=== PATIENT | female | born 1980 | race Hispanic/Latino ===

== ENCOUNTER 2018-01-04 20:33 | Emergency (ER) | payer OTHER ==
[2018-01-04] MEDS ORDERED: TETRACAINE HCL 0.5% 2ML OPTH ONE (20:54)
[2018-01-04] MEDS ORDERED: FLUORESCEIN SODIUM 0.6 MG/WRAP ONE (20:54)
[2018-01-04] MEDS ORDERED: DIPHENHYDRAMINE 25 MG TAB/CAP ONE (20:55)
--- NOTE | 2018-01-04 21:15 | ER ---
Nurse's Notes [facility] Name: Hannah Oneill Age: 37 yrs Sex: Female : 1980 Arrival Date: 01/04/2018 Time: 20:35 Bed 7 Private MD: Diagnosis: Hordeolum externum right upper eyelid;Eye irritation s/p medication Presentation: 01/04 20:41 Presenting complaint: Patient states: She came home from work and said she had a sty, aj1 so she used some OTC medication she got a HEB and as soon as applied the medication her eye started having a burning sensation, and now she can't open her eye. Transition of care: patient was not received from another setting of care. Mechanism of Injury: No Mechanism of Injury. Onset of symptoms was January 04, 2018 at 20:30. Risk Assessment: Do you want to hurt yourself or someone else? Patient reports no desire to harm self or others. Initial Sepsis Screen: Does the patient meet any 2 criteria? No. Patient's initial sepsis screen is negative. Does the patient have a suspected source of infection? No. Patient's initial sepsis screen is negative. Care prior to arrival: None. 20:41 Method Of Arrival: Ambulatory aj1 20:41 Acuity: MARY ANNE 3 aj1 20:59 The patient denies any loss of vision. lp1 Triage Assessment: 20:43 General: Appears in no apparent distress. uncomfortable, Behavior is calm, cooperative, aj1 appropriate for age. Pain: Complains of pain in right eye Pain. EENT: Reports right eye pain. Neuro: Level of Consciousness is awake, alert, obeys commands. Cardiovascular: Patient's skin is warm and dry. Respiratory: Airway is patent Respiratory effort is even, unlabored, Respiratory pattern is regular, symmetrical. 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 - Social history:: Smoking status: Patient uses tobacco products, smokes one-half pack cigarettes per day. - Ebola Screening: : Patient denies travel to an Ebola-affected area in the 21 days before illness onset. Screenin:58 Abuse screen: Denies threats or abuse. Denies injuries from another. Nutritional lp1 screening: No deficits noted. Tuberculosis screening: No symptoms or risk factors identified. Fall Risk None identified. Assessment: 20:57 General: Appears in no apparent distress. Behavior is appropriate for age. Pain: lp1 Complains of pain in right eye Pain currently is 8 out of 10 on a pain scale. Quality of pain is described as burning. Neuro: No deficits noted. Cardiovascular: No deficits noted. Respiratory: No deficits noted. GI: No deficits noted. : No deficits noted. EENT: Eyes edema, redness to right upper eye lid; patient states painful to move. Sclera/Cornea are clear in right eye. Derm: Skin is pink, warm \T\ dry. Musculoskeletal: No deficits noted. 21:00 Reassessment: Patient states relief to right eye after irrigation Patient states lp1 feeling better. Patient states symptoms have improved. Vital Signs: 20:43 BP 133 / 84; Pulse 97; Resp 18; Temp 97.6; Pulse Ox 97% on R/A; Weight 83.46 kg (R); aj1 Height 4 ft. 10 in. (147.32 cm) (R); Pain 10/10; 20:43 Body Mass Index 38.46 (83.46 kg, 147.32 cm) aj1 ED Course: 20:35 Patient arrived in ED. es 20:42 Triage completed. aj1 20:43 Arm band placed on Patient placed in an exam room. aj1 20:46 Bekah Platt FNP-C is PHCP. kb 20:46 Chay Gallo MD is Attending Physician. kb 20:57 Lelia Rodgers, KWESI is Primary Nurse. lp1 20:59 Patient has correct armband on for positive identification. lp1 20:59 Provider at bedside to irrigate right eye with NS. Patient did not have IV access lp1 during this emergency room visit. Administered Medications: 20:56 Drug: Tetracaine Drops 0.5 % 1 drops {Note: placed at bedside for provider to use.} ak1 Route: Ophthalmic; Site: right eye; 20:58 Drug: Benadryl 25 mg Route: PO; lp1 21:22 Follow up: Response: No adverse reaction; Marked relief of symptoms lp1 Outcome: 21:14 Discharge ordered by MD. hall 21:21 Discharged to home ambulatory, with significant other. lp1 21:21 Condition: good 21:21 Discharge instructions given to patient, Instructed on discharge instructions, Demonstrated understanding of instructions, follow-up care. 21:22 Patient left the ED. lp1 Signatures: Bekah Platt, HANDLE FINISHER-C HANDLE FINISHER-Ckb Tammy Nunez, RN RN aj1 Alice Serrano Laura RN RN lp1 Bindu Banda RN RN ak1
--- NOTE | 2018-01-04 21:15 | EDPHYS ---
Physician Documentation [facility] Name: Hannah Oneill Age: 37 yrs Sex: Female : 1980 Arrival Date: 01/04/2018 Time: 20:35 Bed 7 Private MD: ED Physician Chay Gallo HPI: 01/04 20:56 This 37 yrs old Female presents to ER via Ambulatory with complaints of Eye kb Pain, medication from over counter. 20:56 The patient is experiencing swelling of eyelid, pain, to the right eye, caused by kb "stye" mineral oil. Onset: The symptoms/episode began/occurred today. Duration: the symptoms are continuous. Aggravated by opening eye, Alleviated by nothing. Associated signs and symptoms: Pertinent positives: None. Severity of symptoms: At their worst the symptoms were moderate in the emergency department the symptoms are unchanged. The patient has not experienced similar symptoms in the past. The patient has not recently seen a physician. Pt states she has a stye that developed today so she bought some stuff for it at the store called "stye" and put it in her right eye. Immediately had burning to right eye, swelling to right eyelid. . 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 - Social history:: Smoking status: Patient uses tobacco products, smokes one-half pack cigarettes per day. - Ebola Screening: : Patient denies travel to an Ebola-affected area in the 21 days before illness onset. ROS: 20:56 Constitutional: Negative for fever, chills, and weight loss, Neck: Negative for injury, kb pain, and swelling, Cardiovascular: Negative for chest pain, palpitations, and edema, Respiratory: Negative for shortness of breath, cough, wheezing, and pleuritic chest pain, Abdomen/GI: Negative for abdominal pain, nausea, vomiting, diarrhea, and constipation, MS/Extremity: Negative for injury and deformity, Skin: Negative for injury, rash, and discoloration, Neuro: Negative for headache, weakness, numbness, tingling, and seizure. 20:56 Eyes: Positive for pain, swelling. Exam: 20:56 Constitutional: This is a well developed, well nourished patient who is awake, alert, kb and in no acute distress. Head/Face: Normocephalic, atraumatic. ENT: Nares patent. No nasal discharge, no septal abnormalities noted. Tympanic membranes are normal and external auditory canals are clear. Oropharynx with no redness, swelling, or masses, exudates, or evidence of obstruction, uvula midline. Mucous membranes moist. Neck: Trachea midline, no thyromegaly or masses palpated, and no cervical lymphadenopathy. Supple, full range of motion without nuchal rigidity, or vertebral point tenderness. No Meningismus. Chest/axilla: Normal chest wall appearance and motion. Nontender with no deformity. No lesions are appreciated. Cardiovascular: Regular rate and rhythm with a normal S1 and S2. No gallops, murmurs, or rubs. Normal PMI, no JVD. No pulse deficits. Respiratory: Lungs have equal breath sounds bilaterally, clear to auscultation and percussion. No rales, rhonchi or wheezes noted. No increased work of breathing, no retractions or nasal flaring. Abdomen/GI: Soft, non-tender, with normal bowel sounds. No distension or tympany. No guarding or rebound. No evidence of tenderness throughout. Back: No spinal tenderness. No costovertebral tenderness. Full range of motion. Skin: Warm, dry with normal turgor. Normal color with no rashes, no lesions, and no evidence of cellulitis. MS/ Extremity: Pulses equal, no cyanosis. Neurovascular intact. Full, normal range of motion. Neuro: Awake and alert, GCS 15, oriented to person, place, time, and situation. Cranial nerves II-XII grossly intact. Motor strength 5/5 in all extremities. Sensory grossly intact. Cerebellar exam normal. Normal gait. 20:56 Eyes: Periorbital structures: appear normal, Pupils: equal, round, and reactive to light and accomodation, Conjunctiva: normal, Lids and lashes: edema, of the right eye, stye, seen on the right lid. Vital Signs: 20:43 BP 133 / 84; Pulse 97; Resp 18; Temp 97.6; Pulse Ox 97% on R/A; Weight 83.46 kg (R); aj1 Height 4 ft. 10 in. (147.32 cm) (R); Pain 10/10; 20:43 Body Mass Index 38.46 (83.46 kg, 147.32 cm) aj1 MDM: 20:46 Patient medically screened. kb 21:02 Data reviewed: vital signs, nurses notes. Data interpreted: Pulse oximetry: on room air kb is 97 %. Interpretation: normal. Counseling: I had a detailed discussion with the patient and/or guardian regarding: the historical points, exam findings, and any diagnostic results supporting the discharge/admit diagnosis, the need for outpatient follow up, a family practitioner, to return to the emergency department if symptoms worsen or persist or if there are any questions or concerns that arise at home. ED course: tetracaine drops instilled into right eye. Opened eye and flushed with 60cc NS. Pt reports decreased burning, able to open right eye without pain. Educated to stop medication that she put in her eye for the stye.. Administered Medications: 20:56 Drug: Tetracaine Drops 0.5 % 1 drops {Note: placed at bedside for provider to use.} ak1 Route: Ophthalmic; Site: right eye; 20:58 Drug: Benadryl 25 mg Route: PO; lp1 21:22 Follow up: Response: No adverse reaction; Marked relief of symptoms lp1 Disposition: 01/05 07:24 Co-signature as Attending Physician, Chay Gallo MD I agree with the assessment and jae plan of care. Disposition: 01/04/18 21:14 Discharged to Home. Impression: Hordeolum externum right upper eyelid, Eye irritation s/p medication . - Condition is Stable. - Discharge Instructions: Stye. - Medication Reconciliation Form, Thank You Letter, Antibiotic Education, Prescription Opioid Use form. - Follow up: Emergency Department; When: As needed; Reason: Worsening of condition. Follow up: Private Physician; When: 2 - 3 days; Reason: Recheck today's complaints, Continuance of care, Re-evaluation by your physician. Signatures: Bekah Platt, PITER GOMEZ-Tammy Rojas, RN RN aj1 Chay Gallo MD MD cha Pena, Laura, RN RN lp1 Bindu Banda RN RN ak1 Corrections: (The following items were deleted from the chart) 01/04 21:22 21:14 01/04/2018 21:14 Discharged to Home. Impression: Hordeolum externum right upper lp1 eyelid; Eye irritation s/p medication . Condition is Stable. Forms are Medication Reconciliation Form, Thank You Letter, Antibiotic Education, Prescription Opioid Use. Follow up: Emergency Department; When: As needed; Reason: Worsening of condition. Follow up: Private Physician; When: 2 - 3 days; Reason: Recheck today's complaints, Continuance of care, Re-evaluation by your physician. kb
== END 2018-01-04 21:22 | disposition home or self-care (01) ==
LOC: ER 20:33
DX: H00.011 Hordeolum externum right upper eyelid (principal); Z88.8 Allergy status to other drugs, medicaments and biological substances; E03.9 Hypothyroidism, unspecified; F17.210 Nicotine dependence, cigarettes, uncomplicated; Z88.5 Allergy status to narcotic agent; Z88.6 Allergy status to analgesic agent; Z91.018 Allergy to other foods; Z91.040 Latex allergy status
CPT/HCPCS: 99283

== ENCOUNTER 2019-08-05 22:25 | Emergency (ER) | payer OTHER ==
--- OUTSIDE RECORDS SUMMARY | 2019-08-05 22:44 | XMS REPORT | Summary of Care ---
:1980 Author Organization [facility] Address [address] [place] [id number] Care Team Providers Name Role Phone Jacqueline Winn MD Primary Care Provider Tech, Cardio Fac Unavailable Unavailable Boo Fontaine MD Unavailable Reason for Visit Reason Comments HEALTH MAINTENANCE Medication Refills Encounter Details Date Type Department Care Team Description 11/01/2018 Telephone [facility] Mika Bennett RN HEALTH MAINTENANCE Accountable [address] (Medication Refills) [address] [place] [address] [place] [address] Allergies Active Allergy Reactions Severity Noted Date Comments Bee [place] Anaphylaxis 08/14/2017 [place] Swelling 02/18/2016 Clams Swelling 02/18/2016 Tree Nuts Other - See comments 02/18/2016 Throat itching / raw Latex Itching 12/04/2015 Morphine Shortness of Breath 12/04/2015 Ibuprofen Hives 12/04/2015 Pork Derived (Porcine) Swelling 02/18/2016 documented as of this encounter (statuses as of 11/01/2018) Medications Medication Sig Dispensed Refills Start End Date Status Date aspirin 81 mg chewable Take 81 mg by 0 Active tablet mouth daily. varenicline (CHANTIX Take one 0.5mg 1 Package 0 Active STARTING MONTH BOX) 0.5 tab by mouth once 8 mg (11)- 1 mg (42) tablet daily for 3 days, then one 0.5mg tab twice daily for 4 days, then one 1mg tab twice daily. efinaconazole (JUBLIA) 10 APPLY 2 DROPS TO 4 mL 5 11/16/2 01 Active % topical AFFECTED TOENAIL 8 solutionIndications: DAILY Onychomycosis EPINEPHrine (EPIPEN 0.3 mL by 2 Each 1 Active 2-RUTH) 0.3 mg/0.3 mL Intramuscular 8 injectionIndications: route as needed History of food allergy (anaphylaxis). ergocalciferol, vitamin 1 capsule by 8 capsule Active d2, (VITAMIN D2) 50,000 mouth 2 x a week 8 unit capsuleIndications: with food Vitamin D deficiency escitalopram oxalate 10 Take 1 tablet by 30 tablet Active mg tabletIndications: mouth daily. 8 PTSD (post-traumatic stress disorder), Panic disorder with agoraphobia, Chronic depression Lancets MiscIndications: Check glucose 50 Each Active Controlled type 2 every morning 8 diabetes mellitus without before breakfast complication, without and as needed for long-term current use of symptoms; insulin Diagnosis code R73.03 levocetirizine 5 mg Take 0.5-1 30 tablet Active tabletIndications: tablets by mouth 8 Chronic allergic rhinitis every evening as needed for Allergies. vitamin B-12 (VITAMIN Take 1 tablet by 30 tablet Active B-12) 500 mcg mouth daily. 8 tabletIndications: B12 deficiency levothyroxine 125 mcg Take 1 tablet by 30 tablet Active tabletIndications: mouth every 9 Acquired hypothyroidism morning. albuterol (PROAIR HFA) 90 Inhale 2 Puffs 1 Inhaler 2 Active mcg/actuation every 6 (six) 9 inhalerIndications: hours as needed Medication refill for Wheezing or Shortness of Breath. montelukast 10 mg Take 1 tablet by 30 tablet 5 Active tabletIndications: mouth every 9 Medication refill evening. ranitidine 150 mg Take 1 tablet by 60 tablet Active tabletIndications: mouth 2 (two) 9 Medication refill times daily. albuterol 2.5 mg /3 mL Inhale 3 mL every 120 Vial 1 Active (0.083 %) nebulizer 4 (four) hours as 9 solutionIndications: needed for Bronchitis with Wheezing or bronchospasm Shortness of Breath. Via nebulizer omeprazole 40 mg Take 1 capsule by 30 capsule 5 Active capsuleIndications: mouth daily. 9 Medication refill LIOTHYRONINE 5 mcg TAKE 1 TABLET BY 30 tablet 5 Active tabletIndications: MOUTH EVERY 9 Acquired hypothyroidism MORNING. Blood-Glucose Meter Check glucose 1 Each 0 Active (ACCU-CHEK LEIDY PLUS once daily before 9 METER) MiscIndications: breakfast; Controlled type 2 Diagnosis code diabetes mellitus without E11.9 complication, without long-term current use of insulin blood sugar diagnostic TEST BLOOD SUGAR 100 Strip 11 Active (ACCU-CHEK LEIDY PLUS TID; ICD-10 code 9 TEST STRP) E11.69 stripIndications: Diabetes mellitus type 2 in obese Insulin [place], Use as directed 100 Each 1 Active Disposable, (BD to inject Victoza 9 ULTRA-FINE MICRO PEN daily; ID-10 code NEEDLE) 32 gauge x 1/4" E11.69 NdleIndications: Diabetes mellitus type 2 in obese tiZANidine 2 mg Take 1 tablet by 30 tablet 1 Active tabletIndications: Muscle mouth every 8 9 pain (eight) hours as needed (muscle pain or spasm). fluticasone 50 Use 2 Sprays in 16 g 5 Active mcg/actuation nasal each nostril 9 sprayIndications: daily. Medication refill rosuvastatin 40 mg Take 1 tablet by 30 tablet 5 Active tabletIndications: mouth at bedtime. 9 Hypercholesterolemia DOSE INCREASE. EZETIMIBE 10 mg TAKE ONE (1) 90 tablet 3 A ctive tabletIndications: TABLET(S) BY 9 Hypercholesterolemia MOUTH ONCE A DAY. cefdinir 300 mg Take 1 capsule by 20 capsule 0 11/09 Active capsuleIndications: Acute mouth 2 (two) 9 19 bacterial sinusitis, times daily for Acute bacterial 10 days. 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 (HSV) antibody 01/02/2017 Headache disorder 12/14/2016 Obesity (BMI 30-39.9) 11/11/2016 Seizure 11/07/2016 Female hirsutism 10/24/2016 Submandibular sialoadenitis 07/22/2016 Hyperinsulinemia 07/20/2016 Heart palpitations 07/11/2016 Obstructive sleep apnea 04/13/2016 LUQ abdominal pain 01/28/2016 Gastroesophageal reflux disease without esophagitis Onychomycosis 12/25/2015 Seborrhea 12/25/2015 Chronic allergic rhinitis 12/25/2015 Fatty liver 12/16/2015 Acquired autoimmune hypothyroidism 12/09/2015 Abnormal liver function test 12/09/2015 Hypercholesterolemia 12/09/2015 Diabetes mellitus type 2 in obese 12/09/2015 Microscopic hematuria 12/09/2015 B12 deficiency 12/09/2015 Vitamin D deficiency 12/09/2015 Pseudoseizures 12/04/2015 Migraines 12/04/2015 Depression Asthma Overview: Current documented as of this encounter (statuses as of 11/01/2018) Immunizations Name Administration Dates Next Due Influenza Virus Vaccine Quad IM 12/25/2015 Multi-dose 6+ MO Twinrix (hep a/hep b) 07/08/2016, 01/29/2016, 12/25/2015 documented as of this encounter Social History Tobacco Use Types Packs/Day Years Used Date Current Every Day Smoker Smokeless Tobacco: Never Used Alcohol Use Drinks/Week oz/Week Comments No 0 Standard drinks or equivalent 0.0 Rare Sex Assigned at Date Recorded Not on file Job Start Date Occupation Industry Not on file Not on file Not on file Travel History Travel Start Travel End No recent travel history available. documented as of this encounter Last Filed Vital Signs Not on filedocumented in this encounter Plan of Treatment Date Type Specialty Care Team Description 11/14/2018 Office Visit Gastroenterology Karina Tyson PA [address] [place] [address] [phone] 11/26/2018 Office Visit Neurology Marcus Madison MD [address] [place], [place] [phone] 12/24/2018 Office Visit Family Medicine Winnie Winn MD [address] [place] [phone] Health Maintenance Due Date Last Done Comments PNEUMOCOCCAL 0-64 YEARS COMBINED 1986 SERIES (1 of 1 - PPSV23) VARICELLA VACCINES (1 of 2 - 13+ 1993 2-dose series) DTaP,Tdap,and Td Vaccines (1 - 1999 Tdap) FOOT EXAM 11/28/2018 11/28/2017, 11/28/2017, 08/14/2017, Additional history exists INFLUENZA VACCINE 12/09/2018 12/25/2015 EYE EXAM 02/08/2019 02/08/2018, 01/08/2018 PAP SMEAR 02/17/2019 02/18/2016 URINE MICROALBUMIN 02/23/2019 02/23/2018 HgA1C 03/23/2019 09/21/2018, 05/31/2018, 02/23/2018, Additional history exists CREATININE (SERUM) 09/22/2019 09/21/2018, 05/31/2018, 02/23/2018, Additional history exists LDL-C 09/22/2019 09/21/2018, 05/31/2018, 02/23/2018, Additional history exists documented as of this encounter Goals Goal Patient Goal Associated Recent Patient-Stated? Author Type Problems Progress Quit using Tobacco Use No [place], tobacco Wondiful A, (cigarettes, smokeless, etc) documented as of this encounter Results Not on filedocumented in this encounter Insurance Payer Benefit Plan / Subscriber ID Effective Phone Address [facility] [id number] 2018-Pre Medicar e Adv HEALTHCARE - HEALTHCARE sent PPO MANAGED MEDICARE [place] MEDICARE [place] xxxxxxxxx 2017-Pr Me dicaid HEALTHCARE COMM PLUS esent PLAN - MANAGED MEDICAID [employer] [id number] 2016-Pre [address] BOX Beh avioral [facility] sent [id number] [place] [address] documented as of this encounter Advance Directives Name Relationship Healthcare Agent Relationship Co mmunication Juliann Oneill Mother Primary healthcare agent [email or web address]
--- OUTSIDE RECORDS SUMMARY | 2019-08-05 22:44 | XMS REPORT ---
:1980 Author Organization [facility] Address [address] [place] [address] Dr. Juarez [address] [place] [address] Care Team Providers Name Role Phone Unavailable Unavailable Unavailable Problems This patient has no known problems. Allergies, Adverse Reactions, Alerts This patient has no known allergies or adverse reactions. Medications This patient has no known medications.
--- OUTSIDE RECORDS SUMMARY | 2019-08-05 22:45 | XMS REPORT | Summary of Care ---
:1980 Author Organization [facility] - [facility] Address [address] [place] [id number] Care Team Providers Name Role Phone Jacqueline Winn MD Primary Care Provider Tech, Cardio Fac Unavailable Unavailable Boo Fontaine MD Unavailable Reason for Visit Reason Comments Refill Request Encounter Details Date Type Department Care Team Description 11/26/2018 Refill [facility] Family Medicine Jacqueline Thomas MD Refill Request - [address] [place] [address] [place] [address] [phone] Allergies Active Allergy Reactions Severity Noted Date Comments Bee [place] Anaphylaxis 08/14/2017 [place] Swelling 02/18/2016 Clams Swelling 02/18/2016 Tree Nuts Other - See comments 02/18/2016 Throat itching / raw Latex Itching 12/04/2015 Morphine Shortness of Breath 12/04/2015 Ibuprofen Hives 12/04/2015 Pork Derived (Porcine) Swelling 02/18/2016 documented as of this encounter (statuses as of 11/26/2018) Medications Medication Sig Dispensed Refills Start End Status Date Date aspirin 81 mg chewable Take 81 mg by 0 Active tablet mouth daily. varenicline (CHANTIX Take one 0.5mg 1 Package 0 11/29/19 Active STARTING MONTH BOX) 0.5 tab by mouth 18 mg (11)- 1 mg (42) once daily for 3 tablet days, then one 0.5mg tab twice daily for 4 days, then one 1mg tab twice daily. efinaconazole (JUBLIA) APPLY 2 DROPS TO 4 mL 5 02/24/20 Active 10 % topical AFFECTED TOENAIL 18 solutionIndications: DAILY Onychomycosis EPINEPHrine (EPIPEN 0.3 mL by 2 Each 1 02/24/20 Active 2-RUTH) 0.3 mg/0.3 mL Intramuscular 18 injectionIndications: route as needed History of food allergy (anaphylaxis). ergocalciferol, vitamin 1 capsule by 8 capsule 5 02/24/20 Active d2, (VITAMIN D2) 50,000 mouth 2 x a week 18 unit with food capsuleIndications: Vitamin D deficiency escitalopram oxalate 10 Take 1 tablet by 30 tablet 5 02/24/20 Active mg tabletIndications: mouth daily. 18 PTSD (post-traumatic stress disorder), Panic disorder with agoraphobia, Chronic depression Lancets Check glucose 50 Each 02/24/20 Active MiscIndications: every morning 18 Controlled type 2 before breakfast diabetes mellitus and as needed without complication, for symptoms; without long-term Diagnosis code current use of insulin R73.03 levocetirizine 5 mg Take 0.5-1 30 tablet 5 02/24/20 Active tabletIndications: tablets by mouth 18 Chronic allergic every evening as rhinitis needed for Allergies. vitamin B-12 (VITAMIN Take 1 tablet by 30 tablet 02/24/20 Active B-12) 500 mcg mouth daily. 18 tabletIndications: B12 deficiency albuterol (PROAIR HFA) Inhale 2 Puffs 1 Inhaler 2 04/19/19 Active 90 mcg/actuation every 6 (six) 19 inhalerIndications: hours as needed Medication refill for Wheezing or Shortness of Breath. montelukast 10 mg Take 1 tablet by 30 tablet 5 04/19/19 Active tabletIndications: mouth every 19 Medication refill evening. ranitidine 150 mg Take 1 tablet by 60 tablet 5 04/19/19 Active tabletIndications: mouth 2 (two) 19 Medication refill times daily. albuterol 2.5 mg /3 mL Inhale 3 mL 120 Vial 1 04/19/19 Active (0.083 %) nebulizer every 4 (four) 19 solutionIndications: hours as needed Bronchitis with for Wheezing or bronchospasm Shortness of Breath. Via nebulizer omeprazole 40 mg Take 1 capsule 30 capsule 5 04/19/19 Active capsuleIndications: by mouth daily. 19 Medication refill LIOTHYRONINE 5 mcg TAKE 1 TABLET BY 30 tablet 5 05/08/19 Active tabletIndications: MOUTH EVERY 19 Acquired hypothyroidism MORNING. Blood-Glucose Meter Check glucose 1 Each 0 05/31/19 Active (ACCU-CHEK LEIDY PLUS once daily 19 METER) MiscIndications: before Controlled type 2 breakfast; diabetes mellitus Diagnosis code without complication, E11.9 without long-term current use of insulin blood sugar diagnostic TEST BLOOD SUGAR 100 Strip 11 07/20/19 Active (ACCU-CHEK LEIDY PLUS TID; ICD-10 code 19 TEST STRP) E11.69 stripIndications: Diabetes mellitus type 2 in obese Insulin [place], Use as directed 100 Each 1 07/20/19 Active Disposable, (BD to inject 19 ULTRA-FINE MICRO PEN Victoza daily; NEEDLE) 32 gauge x 1/4" ID-10 code NdleIndications: E11.69 Diabetes mellitus type 2 in obese tiZANidine 2 mg Take 1 tablet by 30 tablet 1 09/22/19 Active tabletIndications: mouth every 8 Muscle pain (eight) hours as needed (muscle pain or spasm). fluticasone 50 Use 2 Sprays in 16 g 5 09/22/19 Active mcg/actuation nasal each nostril 19 sprayIndications: daily. Medication refill rosuvastatin 40 mg Take 1 tablet by 30 tablet 5 09/29/19 Active tabletIndications: mouth at 19 Hypercholesterolemia bedtime. DOSE INCREASE. EZETIMIBE 10 mg TAKE ONE (1) 90 tablet 3 10/03/19 A ctive tabletIndications: TABLET(S) BY 19 Hypercholesterolemia MOUTH ONCE A DAY. methylPREDNISolone 4 mg Follow package 21 Each 0 10/31/19 Active tabletsIndications: directions 19 Acute bacterial sinusitis, Acute bacterial bronchitis LEVOTHYROXINE 125 mcg TAKE ONE (1) 30 tablet 4 11/27/19 Active tabletIndications: TABLET(S) BY 19 Acquired hypothyroidism MOUTH EVERY MORNING. levothyroxine 125 mcg Take 1 tablet by 30 tablet 5 04/11/19 0 tabletIndications: mouth every 2018 Acquired hypothyroidism morning. documented as of this encounter (statuses as of 11/26/2018) Active Problems Problem Noted Date Hair loss [...] as of this encounter (statuses as of 11/26/2018) Immunizations Name Administration Dates Next Due Influenza [...] Treatment Date Type Specialty Care Team Description 12/24/2018 Office Visit Family Medicine Winnie Winn MD [address] [place] [phone] 03/04/2019 Office Visit Neurology Marcus Madison MD [address] [place], [place] [phone] 05/28/2019 Office Visit Neurology Marcus Madison MD [address] [place] [phone] Health Maintenance Due Date Last Done Comments PNEUMOCOCCAL 0-64 YEARS COMBINED 1986 SERIES (1 of 1 - PPSV23) VARICELLA VACCINES (1 of 2 - 13+ 1993 2-dose series) DTaP,Tdap,and Td Vaccines (1 - 1999 Tdap) FOOT EXAM 11/28/2018 11/28/2017, 11/28/2017, 08/14/2017, Additional history exists INFLUENZA VACCINE (#1) 2018 12/25/2015 EYE EXAM 02/08/2019 02/08/2018, 01/08/2018 PAP SMEAR 02/17/2019 02/18/2016 URINE MICROALBUMIN 02/23/2019 02/23/2018 HgA1C 03/23/2019 09/21/2018, 05/31/2018, 02/23/2018, Additional history exists CREATININE (SERUM) 09/22/2019 09/21/2018, 05/31/2018, 02/23/2018, Additional history exists LDL-C 09/22/2019 09/21/2018, 05/31/2018, 02/23/2018, Additional history exists documented as of this encounter Goals Goal Patient Goal Associated Recent Patient-Stated? Author Type Problems Progress Quit using Tobacco Use No [place], tobacco Wondiful A, (cigarettes, MD smokeless, etc) documented as of this encounter Results Not on filedocumented in this encounter Visit Diagnoses Diagnosis Acquired hypothyroidism Unspecified hypothyroidism documented in this encounter Insurance Payer Benefit Plan / Subscriber ID Effective Phone Address T ype Group Dates [facility] [id number] 2018-Prese Medic are Adv HEALTHCARE - HEALTHCARE nt PPO MANAGED MEDICARE [place] MEDICARE [place] [employer] xxxxxxxxx 2017-Pres Medicaid HEALTHCARE COMM PLUS ent PLAN - MANAGED MEDICAID documented as of this encounter Advance Directives Name Relationship Healthcare Agent Relationship Co mmunication Juliann Oneill Mother Primary healthcare agent [email or web address]
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
--- OUTSIDE RECORDS SUMMARY | 2019-08-05 22:46 | XMS REPORT | Summary of Care ---
:1980 Author Organization [facility] Address [address] [place] [address] Care Team Providers Name Role Phone Jacqueline Winn MD Primary Care Provider Tech, Cardio Fac Unavailable Unavailable Boo Fontaine MD Unavailable Reason for Visit Reason Comments Botox Injection (Routine) Status Reason Specialty Diagnoses / Procedures Referred By Rolando zhaoerred To Contact Contact Authorized Neurology Diagnoses Migraine without aura, not intractable, without status migrainosus Marcus Madison V, Marcus Madison Procedures NH INJECTION,ONABOTULINUMTOXINA NH CHEMODERVATE FACIAL/TRIGEM/CERV MUSC MIGRAINE MD Adal MD [address] [place] [phone] Phone: Fax: Encounter Details Date Type Department Care Team Description 11/26/[address] [facility] Marcus Madison V, Migraine without aura and without status migrainosus, not intractable (Primary Dx); NeurologyOrion MD Pseudoseizures; [address] Mood disorder; [address] [place], [place] Acquired autoimmune hypothyroidism [address] [address] [place], [place] [phone] [address] [phone] Allergies Active Allergy Reactions Severity Noted Date Comments Bee Bruce Anaphylaxis 08/14/2017 Anna Swelling 02/18/2016 Clams Swelling 02/18/2016 Tree Nuts Other - See comments 02/18/2016 Throat itching / raw Latex Itching 12/04/2015 Morphine Shortness of Breath 12/04/2015 Ibuprofen Hives 12/04/2015 Pork Derived (Porcine) Swelling 02/18/2016 documented as of this encounter (statuses as of 11/27/2018) Medications Medication Sig Dispensed Refills Start End [...] (VITAMIN Take 1 tablet by 30 tablet 5 02/24/20 Active B-12) 500 mcg mouth daily. [...] 40 mg Take 1 capsule 30 capsule 04/19/19 Active capsuleIndications: by mouth daily. 19 [...] sugar diagnostic TEST BLOOD SUGAR 100 Strip 07/20/19 Active (ACCU-CHEK LEIDY PLUS TID; ICD-10 code 19 TEST STRP) E11.69 stripIndications: Diabetes mellitus type 2 in obese Insulin [place], Use as directed 100 Each 07/20/19 Active Disposable, (BD to inject 19 ULTRA-FINE MICRO PEN Victoza daily; NEEDLE) 32 gauge x 1/4" ID-10 code NdleIndications: E11.69 Diabetes mellitus type 2 in obese tiZANidine 2 mg Take 1 tablet by 30 tablet 1 09/22/19 Active tabletIndications: mouth every 8 19 Muscle pain (eight) hours as needed (muscle pain or spasm). fluticasone 50 Use 2 Sprays in 16 g 09/22/19 Active mcg/actuation nasal each nostril 19 sprayIndications: daily. Medication refill rosuvastatin 40 mg Take 1 tablet by 30 tablet 5 09/29/19 Active tabletIndications: mouth at 19 Hypercholesterolemia bedtime. DOSE INCREASE. EZETIMIBE 10 mg TAKE ONE (1) 90 tablet 3 10/03/19 A ctive tabletIndications: TABLET(S) BY 19 Hypercholesterolemia MOUTH ONCE A DAY. methylPREDNISolone 4 mg Follow package 21 Each 0 10/31/19 Active tabletsIndications: Acute bacterial sinusitis, Acute bacterial bronchitis levothyroxine 125 mcg Take 1 tablet by 30 tablet 5 04/11/19 0 tabletIndications: mouth every 2018 Acquired hypothyroidism morning. Hospital, Clinic, or Other Ordered Dose Route Frequency Start Date End Date Status Facility Administered Medication clostridium botulinum toxin 200 Units IM ONCE 11/26/2018 0 11/26/2018 Ended (BOTOX) 200 Units in NaCl 0.9% (NS) 4 mL injection documented as of this encounter (statuses as of 11/27/2018) Active Problems Problem Noted Date Hair loss [...] as of this encounter (statuses as of 11/27/2018) Immunizations Name Administration Dates Next Due Influenza [...] Sign Reading Time Taken Comments Blood Pressure 126/76 11/26/2018 1:18 PM CDT Pulse 87 11/26/2018 1:18 PM CDT Temperature - - Respiratory Rate 20 11/26/2018 1:18 PM CDT Oxygen Saturation 97% 11/26/2018 1:18 PM CDT Inhaled Oxygen Concentration - - Weight 82 kg (180 lb 12.8 oz) 11/26/2018 1:18 PM CDT Height 147.3 cm (4' 10") 11/26/2018 1:18 PM CDT Body Mass Index 37.79 11/26/2018 1:18 PM CDT documented in this encounter Progress Notes Siri Fortune MA - 11/26/2018 1:00 PM CDT Hannah Oneill is a 38 year old female Chief Complaint Patient presents with Botox Injection atel, Marcus Galeas MD - 11/26/2018 1:00 PM CDT DATE OF SERVICE: 11/23/2018 20:29 Visit type: follow up CHIEF COMPLAINT: seizure and headache Follow up visit: 11/26/18 She is here for headache follow up, accompanied by . Her migraine headache frequency is about almost 0-1 in first 11 weeks, last week she had 3 in row. Duration of headache is daily.No ED visits. Able to carry out daily activities. Has been using botox for prevention and Excedrin for rescue. Last botox August 2018. No adverse reactions.Mood is stable. No suicidal or homicidal ideation. Bought the house, stress has improved. Follow up visit: 08/20/18 Patient is here for follow up. She received last botox injection in 05/29. Her headache are well controlled with Botox at present. Headache frequency is about 1-2 per month And lasts about few hours.No new neurological symptoms. No seizure like episodes. Mood is stable. NO suicidal or homicidal ideation. Stress has increased as in process of getting house closing. Follow up visit 05/28/18 Patient presented to the clinic accompanied by her for follow up. The last botox injection was on 03/05/18. Patient had severe headache after last botox injection. However, patient states that her headache is improved with botox injection except the short period of worsening headache after botox injection. At that time, she believes that her anxiety also contributed to her headache. Currently, she has 2-3 times headache a week, has been using 10 Excedrin a week. She had almost daily headache before the botox injection. Patient denies any new neurological symptoms and wants to get botox injection today. Follow up visit: 03/05/18 Patient is here for follow up, accompanied by . Migraine frequency has increased. Has been using 10-14 Excedrin a month. Botox has helped a lot with reduction in frequency. NO adverse reactions.Sleep is normal. Mood is Stable. Compliance with hydration. Follow up visit: 12/12/17 Patient is here for follow up. Her migraine is well controlled with preventive treatment of botox. Her headache frequency is reduced to twice a month. No adverse reactions. Mood is stable. Sleep is normal. NO stressors. She keeps herself well hydrated. Interval history: 08/21/2017 Hannah Oneill is a 37 year old female presents for clinic followup for botox therapy. Patient states that she has had 8 headaches/3 months after receiving the botox therapy. Prior to that she states that she use to have daily headaches. No adverse events reported s/p botox. Follow up visit: 05/15/17 Patient is here for follow up. Last botox injection helped a lot with migraine however, migraine hasreturned since last 2 weeks. She has stopped taking Topamax as it was not helping initially and botox has helped her a lot. No new symptoms. Has stopped using Esgic. Follow with Psychiatrist for Bipolar disorder and PTSD. Mood stable. No suicidal or homicidal thoughts. HPI 01/10/17 Hannah Oneill is a 36 year old female with PMH as below who was presented to the clinic today aftershe was diagnosed with PNES at [facility] in October this year. Patient reports that she had two episodes of seizure like activity after she was discharged from EMU. Topamax was discontinued after the EMU. She had 10-12 migraines per month before she stopped topamax.Patient reports that she started having morefrequent migraines after her topamax was stopped. She described his migraine as preceded by strangesmelling, flashing light, located at the back of the head, spreading to the frontal head, associatedwith nausea, photophobia and phonophobia, 17-18 migraines per month in frequency, lasting about 6 hours. Esgic makes the headache better, activity makes the headache worse. Currently, she esgic 4 tablets almost everyday for her head. She denies any vision change, focal weakness or numbness. She has an appointment with psychiatry on 01/18 for her PNES. HPI 08/12/16 Hannah Oneill is a 36 year old right handed female came for evaluation for possible seizure, accompanied by . Per patient, her episodes started about 8 years ago. She underwent Allergy testing ended up rushed to ED. Per patient she coded twice in ED for 3 mins and she was admitted to ICU.She stayed in ICU and she believes her seizures started around that time. She can not describe her details. She was discharged home on Tegretol. She was on Tegretol for 6 months and she was advised to switch. However, she lost her insurance and was not on any medication until she consulted DR. Ge at [facility]. She underwent 72hours EEG and Imagine studies( not available to me). 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 She was on Topamax 25am [id number] for seizures. She feels sleepy on it. However,she has hypothyroidism and her dose has recently increased and JOEY for which she has started using CPAP for last 2 months. Sleepes 6 hours. Currently living with for 3 years. No sz for 1 st year, restarted after that. Per , episode as staring for 3-4 mons followed by right face jerking and b/l eye flutter. Followed by b/l tonic spasm of hands and legs. Spasm last about couple of days and full recovery of mentation takes about 1 week. sometimes can recall episode. Some episodes with Urinary incontinence. No tongue biting or Stool incontinence. Has not checked Blood sugar during episode. Normal and development, no febrile seizure , no head trauma, high school graduate, does not work FH- seizure, grandmother, aunt and Both parents side On Lexapro for anxiety and depression which is well controlled per patient Has not tried other AEDS PMH- Anxiety ,depression, dm, hypothyroidism PSH- Hysterectomy after second child, tubal ligation FH- seizures SH- never a smoker, no alcohol or drug use, post menopausal Past Medical History: Diagnosis Date Abnormal uterine [...] / has lost whole baldder on occation ? Past Surgical History: Procedure Laterality Date ABDOMEN SURGERY PROC UNLISTED Hernia Repair post tubal 2002 APPENDECTOMY ESOPHAGOGASTRODUODENOSCOPY N/A 07/01/2016 Surgeon: Sean Rodriguez MD; Location: [place] Location ESOPHAGOGASTRODUODENOSCOPY N/A 09/06/2016 Surgeon: Jonny Enriquez MD; Location: [facility] Location HERNIA REPAIR HYSTERECTOMY 2009 due to DUB, still has ovaries KNEE ARTHROSCOPY bilateral RADICAL HYSTERECTOMY SALPINGECTOMY ? tube removed /not sure was very infected post tubal 2002 TUBAL LIGATION 2002 ? Current Outpatient Medications Medication Sig Dispense Refill methylPREDNISolone 4 mg tablets Follow package directions 21 Each 0 EZETIMIBE 10 mg tablet TAKE ONE (1) [...] ICD-10 code E11.69 100 Strip 11 Insulin [place], Disposable, (BD ULTRA-FINE MICRO PEN NEEDLE) 32 gauge x 1/4" Ndle Use as directed to inject Victoza daily; ID-10 code E11.69 100 Each 1 Blood-Glucose Meter (ACCU-CHEK LEIDY PLUS METER) [facility] Check glucose once daily before breakfast;Diagnosis code [...] by mouth daily. 30 tablet 5 Lancets [facility] Check glucose every morning before breakfast and [...] Take 81 mg by mouth daily. No current facility-administered medications for this visit. ? Allergies Allergen Reactions Bee Bruce Anaphylaxis Anna Swelling Clams Swelling Coconut [Tree Nuts] Other - See comments Throat itching / raw Latex Itching Morphine Shortness of Breath Motrin [Ibuprofen] Hives Pork Derived (Porcine) Swelling Family History Problem Relation Age of Onset [...] Psychiatry NoFHx Other - see comments NoFHx ? Social History Socioeconomic History Marital status: Single [...] file Gets together: Not on file Attends mandaen service: Not on file Active member of [...] seizure d/o. Denies domestic or physical violence REVIEW OF SYSTEM General: (-) fever, (-) chills, (-) weight change, (-) dizziness, (+) fatigue, (-) change in appetite Skin: (-) rash, (-) lesion HEENT: (+) headache, (-) change in hearing, (-) change in vision, (-) nasal discharge, (-) sore throat Neck: (-) pain, (-) difficulty swallowing, (-) mass Heme: (-) bleeding disorder Resp: (-) cough, (-) shortness of breath, (-) dyspnea on exertion Cardio: (-) chest pain, (-) palpitations, (-) syncope GI: (-) abdominal pain, (-) nausea, (-) vomiting, (-) diarrhea, (-) constipation, (-) melena, (-) hematochezia, (-) hematemesis : (-) dysuria, (-) hematuria, (-) increased frequency, (-) difficulty urinating, (-) difficulty initiating Endo: (-) heat intolerance, (-) diabetes, (-) cold intolerance, (-) polyuria, (- ) polydipsia, (-) renal insufficiency, (-) thyroid disease Neuro: (-) numbness, (-) tingling, (-) weakness Back: (-) pain, (-)spasms TREVON: (-) muscle pain, (-) joint pain, (-) claudication Psych: (-) anxiety, (+) depression, (-) psychiatric disorder PHYSICAL EXAM Vitals: 11/26/18 1318 BP: 126/76 Pulse: 87 Resp: 20 SpO2: 97% Weight: 180 lb 12.8 oz (82 kg) Height: 4' 10" (1.473 m) General: alert and oriented x 4 (time,person, place and situation); no apparent distress Mental Status: consciousness, attention, concentration, fund of knowledge , remote and recent memory: normal Speech/ Language: intact to comprehension, fluency, repetition and naming. CN: I. Not tested. II. PERRL. FOV full to confrontation. Discs visualized, no papilledema. III., IV., . Extraocular movements intact without nystagmus. V. Normal sensation in V1-3 distributions. VII. No facial droop noted. VIII. Hearing intact. IX., X. Palatal elevation and gag response present symmetrically. XI. Normal Strength of sternocleidomastoid and trapezius muscles bilaterally. XII. Tongue in midline. Motor: Tone : normal , Bulk: normal, Muscle strength: Deltoid:right 5/5,left 5/5 Biceps: right 5/5, left 5/5 Triceps: right 5/5, left 5/5 Wrist Flexion: right 5/5, left 5/5 Wrist Extension: right 5/5, left 5/5 Finger Flexion: right 5/5, left 5/5 Finger Extension: right 5/5, left 5/5 Iliopsoas: right 5/5, left 5/5 Knee Flexion/Hamstrings: right 5/5, left 5/5 Knee Extension/Quadriceps: right 5/5, left 5/5 Plantar Flexion: right 5/5, left 5/5 Dorsi Flexion: right 5/5, left 5/5 DTR's: Biceps: right 2, left 2 Triceps: right 2, left 2 Brachioradialis: right 2, left 2 Patellar: right 2, left 2 Achilles: right 2, left 2 Reflexes: Babinski: neg, Haynes :neg, Jaw Jerk: neg Cerebellar: Nystagmus:neg, FTN: nl, HTS:nl, Tremors:neg Sensory: LT: intact, temperature: intact, PP: intact, proprioception: intact, Vibration: intact Gait: normal Exptrapyramidal signs: No abnormal movements seen, no abnormal posture seen. HEENT: pupils equal, round, reactive to light; extraocular movements intact; oropharynx clear; moistmucous membranes Lungs: clear to auscultation bilaterally Cardio: S1, S2 normal Extremities:no cyanosis,clubbing or edema Neck:supple,no carotid bruit,no JVD Abdomen: soft; non-tender; non-distended; normoactive bowel sounds heard LAB DATA Reviewed labs RADIOLOGY/IMAGING Reviewed brain MRI (04/19/16) PROCEDURE NOTE: Indication: Refractory Migraine headaches Type Of Botulinum Toxin:Botox Today`s date- 11/26/18 Last Injected:08/20/18 Side Effects: N/A Duration and Effect: N/A Total Units Diluted: 200 units (200unit in 4 cc) Total Units Injected: 155 units Wastage: 45 units Informed Consent was obtained, standard protocol was used Botox lot number [id number], Expiration 2021, single 200 units vial Muscles Injected Right-dose left-dose Dose in units Procerus 5 5 Furnace Filler 5 5 10 Frontalis 5x2 5x2 20 Temporalis 5x4 5x4 40 occipitalis 5x3 5x3 30 Cervical spinalis 5x2 5x2 20 Trepezius 5x3 5x3 30 Total Units injected 155 Wastage 45 ASSESSMENT/ RECOMMENDATIONS/PLAN Intractable migraine with aura without status migrainosus (primary encounter diagnosis) Comment: stable Plan: botox injection today -currently takes excedrin for breakthrough headaches, as needed <3 days/week with PPI/H2 blockersand meals -Magnesium 400mg daily and Riboflavin 400mg daily -MOA and adverse reactions discussed - Rebound headache - Consider Toradol injection for breakthrough migraine - Can consider Zofran and Benadryl if needed in future to avoid ED visit Pseudoseizures- no AEDS, stress relaxation Bipolar disorder/PTSD Plan: follow up with psychiatry Acquired autoimmune hypothyroidism- follow up with PCP Plan: on levothyroxine and liothyronine Heart palpitations, frequency PVC Plan: follow up with cardiology Total time spent>30 mins, >50% time counseling/coordinating care for Migraine, pseudoseizure, mood disorder, thyroid dysfunction Total time spent > 30 mins for the botox procedure. Informed consent was obtained. Patient tolerated procedure well. No complications. Follow up in 3 months and 6 months documented in this encounter Plan of Treatment Date Type Specialty Care Team Description 12/24/2018 Office Visit Family Medicine Winnie Winn MD [address] [place] [address] [phone] 03/04/2019 Office Visit Neurology Marcus Madison MD [address] [place] [address] [phone] 05/28/2019 Office Visit Neurology Marcus Madison MD [address] [place] [address] [phone] Health Maintenance Due Date Last Done [...] Problems Progress Quit using Tobacco Use No [place], tobacco Wondiful A, (cigarettes, MD smokeless, etc) documented as of this encounter Results Not on filedocumented in this encounter Visit Diagnoses Diagnosis Migraine without aura and without status migrainosus, not intractable - Primary Migraine without aura, without mention o f intractable migraine without mention of status migrainosus Pseudoseizures Other convulsions Mood disorder Unspecified episodic mood disorder Acquired autoimmune hypothyroidism Other specified acquired hypothyroidism documented in this encounter Administered Medications Medication Order MAR Action Action Date Dose Rate Site clostridium botulinum Given by Provider 11/26/2018 1:59 PM 200 Units Face toxin (BOTOX) 200 Units in CDT NaCl 0.9% (NS) 4 mL injection documented in this encounter Insurance Payer Benefit Plan / Subscriber ID Effective Phone Address T e Group Dates [facility] [id number] 2018-Prese Medic are Adv HEALTHCARE - HEALTHCARE nt PPO MANAGED MEDICARE SILVER MEDICARE [place] xxxxxxxxx 2017-Pres Medicaid HEALTHCARE COMM PLUS ent PLAN - MANAGED MEDICAID documented as of this encounter Advance Directives Name Relationship Healthcare Agent Relationship Co mmunication Juliann Oneill Mother Primary healthcare agent [email or web address]
--- OUTSIDE RECORDS SUMMARY | 2019-08-05 22:47 | XMS REPORT | Summary of Care ---
:1980 Author Organization [facility] Address [address] [place], [place] [address] Care Team Providers Name Role Phone Jacqueline Winn MD Primary Care Provider Tech, Cardio Fac Unavailable Unavailable Boo Fontaine MD Unavailable Reason for Visit Reason Comments Results Encounter Details Date Type Department Care Team Description 12/03/2018 Telephone [facility] Family Medicine Jacqueline Thomas MD Results - [address] [address] [place] [address] [phone] Allergies Active Allergy Reactions Severity Noted Date Comments Bee [place] Anaphylaxis 08/14/2017 Spring Swelling 02/18/2016 Clams Swelling 02/18/2016 Tree Nuts Other - See comments 02/18/2016 Throat itching / raw Latex Itching 12/04/2015 Morphine Shortness of Breath 12/04/2015 Ibuprofen Hives 12/04/2015 Pork Derived (Porcine) Swelling 02/18/2016 documented as of this encounter (statuses as of 12/03/2018) Medications Medication Sig Dispensed Refills Start End [...] APPLY 2 DROPS TO 4 mL 5 01 Active % topical AFFECTED TOENAIL 8 [...] mcg mouth daily. 8 tabletIndications: B12 deficiency albuterol (PROAIR HFA) 90 Inhale 2 Puffs 1 Inhaler 2 Active mcg/actuation every 6 (six) 9 inhalerIndications: hours as needed Medication refill for Wheezing or Shortness of Breath. montelukast 10 mg Take 1 tablet by 30 tablet Active tabletIndications: mouth every 9 Medication refill [...] mg Take 1 capsule by 30 capsule Active capsuleIndications: mouth daily. 9 Medication refill [...] Diabetes mellitus type 2 in obese Insulin [place], Use as directed 100 Each 1 Active Disposable, (BD to inject Victoza 9 ULTRA-FINE MICRO PEN daily; ID-10 code NEEDLE) 32 gauge x 1/4" E11.69 NdleIndications: Diabetes mellitus type 2 in obese fluticasone 50 Use 2 Sprays in 16 g 5 Active mcg/actuation nasal each nostril 9 sprayIndications: daily. Medication refill rosuvastatin 40 mg Take 1 tablet by 30 tablet 5 Active tabletIndications: mouth at bedtime. 9 Hypercholesterolemia DOSE INCREASE. EZETIMIBE 10 mg TAKE ONE (1) 90 tablet 3 A ctive tabletIndications: TABLET(S) BY 9 Hypercholesterolemia MOUTH ONCE A DAY. methylPREDNISolone 4 mg Follow package 21 Each 0 Active tabletsIndications: Acute directions 9 bacterial sinusitis, Acute bacterial bronchitis LEVOTHYROXINE 125 mcg TAKE ONE (1) 30 tablet 4 Active tabletIndications: TABLET(S) BY 9 Acquired hypothyroidism MOUTH EVERY MORNING. tiZANidine 4 mg Take 1 tablet by 60 tablet 0 Active tabletIndications: Muscle mouth every 8 9 pain, Muscle cramps (eight) hours as needed (muscle pain or spasm). magnesium oxide 400 mg Take 1 tablet by 60 tablet 0 Active magnesium TabIndications: mouth 2 (two) 9 Muscle cramps, Muscle times daily. pain documented as of this encounter (statuses as of 12/03/2018) Active Problems Problem Noted Date Hair loss [...] as of this encounter (statuses as of 12/03/2018) Immunizations Name Administration Dates Next Due Influenza [...] Office Visit Family Medicine Winnie Winn MD [address] [place] [address] [phone] 03/04/2019 Office Visit Neurology Marcus Madison MD [address] [place], [place] [phone] 05/28/2019 Office Visit Neurology Marcus Madison MD [address] [place] [address] [phone] Health Maintenance Due Date Last Done [...] 02/17/2019 02/18/2016 URINE MICROALBUMIN 02/23/2019 02/23/2018 HgA1C 06/02/2019 11/30/2018, 09/21/2018, 05/31/2018, Additional history exists LDL-C 09/22/2019 09/21/2018, 05/31/2018, 02/23/2018, Additional history exists CREATININE (SERUM) 12/01/2019 11/30/2018, 09/21/2018, 05/31/2018, Additional history exists documented as of this encounter Goals Goal Patient Goal Associated Recent Patient-Stated? Author Type Problems Progress Quit using Tobacco Use No [place], tobacco Wondiful A, (cigarettes, MD smokeless, etc) documented as of this encounter Results Not on filedocumented in this encounter Insurance Payer Benefit Plan / Subscriber ID Effective Phone Address T ype Group Dates [facility] [id number] 2018-Prese Medic are Adv HEALTHCARE - HEALTHCARE nt PPO MANAGED MEDICARE SILVER MEDICARE [place] xxxxxxxxx 2017-Pres Medicaid HEALTHCARE COMM PLUS ent PLAN - MANAGED MEDICAID documented as of this encounter Advance Directives Name Relationship Healthcare Agent Relationship Co mmunication Juliann Rodrigues Primary healthcare agent [email or web address]
--- OUTSIDE RECORDS SUMMARY | 2019-08-05 22:47 | XMS REPORT | Summary of Care ---
:1980 Author Organization [facility] Address [address] [place] [id number] Care Team Providers Name Role Phone Jacqueline Winn MD Primary Care Provider Tech, Cardio Fac Unavailable Unavailable Boo Fontaine MD Unavailable Reason for Visit Reason Comments Assessment Encounter Details Date Type Department Care Team Description 11/29/2018 Telephone [facility] Pediatric and Jacqueline Bello MD Assessment Adult Primary Care- [address] [place] [address] [address] [facility] , [address] [place] [address] Allergies Active Allergy Reactions Severity Noted Date Comments Bee [place] Anaphylaxis 08/14/2017 [place] Swelling 02/18/2016 Clams Swelling 02/18/2016 Tree Nuts Other - See comments 02/18/2016 Throat itching / raw Latex Itching 12/04/2015 Morphine Shortness of Breath 12/04/2015 Ibuprofen Hives 12/04/2015 Pork Derived (Porcine) Swelling 02/18/2016 documented as of this encounter (statuses as of 11/29/2018) Medications Medication Sig Dispensed Refills Start End [...] Diabetes mellitus type 2 in obese Insulin [place], Use as directed 100 Each 1 Active [...] BY 9 Acquired hypothyroidism MOUTH EVERY MORNING. documented as of this encounter (statuses as of 11/29/2018) Active Problems Problem Noted Date Hair loss [...] as of this encounter (statuses as of 11/29/2018) Immunizations Name Administration Dates Next Due Influenza [...] Treatment Date Type Specialty Care Team Description 11/30/2018 Office Visit Family Medicine Winnie Winn MD [address] [place], [place] [phone] 12/24/2018 Office Visit Family Medicine Winnie Winn MD [address] [place], [place] [phone] 03/04/2019 Office Visit Neurology Marcus Madison MD [address] [address] [phone] 05/28/2019 Office Visit Neurology Marcus Madison MD [address] [place], [place] [phone] Health Maintenance Due Date Last Done [...] Use No [place], tobacco Wondiful A, (cigarettes, smokeless, etc) documented as of this encounter Results Not on filedocumented in this encounter Insurance Payer Benefit Plan / Subscriber ID Effective Phone Address T ype Group Dates [facility] [id number] 2018-Prese Medic are Adv HEALTHCARE - HEALTHCARE nt PPO MANAGED MEDICARE [place]VER MEDICARE [place] xxxxxxxxx 2017-Pres Medicaid HEALTHCARE COMM PLUS ent PLAN - MANAGED MEDICAID documented as of this encounter Advance Directives Name Relationship Healthcare Agent Relationship Co mmunication Juliann Oneill Mother Primary healthcare agent [email or web address]
--- OUTSIDE RECORDS SUMMARY | 2019-08-05 22:47 | XMS REPORT | Summary of Care ---
:[address] [facility] Address [address] [place] [address] Care Team Providers Name Role Phone Jacqueline Winn MD Primary Care Provider Tech, Cardio Fac Unavailable Unavailable Boo Fontaine MD Unavailable Reason for Visit Reason Comments Botox Injection (Routine) Status Reason Specialty Diagnoses / Procedures Referred By Rolando zhaoerred To Contact Contact Authorized Neurology Diagnoses Migraine without aura, not intractable, without status migrainosus Marcus Madison V, Marcus Madison Procedures AR INJECTION,ONABOTULINUMTOXINA AR CHEMODERVATE FACIAL/TRIGEM/CERV MUSC MIGRAINE MD Adal MD [address] [place] [phone] Phone: Fax: Encounter Details Date Type Department Care Team Description 11/26/2018 Office Visit [facility] Marcus Madison V, Migraine without aura and without status migrainosus, not intractable (Primary Dx); NeurologyOrion MD Pseudoseizures; [address] Mood disorder; [address] [place], [place] Acquired autoimmune hypothyroidism [phone] [place], [place] [phone] [address] [phone] Allergies Active Allergy Reactions Severity Noted Date Comments Bee [place] Anaphylaxis 08/14/2017 [place] Swelling 02/18/2016 Clams Swelling 02/18/2016 Tree Nuts [...] Diabetes mellitus type 2 in obese Insulin [place], Use as directed 100 Each 07/20/19 Active [...] today 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 Patient reports that [...] medication until she consulted DR. Ge at [facility]. She underwent 72hours EEG and Imagine studies( not available to me). 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 She was on Topamax 25am [id number] for seizures. She feels sleepy on it. [...] N/A 07/01/2016 Surgeon: Sean Rodriguez MD; Location: [place] OR Location ESOPHAGOGASTRODUODENOSCOPY N/A 09/06/2016 Surgeon: Jonny [...] ICD-10 code E11.69 100 Strip 11 Insulin [place], Disposable, (BD ULTRA-FINE MICRO PEN NEEDLE) 32 gauge x 1/4" Ndle Use as directed to inject Victoza daily; ID-10 code E11.69 100 Each 1 Blood-Glucose Meter (ACCU-CHEK LEIDY PLUS METER) [facility] Check glucose once daily before breakfast;Diagnosis code [...] by mouth daily. 30 tablet 5 Lancets [facility] Check glucose every morning before breakfast and [...] this visit. ? Allergies Allergen Reactions Bee [place] Anaphylaxis [place] Swelling Clams Swelling Coconut [Tree Nuts] Other [...] file Gets together: Not on file Attends mandaeism service: Not on file Active member of [...] standard protocol was used Botox lot number [id number], Expiration 2021, single 200 units vial Muscles Injected Right-dose left-dose Dose in units Procerus 5 5 Chute Puller 5 5 10 Frontalis 5x2 5x2 20 [...] Office Visit Family Medicine Winnie Winn MD [address] [place] [phone] 03/04/2019 Office Visit Neurology Marcus Madison MD [address] [place] [phone] 05/28/2019 Office Visit Neurology Marcus Madison MD [address] [phone] Health Maintenance Due Date Last Done [...] Problems Progress Quit using Tobacco Use No [place], tobacco Wondiful A, (cigarettes, MD smokeless, etc) [...] Effective Phone Address T e Group Dates [facility] [id number] 2018-Prese Medic are Adv HEALTHCARE - HEALTHCARE nt PPO MANAGED MEDICARE [place]VER MEDICARE [place] xxxxxxxxx 2017-Pres Medicaid HEALTHCARE COMM PLUS ent PLAN - MANAGED MEDICAID documented as of this encounter Advance Directives Name Relationship Healthcare Agent Relationship Co mmunication Juliann Oneill Mother Primary healthcare agent [email or web address]
--- OUTSIDE RECORDS SUMMARY | 2019-08-05 22:48 | XMS REPORT | Summary of Care ---
:1980 Author Organization [facility] Address [address] [place] [address] Care Team Providers Name Role Phone Jacqueline Winn MD Primary Care Provider Tech, Cardio Fac Unavailable Unavailable Boo Fontaine MD Unavailable Reason for Visit Reason Comments Orders med changes Encounter Details Date Type Department Care Team Description 12/05/2018 Telephone [facility] Family Jacqueline Winn O rdkathy (med changes) Medicine - Minh SHRESTHA [address] [place] [address] [place], [place] [phone] Allergies Active Allergy Reactions Severity Noted Date Comments Bee [place] Anaphylaxis 08/14/2017 [place] Swelling 02/18/2016 Clams Swelling 02/18/2016 Tree Nuts Other - See comments 02/18/2016 Throat itching / raw Latex Itching 12/04/2015 Morphine Shortness of Breath 12/04/2015 Ibuprofen Hives 12/04/2015 Pork Derived (Porcine) Swelling 02/18/2016 documented as of this encounter (statuses as of 12/05/2018) Medications Medication Sig Dispensed Refills Start End [...] capsuleIndications: by mouth daily. 19 Medication refill Blood-Glucose Meter Check glucose 1 Each 0 [...] Diabetes mellitus type 2 in obese Insulin [place], Use as directed 100 Each 1 07/20/19 Active Disposable, (BD to inject 19 ULTRA-FINE MICRO PEN Victoza daily; NEEDLE) 32 gauge x 1/4" ID-10 code NdleIndications: E11.69 Diabetes mellitus type 2 in obese fluticasone [...] BY 19 Acquired hypothyroidism MOUTH EVERY MORNING. tiZANidine 4 mg Take 1 tablet by 60 tablet 0 12/01/19 Active tabletIndications: mouth every 8 Muscle pain, Muscle (eight) hours as cramps needed (muscle pain or spasm). magnesium oxide 400 mg Take 1 tablet by 60 tablet 0 12/01/19 Active magnesium mouth 2 (two) 19 TabIndications: Muscle times daily. cramps, Muscle pain LIOTHYRONINE 5 mcg TAKE 1 TABLET BY 30 tablet 5 05/08/19 08/2 8/ Discontinued tabletIndications: MOUTH EVERY 2018 Acquired hypothyroidism MORNING. documented as of this encounter (statuses as of 12/05/2018) Active Problems Problem Noted Date Hair loss [...] as of this encounter (statuses as of 12/05/2018) Immunizations Name Administration Dates Next Due Influenza [...] Office Visit Family Medicine Winnie Winn MD [address] [place] [phone] 03/04/2019 Office Visit Neurology Marcus Madison MD [address] [address] [phone] 05/28/2019 Office Visit Neurology Marcus Madison MD [address] [place], [place] [phone] Health Maintenance Due Date [...] Effective Phone Address T e Group Dates [facility] [id number] 2018-Prese Medic are Adv HEALTHCARE - HEALTHCARE nt PPO MANAGED MEDICARE [place] MEDICARE [place] xxxxxxxxx 2017-Pres Medicaid HEALTHCARE COMM PLUS ent PLAN - MANAGED MEDICAID documented as of this encounter Advance Directives Name Relationship Healthcare Agent Relationship Co mmunication Juliann Rodrigues Primary healthcare agent [email or web address]
--- OUTSIDE RECORDS SUMMARY | 2019-08-05 22:48 | XMS REPORT | Summary of Care ---
:1980 Author Organization [facility] Address [address] [place] [address] Care Team Providers Name Role Phone Jacqueline Winn MD Primary Care Provider Tech, Cardio Fac Unavailable Unavailable Boo Fontaine MD Unavailable Reason for Referral (Routine) Status Reason Specialty Diagnoses / Referred By Referred To Procedures Contact Contact New Request Patient is Ophthalmology Diagnoses Blurred vision Enrique Winn, Established with Procedures CONSULT/REFERRAL OPHTHALMOLOGY Carl Rocha a Specific MD MD Provider [address] [facility] [phone] Phone: Fax: Reason for Visit Reason Comments CRAMPS muscle cramps LAB WORK Encounter Details Date Type Department Care Team Description 11/30/2018 Office Visit [facility] Family Jacqueline Winn le cramps (Primary Dx); Medicine - Minh Jim MD Muscle pain; [address] [facility] [address] [facility] Blurred vision; [place], [place] Diabetes mellit us type 2 in obese [id number] Allergies Active Allergy Reactions Severity Noted Date Comments Bee [place] Anaphylaxis 08/14/2017 [place] Swelling 02/18/2016 Clams Swelling 02/18/2016 Tree Nuts Other - See comments 02/18/2016 Throat itching / raw Latex Itching 12/04/2015 Morphine Shortness of Breath 12/04/2015 Ibuprofen Hives 12/04/2015 Pork Derived (Porcine) Swelling 02/18/2016 documented as of this encounter (statuses as of 12/10/2018) Medications Medication Sig Dispensed Refills Start End [...] Diabetes mellitus type 2 in obese Insulin Tilden, Use as directed 100 Each 1 07/20/19 [...] tablet 0 12/01/19 Active tabletIndications: mouth every 11 26 Muscle pain, Muscle (eight) hours as cramps needed (muscle pain or spasm). magnesium oxide 400 mg Take 1 tablet by 60 tablet 0 12/01/19 Active magnesium mouth 2 (two) 19 TabIndications: Muscle times daily. cramps, Muscle pain LIOTHYRONINE 5 mcg TAKE 1 TABLET BY 30 tablet 5 05/08/19 08/ 8/ Discontinued tabletIndications: MOUTH EVERY 2018 Acquired hypothyroidism MORNING. tiZANidine 2 mg Take 1 tablet by 30 tablet 1 09/22/1911/30/ Discontinued tabletIndications: mouth every 11 26 2018 Muscle pain (eight) hours as needed (muscle pain or spasm). documented as of this encounter (statuses as of 12/10/2018) Active Problems Problem Noted Date Hair loss [...] as of this encounter (statuses as of 12/10/2018) Immunizations Name Administration Dates Next Due Influenza [...] Sign Reading Time Taken Comments Blood Pressure 105/74 11/30/2018 10:24 AM CDT Pulse 87 11/30/2018 10:24 AM CDT Temperature 36.8 C (98.2 F) 11/30/2018 10:24 AM CDT Respiratory Rate - - Oxygen Saturation - - Inhaled Oxygen Concentration - - Weight 81.6 kg (179 lb 12.8 oz) 11/30/2018 10:24 AM CDT Height 149.9 cm (4' 11") 11/30/2018 10:24 AM CDT Body Mass Index 36.32 11/30/2018 10:24 AM CDT documented in this encounter Patient Instructions Patient InstructionsJacqueline Winn MD - 11/30/2018 10:00 AM CDTHOLD ROSUVASTATIN AND EZETIMIBE UNTIL YOUR NEXT APPOINTMENT. Muscle Spasm A muscle spasm is a sudden tightening of the muscle you cant control. This may be caused by strain, overworking the muscle, or injury. It can also be caused bydehydration, electrolyte imbalance, diabetes, alcohol use, and certain medicines. If it goes on long enough the muscle spasm causes pain. C ommon areas for muscle spasm are the legs, neck, and back. Home care Heat, massage, and stretching will help relax muscle spasm. When the spasm is in your arm or leg, stretch the musclepassively. To do this, have someone bend or straighten the joint above or below the muscle until you feel the stretch on the sore muscle.You can stretch the muscleactivelyby moving the affected body part. This will stretch the muscle that is in spasm. For example, if the spasm is in your calf, bend the ankle so your toespointupward toward your knee. This will stretch your calf muscle. You may [id number] pain medicine to control pain, unless another medicine was prescribed. If you have chronic liver or kidney disease or ever had a stomach ulcer or GI bleeding, talk withyour healthcare provider beforeusing these medicines. Follow-up care Follow up with yourhealthcare provider, or as advised. When to seek medical advice Call your healthcare provider right away if any of the following occur: Fingers or toes become swollen, cold, blue, numb, or tingly You develop weakness in the affected arm or leg Pain increases and is not controlled by the above measures Date Last Reviewed: 02/28/201519990820-3022 [employer]. [address] [place] [address]. All rights reserved. This information is not intended as a substitute for professional medical care. Always follow your healthcare professional's instructions. Leg Cramps A muscle cramp or spasm is a strong contraction of the muscle fibers. It is also called a charley horse. This may occur in the foot, calf, or thigh at night when the legs are elevated. If the spasm is prolonged, it can become very painful. This may be caused by sleeping in an uncomfortable position, muscle fatigue, poor muscle tone from lack of exercise and stretching, dehydration, electrolyte imbalance, diabetes, alcohol use, and certain medicine. Home care Drink plenty of fluids during the day to prevent dehydration. Stretch your legs before bedtime. Eat a diet high in potassium. These foods include fresh fruit, such as bananas, oranges, cantaloupe, and honeydew melon. It also includes apple, prune, orange, grape and pineapple juices. Other foods high in potassium are white, red, and otero beans, baked potatoes, raw spinach, cod, flounder, halibut, salmon, and scallops. Talk with your healthcare provider about taking mineral and vitamin supplements that contain magnesium and vitamin B-12 if you are not already taking these. Other prescription medicines may also be used. Avoid stimulants such as caffeine, nicotine, decongestants. How to relieve an acute leg cramp For mild pain, getting out of the bed and walking may help. Some people find relief with heat andmassage. You can apply heat with a warm shower, bath, or compress. Some people feel better with a cold packs. You can make an ice pack by filling a plastic bag that seals at the top with ice cubes and then wrapping it with a thin towel. Try both and use the method that feels best for 15 to 20 minutes at a time. For severe pain, stretching the muscle that is in spasm may quickly relieve the pain. When the spasm is in your foot, your toes may curl up or down. To stretch the muscle in spasm, bend your toes in the opposite direction. If the spasm pulls your toes up, bend them down. If the spasmpulls them down, bend them up. When the spasm is in your calf, bend the ankle so the foot points upward toward your knee. When the spasm is in your thigh, bend or straighten the knee and hip until you feel relief. Follow-up care Follow up with your healthcare provider, or as advised. When to seek medical advice Call your healthcare provider right away if any of these occur: Walking makes your pain worse and rest makes it better You develop weakness in the affected leg Pain or frequency of spasms increases and is not controlled by the above measures Date Last Reviewed: 03/02/201519993866-7825 [employer]. [address] [place] [address]. All rights reserved. This information is not intended as a substitute for professional medical care. Always follow your healthcare professional's instructions. documented in this encounter Progress Notes Jessica Mathews - 11/30/2018 10:00 AM CDTVenipuncture Collection performed by clean technique. Total of 1 attempts were made. Slight pressureand a bandage/dressing were applied to the site(s). The patient experienced no complications. Specimens were sent processed to [facility] laboratories. INTCJacqueline mcduffie MD - 11/30/2018 10:00 AM CDT Cc: Chief Complaint Patient presents with CRAMPS muscle cramps HPI Hannah Oneill is a 38 year old female who presents today for muscle pain. She is accompanied by her significant other. Pain The pain is a new problem. The patient reports the pain started in the past 7 days. No history wasreported. The pain occurs daily. The problem is unchanged. Pain is present in the left lower leg, right lower leg, right arm, left arm, left foot, right foot, left hand and right hand. Quality: Movie Projectionist mping/spasms. Severity of the pain is described as severe. Associated symptoms include: limited range of motion. Associated symptoms include no fever, no inability to bear weight, no itching and no joint swelling. SOB, Dysphagia Exacerbated by: movement of her extremities. Treatments tried: massage, rest, elevation. The treatment provided no relief. Past medical history includes diabetes. statin tx Allergies Hannah is allergic to bee balm; eastman tree; clams; coconut [tree nuts]; latex; morphine; motrin [ibuprofen]; and pork derived (porcine). Medications Outpatient Medications Prior to Visit Medication Sig Dispense Refill LEVOTHYROXINE 125 mcg tablet TAKE ONE (1) TABLET(S) BY MOUTH EVERY MORNING. 30 tablet 4 methylPREDNISolone 4 mg tablets Follow package directions [...] ICD-10 code E11.69 100 Strip 11 Insulin Tilden, Disposable, (BD ULTRA-FINE MICRO PEN NEEDLE) 32 gauge x 1/4" Ndle Use as directed to inject Victoza daily; ID-10 code E11.69 100 Each 1 Blood-Glucose Meter (ACCU-CHEK LEIDY PLUS METER) [facility] Check glucose once daily before breakfast;Diagnosis code [...] 2 (two) times daily. 60 tablet 5 efinaconazole (JUBLIA) 10 % topical [...] by mouth daily. 30 tablet 5 Lancets [facility] Check glucose every morning before breakfast and [...] N/A 07/01/2016 Surgeon: Sean Rodriguez MD; Location: [place] OR [facility] ESOPHAGOGASTRODUODENOSCOPY N/A 09/06/2016 Surgeon: Jonny Enriquez MD; [...] file Gets together: Not on file Attends muslim service: Not on file Active member of [...] comments NoFHx Review of Systems Constitutional: Negative. Negative for fever. HENT: Negative. Eyes: Positive for visual disturbance (blurred vision). Respiratory: Negative. Negative for chest tightness and shortness of breath. Cardiovascular: Negative for chest pain. Gastrointestinal: Negative. Genitourinary: Negative. Musculoskeletal: Positive for myalgias. Skin: Negative. Negative for itching. Neurological: Negative. Psychiatric/Behavioral: Negative. Endocrine: Endocrine negative Vital Signs BP 105/74 (BP Location: Left arm, Patient Position: Sitting, BP CUFF SIZE: Adult Medium) | Pulse 87 | Temp 36.8 C (98.2 F) (Tympanic) | Ht 4' 11" (1.499 m) | Wt 179 lb 12.8 oz (81.6 kg) | LMP(LMP Unknown) | BMI 36.32 kg/m Physical Exam Constitutional: She is oriented to person, place, and time. She appears well- developed and well-nourished. No distress. HENT: Head: Normocephalic. Mouth/Throat: Mucous membranes are normal. Eyes: Pupils are equal, round, and reactive to light. Conjunctivae are normal. No scleral icterus. Neck: Neck supple. No thyromegaly present. Cardiovascular: Normal rate, regular rhythm, normal heart sounds and intact distal pulses. Exam reveals no gallop and no friction rub. No murmur heard. Pulmonary/Chest: Effort normal and breath sounds normal. She has no wheezes. She has no rales. Abdominal: Soft. Bowel sounds are normal. She exhibits no distension and no mass. There is no tenderness. Musculoskeletal: She exhibits no edema, tenderness or deformity. Lymphadenopathy: She has no cervical adenopathy. Neurological: She is alert and oriented to person, place, and time. Skin: Skin is warm and dry. No rash noted. No pallor. Psychiatric: She has a normal mood and affect. Her behavior is normal. Nursing note and vitals reviewed. Assessment/Plan Hannah was seen today for muscle cramps. Diagnoses and all orders for this visit: Muscle cramps, Muscle pain Lab evaluation as noted. Increase hydration. Tylenol Arthritis formula PRN pain. Additional medications as listed below (she is at risk for hypomagnesemia due to her PPI use so a magnesium supplement was included). - BASIC METABOLIC PANEL (NA, K, CL, CO2, GLUCOSE, BUN, CREATININE, CA); Standing - MAGNESIUM; Standing - CREATINE KINASE; Standing - SEDIMENTATION RATE; Standing - CBC WITH DIFF; Standing - FREE T4; Standing - FREE T3; Standing - THYROID STIMULATING HORMONE; Standing - tiZANidine 4 mg tablet; Take 1 tablet by mouth every 8 (eight) hours as needed (muscle pain orspasm). - magnesium oxide 400 mg magnesium Tab; Take 1 tablet by mouth 2 (two) times daily. Blurred vision, Diabetes mellitus type 2 in obese Recommended evaluation and management by an Ophthalmology specialist. Referral initiated. She has been trying to control her diabetes with diet and exercise alone the past couple of months. Will reassess her A1c given her c/o blurred vision. - CONSULT/REFERRAL OPHTHALMOLOGY - GLYCOSYLATED HEMOGLOBIN (A1C); Standing Plan of care, desired health behaviors, goals, [...] at a future visit. If applicable, the [facility] database was accessed to review any controlled substance prescription claims data. If the patient is taking prescribed medications, the [employer] prescription claims data in [place] was reviewed to assess patient compliance with the medication treatment plan. Follow-up: Return as scheduled. Follow-up sooner if any problems or concerns. Scribe Leidy Emerson am scribing for, and in the presence of, Jacqueline Winn MD who performed the services described here-in. Leidy Marie, November 30, 2018, 10:33 AM Physician KeraestJacqueline Chambers MD, personally performed the services described in this documentation , as scribed by, Leidy Marie in my presence and it is both accurate and complete. Jacqueline Winn MD November 30, 2018, 10:34 AM documented in this encounter Plan of Treatment Date Type Specialty Care Team Description 12/24/2018 Office Visit Family Medicine Winnie Winn MD [address] [place], [place] [phone] 03/04/2019 Office Visit Neurology Marcus Madison MD [address] [address] [phone] 05/28/2019 Office Visit Neurology Marcus Madison MD [address] [address] [phone] Health Maintenance Due Date Last Done [...] Problems Progress Quit using Tobacco Use No [place], tobacco Wondiful A, (cigarettes, MD smokeless, etc) documented as of this encounter Procedures Procedure Name Priority Date/Time Associated Comments Diagnosis CBC WITH DIFFERENTIAL Routine 11/30/2018 10:43 Muscle cr amps Results for this AM CDT Muscle pain procedure are i n the results section. FREE T3 Routine 11/30/2018 10:43 Muscle cramps Results for this AM CDT Muscle pain procedure are i n the results section. GLYCOSYLATED Routine 11/30/2018 10:43 Diabetes mellitus Result s for this HEMOGLOBIN (A1C) AM CDT type 2 in obese procedur e are in the results section. CBC WITH DIFF Routine 11/30/2018 10:43 Muscle cramps Results for this AM CDT Muscle pain procedure are i n the results section. SEDIMENTATION RATE Routine 11/30/2018 10:43 Muscle cramp s Results for this AM CDT Muscle pain procedure are i n the results section. BASIC METABOLIC PANEL Routine 11/30/2018 10:43 Muscle cr amps Results for this (NA, K, CL, CO2, AM CDT Muscle pain procedure a re in GLUCOSE, BUN, the results CREATININE, CA) section. THYROID STIMULATING Routine 11/30/2018 10:43 Muscle cram ps Results for this HORMONE AM CDT Muscle pain procedure are i n the results section. FREE T4 Routine 11/30/2018 10:43 Muscle cramps Results for this AM CDT Muscle pain procedure are i n the results section. MAGNESIUM Routine 11/30/2018 10:43 Muscle cramps Results for this AM CDT Muscle pain procedure are i n the results section. CREATINE KINASE Routine 11/30/2018 10:43 Muscle cramps Results for this AM CDT Muscle pain procedure are i n the results section. documented in this encounter Results CBC WITH DIFFERENTIAL (11/30/2018 10:43 AM CDT) Pathologist Sig nature WBC 10.72 4.30 - 11.10 [facility] 10*3/L [facility] RBC 5.28 (H) 3.93 - 5.25 [facility] 10*6/L [facility] HGB 15.6 (H) 11.6 - 15.0 [facility] g/dL HOSPITAL [facility] HCT 45.1 35.7 - 45.2 % [facility] MCV 85.4 80.6 - 95.5 fL [facility] MCH 29.5 25.9 - 32.8 pg [facility] MCHC 34.6 31.6 - 35.1 [facility] g/dL [facility] RDW-SD 45.8 39.0 - 49.9 fL [facility] RDW-CV 14.8 12.0 - 15.5 % [facility] PLT 293 166 - 358 [facility] 10*3/L [facility] MPV 10.9 9.5 - 12.9 fL [facility] NRBC/100 WBC 0.0 0.0 - 10.0 /100 [facility] WBCs [facility] NRBC x10^3 <0.01 10*3/L [facility] GRAN MAT (NEUT) % 52.1 % [facility] IMM GRAN % 0.40 % [facility] LYMPH % 39.3 % [facility] MONO % 7.1 % [facility] EOS % 1.1 % [facility] BASO % 0.0 % [facility] GRAN MAT x10^3(ANC) 5.59 1.88 - 7.09 [facility] 10*3/uL [facility] IMM GRAN x10^3 0.04 0.00 - 0.06 [facility] 10*3/uL [facility] LYMPH x10^3 4.21 (H) 1.32 - 3.29 [facility] 10*3/uL [facility] MONO x10^3 0.76 0.33 - 0.92 [facility] 10*3/uL [facility] EOS x10^3 0.12 0.03 - 0.39 [facility] 10*3/uL [facility] BASO x10^3 <0.03 0.01 - 0.07 [facility] 10*3/uL [facility] Specimen Blood - ARM, LEFT Performing Organization Address City/State/Zipcode Phone Number [facility] CLIA: [id number], [address], [place] [address] GLYCOSYLATED HEMOGLOBIN (A1C) (11/30/2018 10:43 AM CDT) Pathologist Sig nature HGB A1C 5.5 4.0 - 6.0 % [facility] Specimen Blood - ARM, LEFT Narrative Performed At %A1C (NGSP) Interpretation (ADA) [facility] 4.8-5.6 Normal or (Non-Diabetic Range) 5.7-6.4 Increased Risk (Pre-Diab etic) >6.5Diabetes Indicated Performing Organization Address [facility] Phone Number [facility] CLIA: [id number], [address] [place] [address] THYROID STIMULATING HORMONE (11/30/2018 10:43 AM CDT) Pathologist Sig nature TSH 0.19 (L) 0.45 - 4.70 mIU/L [facility] Specimen Blood - ARM, LEFT Performing Organization Address [facility] Number [facility] CLIA: [id number], [address] [place] [address] FREE T3 (11/30/2018 10:43 AM CDT) Pathologist Sig nature FREE T3 4.24 2.77 - 5.27 pg/mL [facility] Specimen Blood - ARM, LEFT Performing Organization Address [facility] Phone Number [facility] CLIA: [id number], [address] [place] [address] FREE T4 (11/30/2018 10:43 AM CDT) Pathologist Sig nature FREE T4 1.58 0.78 - 2.20 ng/dL [facility] Specimen Blood - ARM, LEFT Performing Organization Address [facility] Phone Number [facility] CLIA: [id number], [address] [place] [address] SEDIMENTATION RATE (11/30/2018 10:43 AM CDT) Pathologist Sig nature ESR 8 0 - 20 mm/HR [facility] Specimen Blood - ARM, LEFT Performing Organization Address [facility] Phone Number [facility] CLIA: [id number], [address] [place] [address] CREATINE KINASE (11/30/2018 10:43 AM CDT) Pathologist Sig nature CK 48 33 - 194 U/L [facility] Specimen Blood - ARM, LEFT Performing Organization Address [facility] Phone Number [facility] CLIA: [id number], [address] MAGNESIUM (11/30/2018 10:43 AM CDT) Pathologist Sig [facility] MAGNESIUM 2.1 1.7 - 2.4 mg/dL [facility] Specimen Blood - ARM, LEFT Performing Organization Address [facility] Phone Number [facility] CLIA: [id number], [address] BASIC METABOLIC PANEL (NA, K, CL, CO2, GLUCOSE, BUN, CREATININE, CA) (11/30/2018 10:43 AM CDT) Pathologist Sig nature NA 141 135 - 145 mmol/L [facility] K 4.3 3.5 - 5.0 mmol/L [facility] CL 108 98 - 108 mmol/L [facility] CO2 TOTAL 23 23 - 31 mmol/L [facility] AGAP 10 2 - 16 [facility] BUN 12 7 - 23 mg/dL [facility] GLUCOSE 104 70 - 110 mg/dL [facility] CREATININE 0.76 0.50 - 1.04 [facility] mg/dL [facility] CALCIUM 9.7 8.6 - 10.6 mg/dL [facility] eGFR Calculation 85.2 mL/min/1.73m2 [facility] (Non-) [facility] LABORATOR Y eGFR Calculation 103.2 mL/min/1.73m2 [facility] () [facility] Specimen Blood - ARM, LEFT Narrative Performed At Association of Glomerular Filtration Rate (GFR) [facility] and Staging of Kidney Disease* + + +- + | GFR (mL/min/1.73 m2)| With Kidney Damage|Without Kidney Damage + + +- + |>90| Stage one| Normal + + +- + |60-89|S tage two| Decreased GFR + + +- + |30-59|S tage three| Stage three + + +- + |15-29|S tage four | Stage four + + +- + |<15 (or dialysis)|Stage five | Stage five + + +- + *Each stage assumes the associated GFR level has been in effect for at least three months.Stages 1 to 5, with or without kidney disease, indicate chronic kidney disease . Notes: Determination of stages one and two (with eGFR >59mL/min/1.73 m2) requires estimation of kidney damage for at least three months as defined by structural or functional abnormalities of the kidney, manifested by either: Pathological abnormalities or Markers of kidney damage (including abnormalities in the composition of the blood or urine or abnormalities in imaging tests). Performing Organization Address City/State/Zipcode Phone Number [facility] CLIA: [id number], [address], [place] [address] documented in this encounter Visit Diagnoses Diagnosis Muscle cramps - Primary Cramp of limb Muscle pain Mylagia and myositis, unspecified Blurred vision Other specified visual disturbances Diabetes mellitus type 2 in obese Type II or unspecified type diabetes melissa litus without mention of complication, not stated as uncontrolled documented in this encounter Insurance Payer Benefit Plan / Subscriber ID Effective Phone Address [employer] [facility] [id number] 2018-Prese Medic are Adv HEALTHCARE - HEALTHCARE nt PPO MANAGED MEDICARE [place] MEDICARE [place] STAR xxxxxxxxx 2017-Pres Medicaid HEALTHCARE COMM PLUS ent PLAN - MANAGED MEDICAID documented as of this encounter Advance Directives Name Relationship Healthcare Agent Relationship Co mmunication Juliann Oneill Mother Primary healthcare agent [email or web address] [employer]
--- OUTSIDE RECORDS SUMMARY | 2019-08-05 22:49 | XMS REPORT | Summary of Care ---
:1980 Author Organization [facility] Address [address] [place] [address] Care Team Providers Name Role Phone Jacqueline Winn MD Primary Care Provider Tech, Cardio Fac Unavailable Unavailable Boo Fontaine MD Unavailable Reason for Referral (Routine) Status Reason Specialty Diagnoses / Referred By Referred To Procedures Contact Contact New Request Patient is Ophthalmology Diagnoses Blurred vision Enrique Winn, Established with Procedures CONSULT/REFERRAL OPHTHALMOLOGY Carl Rocha a Specific MD MD Provider [address] [facility] [place] [phone] Phone: Fax: Reason for Visit Reason Comments CRAMPS muscle cramps LAB WORK Encounter Details Date Type Department Care Team Description 11/30/2018 Office Visit [facility] Family Jacqueline Winn le cramps (Primary Dx); Medicine - Minh Jim MD Muscle pain; [address] [facility] E [facility] Blurred vision; [place], [place] Diabetes mellit us type 2 in obese [id number] Allergies Active Allergy Reactions Severity Noted Date Comments Bee [place] Anaphylaxis 08/14/2017 [place] Swelling 02/18/2016 Clams Swelling 02/18/2016 Tree Nuts [...] Diabetes mellitus type 2 in obese Insulin Mcdonald, Use as directed 100 Each 1 07/20/19 [...] will stretch your calf muscle. You may upnsnuw-ioz-imsvhqy pain medicine to control pain, unless another [...] by the above measures Date Last Reviewed: 02/28/201519993070-2023 The [employer]. [address] [place] [address]. All rights reserved. This information is not [...] by the above measures Date Last Reviewed: 03/02/201519991325-3783 [employer]. [address] [place] [address]. All rights reserved. This information is not [...] no complications. Specimens were sent processed to [facility] laboratories. INTCJacqueline mcduffie MD - 11/30/2018 10:00 [...] foot, left hand and right hand. Quality: Paste Mixer Liquid mping/spasms. Severity of the pain is described [...] ICD-10 code E11.69 100 Strip 11 Insulin Mcdonald, Disposable, (BD ULTRA-FINE MICRO PEN NEEDLE) 32 gauge x 1/4" Ndle Use as directed to inject Victoza daily; ID-10 code E11.69 100 Each 1 Blood-Glucose Meter (ACCU-CHEK LEIDY PLUS METER) [facility] Check glucose once daily before breakfast;Diagnosis code [...] by mouth daily. 30 tablet 5 Lancets [facility] Check glucose every morning before breakfast and [...] N/A 07/01/2016 Surgeon: Sean Rodriguez MD; Location: [place] [facility] ESOPHAGOGASTRODUODENOSCOPY N/A 09/06/2016 Surgeon: Jonny Enriquez MD; [...] file Gets together: Not on file Attends orthodox service: Not on file Active member of [...] at a future visit. If applicable, the [facility] database was accessed to review any controlled substance prescription claims data. If the patient is taking prescribed medications, the [employer] prescription claims data in [employer] was reviewed to assess patient compliance with [...] Office Visit Family Medicine Winnie Winn MD [address] [place], [place] [phone] 03/04/2019 Office Visit Neurology Marcus Madison MD [address] [phone] 05/28/2019 Office Visit Neurology Marcus Madison MD [address] [phone] Health Maintenance Due Date Last Done [...] Problems Progress Quit using Tobacco Use No [place], tobacco Wondiful A, (cigarettes, MD smokeless, etc) [...] Sig nature WBC 10.72 4.30 - 11.10 [facility] 10*3/L [facility] LABORATORY RBC 5.28 (H) 3.93 - 5.25 [facility] 10*6/L [facility] HGB 15.6 (H) 11.6 - 15.0 [facility] g/dL HOSPITAL LABORATORY HCT 45.1 35.7 - 45.2 % [facility] MCV 85.4 80.6 - 95.5 fL [facility] MCH 29.5 25.9 - 32.8 pg [facility] MCHC 34.6 31.6 - 35.1 [facility] g/dL [facility] RDW-SD 45.8 39.0 - 49.9 fL [facility] RDW-CV 14.8 12.0 - 15.5 % [facility] PLT 293 166 - 358 [facility] 10*3/L [facility] MPV 10.9 9.5 - 12.9 fL [facility] NRBC/100 WBC 0.0 0.0 - 10.0 /100 [facility] WBCs [facility] NRBC x10^3 <0.01 10*3/L [facility] GRAN MAT (NEUT) % 52.1 % [facility] IMM GRAN % 0.40 % [facility] LYMPH % 39.3 % [facility] MONO % 7.1 % [facility] EOS % 1.1 % [facility] BASO % 0.0 % [facility] GRAN MAT x10^3(ANC) 5.59 1.88 - 7.09 [facility] 10*3/uL [facility] IMM GRAN x10^3 0.04 0.00 - 0.06 [facility] 10*3/uL [facility] LYMPH x10^3 4.21 (H) 1.32 - 3.29 [facility] 10*3/uL [facility] MONO x10^3 0.76 0.33 - 0.92 [facility] 10*3/uL [facility] EOS x10^3 0.12 0.03 - 0.39 [facility] 10*3/uL [facility] BASO x10^3 <0.03 0.01 - 0.07 [facility] 10*3/uL [facility] Specimen Blood - ARM, LEFT Performing Organization Address City/State/Zipcode Phone Number [facility] CLIA: [id number], [address] [place], [place] [address] GLYCOSYLATED HEMOGLOBIN (A1C) (11/30/2018 10:43 AM CDT) Pathologist Sig nature HGB A1C 5.5 4.0 - 6.0 % NGSP [facility] Specimen Blood - ARM, LEFT Narrative Performed At %A1C (NGSP) Interpretation (ADA) [facility] 4.8-5.6 Normal or (Non-Diabetic Range) 5.7-6.4 Increased Risk (Pre-Diab etic) >6.5Diabetes Indicated Performing Organization Address [facility] Phone Number [facility] CLIA: [id number], [address] [place] [address] THYROID STIMULATING HORMONE (11/30/2018 10:43 AM CDT) Pathologist Sig nature TSH 0.19 (L) 0.45 - 4.70 mIU/L [facility] Specimen Blood - ARM, LEFT Performing Organization Address [facility] Number [facility] CLIA: [id number], [address] [place] [address] FREE T3 (11/30/2018 10:43 AM CDT) Pathologist Sig nature FREE T3 4.24 2.77 - 5.27 pg/mL [facility] Specimen Blood - ARM, LEFT Performing Organization Address [facility] Phone Number [facility] CLIA: [id number], [address] [place] [address] FREE T4 (11/30/2018 10:43 AM CDT) Pathologist Sig nature FREE T4 1.58 0.78 - 2.20 ng/dL [facility] Specimen Blood - ARM, LEFT Performing Organization Address [facility] Phone Number [facility] CLIA: [id number], [address] [place] [address] SEDIMENTATION RATE (11/30/2018 10:43 AM CDT) Pathologist Sig nature ESR 8 0 - 20 mm/HR [facility] Specimen Blood - ARM, LEFT Performing Organization Address [facility] Phone Number [facility] CLIA: [id number], [address] [place] [address] CREATINE KINASE (11/30/2018 10:43 AM CDT) Pathologist Sig nature CK 48 33 - 194 U/L [facility] Specimen Blood - ARM, LEFT Performing Organization Address [facility] Phone Number [facility] CLIA: [id number], [address] MAGNESIUM (11/30/2018 10:43 AM CDT) Pathologist Sig [facility] MAGNESIUM 2.1 1.7 - 2.4 mg/dL [facility] Specimen Blood - ARM, LEFT Performing Organization Address [facility] Phone Number [facility] CLIA: [id number], [address] BASIC METABOLIC PANEL (NA, K, CL, CO2, GLUCOSE, BUN, CREATININE, CA) (11/30/2018 10:43 AM CDT) Pathologist Sig nature NA 141 135 - 145 mmol/L [facility] K 4.3 3.5 - 5.0 mmol/L [facility] CL 108 98 - 108 mmol/L [facility] CO2 TOTAL 23 23 - 31 mmol/L [facility] AGAP 10 2 - 16 [facility] BUN 12 7 - 23 mg/dL [facility] GLUCOSE 104 70 - 110 mg/dL [facility] CREATININE 0.76 0.50 - 1.04 [facility] mg/dL [facility] CALCIUM 9.7 8.6 - 10.6 mg/dL [facility] eGFR Calculation 85.2 mL/min/1.73m2 [facility] (Non-) [facility] LABORATOR Y eGFR Calculation 103.2 mL/min/1.73m2 [facility] () [facility] LABORAT[facility] Specimen Blood - ARM, [...] tests). Performing Organization Address City/State/Zipcode Phone Number [facility] CLIA: [id number], [address] [place], [place] [address] documented [...] ID Effective Phone Address T ype Group [facility] [id number] 2018-Prese Medic are Adv HEALTHCARE - HEALTHCARE nt PPO MANAGED MEDICARE [place]VER MEDICARE [place] xxxxxxxxx 2017-Pres Medicaid HEALTHCARE COMM PLUS ent PLAN - MANAGED MEDICAID documented as of this encounter Advance Directives Name Relationship Healthcare Agent Relationship Co mmunication Juliann Oneill Mother Primary healthcare agent [email or web address]
--- OUTSIDE RECORDS SUMMARY | 2019-08-05 22:50 | XMS REPORT | Summary of Care ---
:1980 Author Organization [facility] Address [address] [place] [address] Care Team Providers Name Role Phone Jacqueline Winn MD Primary Care Provider Tech, Cardio Fac Unavailable Unavailable Boo Fontaine MD Unavailable Reason for Visit Reason Comments Refill Request Encounter Details Date Type Department Care Team Description 12/26/2018 Refill [facility] Family Medicine Jacqueline Thomas MD Refill Request - [address] [place] [address] [place] [address] [phone] Allergies Active Allergy Reactions Severity Noted Date Comments Bee [place] Anaphylaxis 08/14/2017 [place] Swelling 02/18/2016 Clams Swelling 02/18/2016 Tree Nuts Other - See comments 02/18/2016 Throat itching / raw Latex Itching 12/04/2015 Morphine Shortness of Breath 12/04/2015 Ibuprofen Hives 12/04/2015 Pork Derived (Porcine) Swelling 02/18/2016 documented as of this encounter (statuses as of 12/26/2018) Medications Medication Sig Dispensed Refills Start End [...] Active capsuleIndications: mouth daily. 9 Medication refill Blood-Glucose Meter Check glucose 1 [...] Diabetes mellitus type 2 in obese Insulin [place], Use as directed 100 Each 1 Active [...] as of this encounter (statuses as of 12/26/2018) Active Problems Problem Noted Date Hair loss [...] as of this encounter (statuses as of 12/26/2018) Immunizations Name Administration Dates Next Due Influenza [...] Treatment Date Type Specialty Care Team Description 12/27/2018 Office Visit Family Medicine Winnie Winn MD [address] [place], [place] [address] [phone] 03/04/2019 Office Visit Neurology Marcus Madison MD [address] [place], [place] [phone] 05/28/2019 Office Visit Neurology Marcus Madison MD [address] [place], [place] [phone] Health Maintenance Due Date [...] Effective Phone Address T e Group Dates [facility] [id number] 2018-Prese Medic are Adv HEALTHCARE - HEALTHCARE nt PPO MANAGED MEDICARE [place]VER MEDICARE [place] xxxxxxxxx 2017-Pres Medicaid HEALTHCARE COMM PLUS ent PLAN - MANAGED MEDICAID documented as of this encounter Advance Directives Name Relationship Healthcare Agent Relationship Co mmunication Juliann Oneill Mother Primary healthcare agent [email or web address]
--- OUTSIDE RECORDS SUMMARY | 2019-08-05 22:50 | XMS REPORT | Summary of Care ---
:1980 Author Organization [facility] Address [address] [place] [address] Care Team Providers Name Role Phone Jacqueline Winn MD Primary Care Provider Tech, Cardio Fac Unavailable Unavailable Boo Fontaine MD Unavailable Reason for Referral (Routine) Status Reason Specialty Diagnoses / Referred By Referred To Procedures Contact Contact New Request Patient is Ophthalmology Diagnoses Blurred vision Enrique Winn, Established with Procedures CONSULT/REFERRAL OPHTHALMOLOGY Carl Rocha a Specific MD MD Provider [address] [facility] [place] [phone] Phone: Fax: Reason for Visit Reason Comments CRAMPS muscle cramps LAB WORK Encounter Details Date Type Department Care Team Description 11/30/2018 Office Visit [facility] Family Jacqueline Winn le cramps (Primary Dx); Medicine - Minh Jim MD Muscle pain; [address] [facility] E [facility] Blurred vision; [place], [place] Diabetes mellit us type 2 in obese [id number] Allergies Active Allergy Reactions Severity Noted Date Comments Bee [place] Anaphylaxis 08/14/2017 [place] Swelling 02/18/2016 Clams Swelling 02/18/2016 Tree Nuts [...] Diabetes mellitus type 2 in obese Insulin [place], Use as directed 100 Each 1 07/20/19 [...] will stretch your calf muscle. You may qlpzocd-awo-mruppiv pain medicine to control pain, unless another [...] by the above measures Date Last Reviewed: 02/28/201519996230-1915 [employer]. [address] [place] [address]. All rights reserved. This information is not [...] by the above measures Date Last Reviewed: 03/02/201519992951-3682 [employer]. [address] [place] [address]. All rights reserved. This information is not [...] no complications. Specimens were sent processed to [facility] laboratories. INTCJacqueline mcduffie MD - 11/30/2018 10:00 [...] foot, left hand and right hand. Quality: Facial Operator mping/spasms. Severity of the pain is described [...] ICD-10 code E11.69 100 Strip 11 Insulin [place], Disposable, (BD ULTRA-FINE MICRO PEN NEEDLE) 32 gauge x 1/4" Ndle Use as directed to inject Victoza daily; ID-10 code E11.69 100 Each 1 Blood-Glucose Meter (ACCU-CHEK LEIDY PLUS METER) [facility] Check glucose once daily before breakfast;Diagnosis code [...] by mouth daily. 30 tablet 5 Lancets [facility] Check glucose every morning before breakfast and [...] N/A 07/01/2016 Surgeon: Sean Rodriguez MD; Location: [place] OR [facility] ESOPHAGOGASTRODUODENOSCOPY N/A 09/06/2016 Surgeon: Jonny [...] file Gets together: Not on file Attends bahai service: Not on file Active member of [...] for this visit: Muscle cramps, Muscle pain Electrolyte imbalance? Hypomagnesemia? Statin-induced myopathy. Lab evaluation as noted. Increase hydration. Tylenol [...] at a future visit. If applicable, the [facility] database was accessed to review any controlled substance prescription claims data. If the patient is taking prescribed medications, the [employer] prescription claims data in [employer] was reviewed to assess patient compliance with the medication treatment plan. Follow-up: Return as scheduled. Follow-up sooner if any problems or concerns. Scribe Leidy Emerson am scribing for, and in the presence of, Jacqueline Winn MD who performed the services described here-in. Leidy Marie, November 30, 2018, 10:33 AM Physician Jacqueline Emersonbert MD, personally performed the services described in this documentation , as scribed by, Leidy Marie in my presence and it is both accurate and complete. Jacqueline Winn MD November 30, 2018, 10:34 AM documented in this encounter Plan of Treatment Date Type Specialty Care Team Description 12/24/2018 Office Visit Family Medicine Winnie Winn MD [address] [place] [phone] 03/04/2019 Office Visit Neurology Marcus Madison MD [address] [address] [phone] 05/28/2019 Office Visit Neurology Marcus Madison MD [address] [address] [phone] Health Maintenance Due Date Last Done [...] WITH DIFFERENTIAL (11/30/2018 10:43 AM CDT) Pathologist [facility] WBC 10.72 4.30 - 11.10 [facility] 10*3/L [facility] LABORATORY RBC 5.28 (H) 3.93 - 5.25 [facility] 10*6/L HOSPITAL LABORATORY HGB 15.6 (H) 11.6 - 15.0 [facility] g/dL HOSPITAL LABORATORY HCT 45.1 35.7 - 45.2 % [facility] MCV 85.4 80.6 - 95.5 fL [facility] MCH 29.5 25.9 - 32.8 pg [facility] MCHC 34.6 31.6 - 35.1 [facility] g/dL [facility] RDW-SD 45.8 39.0 - 49.9 fL [facility] RDW-CV 14.8 12.0 - 15.5 % [facility] PLT 293 166 - 358 [facility] 10*3/L [facility] MPV 10.9 9.5 - 12.9 fL [facility] NRBC/100 WBC 0.0 0.0 - 10.0 /100 [facility] WBCs [facility] NRBC x10^3 <0.01 10*3/L [facility] GRAN MAT (NEUT) % 52.1 % [facility] IMM GRAN % 0.40 % [facility] LYMPH % 39.3 % [facility] MONO % 7.1 % [facility] EOS % 1.1 % [facility] BASO % 0.0 % [facility] GRAN MAT x10^3(ANC) 5.59 1.88 - 7.09 [facility] 10*3/uL [facility] LABORATORY IMM GRAN x10^3 0.04 0.00 - 0.06 [facility] 10*3/uL [facility] LABORATORY LYMPH x10^3 4.21 (H) 1.32 - 3.29 [facility] 10*3/uL [facility] LABORATORY MONO x10^3 0.76 0.33 - 0.92 [facility] 10*3/uL [facility] LABORATORY EOS x10^3 0.12 0.03 - 0.39 [facility] 10*3/uL [facility] LABORATORY BASO x10^3 <0.03 0.01 - 0.07 [facility] 10*3/uL [facility] LABORATORY Specimen Blood - ARM, LEFT Performing Organization Address City/State/Zipcode Phone Number [facility] CLIA: [id number], [address] [place], [place] [address] GLYCOSYLATED HEMOGLOBIN (A1C) (11/30/2018 10:43 AM CDT) [facility] Sig nature HGB A1C 5.5 4.0 - 6.0 % NGSP [facility] L LABORATORY Specimen Blood - ARM, LEFT Narrative Performed At %A1C (NGSP) Interpretation (ADA) [facility] 4.8-5.6 Normal or (Non-Diabetic Range) 5.7-6.4 Increased Risk (Pre-Diab etic) >6.5Diabetes Indicated Performing Organization Address [facility] Phone Number [facility] CLIA: [id number], [address] [place] [address] THYROID STIMULATING HORMONE (11/30/2018 10:43 AM CDT) Pathologist Sig nature TSH 0.19 (L) 0.45 - 4.70 mIU/L [facility]OR[facility] Specimen Blood - ARM, LEFT Performing Organization Address [facility] Phone Number [facility] CLIA: [id number], [address] [place] [address] FREE T3 (11/30/2018 10:43 AM CDT) Pathologist Sig nature FREE T3 4.24 2.77 - 5.27 pg/mL [facility] Specimen Blood - ARM, LEFT Performing Organization Address [facility] Phone Number [facility] CLIA: [id number], [address] [place] [address] FREE T4 (11/30/2018 10:43 AM CDT) Pathologist Sig nature FREE T4 1.58 0.78 - 2.20 ng/dL [facility] Specimen Blood - ARM, LEFT Performing Organization Address [facility] Phone Number [facility] CLIA: [id number], [address] [place] [address] SEDIMENTATION RATE (11/30/2018 10:43 AM CDT) Pathologist Sig nature ESR 8 0 - 20 mm/HR [facility] Specimen Blood - ARM, LEFT Performing Organization Address [facility] Phone Number [facility] CLIA: [id number], [address] [place] [address] CREATINE KINASE (11/30/2018 10:43 AM CDT) Pathologist Sig nature CK 48 33 - 194 U/L [facility] Specimen Blood - ARM, LEFT Performing Organization Address [facility]/Zipcode Phone Number [facility] CLIA: [id number], [address] [address] MAGNESIUM (11/30/2018 10:43 AM CDT) Pathologist Sig nature MAGNESIUM 2.1 1.7 - 2.4 mg/dL [facility] Specimen Blood - ARM, LEFT Performing Organization Address [facility] Phone Number [facility] CLIA: [id number], [address] [address] BASIC METABOLIC PANEL (NA, K, CL, CO2, GLUCOSE, BUN, CREATININE, CA) (11/30/2018 10:43 AM CDT) Pathologist Sig nature NA 141 135 - 145 mmol/L [facility] K 4.3 3.5 - 5.0 mmol/L [facility] CL 108 98 - 108 mmol/L [facility] CO2 TOTAL 23 23 - 31 mmol/L [facility] AGAP 10 2 - 16 [facility] BUN 12 7 - 23 mg/dL [facility] GLUCOSE 104 70 - 110 mg/dL [facility] CREATININE 0.76 0.50 - 1.04 [facility] mg/dL [facility] LABOR[facility] CALCIUM 9.7 8.6 - 10.6 mg/dL [facility] eGFR Calculation 85.2 mL/min/1.73m2 [facility] (Non-) [facility] LABORATOR Y eGFR Calculation 103.2 mL/min/1.73m2 [facility] () [facility]ORY Specimen Blood - ARM, LEFT Narrative Performed At Association of Glomerular Filtration Rate (GFR) [facility] and Staging of Kidney Disease* + [...] tests). Performing Organization Address City/State/Zipcode Phone Number [facility] CLIA: [id number], [address] [place], [place] [address] documented in this [...] Subscriber ID Effective Phone Address T e [facility] [id number] 2018-Prese Medic are Adv HEALTHCARE - HEALTHCARE nt PPO MANAGED MEDICARE [place]VER MEDICARE [place] xxxxxxxxx 2017-Pres Medicaid HEALTHCARE COMM PLUS ent PLAN - MANAGED MEDICAID documented as of this encounter Advance Directives Name Relationship Healthcare Agent Relationship Co mmunication Juliann Oneill Mother Primary healthcare agent [email or web address]
--- OUTSIDE RECORDS SUMMARY | 2019-08-05 22:51 | XMS REPORT | Summary of Care ---
:1980 Author Organization [facility] Address [address] [place] [address] Care Team Providers Name Role Phone Jacqueline Winn MD Primary Care Provider Tech, Cardio Fac Unavailable Unavailable Boo Fontaine MD Unavailable Reason for Visit Reason Comments New Medication Encounter Details Date Type Department Care Team Description 12/28/2018 Telephone [facility] Anabela Winn MD New Medication Medicine - [address] [address] [place] [address] [phone] Allergies Active Allergy Reactions Severity Noted Date Comments [place] Anaphylaxis 08/14/2017 [place] Swelling 02/18/2016 Clams Swelling 02/18/2016 Tree Nuts Other - See comments 02/18/2016 Throat itching / raw Latex Itching 12/04/2015 Morphine Shortness of Breath 12/04/2015 Ibuprofen Hives 12/04/2015 Pork Derived (Porcine) Swelling 02/18/2016 documented as of this encounter (statuses as of 12/28/2018) Medications Medication Sig Dispensed Refills Start End Date Status Date aspirin 81 mg chewable Take 81 mg by 0 Active tablet mouth daily. efinaconazole (JUBLIA) 10 APPLY 2 DROPS TO 4 mL 5 01 Active % topical AFFECTED TOENAIL 8 solutionIndications: DAILY Onychomycosis EPINEPHrine (EPIPEN 0.3 mL by 2 Each 1 Active 2-RUTH) 0.3 mg/0.3 mL Intramuscular 8 injectionIndications: route as needed History of food allergy (anaphylaxis). ergocalciferol, vitamin 1 capsule by 8 capsule 5 Active d2, (VITAMIN D2) 50,000 mouth 2 x a week 8 unit capsuleIndications: with food Vitamin D deficiency escitalopram oxalate 10 Take 1 tablet by 30 tablet 5 Active mg tabletIndications: mouth daily. 8 PTSD [...] tabletIndications: mouth every 9 Medication refill evening. albuterol 2.5 mg /3 mL Inhale 3 mL every 120 Vial 1 Active (0.083 %) nebulizer 4 (four) hours as 9 solutionIndications: needed for Bronchitis with Wheezing or bronchospasm Shortness of Breath. Via nebulizer Blood-Glucose Meter Check glucose 1 Each 0 Active (ACCU-CHEK LEIDY PLUS once daily before 9 METER) MiscIndications: breakfast; Controlled type 2 Diagnosis code diabetes mellitus without E11.9 complication, without long-term current use of insulin blood sugar diagnostic TEST BLOOD SUGAR 100 Strip 11 Active (ACCU-CHEK LEIDY PLUS TID; ICD-10 code 9 TEST STRP) E11.69 stripIndications: Diabetes mellitus type 2 in obese Insulin [place], Use as directed 100 Each 1 Active Disposable, (BD to inject Victoza 9 ULTRA-FINE MICRO PEN daily; ID-10 code NEEDLE) 32 gauge x 1/4" E11.69 NdleIndications: Diabetes mellitus type 2 in obese fluticasone 50 Use 2 Sprays in 16 g Active mcg/actuation nasal each nostril 9 sprayIndications: daily. Medication refill rosuvastatin 40 mg Take 1 tablet by 30 tablet 5 Active tabletIndications: mouth at bedtime. 9 Hypercholesterolemia DOSE INCREASE. EZETIMIBE 10 mg TAKE ONE (1) 90 tablet 3 A ctive tabletIndications: TABLET(S) BY 9 Hypercholesterolemia MOUTH ONCE A DAY. LEVOTHYROXINE 125 mcg TAKE ONE (1) 30 tablet 4 Active tabletIndications: TABLET(S) BY 9 Acquired hypothyroidism MOUTH EVERY MORNING. varenicline (CHANTIX Take one 0.5mg 1 Package 0 Active STARTING MONTH BOX) 0.5 tab by mouth once 9 mg (11)- 1 mg (42) daily for 3 days, tabletIndications: then one 0.5mg Tobacco use tab twice daily for 4 days, then one 1mg tab twice daily. omeprazole 40 mg Take 1 capsule by 30 capsule Active capsuleIndications: mouth daily. 9 Medication refill ranitidine 150 mg Take 1 tablet by 60 tablet Active tabletIndications: mouth 2 (two) 9 Medication refill times daily. tiZANidine 4 mg Take 1 tablet by 60 tablet Active tabletIndications: Muscle mouth every 8 9 pain, Muscle cramps (eight) hours as needed (muscle pain or spasm). magnesium oxide 400 mg Take 1 tablet by 60 tablet Active magnesium TabIndications: mouth 2 (two) 9 Muscle cramps, Muscle times daily. pain Fenofibric Acid 135 mg Take 1 capsule by 30 capsule 12/29/19 1 Active capsuleIndications: Mixed mouth daily. 9 hyperlipidemia documented as of this encounter (statuses as of 12/28/2018) Active Problems Problem Noted Date Hair loss [...] as of this encounter (statuses as of 12/28/2018) Immunizations Name Administration Dates Next Due Influenza [...] Treatment Date Type Specialty Care Team Description 03/04/2019 Office Visit Neurology Marcus Madison MD [address], [place] [phone] 03/28/2019 Office Visit Family Medicine Winnie Winn MD [address] [place] [phone] 05/28/2019 Office Visit Neurology Marcus Madison MD [address] [place], [place] [phone] Health Maintenance Due Date [...] filedocumented in this encounter Visit Diagnoses Diagnosis Mixed hyperlipidemia - Primary documented in this encounter Insurance Payer Benefit Plan / Subscriber ID Effective Phone Address T ype Group Dates [facility] [id number] 2018-Prese Medic are Adv HEALTHCARE - HEALTHCARE nt PPO MANAGED MEDICARE [place]VER MEDICARE [place] xxxxxxxxx 2017-Pres Medicaid HEALTHCARE COMM PLUS ent PLAN - MANAGED MEDICAID documented as of this encounter Advance Directives Name Relationship Healthcare Agent Relationship Co mmunication Juliann Oneill Mother Primary healthcare agent [email or web address]
--- OUTSIDE RECORDS SUMMARY | 2019-08-05 22:52 | XMS REPORT | Summary of Care ---
:1980 Author Organization [facility] Address [address] [place] [address] Care Team Providers Name Role Phone Jacqueline Winn MD Primary Care Provider Tech, Cardio Fac Unavailable Unavailable Boo Fontaine MD Unavailable Reason for Visit Reason Comments ULTRASOUND (Routine) Status Reason Specialty Diagnoses / Procedures Referred By C ontact Referred To Contact Closed Cardiology Diagnoses Dizziness and giddiness Ann Abdi MD Procedures CAROTID DUPLEX BILATERAL BY VASCULAR LAB [address] [place] [address] [place] [phone] Phone: Encounter Details Date Type Department Care Team Description 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 Dao Fontaine MD [address] [place] [address] [phone] Dizziness and Cardiology- [facility], Adc Vascular Room 1 - [address], [address] [place] [address] Allergies Active Allergy Reactions Severity Noted Date Comments Bee [place] Anaphylaxis 08/14/2017 [place] Swelling 02/18/2016 Clams Swelling 02/18/2016 Tree Nuts Other - See comments 02/18/2016 Throat itching / raw Latex Itching 12/04/2015 Morphine Shortness of Breath 12/04/2015 Ibuprofen Hives 12/04/2015 Pork Derived (Porcine) Swelling 02/18/2016 documented as of this encounter (statuses as of 05/20/2019) Medications Medication Sig Dispensed Refills Start End Date Status Date aspirin 81 mg chewable Take 81 mg by 0 Active tablet mouth daily. vitamin B-12 (VITAMIN Take 1 tablet by 30 tablet 5 Active B-12) 500 mcg mouth daily. 8 tabletIndications: B12 deficiency Blood-Glucose Meter Check glucose 1 Each 0 Active (ACCU-CHEK LEIDY PLUS once daily before 9 METER) MiscIndications: breakfast; Controlled type 2 Diagnosis code diabetes mellitus without E11.9 complication, without long-term current use of insulin Insulin [place], Use as directed 100 Each 1 Active Disposable, (BD to inject Victoza 9 ULTRA-FINE MICRO PEN daily; ID-10 code NEEDLE) 32 gauge x 1/4" E11.69 NdleIndications: Diabetes mellitus type 2 in obese albuterol (PROAIR HFA) 90 Inhale 2 Puffs 3 Inhaler 1 Active mcg/actuation every 6 (six) 9 inhalerIndications: hours as needed Medication refill for Wheezing or Shortness of Breath. albuterol 2.5 mg /3 mL Inhale 3 mL every 120 Vial 1 Active (0.083 %) nebulizer 4 (four) hours as 9 solution needed for Wheezing or Shortness of Breath. Via nebulizer blood sugar diagnostic TEST BLOOD SUGAR 100 Strip 1 Active (ACCU-CHEK LEIDY PLUS TID; ICD-10 code 9 TEST STRP) E11.69 stripIndications: Diabetes mellitus type 2 in obese ergocalciferol, vitamin 1 capsule by 24 capsule 1 Active d2, (VITAMIN D2) 50,000 mouth 2 x a week 9 unit capsuleIndications: with food Vitamin D deficiency ezetimibe 10 mg TAKE ONE (1) 90 tablet 3 A ctive tabletIndications: TABLET(S) BY 9 Hypercholesterolemia MOUTH ONCE A DAY. Fenofibric Acid 135 mg Take 1 capsule by 90 capsule 1 03/28/20 1 Active capsuleIndications: Mixed mouth daily. 9 hyperlipidemia fluticasone propionate 50 Use 2 Sprays in 3 Bottle 1 03/28/20 1 Active mcg/actuation nasal each nostril 9 sprayIndications: daily. Medication refill Lancets MiscIndications: Check glucose 100 Each 1 Active Medication monitoring every morning 9 encounter before breakfast and as needed for symptoms; Diagnosis code R73.03 levocetirizine 5 mg Take 0.5-1 90 tablet 1 Active tabletIndications: tablets by mouth 9 Chronic allergic every evening as rhinitis, Medication needed for refill Allergies. levothyroxine 125 mcg TAKE ONE (1) 90 tablet 1 Active tablet TABLET(S) BY 9 MOUTH EVERY MORNING. magnesium oxide 400 mg Take 1 tablet by 180 tablet 1 Active magnesium TabIndications: mouth 2 (two) 9 Muscle cramps, Muscle times daily. pain montelukast 10 mg Take 1 tablet by 90 tablet 1 Active tabletIndications: mouth every 9 Medication refill, evening. Chronic allergic rhinitis omeprazole 40 mg Take 1 capsule by 90 capsule 1 Active capsuleIndications: mouth daily. 9 Medication refill rosuvastatin 40 mg Take 1 tablet by 90 tablet 1 Active tabletIndications: mouth at bedtime. 9 Hypercholesterolemia tiZANidine 4 mg Take 1 tablet by 180 tablet 1 Active tabletIndications: Muscle mouth every 8 9 pain, Muscle cramps (eight) hours as needed (muscle pain or spasm). EPINEPHrine (EPIPEN 0.3 mL by 2 Each 1 Active 2-RUTH) 0.3 mg/0.3 mL Intramuscular 9 injectionIndications: route as needed History of food allergy (anaphylaxis). escitalopram oxalate 10 Take 1 tablet by 90 tablet 1 Active mg tabletIndications: mouth daily. 9 PTSD (post-traumatic stress disorder), Panic disorder with agoraphobia, Chronic depression famotidine 20 mg Take 1 tablet by 180 tablet 1 Active tabletIndications: mouth 2 (two) 0 Gastroesophageal reflux times daily. disease without esophagitis documented as of this encounter (statuses as of 05/20/2019) Active Problems Problem Noted Date Hair loss [...] as of this encounter (statuses as of 05/20/2019) Immunizations Name Administration Dates Next Due Influenza [...] Treatment Date Type Specialty Care Team Description 05/20/2019 Laboratory Only Cardiology Dao Fontaine MD [address] [place] [address] [place] [phone] Arrived 1, Adc Cardio Fac Room Pc, Adc Echo Room 1 - 06/17/2019 Office Visit Neurology Marcus Madison MD [address] [place], [place] [phone] 06/27/2019 Office Visit Family Medicine Winnie Winn MD [address] [place], [place] [phone] Health Maintenance Due Date Last Done Comments VARICELLA VACCINES (1 of 2 - 1981 2-dose childhood series) PNEUMOCOCCAL 0-64 YEARS COMBINED 1986 SERIES (1 of 1 - PPSV23) DTaP,Tdap,and Td Vaccines (1 - 1991 Tdap) INFLUENZA VACCINE (#1) 2018 12/25/2015 EYE EXAM 02/08/2019 02/08/2018, 01/08/2018 PAP SMEAR 02/17/2019 02/18/2016 URINE MICROALBUMIN 02/23/2019 02/23/2018 HgA1C 09/27/2019 03/28/2019, 12/27/2018, 11/30/2018, Additional history exists FOOT EXAM 12/28/2019 12/27/2018, 11/28/2017, 11/28/2017, Additional history exists CREATININE (SERUM) 03/28/2020 03/28/2019, 12/27/2018, 11/30/2018, Additional history exists LDL-C 03/28/2020 03/28/2019, 12/27/2018, 09/21/2018, Additional history exists documented as of this encounter Goals Goal Patient Goal Associated Recent Patient-Stated? Author Type Problems Progress Quit using Tobacco Use No [place], tobacco Wondiful A, (cigarettes, MD smokeless, etc) documented as of this encounter Results Not on filedocumented in this encounter Visit Diagnoses Diagnosis Dizziness and giddiness documented in this encounter Additional Health Concerns Infection Noted Time Resolved Time Contact- MRSA 02/27/2017 8:27 PM DISABILITY ADVOCATE documented as of this encounter Insurance Payer Benefit Plan / Subscriber ID Effective Phone Address T e [facility] [id number] 2018-Prese Medic are Adv HEALTHCARE - HEALTHCARE nt PPO MANAGED MEDICARE [place] MEDIC[place] xxxxxxxxx 2017-Pres Medicaid HEALTHCARE COMM PLUS ent PLAN - MANAGED MEDICAID documented as of this encounter Advance Directives Name Relationship Healthcare Agent Relationship Co mmunication Juliann Oneill Mother Primary healthcare agent
--- OUTSIDE RECORDS SUMMARY | 2019-08-05 22:52 | XMS REPORT | Summary of Care ---
:1980 Author Organization [facility] Address [address] [place] [address] Care Team Providers Name Role Phone Jacqueline Winn MD Primary Care Provider Tech, Cardio Fac Unavailable Unavailable Boo Fontaine MD Unavailable Reason for Referral (Routine) Status Reason Specialty Diagnoses / Referred By Referred To Procedures Contact Contact Authorized Cardiology Diagnoses Dizziness and giddiness Ann Abdi MD Procedures CAROTID DUPLEX BILATERAL BY VASCULAR LAB [address] [place] [address] [phone] (Routine) Status Reason Specialty Diagnoses / Procedures Referred By R ceceerred To Contact Contact New Request Diagnoses Heart palpitations Ann Abdi MD Procedures EVENT MONITOR [address] [place] [phone] (Routine) Status Reason Specialty Diagnoses / Referred By Referred To Procedures Contact Contact Authorized Cardiology Diagnoses RODRIGUEZ (dyspnea on exertion) Ann Abdi MD Procedures ECHO ROUTINE W/DOPPLER COLOR Preferred Location: [facility] [address] [place] [address] [phone] Reason for Visit Reason Comments Follow-up Re Establishing Care/Seen Dr Flaco Fontaine 04.19.[address] Abdi 03.09.17 (Routine) Status Reason Specialty Diagnoses / Referred By Referred To Procedures Contact Contact New Request Cardiology Diagnoses Bradycardia Dizziness Jacqueline Winn Qiangjun, MD Procedures CONSULT/REFERRAL CARDIOLOGY MD Diandra [address] [place] [address] [address] [phone] [place], [place] Phone: [phone] Phone: Fax: Encounter Details Date Type Department Care Team Description 04/15/2019 Office Visit [facility] Jin, Marcial Juarez Heart palpitations (Primary Dx); Cardiology- [address] Hypercholesterolemia; [address] [place] [address] RIA RODRIGUEZ (dyspnea on exertion); Ria, [address] Dizziness and giddiness [place], [place] [phone] Allergies Active Allergy Reactions Severity Noted Date Comments Bee [place] Anaphylaxis 08/14/2017 [place] Swelling 02/18/2016 Clams Swelling 02/18/2016 Tree Nuts Other - See comments 02/18/2016 Throat itching / raw Latex Itching 12/04/2015 Morphine Shortness of Breath 12/04/2015 Ibuprofen Hives 12/04/2015 Pork Derived (Porcine) Swelling 02/18/2016 documented as of this encounter (statuses as of 05/19/2019) Medications Medication Sig Dispensed Refills Start End Status Date Date aspirin 81 mg chewable Take 81 mg by 0 Active tablet mouth daily. vitamin B-12 (VITAMIN Take 1 tablet by 30 tablet 5 Active B-12) 500 mcg mouth daily. 018 tabletIndications: B12 deficiency Blood-Glucose Meter Check glucose 1 Each 0 Active (ACCU-CHEK LEIDY PLUS once daily 019 METER) MiscIndications: before Controlled type 2 breakfast; diabetes mellitus Diagnosis code without complication, E11.9 without long-term current use of insulin Insulin [place], Use as directed 100 Each 1 Active Disposable, (BD to inject 019 ULTRA-FINE MICRO PEN Victoza daily; NEEDLE) 32 gauge x 1/4" ID-10 code NdleIndications: E11.69 Diabetes mellitus type 2 in obese albuterol (PROAIR HFA) Inhale 2 Puffs 3 Inhaler 1 Active 90 mcg/actuation every 6 (six) 019 inhalerIndications: hours as needed Medication refill for Wheezing or Shortness of Breath. albuterol 2.5 mg /3 mL Inhale 3 mL 120 Vial 1 Active (0.083 %) nebulizer every 4 (four) 019 solution hours as needed for Wheezing or Shortness of Breath. Via nebulizer blood sugar diagnostic TEST BLOOD SUGAR 100 Strip 1 Active (ACCU-CHEK LEIDY PLUS TID; ICD-10 code 019 TEST STRP) E11.69 stripIndications: Diabetes mellitus type 2 in obese ergocalciferol, vitamin 1 capsule by 24 capsule 1 Active d2, (VITAMIN D2) 50,000 mouth 2 x a week 019 unit with food capsuleIndications: Vitamin D deficiency ezetimibe 10 mg TAKE ONE (1) 90 tablet 3 A ctive tabletIndications: TABLET(S) BY 019 Hypercholesterolemia MOUTH ONCE A DAY. Fenofibric Acid 135 mg Take 1 capsule 90 capsule 1 Active capsuleIndications: by mouth daily. 019 Mixed hyperlipidemia fluticasone propionate Use 2 Sprays in 3 Bottle 1 Active 50 mcg/actuation nasal each nostril 019 sprayIndications: daily. Medication refill Lancets Check glucose 100 Each 1 Active MiscIndications: every morning 019 Medication monitoring before breakfast encounter and as needed for symptoms; Diagnosis code R73.03 levocetirizine 5 mg Take 0.5-1 90 tablet 1 Active tabletIndications: tablets by mouth 019 Chronic allergic every evening as rhinitis, Medication needed for refill Allergies. levothyroxine 125 mcg TAKE ONE (1) 90 tablet 1 Active tablet TABLET(S) BY 019 MOUTH EVERY MORNING. magnesium oxide 400 mg Take 1 tablet by 180 tablet 1 Active magnesium mouth 2 (two) 019 TabIndications: Muscle times daily. cramps, Muscle pain montelukast 10 mg Take 1 tablet by 90 tablet 1 Active tabletIndications: mouth every 019 Medication refill, evening. Chronic allergic rhinitis omeprazole 40 mg Take 1 capsule 90 capsule 1 Active capsuleIndications: by mouth daily. 019 Medication refill rosuvastatin 40 mg Take 1 tablet by 90 tablet 1 Active tabletIndications: mouth at 019 Hypercholesterolemia bedtime. tiZANidine 4 mg Take 1 tablet by 180 tablet 1 Active tabletIndications: mouth every 8 019 Muscle pain, Muscle (eight) hours as cramps needed (muscle pain or spasm). EPINEPHrine (EPIPEN 0.3 mL by 2 Each 1 Active 2-RUTH) 0.3 mg/0.3 mL Intramuscular 019 injectionIndications: route as needed History of food allergy (anaphylaxis). escitalopram oxalate 10 Take 1 tablet by 90 tablet 1 Active mg tabletIndications: mouth daily. 019 PTSD (post-traumatic stress disorder), Panic disorder with agoraphobia, Chronic depression ranitidine 150 mg Take 1 tablet by 180 tablet 1 04/10 tabletIndications: mouth 2 (two) 019 2019 (Availability) Medication refill times daily. documented as of this encounter (statuses as of 05/19/2019) Active Problems Problem Noted Date Hair loss [...] as of this encounter (statuses as of 05/19/2019) Immunizations Name Administration Dates Next Due Influenza [...] Sign Reading Time Taken Comments Blood Pressure 108/74 04/15/2019 3:14 PM POSITION CLASSIFICATION MANAGER Pulse 86 04/15/2019 3:14 PM POSITION CLASSIFICATION MANAGER Temperature - - Respiratory Rate 19 04/15/2019 3:14 PM POSITION CLASSIFICATION MANAGER Oxygen Saturation 98% 04/15/2019 3:14 PM POSITION CLASSIFICATION MANAGER Inhaled Oxygen Concentration - - Weight 78.8 kg (173 lb 12.8 oz) 04/15/2019 3:14 PM POSITION CLASSIFICATION MANAGER Height 147.3 cm (4' 10") 04/15/2019 3:14 PM POSITION CLASSIFICATION MANAGER Body Mass Index 36.32 04/15/2019 3:14 PM POSITION CLASSIFICATION MANAGER documented in this encounter Progress Notes Marilyn Alford RN - 04/15/2019 3:00 PM CSTPatient given 30 day event monitor in clinic, will supervisor transferring and boxing at home (MCT 3 lead with [employer]). She was instructed to apply in the morning of 04.16.2019 and to send a recording every day regardless of symptoms. She verbalized understanding. nn Abdi MD - 04/15/2019 3:00 PM POSITION CLASSIFICATION MANAGER [facility] Cardiology Consult Note MTEF COMPLAINT: Palpitations, RODRIGUEZ, fatigue, dizziness Chief Complaint Patient presents with Follow-up Re Establishing Care/Seen Dr. Fontaine 04.19.[address] Abdi 03.09.17 History of Present Illness: Hannah Oneill is a 38-year-old female patient presents to the office for follow-up for palpitations, RODRIGUEZ, dizziness etc. Stated that her heart rate remains low even with activities--as low as 60s. Feeling tired with activities. However EKG and office vitals are normal. No bradycardia noted. Feeling random palpitations. Getting SOB at walking 1 block. Orthopnea--3-4 pillows. Lost some weight. On C-PAP for JOEY. Dizzy when getting up--some vertigo. No caffeine and lots of water. EKG--04/15/2019--reviewed by me--normal sinus rhythm, normal EKG EKG--NSR, low voltage Echo July 2016 Interpretation Summary A complete two-dimensional transthoracic echocardiogram was performed (2D, M- mode, Doppler and colorflow Doppler). The study was diagnostic quality. There is no comparison study available. Normal LV size and thickness. Preserved LV systolic function. Normal diastolic function. Normal biatrial size. Normal RV size and function. Insufficient Tricuspid regurgitation jet to estimate RVSP, but probably normal. 30 day event monitor June 2016 Shows presence of PVCs that is consistent with her symptoms PAST MEDICAL HISTORY Past Medical History: Diagnosis Date Abnormal uterine [...] N/A 07/01/2016 Surgeon: Sean Rodriguez MD; Location: [facility] ESOPHAGOGASTRODUODENOSCOPY N/A 09/06/2016 Surgeon: Jonny Enriquez MD; Location: [facility] ([facility]) OR Location HERNIA REPAIR HYSTERECTOMY 2009 due to DUB, still has ovaries KNEE ARTHROSCOPY bilateral RADICAL HYSTERECTOMY SALPINGECTOMY ? tube removed /not sure was very infected post tubal 2002 TUBAL LIGATION 2002 Family History Problem Relation Age of Onset [...] Psychiatry NoFHx Other - see comments NoFHx SOCIAL HISTORY Social History Socioeconomic History Marital status: Single [...] Sexual Activity Alcohol use: No Alcohol/week: 0.0 standard drinks Comment: Rare Drug use: No Sexual activity: Yes Partners: Male Lifestyle Physical activity: Days per week: Not on file Minutes per session: Not on file Stress: Not on file Relationships Social connections: Talks on phone: Not on file Gets together: Not on file Attends anabaptism service: Not on file Active member of [...] seizure d/o. Denies domestic or physical violence ALLERGIES Allergies Allergen Reactions Bee [place] Anaphylaxis [place] Swelling Clams Swelling Coconut [Tree Nuts] Other - See comments Throat itching / raw Latex Itching Morphine Shortness of Breath Motrin [Ibuprofen] Hives Pork Derived (Porcine) Swelling MEDICATIONS Patient's Medications START taking these medications No medications on file CONTINUE taking these medications which have NOT CHANGED ALBUTEROL (PROAIR HFA) 90 MCG/ACTUATION INHALER Inhale 2 Puffs every 6 (six) hours as needed forWheezing or Shortness of Breath. ALBUTEROL 2.5 MG /3 ML (0.083 %) NEBULIZER SOLUTION Inhale 3 mL every 4 (four) hours as needed for Wheezing or Shortness of Breath. Via nebulizer ASPIRIN 81 MG CHEWABLE TABLET Take 81 mg by mouth daily. BLOOD SUGAR DIAGNOSTIC (ACCU-CHEK LEIDY PLUS TEST STRP) STRIP TEST BLOOD SUGAR TID; ICD-10 code E11.69 BLOOD-GLUCOSE METER (ACCU-CHEK LEIDY PLUS METER) [facility] Check glucose once daily before breakfast;Diagnosis code E11.9 EPINEPHRINE (EPIPEN 2-RUTH) 0.3 MG/0.3 ML INJECTION 0.3 mL by Intramuscular route as needed (anaphylaxis). ERGOCALCIFEROL, VITAMIN D2, (VITAMIN D2) 50,000 UNIT CAPSULE 1 capsule by mouth 2 x a week with food ESCITALOPRAM OXALATE 10 MG TABLET Take 1 tablet by mouth daily. EZETIMIBE 10 MG TABLET TAKE ONE (1) TABLET(S) BY MOUTH ONCE A DAY. FENOFIBRIC ACID 135 MG CAPSULE Take 1 capsule by mouth daily. FLUTICASONE PROPIONATE 50 MCG/ACTUATION NASAL SPRAY Use 2 Sprays in each nostril daily. INSULIN NEEDLES, DISPOSABLE, (BD ULTRA-FINE MICRO PEN NEEDLE) 32 GAUGE X 1/4" NDLE Use as directed to inject Victoza daily; ID-10 code E11.69 LANCETS [facility] Check glucose every morning before breakfast and as needed for symptoms; Diagnosis code R73.03 LEVOCETIRIZINE 5 MG TABLET Take 0.5-1 tablets by mouth every evening as needed for Allergies. LEVOTHYROXINE 125 MCG TABLET TAKE ONE (1) TABLET(S) BY MOUTH EVERY MORNING. MAGNESIUM OXIDE 400 MG MAGNESIUM TAB Take 1 tablet by mouth 2 (two) times daily. MONTELUKAST 10 MG TABLET Take 1 tablet by mouth every evening. OMEPRAZOLE 40 MG CAPSULE Take 1 capsule by mouth daily. RANITIDINE 150 MG TABLET Take 1 tablet by mouth 2 (two) times daily. ROSUVASTATIN 40 MG TABLET Take 1 tablet by mouth at bedtime. TIZANIDINE 4 MG TABLET Take 1 tablet by mouth every 8 (eight) hours as needed (muscle pain or spasm). VITAMIN B-12 (VITAMIN B-12) 500 MCG TABLET Take 1 tablet by mouth daily. START taking Modified Medications as Prescribed No medications on file STOP taking these medications No medications on file There are no exam notes on file for this visit. I have reviewed the nursing notes obtained by my nurse and concur as detailed above. REVIEW OF SYSTEMS: Comprehensive 10-system review was conducted and were negative except for what's noted in the HPI. The following systems were reviewed: Constitutional, cardiovascular, respiratory, gastrointestinal, genitourinary, musculoskeletal, neurologic, psychiatric, endocrinological, and hematological. PHYSICAL EXAMINATION: Vitals: 04/15/19 1514 BP: 108/74 BP Location: Left arm Patient Position: Sitting BP CUFF SIZE: Adult Small Pulse: 86 Resp: 19 SpO2: 98% Weight: 173 lb 12.8 oz (78.8 kg) Height: 4' 10" (1.473 m) General: no apparent distress HEENT: normocephalic atraumatic Neck: supple, no lymphadenopathy, no bruits, no JVD Lungs: clear to auscultation bilaterally. No wheezes or rhonchi. No increased work of breathing. Cardio: Regular rate and rhythm, S1&S2 normal, no murmurs, rubs or gallops Abdomen: soft; non-tender; non-distended; normoactive bowel sounds. : not examined Rectal: not examined Extremities: no clubbing, cyanosis, or edema. Skin: no rashes, no visible lesions. Neuro: no gross focal deficits LABS - Reviewed pertinent labs as below: CBC BMP PT/INR WBC-LC (x10E3/uL) Date Value 09/01/2016 9.8 WBC (10*3/L) Date Value 03/28/2019 9.80 NA (mmol/L) Date Value 03/28/2019 139 Sodium, Serum-LC (mmol/L) Date Value 09/01/2016 141 No results found for: PT Platelets-LC (x10E3/uL) Date Value 09/01/2016 254 PLT (10*3/L) Date Value 03/28/2019 290 K (mmol/L) Date Value 03/28/2019 4.6 Potassium, Serum-LC (mmol/L) Date Value 09/01/2016 4.3 No results found for: PTINR HGB (g/dL) Date Value 03/28/2019 14.8 Hemoglobin-LC (g/dL) Date Value 09/01/2016 15.6 BUN (mg/dL) Date Value 03/28/2019 17 BUN-LC (mg/dL) Date Value 09/01/2016 10 HCT (%) Date Value 03/28/2019 46.0 (H) Hematocrit-LC (%) Date Value 09/01/2016 46.1 CREATININE (mg/dL) Date Value 03/28/2019 0.70 Creatinine, Serum-LC (mg/dL) Date Value 09/01/2016 0.80 LIPID PROFILE GLUCOSE (mg/dL) Date Value 03/28/2019 100 Glucose, Serum-LC (mg/dL) Date Value 09/01/2016 126 (H) CHOL (mg/dL) Date Value 03/28/2019 231 (H) Cholesterol, Total-LC (mg/dL) Date Value 07/08/2016 241 (H) TSH LDL CHOL (mg/dL) Date Value 03/28/2019 166 (H) TSH (mIU/L) Date Value 03/28/2019 2.26 TSH-LC (uIU/mL) Date Value 09/01/2016 1.560 CARDIAC ENZYMES HDL Cholesterol-LC (mg/dL) Date Value 07/08/2016 40 HDL (mg/dL) Date Value 03/28/2019 34 (L) CK (U/L) Date Value 11/30/2018 48 TRIG (mg/dL) Date Value 03/28/2019 153 Triglycerides-LC (mg/dL) Date Value 07/08/2016 144 LFTs No results found for: CKMB AST(SGOT) (U/L) Date Value 03/28/2019 36 AST (SGOT)-LC (IU/L) Date Value 09/01/2016 41 (H) No results found for: TROPNI ALT(SGPT) (U/L) Date Value 12/27/2018 43 ALT (SGPT)-LC (IU/L) Date Value 09/01/2016 91 (H) ALTv (U/L) Date Value 03/28/2019 44 (H) No results found for: BNP ASSESSMENT/PLAN 1. Heart palpitations EKG-12 LEAD ROUTINE EVENT MONITOR 30 DAYS EVENT MONITOR 30 DAYS 2. Hypercholesterolemia 3. RODRIGUEZ (dyspnea on exertion) ECHO ROUTINE W/DOPPLER COLOR Preferred Location: [facility] 4. Dizziness and giddiness CAROTID DUPLEX BILATERAL BY VASCULAR LAB She has a lot of symptoms. Palpitations--Will get a 30-day event monitor to assess arrhythmias. RODRIGUEZ and orthopnea--new onset. Normal nuclear MPI in 2018. Will get ECHO to rule out structural heartdisease and to assess hemodynamics. Dizziness with vertigo--Will get carotid duplex to assess. Ann Abdi MD, FACC, FACP, FASE Supervisor [employer], Division of Cardiology [facility] documented in this encounter Plan of Treatment Date Type Specialty Care Team Description 05/20/2019 Linux System Admin Visit Cardiology Dao Fontaine MD [address] [place] [address] [place] [phone] Pc, Adc Vascular Room 1 - 05/20/2019 Laboratory Only Cardiology Dao Fontaine MD [address] [place] [address] [place] [phone] 1, [facility] Cardio Fac Room Pc, Adc Echo Room 1 - 06/17/2019 Office Visit Neurology Marcus [place] MD [address] [place], [place] [phone] 06/27/2019 Office Visit Family Medicine Winnie Winn MD [address] [place], [place] [phone] Name Type Priority Associated Diagnoses Order S chedule EKG-12 LEAD ROUTINE HEART STATION Routine Heart palpitations O rdered: 04/15/2019 EVENT MONITOR 30 PROCEDURES Routine Heart palpitations 1 Occ urrences starting DAYS 04/15/2019 unti l 06/15/2019 Health Maintenance Due Date Last Done Comments VARICELLA VACCINES (1 of 2 - 1981 2-dose childhood series) PNEUMOCOCCAL 0-64 YEARS COMBINED 1986 SERIES ( of - PPSV23) DTaP,Tdap,and Td Vaccines (1 - [...] Problems Progress Quit using Tobacco Use No [place], tobacco Wondiful A, (cigarettes, MD smokeless, etc) documented as of this encounter Procedures Procedure Name Priority Date/Time Associated Diagnosis Comme nts EKG-12 LEAD Routine 04/15/2019 3:16 PM POSITION CLASSIFICATION MANAGER documented in this encounter Results Not on filedocumented in this encounter Visit Diagnoses Diagnosis Heart palpitations - Primary Palpitations Hypercholesterolemia Pure hypercholesterolemia RODRIGUEZ (dyspnea on exertion) Other dyspnea and respiratory abnormalit y Dizziness and giddiness documented in this encounter Additional Health Concerns Infection Noted Time Resolved Time Contact- MRSA 02/27/2017 8:27 PM POSITION CLASSIFICATION MANAGER documented as of this encounter Insurance Payer Benefit Plan / Subscriber ID Effective Phone Address T e Group [facility] [id number] 2018-Prese Medic are Adv HEALTHCARE - HEALTHCARE nt PPO MANAGED MEDICARE [place] MEDICARE [place] xxxxxxxxx 2017-Pres Medicaid HEALTHCARE COMM PLUS ent PLAN - MANAGED MEDICAID documented as of this encounter Advance Directives Name Relationship Healthcare Agent Relationship Co mmunication Juliann Oneill Mother Primary healthcare agent
--- OUTSIDE RECORDS SUMMARY | 2019-08-05 22:52 | XMS REPORT | Summary of Care ---
:1980 Author Organization [facility] Address [address] [place] [address] Care Team Providers Name Role Phone Jacqueline Winn MD Primary Care Provider Tech, Cardio Fac Unavailable Unavailable Boo Fontaine MD Unavailable Reason for Visit (Routine) Status Reason Specialty Diagnoses / Procedures Referred By C ontact Referred To Contact Closed Cardiology Diagnoses RODRIGUEZ (dyspnea on exertion) Ann Abdi MD Procedures ECHO ROUTINE W/DOPPLER COLOR Preferred Location: [facility] [address] [place] [address] [address] [place], [place] [address] Phone: Encounter Details Date Type Department Care Team Description 05/20/2019 Laboratory Only [facility] Dao Fontaine MD [address] [phone] RODRIGUEZ (dyspnea on Cardiology- [place] [address], [facility] Cardio Fac Room exertion) [address] [place] [address], Adc Echo Room [address] [place] [address], [address] [place] [phone] Allergies Active Allergy Reactions Severity Noted Date Comments Bee [place] Anaphylaxis 08/14/2017 [place] Swelling 02/18/2016 Clams Swelling 02/18/2016 Tree Nuts [...] without long-term current use of insulin Insulin [place], Use as directed 100 Each 1 Active [...] Treatment Date Type Specialty Care Team Description 06/17/2019 Office Visit Neurology Marcus Madison MD [address] [place], [place] [phone] 06/27/2019 Office Visit Family Medicine Winnie Winn MD [address] [place], [place] [phone] Health Maintenance Due Date Last Done [...] Problems Progress Quit using Tobacco Use No [place], tobacco Wondiful A, (cigarettes, MD smokeless, etc) documented as of this encounter Results Not on filedocumented in this encounter Visit Diagnoses Diagnosis RODRIGUEZ (dyspnea on exertion) Other dyspnea and respiratory abnormalit y documented in this encounter Additional Health Concerns Infection Noted Time Resolved Time Contact- MRSA 02/27/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
--- OUTSIDE RECORDS SUMMARY | 2019-08-05 22:53 | XMS REPORT | Summary of Care ---
:1980 Author Organization [facility] Address [address] [place] [address] Care Team Providers Name Role Phone Jacqueline Winn MD Primary Care Provider Tech, Cardio Fac Unavailable Unavailable Boo Fontaine MD Unavailable Reason for Visit Reason Comments Rx Concern/Question Talk To Nurse Encounter Details Date Type Department Care Team Description 04/30/2019 Telephone [facility] Ann Abdi M D Rx Concern/Question; Cardiology- [address] Talk To Nurse [address], [address] [place], [place] [phone] Allergies Active Allergy Reactions Severity Noted Date Comments Bee [place] Anaphylaxis 08/14/2017 [place] Swelling 02/18/2016 Clams Swelling 02/18/2016 Tree Nuts Other - See comments 02/18/2016 Throat itching / raw Latex Itching 12/04/2015 Morphine Shortness of Breath 12/04/2015 Ibuprofen Hives 12/04/2015 Pork Derived (Porcine) Swelling 02/18/2016 documented as of this encounter (statuses as of 04/30/2019) Medications Medication Sig Dispensed Refills Start End [...] without long-term current use of insulin Insulin [place], Use as directed 100 Each 1 Active [...] as of this encounter (statuses as of 04/30/2019) Active Problems Problem Noted Date Hair loss [...] as of this encounter (statuses as of 04/30/2019) Immunizations Name Administration Dates Next Due Influenza [...] Treatment Date Type Specialty Care Team Description 05/09/2019 Office Visit Surgery Neema Pike MD [address] [facility] [address] [place] [address] [phone] 05/20/2019 Marinator Visit Harness Builder, Adc Cardio Fac 2, Adc Cardio Fac Room 05/20/2019 Laboratory Only Harness Builder, Adc Cardio Fac 1, Adc Cardio Fac Room 06/17/2019 Office Visit Neurology Marcus Madison MD [address] [place], [place] [phone] 06/27/2019 Office Visit Family Medicine Winnie Winn MD [address] [place], [place] [phone] Health Maintenance Due Date Last Done [...] Problems Progress Quit using Tobacco Use No [place], tobacco Wondiful A, (cigarettes, MD smokeless, etc) documented as of this encounter Results Not on filedocumented in this encounter Additional Health Concerns Infection Noted Time Resolved Time Contact- MRSA 02/27/2017 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
--- OUTSIDE RECORDS SUMMARY | 2019-08-05 22:53 | XMS REPORT | Summary of Care ---
:[address] [facility] - Health Address [address] [place], [place] [address] Care Team Providers Name Role Phone Jacqueline Winn MD Primary Care Provider Tech, Cardio Fac Unavailable Unavailable Boo Fontaine MD Unavailable Encounter Details Date Type Department Care Team Description 05/21/[address] [facility] Doctor Unassigned, No [address] [facility] [place] [address] Allergies Active Allergy Reactions Severity Noted Date Comments Bee [place] Anaphylaxis 08/14/2017 [place] Swelling 02/18/2016 Clams Swelling 02/18/2016 Tree Nuts Other - See comments 02/18/2016 Throat itching / raw Latex Itching 12/04/2015 Morphine Shortness of Breath 12/04/2015 Ibuprofen Hives 12/04/2015 Pork Derived (Porcine) Swelling 02/18/2016 documented as of this encounter (statuses as of 05/22/2019) Medications Medication Sig Dispensed Refills Start End [...] without long-term current use of insulin Insulin [place], Use as directed 100 Each 1 Active Disposable, (BD to inject Victoza 9 ULTRA-FINE MICRO PEN daily; ID-10 code NEEDLE) 32 gauge x /" E11.69 NdleIndications: Diabetes mellitus type 2 in [...] as of this encounter (statuses as of 05/22/2019) Active Problems Problem Noted Date Hair loss [...] as of this encounter (statuses as of 05/22/2019) Immunizations Name Administration Dates Next Due Influenza [...] Treatment Date Type Specialty Care Team Description 06/04/2019 Office Visit Neurology Marcus Madison MD [address] [place] [address] [phone] 06/17/2019 Office Visit Neurology Marcus Madison MD [address] [place] [address] [phone] 06/27/2019 Office Visit Family Medicine Winnie Winn MD [address] [place], [place] [phone] Health Maintenance Due Date Last Done [...] Name Priority Date/Time Associated Diagnosis Comme nts REFERRAL- Routine 05/21/2019 12:01 AM PATIENT CARE TECHNICIAN INSTRUCTOR REQUEST/RESPONSE documented in this encounter Results Not on filedocumented in this encounter Additional Health Concerns Infection Noted Time Resolved Time Contact- MRSA 02/27/2017 8:27 PM PATIENT CARE TECHNICIAN INSTRUCTOR documented as of this encounter Insurance Payer Benefit Plan / Subscriber ID Effective Phone Address [facility] [id number] 2018-Prese Medic are Adv HEALTHCARE - HEALTHCARE nt PPO MANAGED MEDICARE [place]VER MEDIC[place] xxxxxxxxx 2017-Pres Medicaid HEALTHCARE COMM PLUS ent PLAN - MANAGED MEDICAID documented as of this encounter Advance Directives Name Relationship Healthcare Agent Relationship Co mmunication Juliann Oneill Mother Primary healthcare agent
--- OUTSIDE RECORDS SUMMARY | 2019-08-05 22:53 | XMS REPORT | Summary of Care ---
:1980 Author Organization [facility] Address [address] [place] [address] Care Team Providers Name Role Phone Jacqueline Winn MD Primary Care Provider Tech, Cardio Fac Unavailable Unavailable Boo Fontaine MD Unavailable Reason for Visit Reason Comments Rx Concern/Question Encounter Details Date Type Department Care Team Description 04/24/2019 Telephone [facility] Family Jacqueline Winn R x Concern/Question Medicine - Minh SHRESTHA [address] [place], [place] [address] [address] [place], [place] [phone] Allergies Active Allergy Reactions Severity Noted Date Comments Bee [place] Anaphylaxis 08/14/2017 [place] Swelling 02/18/2016 Clams Swelling 02/18/2016 Tree Nuts Other - See comments 02/18/2016 Throat itching / raw Latex Itching 12/04/2015 Morphine Shortness of Breath 12/04/2015 Ibuprofen Hives 12/04/2015 Pork Derived (Porcine) Swelling 02/18/2016 documented as of this encounter (statuses as of 04/26/2019) Medications Medication Sig Dispensed Refills Start End [...] without long-term current use of insulin Insulin [place], Use as directed 100 Each 1 Active [...] tablet 1 Active tabletIndications: mouth 2 (two) 020 Gastroesophageal reflux times daily. disease without esophagitis ranitidine 150 mg Take 1 tablet by 180 tablet 1 04/10 5/ Discontinued tabletIndications: mouth 2 (two) 019 2020 (Availability) Medication refill times daily. documented as of this encounter (statuses as of 04/26/2019) Active Problems Problem Noted Date Hair loss [...] as of this encounter (statuses as of 04/26/2019) Immunizations Name Administration Dates Next Due Influenza [...] Office Visit Surgery Neema Pike MD [address] [facility] [address] [place] [address] [phone] 05/20/2019 Funeral Service Manager Visit Counter Control Operator, Adc Cardio Fac 2, Adc Cardio Fac Room 05/20/2019 Laboratory Only Counter Control Operator, Adc Cardio Fac 1, Adc Cardio Fac Room 06/17/2019 Office Visit Neurology Marcus Madison MD [address] [facility] [place], [place] [address] [phone] 06/27/2019 Office Visit Family Medicine Winnie Winn MD [address] [place], [place] [address] [phone] Health Maintenance Due Date Last Done [...] Problems Progress Quit using Tobacco Use No Worth, tobacco Wondiful A, (cigarettes, MD smokeless, etc) documented as of this encounter Results Not on filedocumented in this encounter Visit Diagnoses Diagnosis Gastroesophageal reflux disease without esophagitis - Primary Esophageal reflux documented in this encounter Additional Health Concerns Infection Noted Time Resolved Time Contact- MRSA 02/27/2017 8:27 PM YARDER ENGINEER documented as of this encounter Insurance Payer Benefit Plan / Subscriber ID Effective Phone Address [facility] [id number] 2018-Prese Medic are Adv HEALTHCARE - HEALTHCARE nt PPO MANAGED MEDICARE [place]VER MEDICARE [place] [place] xxxxxxxxx 2017-Pres Medicaid HEALTHCARE COMM PLUS ent PLAN - MANAGED MEDICAID documented as of this encounter Advance Directives Name Relationship Healthcare Agent Relationship Co mmunication Juliann Oneill Mother Primary healthcare agent
--- OUTSIDE RECORDS SUMMARY | 2019-08-05 22:54 | XMS REPORT | Summary of Care ---
:1980 Author Organization [facility] Address [address] [place] [address] Care Team Providers Name Role Phone Jacqueline Winn MD Primary Care Provider Tech, Cardio Fac Unavailable Unavailable Boo Fontaine MD Unavailable Reason for Visit Reason Comments Follow-up 6 week Encounter Details Date Type Department Care Team Description 05/09/2019 Office Visit [facility] Surgical Nemea Pike An al fissure (Primary Specialties - Anglet on MD Dx) [address] [place] [address], [address] [place] [address] 2.100 [phone] [place], [place] [phone] Allergies Active Allergy Reactions Severity Noted Date Comments Bee [place] Anaphylaxis 08/14/2017 [place] Swelling 02/18/2016 Clams Swelling 02/18/2016 Tree Nuts Other - See comments 02/18/2016 Throat itching / raw Latex Itching 12/04/2015 Morphine Shortness of Breath 12/04/2015 Ibuprofen Hives 12/04/2015 Pork Derived (Porcine) Swelling 02/18/2016 documented as of this encounter (statuses as of 05/14/2019) Medications Medication Sig Dispensed Refills Start End [...] without long-term current use of insulin Insulin [place], Use as directed 100 Each 1 Active [...] as of this encounter (statuses as of 05/14/2019) Active Problems Problem Noted Date Hair loss [...] as of this encounter (statuses as of 05/14/2019) Immunizations Name Administration Dates Next Due Influenza [...] Sign Reading Time Taken Comments Blood Pressure 119/77 05/09/2019 1:14 PM ED TEACHER Pulse 86 05/09/2019 1:14 PM ED TEACHER Temperature 36.8 C (98.2 F) 05/09/2019 1:14 PM ED TEACHER Respiratory Rate 18 05/09/2019 1:14 PM ED TEACHER Oxygen Saturation - - Inhaled Oxygen Concentration - - Weight 78.5 kg (173 lb) 05/09/2019 1:14 PM ED TEACHER Height - - Body Mass Index 36.16 04/15/2019 3:14 PM ED TEACHER documented in this encounter Progress Notes Emmanuel Flores MD - 05/09/2019 1:00 PM CST General Surgery Clinic Note Chief Complaint: Anal fissure HPI: Hannah Oneill is a 38 year old female who was seen in clinic 6 week ago due to anal pain associatedwith BMs. Patient at the time was diagnosed with an anterior anal fissure for which treatment with stool softeners, sitz baths, diet modification and topical nifedipine was indicated. Patient today refers improvement of her symptoms and refers that she has no had any more pain, also refers her BMs areregular 2-3 times a day. REVIEW OF SYSTEMS (-)=Negative,(+)=Positive Constitutional: negative Skin: negative HEENT: negative Cardio: negative Resp:negative GI: see HPI : negative TREVON: negative Neuro: negative Psych: negative Hem/Lymphatic: negative Past Medical History: Past Medical History: Diagnosis Date Abnormal uterine [...] whole baldder on occation Past Surgical History: Past Surgical History: Procedure Laterality Date ABDOMEN SURGERY PROC UNLISTED Hernia Repair post tubal 2002 APPENDECTOMY ESOPHAGOGASTRODUODENOSCOPY N/A 07/01/2016 Surgeon: Sean Rodriguez MD; Location: [place] [facility] Location ESOPHAGOGASTRODUODENOSCOPY N/A 09/06/2016 Surgeon: Jonny Enriquez MD; Location: [facility] Location HERNIA REPAIR HYSTERECTOMY 2009 due to DUB, still has ovaries KNEE ARTHROSCOPY bilateral RADICAL HYSTERECTOMY SALPINGECTOMY ? tube removed /not sure was very infected post tubal 2002 TUBAL LIGATION 2002 Family History: Family History Problem Relation Age of Onset [...] Psychiatry NoFHx Other - see comments NoFHx Social History: Social History Socioeconomic History Marital status: Single [...] file Gets together: Not on file Attends taoist service: Not on file Active member of [...] seizure d/o. Denies domestic or physical violence Medications: Current Outpatient Medications Medication Sig Dispense Refill famotidine 20 mg tablet Take 1 tablet by mouth 2 (two) times daily. 180 tablet 1 albuterol (PROAIR HFA) 90 mcg/actuation inhaler Inhale 2 Puffs every 6 (six) hours as needed forWheezing or Shortness of Breath. 3 Inhaler 1 albuterol 2.5 mg /3 mL (0.083 %) nebulizer solution Inhale 3 mL every 4 (four) hours as needed for Wheezing or Shortness of Breath. Via nebulizer 120 Vial 1 blood sugar diagnostic (ACCU-CHEK LEIDY PLUS TEST STRP) strip TEST BLOOD SUGAR TID; ICD-10 code E11.69 100 Strip 1 EPINEPHrine (EPIPEN 2-RUTH) 0.3 mg/0.3 mL injection 0.3 mL by Intramuscular route as needed (anaphylaxis). 2 Each 1 ergocalciferol, vitamin d2, (VITAMIN D2) 50,000 unit capsule 1 capsule by mouth 2 x a week with food 24 capsule 1 escitalopram oxalate 10 mg tablet Take 1 tablet by mouth daily. 90 tablet 1 ezetimibe 10 mg tablet TAKE ONE (1) TABLET(S) BY MOUTH ONCE A DAY. 90 tablet 3 Fenofibric Acid 135 mg capsule Take 1 capsule by mouth daily. 90 capsule 1 fluticasone propionate 50 mcg/actuation nasal spray Use 2 Sprays in each nostril daily. 3 Bottle1 Lancets [facility] Check glucose every morning before breakfast and as needed for symptoms; Diagnosis code R73.03 100 Each 1 levocetirizine 5 mg tablet Take 0.5-1 tablets by mouth every evening as needed for Allergies. 90tablet 1 levothyroxine 125 mcg tablet TAKE ONE (1) TABLET(S) BY MOUTH EVERY MORNING. 90 tablet 1 magnesium oxide 400 mg magnesium Tab Take 1 tablet by mouth 2 (two) times daily. 180 tablet 1 montelukast 10 mg tablet Take 1 tablet by mouth every evening. 90 tablet 1 omeprazole 40 mg capsule Take 1 capsule by mouth daily. 90 capsule 1 rosuvastatin 40 mg tablet Take 1 tablet by mouth at bedtime. 90 tablet 1 tiZANidine 4 mg tablet Take 1 tablet by mouth every 8 (eight) hours as needed (muscle pain or spasm). 180 tablet 1 Insulin [place], Disposable, (BD ULTRA-FINE MICRO PEN NEEDLE) 32 gauge x 1/4" Ndle Use as directed to inject Victoza daily; ID-10 code E11.69 100 Each 1 Blood-Glucose Meter (ACCU-CHEK LEIDY PLUS METER) [facility] Check glucose once daily before breakfast;Diagnosis code E11.9 1 Each 0 vitamin B-12 (VITAMIN B-12) 500 mcg tablet Take 1 tablet by mouth daily. 30 tablet 5 aspirin 81 mg chewable tablet Take 81 mg by mouth daily. No current facility-administered medications for this visit. Allergy: Allergies Allergen Reactions Bee [place] Anaphylaxis [place] Swelling Clams Swelling Coconut [Tree Nuts] Other - See comments Throat itching / raw Latex Itching Morphine Shortness of Breath Motrin [Ibuprofen] Hives Pork Derived (Porcine) Swelling Physical Exam: Temp: [36.8 C (98.2 F)] Pulse: [86] Resp: [18] BP: (119)/(77) Constitutional: Well developed, no acute distress General: A & O x 3 to person, place and situation HEENT: no scleral icterus, moist mucous membranes Respiratory: clear to auscultation bilaterally Cardio: regular rate and rhythm Abdomen: soft, ND, no tenderness to palpation Extremities: DP and PT pulses 3+ bilaterally. No edema. Skin: no rashes Anorectal: No fissure identified. Normal REGINA. Labs: Labs: CBC BMP PT/INR WBC-LC (x10E3/uL) Date Value 09/01/2016 9.8 WBC (10*3/L) Date Value 03/28/2019 9.80 NA (mmol/L) Date Value 03/28/2019 139 Sodium, Serum-LC (mmol/L) Date Value 09/01/2016 141 No results found for: PT RBC-LC (x10E6/uL) Date Value 09/01/2016 5.42 (H) RBC (10*6/L) Date Value 03/28/2019 5.22 K (mmol/L) Date Value 03/28/2019 4.6 Potassium, Serum-LC (mmol/L) Date Value 09/01/2016 4.3 No results found for: PTINR Platelets-LC (x10E3/uL) Date Value 09/01/2016 254 PLT (10*3/L) Date Value 03/28/2019 290 CALCIUM (mg/dL) Date Value 03/28/2019 9.6 Calcium, Serum-LC (mg/dL) Date Value 09/01/2016 9.9 HGB (g/dL) Date Value 03/28/2019 14.8 Hemoglobin-LC (g/dL) Date Value 09/01/2016 15.6 CL (mmol/L) Date Value 03/28/2019 105 Chloride, Serum-LC (mmol/L) Date Value 09/01/2016 100 aPTT HCT (%) Date Value 03/28/2019 46.0 (H) Hematocrit-LC (%) Date Value 09/01/2016 46.1 BUN (mg/dL) Date Value 03/28/2019 17 BUN-LC (mg/dL) Date Value 09/01/2016 10 No results found for: APTTPAT CREATININE (mg/dL) Date Value 03/28/2019 0.70 Creatinine, Serum-LC (mg/dL) Date Value 09/01/2016 0.80 Hospital Problem list: Patient Active Problem List Diagnosis Date Noted Asthma Hair loss 10/04/2017 Depression Infection of skin due to methicillin resistant Staphylococcus aureus (MRSA) 02/27/2017 Positive test for herpes simplex virus (HSV) antibody 01/02/2017 Headache disorder 12/14/2016 Obesity (BMI 30-39.9) 11/11/2016 Seizure 11/07/2016 Female hirsutism 10/24/2016 Submandibular sialoadenitis 07/22/2016 Hyperinsulinemia 07/20/2016 Heart palpitations 07/11/2016 Obstructive sleep apnea 04/13/2016 LUQ abdominal pain 01/28/2016 Gastroesophageal reflux disease without esophagitis 01/20/2016 Onychomycosis 12/25/2015 Seborrhea 12/25/2015 Chronic allergic rhinitis 12/25/2015 Fatty liver 12/16/2015 Acquired autoimmune hypothyroidism 12/09/2015 Abnormal liver function test 12/09/2015 Hypercholesterolemia 12/09/2015 Diabetes mellitus type 2 in obese 12/09/2015 Microscopic hematuria 12/09/2015 B12 deficiency 12/09/2015 Vitamin D deficiency 12/09/2015 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 Her symptoms have resolved. 1. Discontinue Nifedipine cream. 2. No need for further follow up 3. RTC if new complaints. Patient seen and discussed with faculty, Dr. Pike . Emmanuel Vogel MD 05/09/2019 General Surgery, PGY-2 Attending Attestation: I personally evaluated and examined the patient on 05/09/[address] Cardona's note as written. I actively participated in the decision-making process. Please see the resident's note for additional details. Patient's fissure successfully treated with topical nifedipine and diet modification with bulking fiber and water. Exam done demonstrated healed fissure. Advised patient to discontinuenifedipine cream but continue fiber and water to prevent constipation. RTC as needed. Neema Pike M.D. 05/09/2019 17:09 TEACHER Chary Woodard - 05/09/2019 1:00 PM Orly Oneill is a 38 year old female comes to clinic independent in ambulation for 6 week follow up. Pt comes alone . Pt in NAD w/ pain reported 0/10. Pt preferred language is Singaporean. Pt. denies fall in last 12 months. Allergies and medications reviewed and updated. [facility] [place] [facility] [place] [place] [facility] [address] Chary Woodard 05/09/2019 1:15 PM documented in this encounter Plan of Treatment Date Type Specialty Care Team Description 05/20/2019 Morgue Technician Visit Account Advisor, Adc Cardio Fac Pc, Adc Vascular Room 1 - 05/20/2019 Laboratory Only Cardiology 1, Adc Cardio Fac Room Pc, Adc Echo Room 1 - 06/17/2019 Office Visit Neurology Marcus Madison MD [address] [place], [place] [address] [phone] 06/27/2019 Office Visit Family Medicine Winnie Winn MD [address] [place] [phone] Health Maintenance Due Date Last [...] filedocumented in this encounter Visit Diagnoses Diagnosis Anal fissure - Primary documented in this encounter Additional Health Concerns Infection Noted Time Resolved Time Contact- MRSA 02/27/2017 8:27 PM ED TEACHER documented as of this encounter Insurance Payer Benefit Plan / Subscriber ID Effective Phone Address [employer] [facility] [id number] 2018-Prese Medic are Adv HEALTHCARE - HEALTHCARE nt PPO MANAGED MEDICARE S[place]VER MEDICARE [place] xxxxxxxxx 2017-Pres Medicaid HEALTHCARE COMM PLUS ent PLAN - MANAGED MEDICAID documented as of this encounter Advance Directives Name Relationship Healthcare Agent Relationship Co mmunication Juliann Oneill Mother Primary healthcare agent
--- OUTSIDE RECORDS SUMMARY | 2019-08-05 22:54 | XMS REPORT | Summary of Care ---
:1980 Author Organization [facility] Address [address] [place] [address] Care Team Providers Name Role Phone Jacqueline Winn MD Primary Care Provider Tech, Cardio Fac Unavailable Unavailable Boo Fontaine MD Unavailable Reason for Visit Reason Comments Follow-up 6 week Encounter Details Date Type Department Care Team Description 05/09/2019 Office Visit [facility] Surgical Neema Pike An al fissure (Primary Specialties - Anglet on MD Dx) [address] [place] [address], [address] [place] [address] 2.100 [address] [place], [place] [phone] Allergies Active Allergy Reactions Severity Noted Date Comments Bee [place] Anaphylaxis 08/14/2017 [place] Swelling 02/18/2016 Clams Swelling 02/18/2016 Tree Nuts [...] without long-term current use of insulin Insulin [place], Use as directed 100 Each 1 Active [...] Comments Blood Pressure 119/77 05/09/2019 1:14 PM ROPING TENDER Pulse 86 05/09/2019 1:14 PM ROPING TENDER Temperature 36.8 C (98.2 F) 05/09/2019 1:14 PM ROPING TENDER Respiratory Rate 18 05/09/2019 1:14 PM ROPING TENDER Oxygen Saturation - - Inhaled Oxygen Concentration - - Weight 78.5 kg (173 lb) 05/09/2019 1:14 PM ROPING TENDER Height - - Body Mass Index 36.16 04/15/2019 3:14 PM ROPING TENDER documented in this encounter Progress Notes Emmanuel [...] N/A 07/01/2016 Surgeon: Sean Rodriguez MD; Location: [facility] Location ESOPHAGOGASTRODUODENOSCOPY N/A 09/06/2016 Surgeon: Jonny [...] file Gets together: Not on file Attends spiritism service: Not on file Active member of [...] in each nostril daily. 3 Bottle1 Lancets [facility] Check glucose every morning before breakfast and [...] pain or spasm). 180 tablet 1 Insulin [place], Disposable, (BD ULTRA-FINE MICRO PEN NEEDLE) 32 gauge x 1/4" Ndle Use as directed to inject Victoza daily; ID-10 code E11.69 100 Each 1 Blood-Glucose Meter (ACCU-CHEK LEIDY PLUS METER) [facility] Check glucose once daily before breakfast;Diagnosis code E11.9 1 Each 0 vitamin B-12 (VITAMIN B-12) 500 mcg tablet Take 1 tablet by mouth daily. 30 tablet 5 aspirin 81 mg chewable tablet Take 81 mg by mouth daily. No current facility-administered medications for this visit. Allergy: Allergies Allergen Reactions Bee [place] Anaphylaxis [place] Swelling Clams Swelling Coconut [Tree Nuts] Other [...] as needed. Neema Pike M.D. 05/09/2019 17:09 NG TENDER Chary Woodard - 05/09/2019 1:00 PM Orly Oneill is a 38 year old female comes to clinic independent in ambulation for 6 week follow up. Pt comes alone . Pt in NAD w/ pain reported 0/10. Pt preferred language is Malian. Pt. denies fall in last 12 months. Allergies and medications reviewed and updated. [facility] [place] [facility] [place] [place] [facility] [address] [facility] [place] [address] Chary Woodard 05/09/2019 1:15 PM documented in this encounter Plan of Treatment Date Type Specialty Care Team Description 05/20/2019 Equalizer Operator Visit Impregnator [employer], Adc Cardio Fac Pc, Adc Vascular Room 1 - 05/20/2019 Laboratory Only Cardiology 1, Adc Cardio Fac Room Pc, Adc Echo Room 1 - 06/17/2019 Office Visit Neurology Marcus Madison MD [address] [place], [place] [address] [phone] 06/27/2019 Office Visit Family Medicine Winnie Winn MD [address] [place] [address] [phone] Health Maintenance Due Date Last [...] Resolved Time Contact- MRSA 02/27/2017 8:27 PM ROPING TENDER documented as of this encounter Insurance Payer Benefit Plan / Subscriber ID Effective Phone Address [employer] [facility] [id number] 2018-Prese Medic are Adv HEALTHCARE - HEALTHCARE nt PPO MANAGED MEDICARE S[place]VER MEDICARE [place] xxxxxxxxx 2017-Pres Medicaid HEALTHCARE COMM PLUS ent PLAN - MANAGED MEDICAID documented as of this encounter Advance Directives Name Relationship Healthcare Agent Relationship Co mmunication Juliann Oneill Mother Primary healthcare agent
--- OUTSIDE RECORDS SUMMARY | 2019-08-05 22:55 | XMS REPORT | Summary of Care ---
:1980 Author Organization [facility] - Health Address [address] [place], [place] [address] Care Team Providers Name Role Phone Jacqueline Winn MD Primary Care Provider Tech, Cardio Fac Unavailable Unavailable Boo Fontaine MD Unavailable Encounter Details Date Type Department Care Team Description 04/08/2019 Orders Only [facility] Doctor Unassigned, No [address] [facility] [place] [address] Allergies Active Allergy Reactions Severity Noted Date Comments Bee [place] Anaphylaxis 08/14/2017 [place] Swelling 02/18/2016 Clams Swelling 02/18/2016 Tree Nuts Other - See comments 02/18/2016 Throat itching / raw Latex Itching 12/04/2015 Morphine Shortness of Breath 12/04/2015 Ibuprofen Hives 12/04/2015 Pork Derived (Porcine) Swelling 02/18/2016 documented as of this encounter (statuses as of 05/07/2019) Medications Medication Sig Dispensed Refills Start End [...] without long-term current use of insulin Insulin [place], Use as directed 100 Each 1 Active [...] disorder), Panic disorder with agoraphobia, Chronic depression documented as of this encounter (statuses as of 05/07/2019) Active Problems Problem Noted Date Hair loss [...] as of this encounter (statuses as of 05/07/2019) Immunizations Name Administration Dates Next Due Influenza [...] Office Visit Surgery Neema Pike MD [address] [facility] 2.[address] [place] [address] [phone] 05/20/2019 Senior Information Security Consultant Visit Explosive Ordnance Manager, Adc Cardio Fac 2, Adc Cardio Fac Room 05/20/2019 Laboratory Only Explosive Ordnance Manager, Adc Cardio Fac 1, Adc Cardio Fac Room 06/17/2019 Office Visit Neurology Marcus Madison MD [address] [place], [place] [address] [phone] 06/27/2019 Office Visit Family Medicine Winnie Winn MD [address] [phone] Health Maintenance Due Date Last Done [...] Problems Progress Quit using Tobacco Use No [place], tobacco Wondiful A, (cigarettes, MD smokeless, etc) documented as of this encounter Procedures Procedure Name Priority Date/Time Associated Diagnosis Comme nts INSURANCE CORRESPONDENCE Routine 04/08/2019 12:01 AM HOG CONFINEMENT SYSTEM MANAGER documented in this encounter Results Not on filedocumented in this encounter Additional Health Concerns Infection Noted Time Resolved Time Contact- MRSA 02/27/2017 8:27 PM HOG CONFINEMENT SYSTEM MANAGER documented as of this encounter Insurance Payer Benefit Plan / Subscriber ID Effective Phone Address [facility] [id number] 2018-Prese Medic are Adv HEALTHCARE - HEALTHCARE nt PPO MANAGED MEDICARE SILVER MEDICARE [place]HC [place] xxxxxxxxx 2017-Pres Medicaid HEALTHCARE COMM PLUS ent PLAN - MANAGED MEDICAID documented as of this encounter Advance Directives Name Relationship Healthcare Agent Relationship Co mmunication Juliann Rodrigues Primary healthcare agent
--- OUTSIDE RECORDS SUMMARY | 2019-08-05 22:55 | XMS REPORT | Summary of Care ---
:1980 Author Organization [facility] Address [address] [place] [id number] Care Team Providers Name Role Phone Jacqueline Winn MD Primary Care Provider Tech, Cardio Fac Unavailable Unavailable Boo Fontaine MD Unavailable Reason for Visit Reason Comments Cough started last night Congestion started last night RUNNY NOSE started last night Body Aches started last night Chills started last night Encounter Details Date Type Department Care Team Description 05/31/2019 Urgent Care [facility] Unknown, Attending R ight maxillary Urgent Care Andres Arroyo MD [address] [address] sinusitis (Primary [address] [facility], Aba Leslie MD [address] [place] [address]. [place] [address] Dx) [place] [address] Allergies Active Allergy Reactions Severity Noted Date Comments Bee [place] Anaphylaxis 08/14/2017 [place] Swelling 02/18/2016 Clams Swelling 02/18/2016 Tree Nuts Other - See comments 02/18/2016 Throat itching / raw Latex Itching 12/04/2015 Morphine Shortness of Breath 12/04/2015 Ibuprofen Hives 12/04/2015 Pork Derived (Porcine) Swelling 02/18/2016 documented as of this encounter (statuses as of 05/31/2019) Medications Medication Sig Dispensed Refills Start End [...] without long-term current use of insulin Insulin [place], Use as directed 100 Each 1 Active [...] Gastroesophageal reflux times daily. disease without esophagitis amoxicillin 875 mg Take 1 tablet by 14 tablet 0 05/12 Active tabletIndications: Right mouth 2 (two) 0 2 0 maxillary sinusitis times daily for 7 days. documented as of this encounter (statuses as of 05/31/2019) Active Problems Problem Noted Date Hair loss [...] as of this encounter (statuses as of 05/31/2019) Immunizations Name Administration Dates Next Due Influenza [...] Sign Reading Time Taken Comments Blood Pressure 107/65 05/31/2019 8:32 PM TRANSFER TABLE OPERATOR HELPER Pulse 95 05/31/2019 8:32 PM TRANSFER TABLE OPERATOR HELPER Temperature 36.9 C (98.4 F) 05/31/2019 8:32 PM TRANSFER TABLE OPERATOR HELPER Respiratory Rate 18 05/31/2019 8:32 PM TRANSFER TABLE OPERATOR HELPER Oxygen Saturation 98% 05/31/2019 8:32 PM TRANSFER TABLE OPERATOR HELPER Inhaled Oxygen Concentration - - Weight 78.4 kg (172 lb 12.8 oz) 05/31/2019 8:32 PM TRANSFER TABLE OPERATOR HELPER Height 147.3 cm (4' 10") 05/31/2019 8:32 PM TRANSFER TABLE OPERATOR HELPER Body Mass Index 36.12 05/31/2019 8:32 PM TRANSFER TABLE OPERATOR HELPER documented in this encounter Patient Instructions Patient InstructionsAba Leslie MD - 05/31/2019 8:30 PM TRANSFER TABLE OPERATOR HELPER Sinusitis (Antibiotic Treatment) The sinuses are air-filled [...] a towel soaked in hot water. Or, sealing machine operator the shower and direct the warm spray onto your face. Using a vaporizer along with a menthol rub at night may also help soothe symptoms. Anexpectorantwith guaifenesin may help thin nasal mucus and help your sinuses drain fluids. You can use an ftjc-uaq-bmgqluwhpfmnhnvpace,unless a similar medicine was prescribed to you. [...] use decongestants. They can raise blood pressure.) Bzya-jnf-rpwpbsvhtatemtxahntpnexr help if allergies contributed to your sinusitis. [...] provider or our staff if you are not better in 1 week. When to seek [...] up to date with of your vaccines. [employer] last reviewed this educational content on 02/08/201719990623-3146 The [employer]. [address] [place] [address]. All rights reserved. This information is not intended as a substitute for professional medical care. Always follow your healthcare professional's instructions. SFER TABLE OPERATOR HELPER documented in this encounter Progress Notes Aba Leslie MD - 05/31/2019 8:30 PM CST Urgent Care Clinic Note Chief Complaint Patient presents with Cough started last night Congestion started last night RUNNY NOSE started last night Body Aches started last night Chills started last night The patient is presenting to urgent care reporting sneezing and rhinorrhea 5 days ago and then cough, body aches and head aches last night. She reports facial pain, worse on the R side and copious nasla drainage. She also endorses complete closure of her R nostril. Symptoms began last night. No sick contacts. The patient has attempted treatment with Claritin, HEB Cold and Flu and flonase. Active Ambulatory Problems Diagnosis Date Noted Pseudoseizures 12/04/2015 Migraines 12/04/2015 Acquired autoimmune hypothyroidism 12/09/2015 Abnormal liver function test 12/09/2015 Hypercholesterolemia 12/09/2015 Diabetes mellitus type 2 in obese 12/09/2015 Microscopic hematuria 12/09/2015 B12 deficiency 12/09/2015 Vitamin D deficiency 12/09/2015 Fatty liver 12/16/2015 Onychomycosis 12/25/2015 Seborrhea 12/25/2015 Chronic allergic rhinitis 12/25/2015 Gastroesophageal reflux disease without esophagitis 01/20/2016 LUQ abdominal pain 01/28/2016 Obstructive sleep apnea 04/13/2016 Heart palpitations 07/11/2016 Hyperinsulinemia 07/20/2016 Submandibular sialoadenitis 07/22/2016 Female hirsutism 10/24/2016 Seizure 11/07/2016 Obesity (BMI 30-39.9) 11/11/2016 Headache disorder 12/14/2016 Positive test for herpes simplex virus (HSV) antibody 01/02/2017 Infection of skin due to methicillin resistant Staphylococcus aureus (MRSA) 02/27/2017 Depression Hair loss 10/04/2017 Asthma Resolved Ambulatory Problems Diagnosis Date Noted No Resolved Ambulatory Problems Past Medical History: Diagnosis Date Abnormal uterine bleeding Anemia Anxiety Diabetes mellitus type 2, controlled Heart murmur History of morbid obesity Hyperlipidemia Liver disease Pap smear abnormality of cervix PID (pelvic inflammatory disease) Seizures Thyroid disease Trauma 2012 Urinary incontinence Past Surgical History: Procedure Laterality Date ABDOMEN SURGERY PROC UNLISTED Hernia Repair post tubal 2003 APPENDECTOMY ESOPHAGOGASTRODUODENOSCOPY N/A 07/01/2016 Surgeon: Sean Rodriguez MD; Location: [place] OR [facility] ESOPHAGOGASTRODUODENOSCOPY N/A 09/06/2016 Surgeon: Jonny Enriquez MD; Location: [facility] ([facility] OR Location HERNIA REPAIR HYSTERECTOMY 2009 due to DUB, still has ovaries KNEE ARTHROSCOPY bilateral RADICAL HYSTERECTOMY SALPINGECTOMY ? tube removed /not sure was very infected post tubal 2003 TUBAL LIGATION 2002 Review of Systems Constitutional: + fever, + chills, - weight changes ENT: negative for - hearing changes, + nasal congestion, - sore throat Cardiovascular: negative for - chest pain, - palpitations Respiratory: negative for - shortness of breath, - dyspnea on exertion Gastrointestinal: negative for - changes in bowel habits, - abdominal pain, - nausea, - vomiting Musculoskeletal: negative for - back pain, - joint pain, - muscle pain Skin: negative for - skin changes Neurological: negative for - weakness, - tingling, - changes in mentation Psychiatric: negative for depression, - anxiety Physical Exam Vitals: 05/31/192031 BP: 107/65 Pulse: 95 Resp: 18 Temp: 36.9 C (98.4 F) TempSrc: Oral SpO2: 98% Weight: 172 lb 12.8 oz (78.4 kg) Height: 4' 10" (1.473 m) General: alert and oriented, no apparent distress HEENT: white sclera, eye movements grossly intact, oropharynx is clear. Right maxillary tenderness. R nasal turbinates completely inflamed and obstructing the nasal airway. Yellow discharge present. Neck: supple, no masses, no submental tenderness Lungs: clear to auscultation in all allan bilaterally, unlabored breathing Cardio: regular rate and rhythm, no murmurs or rubs Abdomen: soft, non-tender, no masses palpated, positive bowel sounds Extremities: no clubbing, cyanosis, or edema Skin: no rashes or lesions, good turgor Neuro: cranial nerves II through XII grossly intact; sensation grossly intact Review of Labs: Reviewed Assessment/Plan: Hannah Oneill is a 38 year old female with the followin. Right maxillary sinusitis HPI and PE are consistent with acute right maxillary sinusitis. Will treat with 1 week abx course. Patient was instructed to FOLLOW-UP with PCP. - amoxicillin 875 mg tablet; Take 1 tablet by mouth 2 (two) times daily for 7 days. Dispense: 14 tablet; Refill: 0 Patient was discussed with Dr. Arroyo. Plan discussed with patient. The patient understands medications, there are barriers for compliance, there are side effects, and medications reconciled. Current medications are effective. Counseled patient about appropriate healthy behaviors and home self management. Patient able to explain back the plan and is provided a printed after visit summary (AVS) documenting the visit, pertinent patient instructions and follow-up recommendations. Aba Mejia MD 05/31/2019 8:44 PM documented in this encounter Plan of Treatment Date Type Specialty Care Team Description 06/04/2019 Office Visit Neurology Marcus Madison MD [address] [address] [phone] 06/17/2019 Office Visit Neurology Marcus Madison MD [address] [place], [place] [phone] 06/27/2019 Office Visit Family Medicine Winnie Winn MD [address] [place] [address] [phone] Health Maintenance Due Date Last Done [...] Type Problems Progress Quit using Tobacco Use reno Lei, (cigarettes, MD smokeless, etc) documented as of this encounter Results Not on filedocumented in this encounter Visit Diagnoses Diagnosis Right maxillary sinusitis - Primary documented in this encounter Additional Health Concerns Infection Noted Time Resolved Time Contact- MRSA 02/27/2017 8:27 PM TRANSFER TABLE OPERATOR HELPER documented as of this encounter Insurance Payer Benefit Plan / Subscriber ID Effective Phone Address T located within [facility] Group Dates [facility] [id number] 2018-Prese Medic are Adv HEALTHCARE - HEALTHCARE nt PPO MANAGED MEDICARE SILVER MEDICARE [place]HC [place] xxxxxxxxx 2017-Pres Medicaid HEALTHCARE COMM PLUS ent PLAN - MANAGED MEDICAID documented as of this encounter Advance Directives Name Relationship Healthcare Agent Relationship Co mmunication Juliann Oneill Mother Primary healthcare agent
--- OUTSIDE RECORDS SUMMARY | 2019-08-05 22:55 | XMS REPORT | Summary of Care ---
:[address] [facility] Address [address] [place], [place] [address] Care Team Providers Name Role Phone Jacqueline Winn MD Primary Care Provider Tech, Cardio Fac Unavailable Unavailable Boo Fontaine MD Unavailable Reason for Visit Reason Comments Botox Injection Encounter Details Date Type Department Care Team Description 06/04/2019 Office Visit [facility] [place], Chilvana V, Other whitney nitish without status migrainosus, not intractable (Primary Dx); Neurology, Orion Astorga MD Migraine without aura and without status migrainosus, not intractable [address] [address] [place], [place] [phone] [address] [phone] Allergies Active Allergy Reactions Severity Noted Date Comments Bee [place] Anaphylaxis 08/14/2017 [place] Swelling 02/18/2016 Clams Swelling 02/18/2016 Tree Nuts Other - See comments 02/18/2016 Throat itching / raw Latex Itching 12/04/2015 Morphine Shortness of Breath 12/04/2015 Ibuprofen Hives 12/04/2015 Pork Derived (Porcine) Swelling 02/18/2016 documented as of this encounter (statuses as of 06/04/2019) Medications Medication Sig Dispensed Refills Start End [...] without long-term current use of insulin Insulin [place], Use as directed 100 Each 1 Active [...] Gastroesophageal reflux times daily. disease without esophagitis sulfamethoxazole-trimetho Take 1 tablet by 20 tablet 0 02 06/13/19 Active prim (BACTRIM DS) 800-160 mouth 2 (two) 0 20 mg per tabletIndications: times daily for Acute bacterial 10 days. sinusitis, Nasal obstruction methylPREDNISolone 4 mg Follow package 21 Each 0 Active tabletsIndications: Acute directions 0 bacterial sinusitis, Nasal obstruction Hospital, Clinic, or Other Ordered Dose Route Frequency Start Date End Date Status Facility Administered Medication clostridium botulinum toxin 200 Units IM ONCE 06/04/2019 0 06/04/2019 Ended (BOTOX) 200 Units in NaCl 0.9% (NS) 4 mL injection documented as of this encounter (statuses as of 06/04/2019) Active Problems Problem Noted Date Hair loss [...] as of this encounter (statuses as of 06/04/2019) Immunizations Name Administration Dates Next Due Influenza [...] Reading Time Taken Comments Blood Pressure 108/74 06/04/2019 10:57 AM BONE PROCESS OPERATOR Pulse 90 06/04/2019 10:57 AM BONE PROCESS OPERATOR Temperature - - Respiratory Rate - - Oxygen Saturation 96% 06/04/2019 10:57 AM BONE PROCESS OPERATOR Inhaled Oxygen Concentration - - Weight 79.9 kg (176 lb 3.2 oz) 06/04/2019 10:57 AM BONE PROCESS OPERATOR Height 147.3 cm (4' 10") 06/04/2019 10:57 AM BONE PROCESS OPERATOR Body Mass Index 36.83 06/04/2019 10:57 AM BONE PROCESS OPERATOR documented in this encounter Progress Notes Marty Storey MD - 06/04/2019 11:00 AM CST DATE OF SERVICE: 06/04/2019 22:24 Visit type: follow up CHIEF COMPLAINT: seizure and headache Follow up visit: 05/25/2019 Here for follow up and botox injection for migraine prevention. Tolerated the procedure well withoutcomplications. Follow up visit: 02/22/19 She is here for follow up for botox injection for migraine prevention. Her migraine frequeny is about 2/3 months. Duration of migraine-1 day ED visit - none Missing daily activities at home- none from migraine Prevention Botox Rescue Excedrin PRN <3 days/week No adverse reactions Mood stable, no suicidal or homicidal ideation. She is also suffering from lower back pain shooting down to right leg on side and back of thigh, lateral leg after a fall from ladder about 9 years ago. Pain is associated with tingling and numbness. Baseline pain 6/10 with exacerbating to 9.5/10. Worsening of episode about 4-5 days at time, 2 episodes a month. Failed Gabapentin, Tylenol 3, Tramadol, Toradol. Unable to perform daily activities for about 4 days a month. No bowel/bladder problems. No fall. Uses a walker when backpain is really worse .She is started on tizanidine for backpain by PCP with minimal relief. Follow up visit: 11/26/18 She is here [...] today aftershe was diagnosed with PNES at [facility] in October this year. Patient reports that [...] medication until she consulted DR. Ge at [facility]. She underwent 72hours EEG and Imagine studies( not available to me). 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 She was on Topamax 25am [id number] for seizures. She feels sleepy on it. [...] N/A 07/01/2016 Surgeon: Sean Rodriguez MD; Location: [place] OR Location ESOPHAGOGASTRODUODENOSCOPY N/A 09/06/2016 Surgeon: Jonny Enriquez MD; Location: [facility] ([facility]) OR Location HERNIA REPAIR HYSTERECTOMY 2009 due to DUB, still has ovaries KNEE ARTHROSCOPY bilateral RADICAL HYSTERECTOMY SALPINGECTOMY ? tube removed /not sure was very infected post tubal 2002 TUBAL LIGATION 2002 ? Current Outpatient Medications Medication Sig Dispense Refill methylPREDNISolone 4 mg tablets Follow package directions 21 Each 0 sulfamethoxazole-trimethoprim (BACTRIM DS) 800-160 mg per tablet Take 1 tablet by mouth 2 (two) times daily for 10 days. 20 tablet 0 famotidine 20 mg tablet Take 1 tablet [...] in each nostril daily. 3 Bottle1 Lancets Mis Check glucose every morning before [...] pain or spasm). 180 tablet 1 Insulin [place], Disposable, (BD ULTRA-FINE MICRO PEN NEEDLE) 32 gauge x 1/4" Ndle Use as directed to inject Victoza daily; ID-10 code E11.69 100 Each 1 Blood-Glucose Meter (ACCU-CHEK LEIDY PLUS METER) [facility] Check glucose once daily before breakfast;Diagnosis code E11.9 1 Each 0 vitamin B-12 (VITAMIN B-12) 500 mcg tablet Take 1 tablet by mouth daily. 30 tablet 5 aspirin 81 mg chewable tablet Take 81 mg by mouth daily. No current facility-administered medications for this visit. ? Allergies Allergen Reactions Bee [place] Anaphylaxis [place] Swelling Clams Swelling Coconut [Tree Nuts] Other [...] file Gets together: Not on file Attends catholic service: Not on file Active member of [...] depression, (-) psychiatric disorder PHYSICAL EXAM Vitals: 06/04/19 1057 BP: 108/74 Pulse: 90 SpO2: 96% Weight: 176 lb 3.2 oz (79.9 kg) Height: 4' 10" (1.473 m) General: [...] headaches Type Of Botulinum Toxin:Botox Today`s date- 03/04/19 Last Injected:11/26/18 Side Effects: N/A Duration and Effect: N/A Total Units Diluted: 200 units (200unit in 4 cc) Total Units Injected: 155 units Wastage: 45 units Informed Consent was obtained, standard protocol was used Botox lot number [id number], Expiration 2021, single 200 units vial Muscles Injected Right-dose left-dose Dose in units Procerus 5 5 Adoption Services Manager 5 5 10 Frontalis 5x2 5x2 20 Temporalis 5x4 5x4 40 occipitalis 5x3 5x3 30 Cervical spinalis 5x2 5x2 20 Trepezius 5x3 5x3 30 Total Units injected 155 Wastage 45 ASSESSMENT/ RECOMMENDATIONS/PLAN Worsening lower back pain with radicular symptoms on right leg L5-S1 Failed multiple medication (Tramadol, Tylenol 3, Gabapentin) Was seen in the past by outside physician MRI LS spine On Tizanidine by PCP Fall peevention Intractable migraine with aura without status migrainosus [...] spent>30 mins, >50% time counseling/coordinating care for Lower backpin Migraine, pseudoseizure, mood disorder, thyroid dysfunction Total time spent > 30 mins for the botox procedure. Informed consent was obtained. Patient tolerated procedure well. No complications. Follow up in 3 months and 6 months PROCESS OPERATOR documented in this encounter Plan of Treatment Date Type Specialty Care Team Description 06/27/2019 Office Visit Family Medicine Winnie Winn MD [address] [place] [phone] 08/19/2019 Office Visit Neurology Marcus Madison MD [address] [phone] 12/02/2019 Office Visit Neurology Marcus Madison MD [address] [phone] Health Maintenance Due Date Last Done [...] filedocumented in this encounter Visit Diagnoses Diagnosis Other migraine without status migrainosu s, not intractable - Primary Migraine without aura and without status migrainosus, not intractable Migraine without aura, without mention o f intractable migraine without mention of status migrainosus documented in this encounter Administered Medications Medication Order MAR Action Action Date Dose Rate Site clostridium botulinum Given by Provider 06/04/2019 2:12 PM 200 Units Face toxin (BOTOX) 200 Units in BONE PROCESS OPERATOR NaCl 0.9% (NS) 4 mL injection documented in this encounter Additional Health Concerns Infection Noted Time Resolved Time Contact- MRSA 02/27/2017 8:27 PM BONE PROCESS OPERATOR documented as of this encounter Insurance Payer Benefit Plan / Subscriber ID Effective Phone Address T ype Group [facility] [id number] 2018-Prese Medic are Adv HEALTHCARE - HEALTHCARE nt PPO MANAGED MEDICARE SILVER MEDICARE UNITED UHC [place] xxxxxxxxx 2017-Pres Medicaid HEALTHCARE COMM PLUS ent PLAN - MANAGED MEDICAID documented as of this encounter Advance Directives Name Relationship Healthcare Agent Relationship Co mmunication Juliann Nino Mother Primary healthcare agent
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
--- OUTSIDE RECORDS SUMMARY | 2019-08-05 22:56 | XMS REPORT | Summary of Care ---
:1980 Author Organization [facility] Address [address] [place] [address] Care Team Providers Name Role Phone Jacqueline Winn MD Primary Care Provider Tech, Cardio Fac Unavailable Unavailable Boo Fontaine MD Unavailable Reason for Visit Reason Comments Botox Injection Encounter Details Date Type Department Care Team Description 06/04/2019 Office Visit [facility] [place], Chilvana V, Other whitney nitish without status migrainosus, not intractable (Primary Dx); NeurologyOrion MD Migraine without aura and without status migrainosus, not intractable; [address] Pseudoseizures; [address], [place] Mood dis order [address] [address] [place], [place] [phone] [address] [phone] Allergies Active Allergy Reactions Severity Noted Date Comments Bee [place] Anaphylaxis 08/14/2017 [place] Swelling 02/18/2016 Clams Swelling 02/18/2016 Tree Nuts Other - See comments 02/18/2016 Throat itching / raw Latex Itching 12/04/2015 Morphine Shortness of Breath 12/04/2015 Ibuprofen Hives 12/04/2015 Pork Derived (Porcine) Swelling 02/18/2016 documented as of this encounter (statuses as of 06/05/2019) Medications Medication Sig Dispensed Refills Start End [...] without long-term current use of insulin Insulin [place], Use as directed 100 Each 1 Active [...] as of this encounter (statuses as of 06/05/2019) Active Problems Problem Noted Date Hair loss [...] as of this encounter (statuses as of 06/05/2019) Immunizations Name Administration Dates Next Due Influenza [...] Comments Blood Pressure 108/74 06/04/2019 10:57 AM CRAS Pulse 90 06/04/2019 10:57 AM CRAS Temperature - - Respiratory Rate - - Oxygen Saturation 96% 06/04/2019 10:57 AM CRAS Inhaled Oxygen Concentration - - Weight 79.9 kg (176 lb 3.2 oz) 06/04/2019 10:57 AM CRAS Height 147.3 cm (4' 10") 06/04/2019 10:57 AM CRAS Body Mass Index 36.83 06/04/2019 10:57 AM CRAS documented in this encounter Progress Notes Marcus [place] MD - 06/04/2019 11:00 AM CSTFollow up visit: 06/04/19 Here for follow up migraine. NO episodes of shaking. Botox helps with migraine. Use of abortive treatment only twice. Stress is less. Keeps hydration well. No missed days of carrying daily activities. Procedure was performed with Dr. Moshe Sadler with me. Patient tolerated well. Informed consent was obtained. No complications I personally examined the patient on 06/04/[address] Tony Sadler's note . I actively participated in the decision-making process. Please see the resident's note for additional details. Marcus [place] MD arty Storey MD - 06/04/2019 11:00 AM CST [...] suicidal or homicidal thoughts. 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 Patient reports that [...] medication until she consulted DR. Ge at [facility]. She underwent 72hours EEG and Imagine studies( not available to me). 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 She was on Topamax 25am [id number] for seizures. She feels sleepy on it. [...] N/A 07/01/2016 Surgeon: Sean Rodriguez MD; Location: [facility] OR Location ESOPHAGOGASTRODUODENOSCOPY N/A 09/06/2016 Surgeon: Jonny [...] in each nostril daily. 3 Bottle1 Lancets [facility] Check glucose every morning before breakfast and [...] pain or spasm). 180 tablet 1 Insulin [place], Disposable, (BD ULTRA-FINE MICRO PEN NEEDLE) 32 gauge x 1/4" Ndle Use as directed to inject Victoza daily; ID-10 code E11.69 100 Each 1 Blood-Glucose Meter (ACCU-CHEK LEIDY PLUS METER) [facility] Check glucose once daily before breakfast;Diagnosis code E11.9 1 Each 0 vitamin B-12 (VITAMIN B-12) 500 mcg tablet Take 1 tablet by mouth daily. 30 tablet 5 aspirin 81 mg chewable tablet Take 81 mg by mouth daily. No current facility-administered medications for this visit. ? Allergies Allergen Reactions Bee [place] Anaphylaxis [place] Swelling Clams Swelling Coconut [Tree Nuts] Other [...] file Gets together: Not on file Attends gnosticism service: Not on file Active member of [...] standard protocol was used Botox lot number [id number], Expiration 2021, single 200 units vial Muscles Injected Right-dose left-dose Dose in units Procerus 5 5 Biomathematician 5 5 10 Frontalis 5x2 5x2 20 [...] Office Visit Family Medicine Winnie Winn MD [address] [place] [phone] 08/19/2019 Office Visit Neurology Marcus [place] MD [address] [place], [place] [address] [phone] 12/02/2019 Office Visit Neurology Marcus [place] MD [address] [place], [place] [address] [phone] Health Maintenance Due Date [...] convulsions Mood disorder Unspecified episodic mood disorder documented in this encounter Administered Medications Medication Order MAR Action Action Date Dose Rate Site clostridium botulinum Given by Provider 06/04/2019 2:12 PM 200 Units Face toxin (BOTOX) 200 Units in CRAS NaCl 0.9% (NS) 4 mL injection documented in this encounter Additional Health Concerns Infection Noted Time Resolved Time Contact- MRSA 02/27/2017 8:27 PM CRAS documented as of this encounter Insurance Payer Benefit Plan / Subscriber ID Effective Phone Address [facility] [id number] 2018-Prese Medic are Adv HEALTHCARE - HEALTHCARE nt PPO MANAGED MEDICARE SILVER MEDICARE [place]HC [place] xxxxxxxxx 2017-Pres Medicaid HEALTHCARE COMM PLUS ent PLAN - MANAGED MEDICAID documented as of this encounter Advance Directives Name Relationship Healthcare Agent Relationship Co mmunication Juliann Oneill Mother Primary healthcare agent
--- OUTSIDE RECORDS SUMMARY | 2019-08-05 22:56 | XMS REPORT | Summary of Care ---
:1980 Author Organization [facility] Address [address] [place], [place] [address] Care Team Providers Name Role Phone Jacqueline Winn MD Primary Care Provider Tech, Cardio Fac Unavailable Unavailable Boo Fontaine MD Unavailable Reason for Visit Reason Comments Botox Injection Encounter Details Date Type Department Care Team Description 06/04/2019 Office Visit [facility] [place], Chilvana V, Other whitney nitish without status migrainosus, not intractable (Primary Dx); Neurology, Orion Astorga MD Migraine without aura and without status migrainosus, not intractable [address] [address] [place], [place] [phone] [phone] Allergies Active Allergy Reactions Severity Noted Date Comments Bee [place] Anaphylaxis 08/14/2017 [place] Swelling 02/18/2016 Clams Swelling 02/18/2016 Tree Nuts [...] without long-term current use of insulin Insulin [place], Use as directed 100 Each 1 Active [...] Comments Blood Pressure 108/74 06/04/2019 10:57 AM SHOT POLISHER AND INSPECTOR Pulse 90 06/04/2019 10:57 AM SHOT POLISHER AND INSPECTOR Temperature - - Respiratory Rate - - Oxygen Saturation 96% 06/04/2019 10:57 AM SHOT POLISHER AND INSPECTOR Inhaled Oxygen Concentration - - Weight 79.9 kg (176 lb 3.2 oz) 06/04/2019 10:57 AM SHOT POLISHER AND INSPECTOR Height 147.3 cm (4' 10") 06/04/2019 10:57 AM SHOT POLISHER AND INSPECTOR Body Mass Index 36.83 06/04/2019 10:57 AM SHOT POLISHER AND INSPECTOR documented in this encounter Progress Notes Marty [...] today aftershe was diagnosed with PNES at [facility] in October this year. Patient reports that [...] medication until she consulted DR. Ge at [facility]. She underwent 72hours EEG and Imagine studies( not available to me). 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 She was on Topamax 25am [id number] for seizures. She feels sleepy on it. [...] N/A 07/01/2016 Surgeon: Sean Rodriguez MD; Location: [facility] OR Location ESOPHAGOGASTRODUODENOSCOPY N/A 09/06/2016 Surgeon: Jonny [...] pain or spasm). 180 tablet 1 Insulin [place], Disposable, (BD ULTRA-FINE MICRO PEN NEEDLE) 32 gauge x 1/4" Ndle Use as directed to inject Victoza daily; ID-10 code E11.69 100 Each 1 Blood-Glucose Meter (ACCU-CHEK LEIDY PLUS METER) [facility] Check glucose once daily before breakfast;Diagnosis code E11.9 1 Each 0 vitamin B-12 (VITAMIN B-12) 500 mcg tablet Take 1 tablet by mouth daily. 30 tablet 5 aspirin 81 mg chewable tablet Take 81 mg by mouth daily. No current facility-administered medications for this visit. ? Allergies Allergen Reactions Bee [place] Anaphylaxis [place]oot Swelling Clams Swelling Coconut [Tree Nuts] Other [...] file Gets together: Not on file Attends jainism service: Not on file Active member of [...] standard protocol was used Botox lot number [id number], Expiration 2021, single 200 units vial Muscles Injected Right-dose left-dose Dose in units Procerus 5 5 Jewelry Setter 5 5 10 Frontalis 5x2 5x2 20 [...] up in 3 months and 6 months POLISHER AND INSPECTOR documented in this encounter Plan of Treatment Date Type Specialty Care Team Description 06/27/2019 Office Visit Family Medicine Winnie Winn MD [address] [place] [phone] 08/19/2019 Office Visit Neurology Marcus [place] MD [address] [phone] 12/02/2019 Office Visit Neurology Marcus [place] MD [address] [address] [phone] Health Maintenance Due Date Last Done [...] Units Face toxin (BOTOX) 200 Units in SHOT POLISHER AND INSPECTOR NaCl 0.9% (NS) 4 mL injection documented in this encounter Additional Health Concerns Infection Noted Time Resolved Time Contact- MRSA 02/27/2017 8:27 PM SHOT POLISHER AND INSPECTOR documented as of this encounter Insurance Payer Benefit Plan / Subscriber ID Effective Phone Address T ype Group [facility] [id number] 2018-Prese Medic are Adv HEALTHCARE - HEALTHCARE nt PPO MANAGED MEDICARE SILVER MEDICARE [place] xxxxxxxxx 2017-Pres Medicaid HEALTHCARE COMM PLUS ent PLAN - MANAGED MEDICAID documented as of this encounter Advance Directives Name Relationship Healthcare Agent Relationship Co mmunication Juliann Nino Mother Primary healthcare agent
--- OUTSIDE RECORDS SUMMARY | 2019-08-05 22:57 | XMS REPORT | Summary of Care ---
:1980 Author Organization [facility] Address [address] [place] [address] Care Team Providers Name Role Phone Jacqueline Winn MD Primary Care Provider Tech, Cardio Fac Unavailable Unavailable Boo Fontaine MD Unavailable Reason for Visit Reason Comments URI started 2 weeks ago got wors e 3 days ago Encounter Details Date Type Department Care Team Description 06/03/2019 Office Visit [facility] Family Jacqueline Winn Acut e bacterial sinusitis (Primary Dx); Medicine - Minh Jim MD Nasal obstruction [facility] [address] [place] [phone] Allergies Active Allergy Reactions Severity Noted Date Comments Bee [place] Anaphylaxis 08/14/2017 [place] Swelling 02/18/2016 Clams Swelling 02/18/2016 Tree Nuts [...] without long-term current use of insulin Insulin [place], Use as directed 100 Each 1 Active [...] Comments Blood Pressure 109/69 06/03/2019 3:42 PM WELL DRILLER HELPER Pulse 105 06/03/2019 3:42 PM WELL DRILLER HELPER Temperature 37.1 C (98.7 F) 06/03/2019 3:42 PM WELL DRILLER HELPER Respiratory Rate - - Oxygen Saturation - - Inhaled Oxygen Concentration - - Weight 79.4 kg (175 lb) 06/03/2019 3:42 PM WELL DRILLER HELPER Height 147.3 cm (4' 10") 06/03/2019 3:42 PM WELL DRILLER HELPER Body Mass Index 36.58 06/03/2019 3:42 PM WELL DRILLER HELPER documented in this encounter Patient Instructions [...] a towel soaked in hot water. Or, weight training instructor the shower and direct the warm spray onto your face. Using a vaporizer along with a menthol rub at night may also help soothe symptoms. Anexpectorantwith guaifenesin may help thin nasal mucus and help your sinuses drain fluids. You can use an glbp-lfh-swpxmzgkztplydirecv,unless a similar medicine was prescribed to you. [...] use decongestants. They can raise blood pressure.) Oprd-fio-xdltpgubfdgewynyesytweet help if allergies contributed to your sinusitis. [...] up to date with of your vaccines. [employer] last reviewed this educational content on 02/08/201719998387-6715 [facility]. [address] [place], [place] [address]. All rights reserved. This information is not intended as a substitute for professional medical care. Always follow your healthcare professional's instructions. DRILLER HELPER documented in this encounter Progress Notes Jacqueline [...] code E11.69 100 Strip 1 EPINEPHrine (EPIPEN 2-RUHT) 0.3 mg/0.3 mL injection 0.3 mL by [...] in each nostril daily. 3 Bottle1 Lancets [facility] [place] glucose every morning before breakfast and [...] pain or spasm). 180 tablet 1 Insulin [place], Disposable, (BD ULTRA-FINE MICRO PEN NEEDLE) 32 gauge x 1/4" Ndle Use as directed to inject Victoza daily; ID-10 code E11.69 100 Each 1 Blood-Glucose Meter (ACCU-CHEK LEIDY PLUS METER) [facility] [place] glucose once daily before breakfast;Diagnosis code [...] N/A 07/01/2016 Surgeon: Sean Rodriguez MD; Location: [facility] ESOPHAGOGASTRODUODENOSCOPY N/A 09/06/2016 Surgeon: [...] file Gets together: Not on file Attends shinto service: Not on file Active member of [...] at a future visit. If applicable, the [facility] database was accessed to review any controlled substance prescription claims data. If the patient is taking prescribed medications, the [employer] prescription claims data in [place] was reviewed to assess patient compliance with [...] Winn MD June 03, 2019, 4:00 PM DRILLER HELPER documented in this encounter Plan of Treatment Date Type Specialty Care Team Description 06/27/2019 Office Visit Family Medicine Winnie Winn MD [address] [address] [phone] 08/19/2019 Office Visit Neurology Marcus Madison MD [address] [address] [phone] 12/02/2019 Office Visit Neurology Marcus Madison MD [address] [place], [place] [address] [phone] Health Maintenance Due Date [...] mg Right Hip (DEPO-MEDROL) injection 80 mg WELL DRILLER HELPER 80 mg, Intramuscular, ONCE, 1 dose, 06/03/19 at 1700, Routine documented in this encounter Additional Health Concerns Infection Noted Time Resolved Time Contact- MRSA 02/27/2017 8:27 PM WELL DRILLER HELPER documented as of this encounter Insurance Payer Benefit Plan / Subscriber ID Effective Phone Address T ype Group Dates [facility] [id number] 2018-Prese Medic are Adv HEALTHCARE - HEALTHCARE nt PPO MANAGED MEDICARE [place]VER MEDIC[place] xxxxxxxxx 2017-Pres Medicaid HEALTHCARE COMM PLUS ent PLAN - MANAGED MEDICAID documented as of this encounter Advance Directives Name Relationship Healthcare Agent Relationship Co mmunication Juliann Oneill Mother Primary healthcare agent
--- OUTSIDE RECORDS SUMMARY | 2019-08-05 22:57 | XMS REPORT | Summary of Care ---
:1980 Author Organization [facility] - Health Address [address] [place], [place] [address] Care Team Providers Name Role Phone Jacqueline Winn MD Primary Care Provider Tech, Cardio Fac Unavailable Unavailable Boo Fontaine MD Unavailable Encounter Details Date Type Department Care Team Description 06/04/2019 Orders Only [facility] Doctor Unassigned, No [address] [facility] [place] [place] [address] Allergies Active Allergy Reactions Severity Noted Date Comments Bee [place] Anaphylaxis 08/14/2017 [place] Swelling 02/18/2016 Clams Swelling 02/18/2016 Tree Nuts Other - See comments 02/18/2016 Throat itching / raw Latex Itching 12/04/2015 Morphine Shortness of Breath 12/04/2015 Ibuprofen Hives 12/04/2015 Pork Derived (Porcine) Swelling 02/18/2016 documented as of this encounter (statuses as of 06/10/2019) Medications Medication Sig Dispensed Refills Start End [...] without long-term current use of insulin Insulin [place], Use as directed 100 Each 1 Active [...] Acute directions 0 bacterial sinusitis, Nasal obstruction documented as of this encounter (statuses as of 06/10/2019) Active Problems Problem Noted Date Hair loss [...] as of this encounter (statuses as of 06/10/2019) Immunizations Name Administration Dates Next Due Influenza [...] Office Visit Family Medicine Winnie Winn MD [address] [place], [place] [phone] 08/19/2019 Office Visit Neurology Marcus Madison MD [address] [address] [phone] 12/02/2019 Office Visit Neurology Marcus Madison MD [address] [address] [phone] Health Maintenance Due Date Last Done [...] Name Priority Date/Time Associated Diagnosis Comme nts DISCLOSURE AND CONSENT, Routine 06/04/2019 12:01 AM MEDICAL AND SURGICAL EXTRACORPOREAL CIRCULATION SPECIALIST PROCEDURES documented in this encounter Results Not on filedocumented in this encounter Additional Health Concerns Infection Noted Time Resolved Time Contact- MRSA 02/27/2017 8:27 PM EXTRACORPOREAL CIRCULATION SPECIALIST documented as of this encounter Insurance Payer Benefit Plan / Subscriber ID Effective Phone Address T e Group Dates [facility] [id number] 2018-Prese Medic are Adv HEALTHCARE - HEALTHCARE nt PPO MANAGED MEDICARE [place]VER MEDIC[place] [place] xxxxxxxxx 2017-Pres Medicaid HEALTHCARE COMM PLUS ent PLAN - MANAGED MEDICAID documented as of this encounter Advance Directives Name Relationship Healthcare Agent Relationship Co mmunication Juliann Oneill Mother Primary healthcare agent
--- OUTSIDE RECORDS SUMMARY | 2019-08-05 22:58 | XMS REPORT | Summary of Care ---
:1980 Author Organization [facility] Address [address] [place] [address] Care Team Providers Name Role Phone Jacqueline Winn MD Primary Care Provider Tech, Cardio Fac Unavailable Unavailable Boo Fontaine MD Unavailable Reason for Visit Reason Comments ULTRASOUND (Routine) Status Reason Specialty Diagnoses / Procedures Referred By C ontact Referred To Contact Closed Cardiology Diagnoses Dizziness and giddiness Ann Abdi MD Procedures CAROTID DUPLEX BILATERAL BY VASCULAR LAB [address] [place] [address] [place] [phone] Phone: Encounter Details Date Type Department Care Team Description 05/20/2019 Driver Examiner Visit [facility] Dao Fontaine MD [address] [place] [address] [address] Dizziness and Cardiology- [facility], Adc Vascular Room [address] - [address], [address] [place] [address] Allergies Active Allergy Reactions Severity Noted Date Comments Bee [place] Anaphylaxis 08/14/2017 [place] Swelling 02/18/2016 Clams Swelling 02/18/2016 Tree Nuts Other - See comments 02/18/2016 Throat itching / raw Latex Itching 12/04/2015 Morphine Shortness of Breath 12/04/2015 Ibuprofen Hives 12/04/2015 Pork Derived (Porcine) Swelling 02/18/2016 documented as of this encounter (statuses as of 06/14/2019) Medications Medication Sig Dispensed Refills Start End [...] without long-term current use of insulin Insulin [place], Use as directed 100 Each 1 Active [...] as of this encounter (statuses as of 06/14/2019) Active Problems Problem Noted Date Hair loss [...] as of this encounter (statuses as of 06/14/2019) Immunizations Name Administration Dates Next Due Influenza [...] Office Visit Family Medicine Winnie Winn MD [address] [place], [place] [address] [phone] 08/19/2019 Office Visit Neurology Marcus Madison MD [address] [address] [phone] 12/02/2019 Office Visit Neurology Marcus Madison MD [address] [place], [place] [address] [phone] Health Maintenance Due Date [...] Problems Progress Quit using Tobacco Use No [place], tobacco Wondiful A, (cigarettes, MD smokeless, etc) documented as of this encounter Procedures Procedure Name Priority Date/Time Associated Diagnosis Comme nts CAROTID DUPLEX Routine 05/20/2019 8:16 AM Dizziness and giddi ness BILATERAL BY VASCULAR DELIVERY TRUCK DRIVER HEAVY LAB documented in this encounter Results Not on filedocumented in this encounter Visit Diagnoses Diagnosis Dizziness and giddiness documented in this encounter Additional Health Concerns Infection Noted Time Resolved Time Contact- MRSA 02/27/2017 8:27 PM DELIVERY TRUCK DRIVER HEAVY documented as of this encounter Insurance Payer Benefit Plan / Subscriber ID Effective Phone Address T ype Group Dates [facility] [id number] 2018-Prese Medic are Adv HEALTHCARE - HEALTHCARE nt PPO MANAGED MEDICARE [place]VER MEDICARE [place] xxxxxxxxx 2017-Pres Medicaid HEALTHCARE COMM PLUS ent PLAN - MANAGED MEDICAID documented as of this encounter Advance Directives Name Relationship Healthcare Agent Relationship Co mmunication Juliann Oneill Mother Primary healthcare agent
--- OUTSIDE RECORDS SUMMARY | 2019-08-05 22:58 | XMS REPORT | Summary of Care ---
:1980 Author Organization [facility] Address [address] [place] [address] Care Team Providers Name Role Phone Jacqueline Winn MD Primary Care Provider Tech, Cardio Fac Unavailable Unavailable Boo Fontaine MD Unavailable Encounter Details Date Type Department Care Team Description 05/19/2019 Patient Secure [facility] Cardiology- Ann Abdi MD [place] [address] [facility] [address], [address] [place] [address] [place] [address] [phone] Allergies Active Allergy Reactions Severity Noted Date Comments Bee [place] Anaphylaxis 08/14/2017 [place] Swelling 02/18/2016 Clams Swelling 02/18/2016 Tree Nuts Other - See comments 02/18/2016 Throat itching / raw Latex Itching 12/04/2015 Morphine Shortness of Breath 12/04/2015 Ibuprofen Hives 12/04/2015 Pork Derived (Porcine) Swelling 02/18/2016 documented as of this encounter (statuses as of 06/22/2019) Medications Medication Sig Dispensed Refills Start End [...] without long-term current use of insulin Insulin [place], Use as directed 100 Each 1 Active [...] as of this encounter (statuses as of 06/22/2019) Active Problems Problem Noted Date Hair loss [...] as of this encounter (statuses as of 06/22/2019) Immunizations Name Administration Dates Next Due Influenza [...] Office Visit Family Medicine Winnie Winn MD [address] [place] [address] [phone] 08/19/2019 Office Visit Neurology Marcus Madison MD [address] [place], [place] [address] [phone] 12/02/2019 Office Visit Neurology Marcus Madison MD [address] [place], [place] [address] [phone] Health Maintenance Due Date [...] Resolved Time Contact- MRSA 02/27/2017 8:27 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
--- OUTSIDE RECORDS SUMMARY | 2019-08-05 22:58 | XMS REPORT | Summary of Care ---
:1980 Author Organization [facility] Address [address] [place] [address] Care Team Providers Name Role Phone Jacqueline Winn MD Primary Care Provider Tech, Cardio Fac Unavailable Unavailable Boo Fontaine MD Unavailable Reason for Visit Reason Comments LAB Encounter Details Date Type Department Care Team Description 07/04/2019 Family Physician Visit [facility] Dash Winn MD [address] [place] [address] [place] [address] Diabetes mellitus type 2 in obese; Professional Office 2, Adc Lab Hypercholesterolemia; Building Phlebotomy Myalgia; Lab Medication monitoring encoun ter; Professional Office Encounte r for long-term (current) use of medications; Building Acquired autoimmune hypothyr oidism; [address] [place] [address] de pression; , [address] Insomnia [place] [address] Allergies Active Allergy Reactions Severity Noted Date Comments Bee [place] Anaphylaxis 08/14/2017 [place] Swelling 02/18/2016 Clams Swelling 02/18/2016 Tree Nuts Other - See comments 02/18/2016 Throat itching / raw Latex Itching 12/04/2015 Morphine Shortness of Breath 12/04/2015 Ibuprofen Hives 12/04/2015 Pork Derived (Porcine) Swelling 02/18/2016 documented as of this encounter (statuses as of 07/04/2019) Medications Medication Sig Dispensed Refills Start End Date Status Date aspirin 81 mg chewable Take 81 mg by 0 Active tablet mouth daily. vitamin B-12 (VITAMIN Take 1 tablet by 30 tablet 5 Active B-12) 500 mcg mouth daily. 8 tabletIndications: B12 deficiency Insulin [place], Use as directed 100 Each 1 [...] Active capsuleIndications: Mixed mouth daily. 9 hyperlipidemia Lancets MiscIndications: Check glucose 100 Each 1 [...] Gastroesophageal reflux times daily. disease without esophagitis methylPREDNISolone 4 mg Follow package 21 Each 0 Active tabletsIndications: Acute directions 0 bacterial sinusitis, Nasal obstruction fluticasone propionate 50 Use 2 Sprays in 3 Bottle 1 07/04/19 2 Active mcg/actuation nasal each nostril 0 sprayIndications: Acute daily. allergic rhinitis Blood-Glucose Meter Check glucose 1 Each 0 Active (ACCU-CHEK LEIDY PLUS once daily before 0 METER) MiscIndications: breakfast; Diabetes mellitus type 2 Diagnosis code in obese E11.9 documented as of this encounter (statuses as of 07/04/2019) Active Problems Problem Noted Date Hair loss [...] as of this encounter (statuses as of 07/04/2019) Immunizations Name Administration Dates Next Due Influenza [...] Treatment Date Type Specialty Care Team Description 08/19/2019 Office Visit Neurology Marcus Madison MD [address] [phone] 12/02/2019 Office Visit Neurology Marcus Madison MD [address] [address] [phone] Health Maintenance Due Date Last Done [...] Problems Progress Quit using Tobacco Use No [place], tobacco Wondiful A, (cigarettes, MD smokeless, etc) documented as of this encounter Results Not on filedocumented in this encounter Visit Diagnoses Diagnosis Diabetes mellitus type 2 in obese Type II or unspecified type diabetes melissa litus without mention of complication, not stated as uncontrolled Hypercholesterolemia Pure hypercholesterolemia Myalgia Mylagia and myositis, unspecified Medication monitoring encounter Encounter for therapeutic drug monitorin g Encounter for long-term (current) use of medications Encounter for long-term (current) use of other medications Acquired autoimmune hypothyroidism Other specified acquired hypothyroidism Chronic depression Depressive disorder, not elsewhere class ified Insomnia due to other mental disorder documented in this encounter Additional Health Concerns Infection Noted Time Resolved Time Contact- MRSA 02/27/2017 8:27 PM 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
--- OUTSIDE RECORDS SUMMARY | 2019-08-05 22:59 | XMS REPORT | Summary of Care ---
:1980 Author Organization [facility] - [facility] Address [address] [place] [id number] Care Team Providers Name Role Phone Jacqueline Winn MD Primary Care Provider Tech, Cardio Fac Unavailable Unavailable Boo Fontaine MD Unavailable Reason for Visit Reason Comments Follow-up DM2, HLD, hypothyroidism, de pression Encounter Details Date Type Department Care Team Description 07/04/2019 Telemedicine Visit [facility] Family [place], Winnie gabriel Diabetes mellitus type 2 in obese (Primary Dx); Medicine - Minh Jim MD Hypercholesterolemia; [address] Acquired autoimmune hypothyroidism; [address] [place], [place] Chronic depression; [place] [address] Acute allergic rhinitis; [id number] Myalgia; [phone] Insomnia due to other mental disorder; (Fax) Medication drake toring encounter; Encounter for l fortino-term (current) use of medications Allergies Active Allergy Reactions Severity Noted Date Comments Bee [place] Anaphylaxis 08/14/2017 [place] Swelling 02/18/2016 Clams Swelling 02/18/2016 Tree Nuts [...] mcg mouth daily. 018 tabletIndications: B12 deficiency Insulin [place], Use as directed 100 Each 1 Active [...] capsuleIndications: by mouth daily. 019 Mixed hyperlipidemia Lancets Check glucose 100 Each 1 Active [...] directions 020 Acute bacterial sinusitis, Nasal obstruction fluticasone propionate Use 2 Sprays in 3 Bottle 1 Active 50 mcg/actuation nasal each nostril 020 sprayIndications: Acute daily. allergic rhinitis Blood-Glucose Meter Check glucose 1 Each 0 Active (ACCU-CHEK LEIDY PLUS once daily 020 METER) MiscIndications: before Diabetes mellitus type breakfast; 2 in obese Diagnosis code E11.9 Blood-Glucose Meter Check glucose 1 Each 0 2 07/03/ Discontinued (ACCU-CHEK LEIDY PLUS once daily 019 2019 (Reorder) METER) MiscIndications: before Controlled type 2 breakfast; diabetes mellitus Diagnosis code without complication, E11.9 without long-term current use of insulin fluticasone propionate Use 2 Sprays in 3 Bottle 1 0 07/03/ Discontinued 50 mcg/actuation nasal each nostril 019 2019 (Reorder) sprayIndications: daily. Medication refill documented as of this encounter (statuses as [...] Signs Not on filedocumented in this encounter Patient Instructions Patient InstructionsLeidy Marie R - 07/04/2019 10:15 AM CDT Patient Education Understanding Your Cholesterol Numbers Blood flows easily when arteries are clear. Less blood flows when cholesterol builds up in artery contreras. The higher your blood cholesterol, the greater your risk for heart attack, cardiovascular disease,or stroke. High cholesterol can cause any artery in your body to become narrow. Thats why you needto know your cholesterol level. If its high, you can take steps to bring it down. Eating the right foods and getting enough exercise can help. Some people also need medicine to control their cholesterol. Your healthcare provider can help you identify your personal risk through screenings tests and a discussion about different factors that many increase your chance for heart disease and stroke. These include family history, age, gender, ethnicity, and current health. Your healthcare provider can help you get started on a plan to control your cholesterol. Checking your cholesterol Your cholesterol is checked with a simple blood test. The results tell you how much cholesterol you have in your blood. Get checked as often as your healthcare provider suggests. Start monitoring your cholesterol levels regularly after age 20. Check it earlier if you have an increased risk for either high cholesterol or heart disease. If you have diabetes or high cholesterol, you may need your blood tested as often as every 3 months. As you work to lower your cholesterol, your numbers will change slowly. But they will change. Be patient and stay on track. Discuss your numbers with your healthcare provider. Your total cholesterol number A blood test will give you a number for the total amount of cholesterol in your blood. The higher this number, the more likely it is that cholesterol will build up in your blood vessels.Even if your cholesterol is just slightly high, you are at increased risk for health problems. My total cholesterol is: Your lipid numbers Total cholesterol is justone part of the story. Cholesterol is made up of different kinds of fats (lipids). If your total cholesterol is high, knowing your lipid profile is important. The2 most important lipids are HDL and LDL. Your healthcare provider will tell you if you should fast before having your lipids checked. Fasting meansyou dont eat for a certain amount of time before the test isdone. Along with cholesterol, triglyceride can also lead to blocked arteries. Triglycerides are another type of fat. Knowing your HDL, LDL, and triglyceride numbers, as well as your total cholesterol gives you a more complete picture of your cholesterol level: HDL is called the good cholesterol. It moves the "bad" cholesterol out of the bloodstream and does not block your blood vessels. HDL levels are affected by how much you exercise and what you eat. This is the type of cholesterol that you don't want too little of. The higher the HDL, the better. My HDL cholesterol is: LDL is called the bad cholesterol. This is because it can stick to your artery contreras and block blood flow. LDL levels are most affected by what you eat and by your genes. LDL cholesterol is clustered with other cholesterol types including apolipoprotein B (apoB) and lipoprotein a [Lp(a)]. Higher levels of these cholesterol types can increase your risk for atherosclerosis. My LDL cholesterol is: Triglyceride is a type of fat the body uses to store energy. Too much triglyceride can increase your risk for heart disease. Triglyceride levels should be [id number]. If your triglyceride level is above 200 mg/dL your provider may want to look at another cholesterol type called apolipoprotein B (apoB). My triglyceride is: High cholesterol is only one of the big risk factor for heart disease heart attack, stroke, and peripheral artery disease. If your cholesterol levels are higher than normal, your healthcare provider will help you with steps to take to lower your levels. Steps may include lifestyle changes such as diet, physical activity, and quitting smoking. Your provider may also prescribe medicine to lower bad cholesterol levels. Based on your other health issues and risk factors, your healthcare provider may have specific goals for treating your cholesterol. You may need to use different kinds of medicines thatwork on the different types of cholesterol. Some people may need to take medicines called statins to control their cholesterol. This is in addition to eating a healthy diet and getting regular exercise. Statins can help you stay healthy. They can also help prevent a heart attack or stroke. Also ask your provider about any side effects your medicines may cause. Let your provider know about any side effects you have. Make a plan to have regular cholesterol checks. Work with your provider to know and understand what your cholesterol numbers mean, what your risk factors are and what are your treatment options and goals. Make sure you understand why these goals areimportant, based on your own health history and your family history of heart disease or high cholesterol. Stick with your treatment plan to reach the goals you set. Sol last reviewed this educational content on 10/08/201819992925-0771 [employer]. [address] [place] [address], [place] [address]. All rights reserved. This information is not intended as a substitute for professional medical care. Always follow your healthcare professional's instructions. documented in this encounter Progress Notes Jacqueline Winn MD - 07/04/2019 10:15 AM CDT TELEHEALTH NOTE Verbal consent obtained from Patient: Hannah Oneill for telehealth services provided below. Communication with patient was conducted via [employer] w/ video and audio. Other participants in this telehealth encounter: None. Location of Patient: Home (sitting in her car in her driveway). Location of Provider: Office. Date of Service: 07/04/2019 Cc: Chief Complaint Patient presents with Follow-up DM2, HLD, hypothyroidism, depression HPI Hannah Oneill is a 39 year old female who participated in a Telehealth visit today for DM2 follow-up. She also complains loratadine and montelukast aren't controlling her nasal allergy symptoms at this time (sinus pressure, nasal congestion, sneezing, runny nose). DM2 follow-up: Medication compliance: Diet-controlled thus far. Dietary compliance: Good. Exercise frequency: The patient is active but doesn't formally exercise. Last Two A1C Results ([facility]/LC, POCT, [facility]) Recent Labs 12/27/18 1049 03/28/19 0906 HGBA1C 5.7 5.9 Glucose readings: <130 fasting. Hypoglycemic episodes: None. Associated symptoms: None. Denies chest pain, visual changes, paresthesia of extremities, foot problems, polyuria, or polydipsia. Last Ophthalmology visit: W/n the past 12 months. Hypothyroidism follow-up: Compliant with , the patient takes the levothyroxine form. Symptoms?: Denies unintentional change in weight, energy level, hair/skin/nails, bowel habits, appetite, or temperature tolerance. HLD follow-up: Lipid-lowering therapy prescribed: Fenofibrate, ezetimibe, and rosuvastatin. Medication compliance: Good. Adverse effects: She c/o recent increase in chronic myalgia. Dietary compliance: Good. Exercise frequency: The patient is active but doesn't formally exercise. Associated symptoms: No chest pain, SOB, syncope, claudication, dizziness, visual changes, or focalweakness. Cardiovascular screening (ex. EKG, stress test) in the past 3 years?: Yes, she is followed at regular intervals by [facility] Cardiology (last visit 04/2019). Depression follow-up: Medication(s): Lexapro. Medication effectiveness: Fair. Residual symptoms on medication: Anxiousness (situational), insomnia w/ both trouble falling asleep and staying asleep. Medication side effects: None. Current psychosocial stressors: Coronavirus pandemic. In counseling?: No. No manic sxs, delusions, hallucinations, SI or HI. Allergies Hannah is allergic to bee balm; eastman tree; clams; coconut [tree nuts]; latex; morphine; motrin [ibuprofen]; and pork derived (porcine). Medications Outpatient Medications Prior to Visit Medication Sig Dispense Refill methylPREDNISolone 4 mg tablets Follow package directions 21 Each 0 famotidine 20 mg tablet Take 1 [...] capsule by mouth daily. 90 capsule 1 Lancets [facility] glucose every morning before breakfast and [...] (muscle pain or spasm). 180 tablet 1 fluticasone propionate 50 mcg/actuation nasal spray Use 2 Sprays in each nostril daily. 3 Bottle1 Insulin [place], Disposable, (BD ULTRA-FINE MICRO PEN NEEDLE) 32 gauge x 1/4" Ndle Use as directed to inject Victoza daily; ID-10 code E11.69 100 Each 1 Blood-Glucose Meter (ACCU-CHEK LEIDY PLUS METER) Mis Check glucose once daily before breakfast;Diagnosis code [...] N/A 07/01/2016 Surgeon: Sean Rodriguez MD; Location: [place] [facility] ESOPHAGOGASTRODUODENOSCOPY N/A 09/06/2016 Surgeon: Jonny Enriquez [...] file Gets together: Not on file Attends restorationism service: Not on file Active member of [...] NoFHx Review of Systems Constitutional: Positive for appetite change. HENT: Positive for congestion, rhinorrhea, sinus pressure and sneezing. Eyes: Negative. Respiratory: Negative. Cardiovascular: Negative. Gastrointestinal: Negative. Genitourinary: Negative. Musculoskeletal: Positive for myalgias. Skin: Negative. Neurological: Negative. Psychiatric/Behavioral: Positive for sleep disturbance. The patient is nervous/anxious. Endocrine: Endocrine negative Vital Signs Level of pain 8. Physical Exam Constitutional: She is oriented to person, place, and time. She appears well- developed and well-nourished. No distress. Pulmonary/Chest: Effort normal. No respiratory distress. No audible adventitious breath sounds Neurological: She is alert and oriented to person, place, and time. Answers questions appropriately Skin: No rash noted. No pallor. Psychiatric: She has a normal mood and affect. Her speech is normal and behavior is normal. Judgmentand thought content normal. Thought content is not paranoid and not delusional. Cognition and memoryare normal. She expresses no homicidal and no suicidal ideation. LABS: CBC CMP WBC-LC (x10E3/uL) Date Value 09/01/2016 9.8 WBC (10*3/L) Date Value 03/28/2019 9.80 NA (mmol/L) Date Value 03/28/2019 139 Sodium, Serum-LC (mmol/L) Date Value 09/01/2016 141 RBC-LC (x10E6/uL) Date Value 09/01/2016 5.42 (H) RBC (10*6/L) Date Value 03/28/2019 5.22 K (mmol/L) Date Value 03/28/2019 4.6 Potassium, Serum-LC (mmol/L) Date Value 09/01/2016 4.3 Platelets-LC (x10E3/uL) Date Value 09/01/2016 254 PLT (10*3/L) Date Value 03/28/2019 290 CALCIUM (mg/dL) Date Value 03/28/2019 9.6 Calcium, Serum-LC (mg/dL) Date Value 09/01/2016 9.9 HGB (g/dL) Date Value 03/28/2019 14.8 Hemoglobin-LC (g/dL) Date Value 09/01/2016 15.6 CL (mmol/L) Date Value 03/28/2019 105 Chloride, Serum-LC (mmol/L) Date Value 09/01/2016 100 HCT (%) Date Value 03/28/2019 46.0 (H) Hematocrit-LC (%) Date Value 09/01/2016 46.1 BUN (mg/dL) Date Value 03/28/2019 17 BUN-LC (mg/dL) Date Value 09/01/2016 10 LIPID PANEL CREATININE (mg/dL) Date Value 03/28/2019 0.70 Creatinine, Serum-LC (mg/dL) Date Value 09/01/2016 0.80 CHOL (mg/dL) Date Value 03/28/2019 231 (H) Cholesterol, Total-LC (mg/dL) Date Value 07/08/2016 241 (H) GLUCOSE (mg/dL) Date Value 03/28/2019 100 Glucose, Serum-LC (mg/dL) Date Value 09/01/2016 126 (H) LDL CHOL (mg/dL) Date Value 03/28/2019 166 (H) LDL Cholesterol Calc-LC (mg/dL) Date Value 07/08/2016 172 (H) CO2 TOTAL (mmol/L) Date Value 03/28/2019 24 Carbon Dioxide, Total-LC (mmol/L) Date Value 09/01/2016 21 HDL Cholesterol-LC (mg/dL) Date Value 07/08/2016 40 HDL (mg/dL) Date Value 03/28/2019 34 (L) ALBUMIN Date Value Ref Range Status 03/28/2019 4.2 3.5 - 5.0 g/dL Final Albumin, Serum-LC Date Value Ref Range Status 09/01/2016 4.4 3.5 - 5.5 g/dL Final TRIG (mg/dL) Date Value 03/28/2019 153 Triglycerides-LC (mg/dL) Date Value 07/08/2016 144 T PROTEIN Date Value Ref Range Status 03/28/2019 7.6 6.3 - 8.2 g/dL Final Protein, Total, Serum-LC Date Value Ref Range Status 09/01/2016 7.1 6.0 - 8.5 g/dL Final TSH TOTAL BILI Date Value Ref Range Status 03/28/2019 0.4 0.1 - 1.1 mg/dL Final TSH (mIU/L) Date Value 03/28/2019 2.26 TSH-LC (uIU/mL) Date Value 09/01/2016 1.560 No components found for: BILIUNCOM No results found for: BILICONJ ALT(SGPT) Date Value Ref Range Status 12/27/2018 43 9 - 51 U/L Final ALT (SGPT)-LC Date Value Ref Range Status 09/01/2016 91 (H) 0 - 32 IU/L Final ALTv Date Value Ref Range Status 03/28/2019 44 (H) 5 - 35 U/L Final AST(SGOT) Date Value Ref Range Status 03/28/2019 36 13 - 40 U/L Final AST (SGOT)-LC Date Value Ref Range Status 09/01/2016 41 (H) 0 - 40 IU/L Final ALK PHOS Date Value Ref Range Status 03/28/2019 89 34 - 122 U/L Final Alkaline Phosphatase, S-LC Date Value Ref Range Status 09/01/2016 78 39 - 117 IU/L Final ASSESSMENT/PLAN Diagnoses and all orders for this visit: Diabetes mellitus type 2 in obese Continue current anti-diabetic medication(s). Reviewed the principles of following a diabetic diet including the concept of glycemic index. Exercise regularly. Self monitor glucose once daily beforebreakfast and bring record to each visit. See the [employer] W[employer] Etch Operator at least annually for diabetic eye exam. See the Sanding Machine Operator Or Tender for routine foot care and diabetic shoes if appropriate. - Blood-Glucose Meter (ACCU-CHEK LEIDY PLUS METER) [facility] [place] Check glucose once daily before breakfast; Diagnosis code E11.9 - COMP. METABOLIC PANEL (15210); Standing - GLYCOSYLATED HEMOGLOBIN (A1C); Standing - LIPID PANEL (21617)(TOTAL CHOLESTEROL, TRIGLYCERIDES, HDL); Standing Hypercholesterolemia Continue current lipid-lowering pharmacotherapy. Low fat, low cholesterol diet was recommended/reviewed. Exercise regularly. - COMP. METABOLIC PANEL (31457); Standing - LIPID PANEL (71867)(TOTAL CHOLESTEROL, TRIGLYCERIDES, HDL); Standing Acquired autoimmune hypothyroidism The patient seems clinically euthyroid. Continue current dose of levothyroxine for now. I will adjust the dose if needed based on the patient's TFTs. - THYROID STIMULATING HORMONE; Standing - FREE T4; Standing - FREE T3; Standing Chronic depression, Insomnia due to other mental disorder Discussed the medication treatment options for the patient's depression and insomnia. We decided upon a trial of trazodone and she will continue Lexapro. The potential side effects of this drug class/medication were reviewed and the patient voiced understanding. The patient declines referral for counseling or Psychiatry care at this time. We discussed healthy ways of coping with stress and insomnia including good sleep hygiene. Thyroid function testing is due. Close follow-up has been scheduled but the patient understands she can follow-up even sooner if her symptoms don't improve or if othermental health issues develop. - THYROID STIMULATING HORMONE; Standing - FREE T4; Standing - FREE T3; Standing Acute allergic rhinitis Continue antihistamine and leukotriene inhibitor therapy and she will add back her nasal steroid. Mucinex max strength 1200mg tabs q12hr PRN congestion for mucolytic and expectorant action. The patient was advised to stay hydrated to aid in clearance of secretions. Recommended avoidance of allergictriggers whenever possible. We reviewed tips for controlling allergens in the patient's environment. - fluticasone propionate 50 mcg/actuation nasal spray; Use 2 Sprays in each nostril daily. Myalgia Fibromyalgia? Thyroid myopathy? Statin-induced myopathy? Hypomag or electrolyte imbalance? Will check labs as noted. Hydration stressed. - COMP. METABOLIC PANEL (91894); Standing - THYROID STIMULATING HORMONE; Standing - FREE T4; Standing - FREE T3; Standing - CREATINE KINASE; Standing - MAGNESIUM; Standing Medication monitoring encounter, Encounter for long-term (current) use of medications - COMP. METABOLIC PANEL (49627); Standing - GLYCOSYLATED HEMOGLOBIN (A1C); Standing - LIPID PANEL (77747)(TOTAL CHOLESTEROL, TRIGLYCERIDES, HDL); Standing - THYROID STIMULATING HORMONE; Standing - FREE T4; Standing - FREE T3; Standing - CREATINE KINASE; Standing - MAGNESIUM; Standing Plan of care, desired health behaviors, goals, Ddx, and any prescribed medications were discussed with the patient. I spent 19 minute(s) conducting this Telehealth encounter with the patient. Education resources and self- management tools were provided is the AVS which is accessible through [employer]. Patient/guardian/family verbalized understanding and agrees to the plan of care. Barriers to care:None. Ability to manage care: Good. Advanced care planning (living will) information was not given/offered to the patient to review for discussion at a future visit. If applicable, the [facility] database was accessed to review any controlled substance prescription claims data. If the patient is taking prescribed medications, the [employer] prescription claims data in [facility] was reviewed to assess patient compliance with the medication treatment plan. COVID-19 precautions given including frequent handwashing, social distancing, cleaning and disinfecting, indications for testing, etc. Follow-up: Return in about 3 months (around 10/04/2019) for annual physical (fasting). Follow-up sooner if any problems or concerns. Scribe Attestation Leidy Brown , sebastian scribing for, and in the presence of, Jacqueline Winn MD who performed the services described here-in. Leidy Marie, July 04, 2019, 10:06 AM Physician Attestation Jacqueline Brown MD, personally performed the services described in this documentation , as scribed by, Leidy Marie in my presence and it is both accurate and complete. Jacqueline Winn MD July 04, 2019, 10:06 AM documented in this encounter Plan of Treatment Date Type Specialty Care Team Description 08/19/2019 Office Visit Neurology Marcus Madison MD [address] [place] [place] [phone] 12/02/2019 Office Visit Neurology Marcus Madison MD [address] [place], [place] [phone] Name Type Priority Associated Diagnoses Date/Ti me GLYCOSYLATED HEMOGLOBIN LAB Routine Diabetes mellitus type 2 07/04/2019 11:30 AM (A1C) in obese CDT Medication monitoring encounter Encounter for long-term (current) use of medications THYROID STIMULATING LAB Routine Acquired autoimmune 0 07/04/2019 11:30 AM HORMONE hypothyroidism CDT Chronic depressi on Myalgia Insomnia due to other mental disorder Medication monitoring encounter Encounter for long-term (current) use of medications Name Type Priority Associated Diagnoses Order S chedule GLYCOSYLATED HEMOGLOBIN LAB Routine Diabetes mellitus type 1 Occurrences starting (A1C) 2 in obese 07/04/2019 until Medication monitoring 2019 encounter Encounter for long-term (current) use of medications THYROID STIMULATING LAB Routine Acquired autoimmune 1 Occurrences starting HORMONE hypothyroidism 07/04/2019 until Chronic depressi on 09/02/2019, 1 completed Myalgia Insomnia due to other mental disorder Medication monitoring encounter Encounter for long-term (current) use of medications Health Maintenance Due Date Last Done Comments [...] Quit using Tobacco Use No Tatum, tobacco Wonedwardful A, (cigarettes, MD smokeless, etc) documented as of this encounter Results MAGNESIUM (07/04/2019 11:30 AM CDT) Pathologist Sig nature MAGNESIUM 2.0 1.7 - 2.4 mg/dL [facility] Specimen Blood Performing Organization Address City/State/Zipcode Phone Number [facility] CLIA: [id number], [address] [place], [place] [address] CREATINE KINASE (07/04/2019 11:30 AM CDT) Pathologist Sig nature CK 59 33 - 194 U/L [facility] Specimen Blood Performing Organization Address [facility] Phone Number [facility] CLIA: [id number], [address] [place] [address] FREE T3 (07/04/2019 11:30 AM CDT) Pathologist Sig nature FREE T3 2.85 2.77 - 5.27 pg/mL [facility] Specimen Blood Performing Organization Address [facility] Phone Number [facility] CLIA: [id number], [address] [place] [address] FREE T4 (07/04/2019 11:30 AM CDT) Pathologist Sig nature FREE T4 1.24 0.78 - 2.20 ng/dL [facility] Specimen Blood Performing Organization Address [facility] Phone Number [facility] CLIA: [id number], [address] [place] [address] LIPID PANEL (52701)(TOTAL CHOLESTEROL, TRIGLYCERIDES, HDL) (07/04/2019 11:30 AM CDT) Pathologist Sig nature CHOL 233 (H) 120 - 200 mg/dL [facility] HDL 40 (L) >50 mg/dL [facility] HDLC RATIO 5.8 (H) <=4.5 [facility] TRIG 129 30 - 170 mg/dL [facility] LDL CHOL 167 (H) <=160 mg/dL [facility] VLDL 26 5 - 60 mg/dL [facility] Specimen Blood Performing Organization Address [facility] Phone Number [facility] CLIA: [id number], [address] [place] [address] COMP. METABOLIC PANEL (97894) (07/04/2019 11:30 AM CDT) Pathologist Sig nature NA 138 135 - 145 mmol/L [facility] K 4.4 3.5 - 5.0 mmol/L [facility] CL 106 98 - 108 mmol/L [facility] CO2 TOTAL 24 23 - 31 mmol/L [facility] AGAP 8 2 - 16 [facility] BUN 12 7 - 23 mg/dL [facility] GLUCOSE 101 70 - 110 mg/dL [facility] CREATININE 0.66 0.50 - 1.04 [facility] mg/dL [facility] TOTAL BILI 0.4 0.1 - 1.1 mg/dL [facility] CALCIUM 10.1 8.6 - 10.6 mg/dL [facility] T PROTEIN 7.3 6.3 - 8.2 g/dL [facility] ALBUMIN 4.4 3.5 - 5.0 g/dL [facility] ALK PHOS 78 34 - 122 U/L [facility] ALTv 26 5 - 35 U/L [facility] AST(SGOT) 22 13 - 40 U/L [facility] eGFR Calculation 99.7 mL/min/1.73m2 [facility] (Non-) [facility] LABORATOR Y eGFR Calculation 120.8 mL/min/1.73m2 [facility] ([facility]) [facility] Specimen Blood Narrative Performed At Association of Glomerular Filtration Rate (GFR) [facility] and Staging of Kidney Disease* + + +- + | GFR (mL/min/1.73 m2) | With Kidney Damage | Without Kidney Damage + + +- + | >90 | Stage one | Normal + + +- + | 60-89 | Stage two | Decreased GFR + + +- + | 30-59 | Stage three | Stage three + + +- + | 15-29 | Stage four | Stage four + + +- + | <15 (or dialysis) | Stage five | Stage five + + +- + *Each stage assumes the associated GFR level has been in effect for at least three months. Stages 1 to 5, with or without kidney disease, indicate chronic kidney disease. Notes: Determination of stages one and two (with eGFR >59mL/min/1.73 m2) requires estimation of kidney damage for at least three months as defined by structural or functional abnormalities of the kidney, manifested by either: Pathological abnormalities or Markers of kidney damage (including abnormalities in the composition of the blood or urine or abnormalities in imaging tests). Performing Organization Address City/State/Zipcode Phone Number [facility] CLIA: [id number], [address] [place], [place] [address] documented in this encounter Visit Diagnoses Diagnosis Diabetes mellitus type 2 in obese - Prim kendra Type II or unspecified type diabetes melissa litus without mention of complication, not stated as uncontrolled Hypercholesterolemia Pure hypercholesterolemia Acquired autoimmune hypothyroidism Other specified acquired hypothyroidism Chronic depression Depressive disorder, not elsewhere class ified Acute allergic rhinitis Myalgia Mylagia and myositis, unspecified Insomnia due to other mental disorder Medication monitoring encounter Encounter for therapeutic drug monitorin g Encounter for long-term (current) use of medications Encounter for long-term (current) use of other medications documented in this encounter Additional Health Concerns Infection Noted Time Resolved Time Contact- 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
--- OUTSIDE RECORDS SUMMARY | 2019-08-05 23:00 | XMS REPORT | Summary of Care ---
:1980 Author Organization [facility] Address [address] [place] [address] Care Team Providers Name Role Phone Jacqueline Winn MD Primary Care Provider Tech, Cardio Fac Unavailable Unavailable Boo Fontaine MD Unavailable Reason for Visit Reason Comments Follow-up DM2, HLD, hypothyroidism, de pression Encounter Details Date Type Department Care Team Description 07/04/2019 Telemedicine Visit [facility] [place], Winnie gabriel Diabetes mellitus type 2 in obese (Primary Dx); Medicine - Minh Jim MD Hypercholesterolemia; [address] Acquired autoimmune hypothyroidism; Drive [place], [place] Chronic depression; [place] [address] Acute allergic rhinitis; [address] Myalgia; [phone] Insomnia due to other mental disorder; (Fax) Medication drake toring encounter; Encounter for l fortnio-term (current) use of medications Allergies Active Allergy Reactions Severity Noted Date Comments Bee [place] Anaphylaxis 08/14/2017 [place] Swelling 02/18/2016 Clams Swelling 02/18/2016 Tree Nuts [...] mouth daily. 018 tabletIndications: B12 deficiency Insulin [place], Use as directed 100 Each 1 Active [...] for heart disease. Triglyceride levels should be . If your triglyceride level is above 200 [...] plan to reach the goals you set. Slo last reviewed this educational content on 10/08/201819991731-5750 [employer]. [address] [place] [address], [place] [address]. All rights reserved. This information is not intended as a substitute for professional medical care. Always follow your healthcare professional's instructions. documented in this encounter Progress Notes Jacqueline Winn MD - 07/04/2019 10:15 AM CDT TELEHEALTH NOTE Verbal consent obtained from Patient: Hannah Oneill for telehealth services provided below. Communication with patient was conducted via [employer] w/ video and audio. Other participants in [...] she is followed at regular intervals by [facility] Cardiology (last visit 04/2019). Depression follow-up: Medication(s): [...] by mouth daily. 90 capsule 1 Lancets [facility] Check glucose every morning before breakfast and [...] in each nostril daily. 3 Bottle1 Insulin [place], Disposable, (BD ULTRA-FINE MICRO PEN NEEDLE) 32 [...] N/A 07/01/2016 Surgeon: Sean Rodriguez MD; Location: [place] [facility] ESOPHAGOGASTRODUODENOSCOPY N/A 09/06/2016 Surgeon: Jonny Enriquez [...] see comments NoFHx Review of Systems Constitutional: Negative for appetite change. HENT: Positive for congestion, [...] bring record to each visit. See the Route Returner at least annually for diabetic eye exam. See the Bedspread Seamer for routine foot care and diabetic shoes if appropriate. - Blood-Glucose Meter (ACCU-CHEK LEIDY PLUS METER) [facility]; Check glucose once daily before breakfast; Diagnosis code E11.9 - COMP. METABOLIC PANEL (75698); Standing - GLYCOSYLATED HEMOGLOBIN (A1C); Standing - LIPID PANEL (57250)(TOTAL CHOLESTEROL, TRIGLYCERIDES, HDL); Standing Hypercholesterolemia Continue current lipid-lowering pharmacotherapy. Low fat, low cholesterol diet was recommended/reviewed. Exercise regularly. - COMP. METABOLIC PANEL (46112); Standing - LIPID PANEL (58458)(TOTAL CHOLESTEROL, TRIGLYCERIDES, HDL); Standing Acquired autoimmune hypothyroidism [...] noted. Hydration stressed. - COMP. METABOLIC PANEL (58366); Standing - THYROID STIMULATING HORMONE; Standing - FREE T4; Standing - FREE T3; Standing - CREATINE KINASE; Standing - MAGNESIUM; Standing Medication monitoring encounter, Encounter for long-term (current) use of medications - COMP. METABOLIC PANEL (01151); Standing - GLYCOSYLATED HEMOGLOBIN (A1C); Standing - LIPID PANEL (54792)(TOTAL CHOLESTEROL, TRIGLYCERIDES, HDL); Standing - THYROID STIMULATING [...] is the AVS which is accessible through [employer]. Patient/guardian/family verbalized understanding and agrees to the plan of care. Barriers to care:None. Ability to manage care: Good. Advanced care planning (living will) information was not given/offered to the patient to review for discussion at a future visit. If applicable, the [facility] database was accessed to review any controlled substance prescription claims data. If the patient is taking prescribed medications, the mobicanvas prescription claims data in [facility] was reviewed to assess patient compliance with [...] Office Visit Neurology Marcus Madison MD [address] [address] [phone] 12/02/2019 Office Visit Neurology Marcus Madison MD [address] [address] [phone] Name Type Priority Associated Diagnoses Date/Ti me [...] Date Last Done Comments VARICELLA VACCINES (1 2 - 1981 2-dose childhood series) PNEUMOCOCCAL [...] Problems Progress Quit using Tobacco Use No [place], tobacco Wondiful A, (cigarettes, MD smokeless, etc) documented as of this encounter Results MAGNESIUM (07/04/2019 11:30 AM CDT) Pathologist Sig nature MAGNESIUM 2.0 1.7 - 2.4 mg/dL [facility] Specimen Blood Performing Organization Address [facility] Phone Number [facility] CLIA: [id number], [address] CREATINE KINASE (07/04/2019 11:30 AM CDT) Pathologist Sig nature CK 59 33 - 194 U/L [facility] Specimen Blood Performing Organization Address City/[facility] Phone Number [facility] CLIA: [id number], [address] [place], [place] [address] FREE T3 (07/04/2019 11:30 AM CDT) Pathologist Sig nature FREE T3 2.85 2.77 - 5.27 pg/mL [facility] Specimen Blood Performing Organization Address [facility] Phone Number [facility] CLIA: [id number], [address] [place], [place] [address] FREE T4 (07/04/2019 11:30 AM CDT) Pathologist Sig nature FREE T4 1.24 0.78 - 2.20 ng/dL [facility] Specimen Blood Performing Organization Address [facility] [place] [facility] Phone Number [facility] CLIA: [id number], [address] THYROID STIMULATING HORMONE (07/04/2019 11:30 AM CDT) Pathologist Sig formerly [facility] TSH 2.14 0.45 - 4.70 mIU/L [facility] Specimen Blood Performing Organization Address [facility] [place] Phone Number [facility] CLIA: [id number], [address] [address] [address] [facility] LIPID PANEL (27280)(TOTAL CHOLESTEROL, TRIGLYCERIDES, HDL) (07/04/2019 11:30 AM CDT) Pathologist Sig nature CHOL 233 (H) 120 - 200 mg/dL [facility] HDL 40 (L) >50 mg/dL [facility] HDLC RATIO 5.8 (H) <=4.5 [facility] TRIG 129 30 - 170 mg/dL [facility] LDL CHOL 167 (H) <=160 mg/dL [facility] VLDL 26 5 - 60 mg/dL [facility] Specimen Blood Performing Organization Address [facility] [place] Phone Number [facility] CLIA: [id number], [address] COMP. METABOLIC PANEL (42884) (07/04/2019 11:30 AM CDT) Pathologist Sig nature NA 138 135 - 145 mmol/L [facility] K 4.4 3.5 - 5.0 mmol/L [facility] CL 106 98 - 108 mmol/L [facility] CO2 TOTAL 24 23 - 31 mmol/L [facility] AGAP 8 2 - 16 [facility] BUN 12 7 - 23 mg/dL [facility] GLUCOSE 101 70 - 110 mg/dL [facility] CREATININE 0.66 0.50 - 1.04 [facility] mg/dL [facility] TOTAL BILI 0.4 0.1 - 1.1 mg/dL [facility] CALCIUM 10.1 8.6 - 10.6 mg/dL [facility] T PROTEIN 7.3 6.3 - 8.2 g/dL [facility] ALBUMIN 4.4 3.5 - 5.0 g/dL [facility] ALK PHOS 78 34 - 122 U/L [facility] ALTv 26 5 - 35 U/L [facility] AST(SGOT) 22 13 - 40 U/L [facility] eGFR Calculation 99.7 mL/min/1.73m2 [facility] ([facility]) [facility] LABORATOR Y eGFR Calculation 120.8 mL/min/1.73m2 [facility] ([facility]) [facility] Specimen Blood Narrative Performed [...] tests). 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
--- OUTSIDE RECORDS SUMMARY | 2019-08-05 23:00 | XMS REPORT | Summary of Care ---
:1980 Author Organization [facility] Address [address] [place] [address] Care Team Providers Name Role Phone Jacqueline Winn MD Primary Care Provider Tech, Cardio Fac Unavailable Unavailable Boo Fontaine MD Unavailable Reason for Visit Reason Comments Rx Concern/Question Encounter Details Date Type Department Care Team Description 07/05/2019 Telephone [facility] Family Jacqueline Winn R x Concern/Question Medicine - Minh SHRESTHA [address] [place], [place] [address] [address] [place], [place] [phone] [address] Allergies Active Allergy Reactions Severity Noted Date Comments Bee [place] Anaphylaxis 08/14/2017 [place] Swelling 02/18/2016 Clams Swelling 02/18/2016 Tree Nuts Other - See comments 02/18/2016 Throat itching / raw Latex Itching 12/04/2015 Morphine Shortness of Breath 12/04/2015 Ibuprofen Hives 12/04/2015 Pork Derived (Porcine) Swelling 02/18/2016 documented as of this encounter (statuses as of 07/05/2019) Medications Medication Sig Dispensed Refills Start End Date Status Date aspirin 81 mg chewable Take 81 mg by 0 Active tablet mouth daily. vitamin B-12 (VITAMIN Take 1 tablet by 30 tablet 5 Active B-12) 500 mcg mouth daily. 8 tabletIndications: B12 deficiency Insulin [place], Use as directed 100 Each 1 Active [...] as of this encounter (statuses as of 07/05/2019) Active Problems Problem Noted Date Hair loss [...] as of this encounter (statuses as of 07/05/2019) Immunizations Name Administration Dates Next Due Influenza [...] Office Visit Neurology Marcus Madison MD [address] [address] [phone] 12/02/2019 Office Visit Neurology Marcus Madison MD [address] [address] [phone] Health Maintenance Due Date Last Done Comments VARICELLA VACCINES (1 of 2 - 1981 2-dose childhood series) PNEUMOCOCCAL 0-64 YEARS COMBINED 1986 SERIES (1 of 1 - PPSV23) DTaP,Tdap,and Td Vaccines (1 - 1991 Tdap) INFLUENZA VACCINE (#1) 2018 12/25/2015 EYE EXAM 02/08/2019 02/08/2018, 01/08/2018 PAP SMEAR 02/17/2019 02/18/2016 URINE MICROALBUMIN 02/23/2019 02/23/2018 FOOT EXAM 12/28/2019 12/27/2018, 11/28/2017, 11/28/2017, Additional history exists HgA1C 01/04/2020 07/04/2019, 03/28/2019, 12/27/2018, Additional history exists CREATININE (SERUM) 07/03/2020 07/04/2019, 03/28/2019, 12/27/2018, Additional history exists LDL-C 07/03/2020 07/04/2019, 03/28/2019, 12/27/2018, Additional history exists documented as of this encounter Goals Goal Patient Goal Associated Recent Patient-Stated? 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
--- OUTSIDE RECORDS SUMMARY | 2019-08-05 23:01 | XMS REPORT | Summary of Care ---
:1980 Author Organization [facility] Address [address] [place] [address] Care Team Providers Name Role Phone Jacqueline Winn MD Primary Care Provider Tech, Cardio Fac Unavailable Unavailable Boo Fontaine MD Unavailable Reason for Visit Reason Comments Refill Request Encounter Details Date Type Department Care Team Description 07/28/2019 Refill [facility] Family Medicine Jacqueline Thomas MD Refill Request - [address] [place] [address] [place] [address] [phone] Allergies Active Allergy Reactions Severity Noted Date Comments Bee [place] Anaphylaxis 08/14/2017 [place] Swelling 02/18/2016 Clams Swelling 02/18/2016 Tree Nuts Other - See comments 02/18/2016 Throat itching / raw Latex Itching 12/04/2015 Morphine Shortness of Breath 12/04/2015 Ibuprofen Hives 12/04/2015 Pork Derived (Porcine) Swelling 02/18/2016 documented as of this encounter (statuses as of 07/29/2019) Medications Medication Sig Dispensed Refills Start End Status Date Date aspirin 81 mg chewable Take 81 mg by 0 Active tablet mouth daily. vitamin B-12 (VITAMIN Take 1 tablet by 30 tablet 5 02/24/20 Active B-12) 500 mcg mouth daily. 18 tabletIndications: B12 deficiency Insulin [place], Use as directed 100 Each 1 07/20/19 Active Disposable, (BD to inject 19 ULTRA-FINE MICRO PEN Victoza daily; NEEDLE) 32 gauge x 1/4" ID-10 code NdleIndications: E11.69 Diabetes mellitus type 2 in obese albuterol (PROAIR HFA) Inhale 2 Puffs 3 Inhaler 1 03/28/20 Active 90 mcg/actuation every 6 (six) 19 inhalerIndications: hours as needed Medication refill for Wheezing or Shortness of Breath. albuterol 2.5 mg /3 mL Inhale 3 mL 120 Vial 1 03/28/20 Active (0.083 %) nebulizer every 4 (four) 19 solution hours as needed for Wheezing or Shortness of Breath. Via nebulizer blood sugar diagnostic TEST BLOOD SUGAR 100 Strip 1 03/28/20 Active (ACCU-CHEK LEIDY PLUS TID; ICD-10 code 19 TEST STRP) E11.69 stripIndications: Diabetes mellitus type 2 in obese ergocalciferol, vitamin 1 capsule by 24 capsule 1 03/28/20 Active d2, (VITAMIN D2) 50,000 mouth 2 x a week 19 unit with food capsuleIndications: Vitamin D deficiency ezetimibe 10 mg TAKE ONE (1) 90 tablet 3 03/28/20 A ctive tabletIndications: TABLET(S) BY 19 Hypercholesterolemia MOUTH ONCE A DAY. Fenofibric Acid 135 mg Take 1 capsule 90 capsule 1 03/28/20 Active capsuleIndications: by mouth daily. 19 Mixed hyperlipidemia Lancets Check glucose 100 Each 1 03/28/20 Active MiscIndications: every morning 19 Medication monitoring before breakfast encounter and as needed for symptoms; Diagnosis code R73.03 levocetirizine 5 mg Take 0.5-1 90 tablet 1 03/28/20 Active tabletIndications: tablets by mouth 19 Chronic allergic every evening as rhinitis, Medication needed for refill Allergies. levothyroxine 125 mcg TAKE ONE (1) 90 tablet 1 03/28/20 Active tablet TABLET(S) BY 19 MOUTH EVERY MORNING. magnesium oxide 400 mg Take 1 tablet by 180 tablet 1 03/28/20 Active magnesium mouth 2 (two) 19 TabIndications: Muscle times daily. cramps, Muscle pain montelukast 10 mg Take 1 tablet by 90 tablet 1 03/28/20 Active tabletIndications: mouth every 19 Medication refill, evening. Chronic allergic rhinitis omeprazole 40 mg Take 1 capsule 90 capsule 1 12/19/20 Active capsuleIndications: by mouth daily. 19 Medication refill tiZANidine 4 mg Take 1 tablet by 180 tablet 1 03/28/20 Active tabletIndications: mouth every 8 19 Muscle pain, Muscle (eight) hours as cramps needed (muscle pain or spasm). EPINEPHrine (EPIPEN 0.3 mL by 2 Each 1 03/28/20 Active 2-RUTH) 0.3 mg/0.3 mL Intramuscular 19 injectionIndications: route as needed History of food allergy (anaphylaxis). escitalopram oxalate 10 Take 1 tablet by 90 tablet 1 03/28/20 Active mg tabletIndications: mouth daily. 19 PTSD (post-traumatic stress disorder), Panic disorder with agoraphobia, Chronic depression famotidine 20 mg Take 1 tablet by 180 tablet 1 04/24/19 Active tabletIndications: mouth 2 (two) 20 Gastroesophageal reflux times daily. disease without esophagitis methylPREDNISolone 4 mg Follow package 21 Each 0 06/03/19 Active tabletsIndications: directions 20 Acute bacterial sinusitis, Nasal obstruction fluticasone propionate Use 2 Sprays in 3 Bottle 1 07/04/19 Active 50 mcg/actuation nasal each nostril 20 sprayIndications: Acute daily. allergic rhinitis Blood-Glucose Meter Check glucose 1 Each 0 07/04/19 Active (ACCU-CHEK LEIDY PLUS once daily 20 METER) MiscIndications: before Diabetes mellitus type breakfast; 2 in obese Diagnosis code E11.9 ROSUVASTATIN 40 mg TAKE ONE (1) 60 tablet 0 07/29/19 Active tabletIndications: TABLET(S) BY 20 Hypercholesterolemia MOUTH AT BEDTIME. rosuvastatin 40 mg Take 1 tablet by 90 tablet 1 03/28/20 04/2 0/ Discontinued tabletIndications: mouth at 2019 Hypercholesterolemia bedtime. documented as of this encounter (statuses as of 07/29/2019) Active Problems Problem Noted Date Hair loss [...] as of this encounter (statuses as of 07/29/2019) Immunizations Name Administration Dates Next Due Influenza [...] Date Type Specialty Care Team Description 08/19/2019 Telemedicine Visit Neurology Marily Madison MD [address] [address] [phone] 12/02/2019 Office Visit Neurology Marcus Madison MD [address] [place], [place] [address] [phone] Health Maintenance Due Date [...] Problems Progress Quit using Tobacco Use No [place], tobacco Wondiful A, (cigarettes, MD smokeless, etc) documented as of this encounter Results Not on filedocumented in this encounter Visit Diagnoses Diagnosis Hypercholesterolemia Pure hypercholesterolemia documented in this encounter Additional Health Concerns Infection Noted Time Resolved Time 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
--- OUTSIDE RECORDS SUMMARY | 2019-08-05 23:01 | XMS REPORT | Summary of Care ---
:1980 Author Organization [facility] Address [address] [place], [place] [address] Care Team Providers Name Role Phone Jacqueline Winn MD Primary Care Provider Tech, Cardio Fac Unavailable Unavailable Boo Fontaine MD Unavailable Reason for Visit Reason Comments Appointment Migraines Encounter Details Date Type Department Care Team Description 07/28/2019 Telephone [facility] Neurology, Marcus Madison V, Appointment [facility] (Migraines) [address] [place] [address] [phone] Allergies Active Allergy Reactions Severity Noted Date Comments Bee [place] Anaphylaxis 08/14/2017 [place] Swelling 02/18/2016 Clams Swelling 02/18/2016 Tree Nuts [...] mouth daily. 8 tabletIndications: B12 deficiency Insulin [place], Use as directed 100 Each 1 Active Disposable, (BD to inject Victoza 9 ULTRA-FINE MICRO PEN daily; ID-10 code NEEDLE) 32 gauge x 04/13" E11.69 NdleIndications: Diabetes mellitus type 2 in [...] Active capsuleIndications: mouth daily. 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
--- OUTSIDE RECORDS SUMMARY | 2019-08-05 23:01 | XMS REPORT | Summary of Care ---
:[address] [facility] - Health Address [address] [place], [place] [address] Care Team Providers Name Role Phone Jacqueline Winn MD Primary Care Provider Tech, Cardio Fac Unavailable Unavailable Boo Fontaine MD Unavailable Encounter Details Date Type Department Care Team Description 07/04/[address] [facility] Doctor Unassigned, No [address] [facility] [place] [address] Allergies Active Allergy Reactions Severity Noted Date Comments Bee [place] Anaphylaxis 08/14/2017 [place] Swelling 02/18/2016 Clams Swelling 02/18/2016 Tree Nuts Other - See comments 02/18/2016 Throat itching / raw Latex Itching 12/04/2015 Morphine Shortness of Breath 12/04/2015 Ibuprofen Hives 12/04/2015 Pork Derived (Porcine) Swelling 02/18/2016 documented as of this encounter (statuses as of 07/10/2019) Medications Medication Sig Dispensed Refills Start End Date Status Date aspirin 81 mg chewable Take 81 mg by 0 Active tablet mouth daily. vitamin B-12 (VITAMIN Take 1 tablet by 30 tablet 5 Active B-12) 500 mcg mouth daily. 8 tabletIndications: B12 deficiency Insulin [place], Use as directed 100 Each 1 Active [...] as of this encounter (statuses as of 07/10/2019) Active Problems Problem Noted Date Hair loss [...] as of this encounter (statuses as of 07/10/2019) Immunizations Name Administration Dates Next Due Influenza [...] 08/19/2019 Office Visit Neurology Marcus Madison MD [address] [place] [address] [phone] 12/02/2019 Office Visit Neurology Marcus Madison MD [address] [place] [address] [phone] Health Maintenance Due Date Last Done [...] Progress Quit using Tobacco Use No [place], tobacco Wondiful A, (cigarettes, MD smokeless, etc) documented as of this encounter Procedures Procedure Name Priority Date/Time Associated Diagnosis Comme nts AGREEMENTS AUTHORIZATIONS Routine 07/04/2019 12:01 AM AND IRREVOCABLE CDT ASSIGNMENTS (FORM 2001) documented in this encounter Results Not on filedocumented in this encounter Additional Health Concerns Infection Noted Time Resolved Time 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
--- OUTSIDE RECORDS SUMMARY | 2019-08-05 23:02 | XMS REPORT | Summary of Care ---
:1980 Author Organization [facility] Address [address] [place], [place] [address] Care Team Providers Name Role Phone Jacqueline Winn MD Primary Care Provider Tech, Cardio Fac Unavailable Unavailable Boo Fontaine MD Unavailable Reason for Visit Reason Comments Appointment Migraines Encounter Details Date Type Department Care Team Description 07/28/2019 Telephone [facility] Neurology, Marcus Madison V, Appointment [facility] (Migraines) [address] [place] [address] [phone] Allergies Active Allergy Reactions Severity Noted Date Comments Bee [place] Anaphylaxis 08/14/2017 [place] Swelling 02/18/2016 Clams Swelling 02/18/2016 Tree Nuts [...] mouth daily. 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
--- OUTSIDE RECORDS SUMMARY | 2019-08-05 23:02 | XMS REPORT | Summary of Care ---
:1980 Author Organization [facility] Address [address] [place], [place] [address] Care Team Providers Name Role Phone Jacqueline Winn MD Primary Care Provider Tech, Cardio Fac Unavailable Unavailable Boo Fontaine MD Unavailable Reason for Visit Reason Comments Appointment Migraines Encounter Details Date Type Department Care Team Description 07/28/2019 Telephone [facility] Neurology, Marcus Madison V, Appointment [facility] (Migraines) [address] [place] [address] [phone] Allergies Active Allergy Reactions Severity Noted Date Comments Bee [place] Anaphylaxis 08/14/2017 [place] Swelling 02/18/2016 Clams Swelling 02/18/2016 Tree Nuts [...] mouth daily. 8 tabletIndications: B12 deficiency Insulin [place], Use as directed 100 Each 1 Active [...] type 2 Diagnosis code in obese E11.9 naproxen 500 mg Take 1 tab as needed for migraine twice a day < 3 days/week 16 tablet 2 Active tabletIndications: Take wit meals and Pantoprazole 0 Migraine without aura and without status migrainosus, not intractable documented as of this encounter (statuses as [...] Telemedicine Visit Neurology Marily Madison MD [address] [place] [address] [phone] 12/02/2019 Office Visit Neurology Marcus Madison MD 301 [place], [place] [address] [phone] Health Maintenance Due Date [...] of status migrainosus documented in this encounter Additional Health Concerns Infection Noted Time Resolved Time Contact- MRSA 02/27/2017 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
--- OUTSIDE RECORDS SUMMARY | 2019-08-05 23:03 | XMS REPORT | Summary of Care ---
:1980 Author Organization [facility] Address [address] [place] [address] Care Team Providers Name Role Phone Jacqueline Winn MD Primary Care Provider Tech, Cardio Fac Unavailable Unavailable Boo Fontaine MD Unavailable Reason for Visit Reason Comments Appointment Referral/consult [facility] VISION PROBLEM Encounter Details Date Type Department Care Team Description 07/29/2019 Telephone [facility]- Jacqueline Winn Appointment; Tyrone Jim MD Referral[facility]consult [facility] [address] [place] [address] ([facility]); VISION [address] [facility] [place], [place] [phone] Allergies Active Allergy Reactions Severity Noted Date Comments Bee [place] Anaphylaxis 08/14/2017 [place] Swelling 02/18/2016 Clams Swelling 02/18/2016 Tree Nuts [...] mouth daily. 8 tabletIndications: B12 deficiency Insulin [place], Use as directed 100 Each 1 Active [...] type 2 Diagnosis code in obese E11.9 ROSUVASTATIN 40 mg TAKE ONE (1) 60 tablet 0 Active tabletIndications: TABLET(S) BY 0 Hypercholesterolemia MOUTH AT BEDTIME. naproxen 500 mg Take 1 tab as [...] Telemedicine Visit Neurology Marily Madison MD [address] [place] [address] [phone] 12/02/2019 Office Visit Neurology Marcus Madison MD [address] [place] [address] [phone] Health Maintenance Due Date Last Done [...] Problems Progress Quit using Tobacco Use No [place], tobacco Wondiful A, (cigarettes, MD smokeless, etc) documented as of this encounter Results Not on filedocumented in this encounter Additional Health Concerns Infection Noted Time Resolved Time Contact- MRSA 02/27/2017 8:27 PM SHROUDMAN documented as of this encounter Insurance Payer Benefit Plan / Subscriber ID Effective Phone Address T [facility] [id number] 2018-Prese Medic are Adv HEALTHCARE - HEALTHCARE nt PPO MANAGED MEDICARE [place]VER MEDICARE [place] xxxxxxxxx 2017-Pres Medicaid HEALTHCARE COMM PLUS ent PLAN - MANAGED MEDICAID documented as of this encounter Advance Directives Name Relationship Healthcare Agent Relationship Co mmunication Juliann Rodrigues Primary healthcare agent
--- OUTSIDE RECORDS SUMMARY | 2019-08-05 23:03 | XMS REPORT | Summary of Care ---
:1980 Author Organization [facility] Address [address] [place], [place] [address] Care Team Providers Name Role Phone Jacqueline Winn MD Primary Care Provider Tech, Cardio Fac Unavailable Unavailable Boo Fontaine MD Unavailable Reason for Visit Reason Comments Appointment Migraines Encounter Details Date Type Department Care Team Description 07/28/2019 Telephone [facility] Neurology, Marcus Madison V, Appointment [facility] (Migraines) [address] [place] [address] [phone] Allergies Active Allergy Reactions Severity Noted Date Comments Bee [place] Anaphylaxis 08/14/2017 [place] Swelling 02/18/2016 Clams Swelling 02/18/2016 Tree Nuts [...] mouth daily. 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
--- OUTSIDE RECORDS SUMMARY | 2019-08-05 23:04 | XMS REPORT | Summary of Care ---
:1980 Author Organization [facility] Address [address] [place] [address] Care Team Providers Name Role Phone Jacqueline Winn MD Primary Care Provider Tech, Cardio Fac Unavailable Unavailable Boo Fontaine MD Unavailable Reason for Visit Reason Comments Flashing, Light FLOATERS Encounter Details Date Type Department Care Team Description 07/30/2019 Office Visit [facility] Eye Iraj Garcia M D Lattice degeneration, left eye (Primary Dx); [facility] [address] [facility]. Dry eye; [address] [place] [address]. [place], [place] Type 2 diabetes mellitus wit hout complication, with long-[place] [phone] Allergies Active Allergy Reactions Severity Noted Date Comments Bee [place] Anaphylaxis 08/14/2017 [place] Swelling 02/18/2016 Clams Swelling 02/18/2016 Tree Nuts Other - See comments 02/18/2016 Throat itching / raw Latex Itching 12/04/2015 Morphine Shortness of Breath 12/04/2015 Ibuprofen Hives 12/04/2015 Pork Derived (Porcine) Swelling 02/18/2016 documented as of this encounter (statuses as of 07/30/2019) Medications Medication Sig Dispensed Refills Start End Date Status Date aspirin 81 mg chewable Take 81 mg by 0 Active tablet mouth daily. vitamin B-12 (VITAMIN Take 1 tablet by 30 tablet 5 Active B-12) 500 mcg mouth daily. 8 tabletIndications: B12 deficiency Insulin [place], Use as directed 100 Each 1 Active [...] Wheezing or Shortness of Breath. Via nebulizer ergocalciferol, vitamin 1 capsule by 24 capsule [...] aura and without status migrainosus, not intractable blood sugar diagnostic TEST BLOOD SUGAR 100 Strip 10 Active stripIndications: 3 TIMES A DAY ; 0 Diabetes mellitus type 2 ICD-10 CODE in obese E11.69. documented as of this encounter (statuses as of 07/30/2019) Active Problems Problem Noted Date Hair loss [...] as of this encounter (statuses as of 07/30/2019) Immunizations Name Administration Dates Next Due Influenza [...] Sign Reading Time Taken Comments Blood Pressure - - Pulse - - Temperature - - Respiratory Rate - - Oxygen Saturation - - Inhaled Oxygen Concentration - - Weight 79.8 kg (176 lb) 07/30/2019 9:27 AM CDT Height - - Body Mass Index 36.78 06/04/2019 10:57 AM CLINICAL DERMATOLOGIST documented in this encounter Progress Notes Iraj Garcia MD - 07/30/2019 9:30 AM CDT Cc: Flashing, Light and FLOATERS Hannah Oneill is a 39 year old female. HPI 7 days of left eye flashes and 1 floater which is has increased in size. Denies any vision changes in the right eye. Denies any eye or head trauma. Past Medical History: Diagnosis Date Abnormal uterine [...] / has lost whole baldder on occation Review of Systems Reviewed ROS done by the coroner forensic technician during this encounter and there are no changes. Assessment ICD-10-CM ICD-9-CM 1. 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 Dry eye H04.129 375.15 3. Type 2 diabetes mellitus without complication, with long-term current use of insulin E11.9 250.00 Z79.4 V58.67 Plan Hannah was seen today for flashing, light and floaters. Diagnoses and all orders for this visit: Lattice degeneration, left eye - no RT/RD on PROFESSIONAL DEVELOPMENT INSTRUCTOR 07/30/19 - discussed R/B/A of laser prophylaxis, patient will consider and discuss at follow up - RD precautions discussed at length and patient advised to call right away with any changes Dry eye - Start Ats QID OU Type 2 diabetes mellitus without complication, with long-term current use of insulin - previous use of insulin now on oral medication - last A1c of 5.9 in 12/2018 - no DR or CSME OU on exam 07/30/19 - recommend tight BP control and HgA1c<7 per PCP - continue to monitor Follow up: 1 month with DFE OU, possible laser OS orrDidi beltrán - 07/30/2019 9:30 AM CDTOct Macula (spectralis) Done today OU Didi Gonzalez 07/30/2019 10:06 AM documented in this encounter Plan of Treatment Date Type Specialty Care Team Description 08/19/2019 Telemedicine Visit Neurology Marily Madison MD [address] [place] [address] [phone] 09/03/2019 Office Visit Ophthalmology Iraj Garcia M D [address] [place] [address]. [place] [phone] 12/02/2019 Office Visit Neurology Marcus Madison MD [address] [place] [address] [phone] Health Maintenance Due Date Last Done [...] Problems Progress Quit using Tobacco Use No [place], tobacco Wondiful A, (cigarettes, MD smokeless, etc) documented as of this encounter Results Not on filedocumented in this encounter Visit Diagnoses Diagnosis Lattice degeneration, left eye - Primary Lattice degeneration of peripheral retin a Dry eye Type 2 diabetes mellitus without complic ation, with long-term current use of insulin documented in this encounter Additional Health Concerns Infection Noted Time Resolved Time Contact- MRSA 02/27/2017 8:27 PM CLINICAL DERMATOLOGIST documented as of this encounter Insurance Payer Benefit Plan / Subscriber ID Effective Phone Address T ype Group Dates [facility] [id number] 2018-Prese Medic are Adv HEALTHCARE - HEALTHCARE nt PPO MANAGED MEDICARE S[place]VER MEDICARE [place] xxxxxxxxx 2017-Pres Medicaid HEALTHCARE COMM PLUS ent PLAN - MANAGED MEDICAID documented as of this encounter Advance Directives Name Relationship Healthcare Agent Relationship Co mmunication Juliann Oneill Mother Primary healthcare agent
--- OUTSIDE RECORDS SUMMARY | 2019-08-05 23:04 | XMS REPORT | Summary of Care ---
:1980 Author Organization [facility] Address [address] [place] [address] Care Team Providers Name Role Phone Jacqueline Winn MD Primary Care Provider Tech, Cardio Fac Unavailable Unavailable Boo Fontaine MD Unavailable Reason for Visit Reason Comments Refill Request Encounter Details Date Type Department Care Team Description 07/30/2019 Refill [facility]- Jacqueline Winn MD Refill Request [address] [place] [address] [facility] [phone] [place] [phone] Allergies Active Allergy Reactions Severity Noted Date Comments Bee [place] Anaphylaxis 08/14/2017 [place] Swelling 02/18/2016 Clams Swelling 02/18/2016 Tree Nuts [...] mouth daily. 18 tabletIndications: B12 deficiency Insulin [place], Use as directed 100 Each 1 07/20/19 [...] 03/28/20 Active capsuleIndications: by mouth daily. 19 Medication [...] TABLET(S) BY 20 Hypercholesterolemia MOUTH AT BEDTIME. naproxen 500 mg Take 1 tab as needed for migraine twice a day < 3 days/week 16 tablet 2 07/29/19 Active tabletIndications: Take wit meals and Pantoprazole 20 Migraine without aura and without status migrainosus, not intractable blood sugar diagnostic TEST BLOOD SUGAR 100 Strip 10 07/30/19 Active stripIndications: 3 TIMES A DAY ; 20 Diabetes mellitus type ICD-10 CODE 2 in obese E11.69. blood sugar diagnostic TEST BLOOD SUGAR 100 Strip 1 03/28/20 (ACCU-CHEK LEIDY PLUS TID; ICD-10 code 19 2 020 TEST STRP) E11.69 stripIndications: Diabetes mellitus type 2 in obese documented [...] Treatment Date Type Specialty Care Team Description 07/30/2019 Office Visit Ophthalmology Iraj Garcia M D [address] [place] [address]. [place] [phone] 08/19/2019 Telemedicine Visit Neurology Marily Madison MD 301 [place], [place] [address] [phone] 12/02/2019 Office Visit Neurology Marcus Madison MD 301 [place], [place] [address] [phone] Health Maintenance Due Date [...] Problems Progress Quit using Tobacco Use No [place], tobacco Wondiful A, (cigarettes, MD smokeless, etc) documented as of this encounter Results Not on filedocumented in this encounter Visit Diagnoses Diagnosis Diabetes mellitus type 2 in obese Type II or unspecified type diabetes melissa litus without mention of complication, not stated as uncontrolled documented in this encounter Additional Health Concerns Infection Noted Time Resolved Time Contact- MRSA 02/27/2017 8:27 PM 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
--- OUTSIDE RECORDS SUMMARY | 2019-08-05 23:05 | XMS REPORT | Summary of Care ---
:1980 Author Organization [facility] Address [address] [place] [address] Care Team Providers Name Role Phone Jacqueline Winn MD Primary Care Provider Tech, Cardio Fac Unavailable Unavailable Boo Fontaine MD Unavailable Reason for Visit Reason Comments Flashing, Light FLOATERS Encounter Details Date Type Department Care Team Description 07/30/2019 Office Visit [facility] Eye Iraj Garcia M D Lattice degeneration, left eye (Primary Dx); [facility] 700 [facility]. Dry eye; [address] [place] [address]. [place], [place] Type 2 diabetes mellitus wit hout complication, with long-[place] [phone] Allergies Active Allergy Reactions Severity Noted Date Comments Bee [place] Anaphylaxis 08/14/2017 [place] Swelling 02/18/2016 Clams Swelling 02/18/2016 Tree Nuts [...] mouth daily. 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
--- OUTSIDE RECORDS SUMMARY | 2019-08-05 23:05 | XMS REPORT | Summary of Care ---
:1980 Author Organization [facility] Address [address] [place] [id number] Care Team Providers Name Role Phone Jacqueline Winn MD Primary Care Provider Tech, Cardio Fac Unavailable Unavailable Boo Fontaine MD Unavailable Reason for Referral (DIALLO) Status Reason Specialty Diagnoses / Referred By Referred To Procedures Contact Contact New Request Ophthalmology Diagnoses Subjective visual disturbance of left eye [place] Procedures CONSULT/REFERRAL OPHTHALMOLOGY Jacqueline Jim MD [facility] [place] [address] Encounter Details Date Type Department Care Team Description 07/26/2019 Patient Secure [facility] Jacqueline Winn Subjecti ve visual Msg Pediatric and Adult MD Diandra disturbance of left Primary Care- [facility] D R eye (Primary Dx) [place] [address] [facility] [address] [address] [place], [place] [phone] [address] (Fax) [phone] Allergies Active Allergy Reactions Severity Noted Date Comments [place] Anaphylaxis 08/14/2017 [place] Swelling 02/18/2016 Clams Swelling 02/18/2016 Tree Nuts [...] mouth daily. 18 tabletIndications: B12 deficiency Insulin [place], Use as directed 100 Each 1 07/20/19 [...] breakfast; 2 in obese Diagnosis code E11.9 blood sugar diagnostic TEST BLOOD SUGAR 100 Strip 1 03/28/2007/29/ Discontinued (ACCU-CHEK LEIDY PLUS TID; ICD-10 code 19 2 020 TEST STRP) E11.69 stripIndications: Diabetes mellitus type 2 in obese rosuvastatin 40 mg Take 1 tablet by [...] Telemedicine Visit Neurology Marily Madison MD [address] [address] [phone] 09/03/2019 Office Visit Ophthalmology Iraj Garcia M D [address] [place] [address]. 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
--- NOTE | 2019-08-06 00:19 | ER ---
Nurse's Notes [facility] Name: Hannah Oneill Age: 39 yrs Sex: Female : 1980 Arrival Date: 08/05/2019 Time: 22:26 Bed 7 Private MD: Diagnosis: Hill's palsy Presentation: 08/04 22:44 Chief complaint: Patient states: "For 3 days now I have been feeling numb on the right jd3 side of my face, like if I was holding a piece of ice in that side of my mouth to long.". Coronavirus screen: Proceed with normal triage. Ebola Screen: Patient negative for fever greater than or equal to 101.5 degrees Fahrenheit, and additional compatible Ebola Virus Disease symptoms. An acute neurological deficit is present. The charge nurse has been notified. Pre-hospital glucose is not applicable to this patient. Initial Sepsis Screen: Does the patient meet any 2 criteria? No. Patient's initial sepsis screen is negative. Does the patient have a suspected source of infection? No. Patient's initial sepsis screen is negative. Risk Assessment: Do you want to hurt yourself or someone else? Patient reports no desire to harm self or others. Onset of symptoms was August 02, 2019. 22:44 Method Of Arrival: Ambulatory j 22:44 Acuity: MARY ANNE 3 jd3 Triage Assessment: 23:02 Neuro: Reports numbness in right side of head. jd3 23:02 The onset of the patients symptoms was August 02, 2019 at 12:00. 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 LMP N/A - Hysterectomy jd3 Stroke Activation: Physician: Stroke Attending; Name: ; Notified At: ; Arrived At: Physician: Chief Stroke Resident; Name: ; Notified At: ; Arrived At: Physician: Stroke Resident; Name: ; Notified At: ; Arrived At: Physician: ED Attending; Name: ; Notified At: ; Arrived At: Physician: ED Resident; Name: ; Notified At: ; Arrived At: 22:44 no activation because of symptom start time jd3 Historical: - Allergies: 22:56 cherries; jd3 22:56 Chives; jd3 22:56 clams; jd3 22:56 coconuts; jd3 22:56 codeine sulfate; jd3 22:56 Ibuprofen (Throat Swells); jd3 22:56 Latex, Natural Rubber; jd3 22:56 Morphine (Anaphylaxis); jd3 - Home Meds: 22:56 levothyroxine 125 mcg tab once daily [Active]; jd3 - PMHx: 22:56 Hypothyroidism; Migraines; Pseudo-seizures; jd3 - PSHx: 22:56 Hysterectomy; GOLDEN Knee; jd3 - Immunization history:: Adult Immunizations up to date. - Social history:: Smoking status: Patient reports the use of cigarette tobacco products, smokes one-half pack cigarettes per day. Screenin:01 Abuse screen: Denies threats or abuse. Nutritional screening: Nutritional screening: No jd3 deficits noted. Tuberculosis screening: No symptoms or risk factors identified. Fall Risk Ambulatory Aid- None/Bed Rest/Nurse Assist (0 pts). Gait- Normal/Bed Rest/Wheelchair (0 pts) Mental Status- Oriented to own ability (0 pts). Total Walton Fall Scale indicates No Risk (0-24 pts). Assessment: 22:57 VAN Scoring: Arm Drift: Patients demonstrates NO arm weakness. Patient is VAN Negative. jd3 The patient has not been NPO before screening. The patient is currently on the following diet: regular The patient is alert, and able to follow commands. The patient does not exhibit slurred or garbled speech. The patient is not exhibiting difficulty speaking. The patient does not exhibit difficulty understanding words. The patient is able to swallow own secretions with no drooling or need for suction. Patient tolerated one teaspoon of water. No drooling, immediate coughing, gurgling, or clearing of the throat was noted. The patient tolerated 90mL of water. No drooling, immediate coughing, gurgling, or clearing of the throat was noted. The patient passed the bedside swallow screening. Oral medications may be given as ordered. Contact Physician for further diet orders. Provider notified of bedside swallow screening results: Yomi Atkins NP. T-PA (Activase) Screening: Contraindications: Patient reports onset of signs and symptoms of stroke greater than 6 hours ago:. General: Appears uncomfortable, Behavior is calm, cooperative, appropriate for age. Pain: Complains of pain in right side of head Quality of pain is described as tingling, numb. Neuro: Level of Consciousness is awake, alert, obeys commands, Oriented to person, place, time, situation, Facial droop on right. Cardiovascular: Denies chest pain, Capillary refill < 3 seconds Patient's skin is warm and dry. Respiratory: Airway is patent Respiratory effort is even, unlabored, Respiratory pattern is regular, symmetrical, Denies cough, shortness of breath. GI: No signs and/or symptoms were reported involving the gastrointestinal system. : No signs and/or symptoms were reported regarding the genitourinary system. EENT: No signs and/or symptoms were reported regarding the EENT system. Derm: Skin is intact, Skin is dry, Skin is normal, Skin temperature is warm. Musculoskeletal: Circulation, motion, and sensation intact. Range of motion: intact in all extremities. 23:52 Reassessment: No changes from previously documented assessment. Patient and/or family jd3 updated on plan of care and expected duration. Pain level reassessed. Patient is alert, oriented x 3, equal unlabored respirations, skin warm/dry/pink. awaiting results. 08/05 00:43 Reassessment: Patient and/or family updated on plan of care and expected duration. Pain jd3 level reassessed. Patient is alert, oriented x 3, equal unlabored respirations, skin warm/dry/pink. pt reported understanding of discharge instructions, assisted to family in vehicle via wheelchair. Patient states feeling better. Neuro: Level of Consciousness is awake, alert, obeys commands, Oriented to person, place, time, situation, Facial droop on right. Vital Signs: 08/04 22:41 BP 116 / 80; Pulse 85; Resp 20; Temp 98.5(O); Pulse Ox 95% ; lt1 22:57 Weight 78.02 kg (R); Height 4 ft. 10 in. (147.32 cm) (R); Pain 9/10; jd3 23:52 BP 99 / 72; Pulse 67; Resp 17 S; Pulse Ox 95% on R/A; jd3 08/05 00:45 BP 97 / 73; Pulse 69; Resp 16 S; Pulse Ox 97% on R/A; jd3 08/04 22:57 Body Mass Index 35.95 (78.02 kg, 147.32 cm) jd3 NIH Stroke Scale Scores: 08/04 22:57 NIHSS Score: 1 jd3 ED Course: 22:26 Patient arrived in ED. fj1 22:44 Aguila Jones RN is Primary Nurse. jd3 22:47 Triage completed. jd3 22:49 Yomi Atkins NP is PHCP. pm1 22:49 Chay Gallo MD is Attending Physician. pm1 22:57 Arm band placed on. jd3 23:02 Patient has correct armband on for positive identification. Placed in gown. Bed in low jd3 position. Call light in reach. Side rails up X 1. bus driver/monitor on. Pulse ox on. NIBP on. 23:22 CT Head Brain wo Cont In Process Unspecified. EDMS 04 00:44 No provider procedures requiring assistance completed. Patient did not have IV access jd3 during this emergency room visit. Administered Medications: 00:22 Drug: Decadron 10 mg Route: IM; Site: right gluteus; rr5 00:43 Follow up: Response: No adverse reaction jd3 Point of Care Testin:45 none ordered jd3 Ranges: Outcome: 00:18 Discharge ordered by MD. pm1 00:44 Discharged to home via wheelchair, with family. jd3 00:44 Condition: stable 00:44 Discharge instructions given to patient, Instructed on discharge instructions, follow up and referral plans. medication usage, Demonstrated understanding of instructions, follow-up care, medications, Prescriptions given X 1. 00:45 Patient left the ED. jd3 NIH Stroke Scale - NIH Stroke Score Date: 08/05/2019 Time: 22:57 Total Score = 1 1a. Level of Consciousness (LOC) - 0(Alert) 1b. Level of Consciousness (LOC) (Year \\T\\ Age) - 0(Both) 1c. LOC Commands (Open \\T\\ Closes Eyes/Shot Man) - 0(Both) 2. Best Gaze (Lateral Gaze Paresis) - 0(Normal) 3. Visual Field Loss - 0(No visual loss) 4. Facial Palsy - 1(Minor Paralysis) 5a. Left Arm: Motor (10-second hold) - 0(No drift) 5b. Right Arm: Motor (10-second hold) - 0(No drift) 6a. Left Leg: Motor (5-second hold - always test supine) - 0(No drift) 6b. Right Leg: Motor (5-second hold - always test supine) - 0(No drift) 7. Limb Ataxia (finger/nose \\T\\ heel/ramos - test with eyes open) - 0(Absent) 8. Sensory Loss (pinprick arms/legs/face) - 0(Normal) 9. Best Language: Aphasia (description/naming/reading) - 0(No aphasia) 10. Dysarthria (speech clarity - read or repeat words) - 0(Normal) 11. Extinction and Inattention (visual/tactile/auditory/spatial/personal) - 0(No abnormality) Initials: jjay Signatures: Dispatcher [employer] EDYomi Martinez, MAKEDA COMMODITY TRADER pm1 Aguila Jones RN RN jd3 Chris Ferrara RN RN rr5 Kortney Deshpande lt1 Wilber Shah fj1 Corrections: (The following items were deleted from the chart) 08/04 23:55 23:52 Reassessment: No changes from previously documented assessment. Patient jd3 and/or family updated on plan of care and expected duration. Pain level reassessed. Patient is alert, oriented x 3, equal unlabored respirations, skin warm/dry/pink. jd3 08/05 00:44 08/04 23:52 Reassessment: No changes from previously documented assessment. jd3 Patient and/or family updated on plan of care and expected duration. Pain level reassessed. Patient is alert, oriented x 3, equal unlabored respirations, skin warm/dry/pink. awaiting results. jjay
--- NOTE | 2019-08-06 00:19 | EDPHYS ---
Physician Documentation [facility] Name: Hannah Oneill Age: 39 yrs Sex: Female : 1980 Arrival Date: 08/05/2019 Time: 22:26 Bed 7 Private MD: ED Physician Chay Gallo HPI: 08/04 22:56 This 39 yrs old Female presents to ER via Ambulatory with complaints of pm1 Numbness Of Face. 22:56 The patient's problem is reported as paresthesias, in right side of face. Onset: The pm1 symptoms/episode began/occurred 3 day(s) ago. Duration: The episode is continuous. Context: occurred at home. The symptoms are alleviated by nothing. The symptoms are aggravated by nothing. Associated signs and symptoms: Pertinent negatives: abdominal pain, chest pain, shortness of breath, weakness. Severity of symptoms: in the emergency department the symptoms are unchanged Pain is currently a 0 / 10. The patient has experienced a previous episode, last year, and the symptoms today are exactly the same, hill's palsy. 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 - Social history:: Smoking status: Patient reports the use of cigarette tobacco products, smokes one-half pack cigarettes per day. ROS: 22:56 Constitutional: Negative for fever, chills, and weight loss, Neck: Negative for injury, pm1 pain, and swelling, Cardiovascular: Negative for chest pain, palpitations, and edema, Respiratory: Negative for shortness of breath, cough, wheezing, and pleuritic chest pain, Abdomen/GI: Negative for abdominal pain, nausea, vomiting, diarrhea, and constipation, Back: Negative for injury and pain, MS/Extremity: Negative for injury and deformity, Skin: Negative for injury, rash, and discoloration. 22:56 Neuro: Positive for numbness, of the right side of face. Exam: 23:05 Constitutional: This is a well developed, well nourished patient who is awake, alert, pm1 and in no acute distress. Head/Face: Normocephalic, atraumatic. 23:05 ENT: Nares patent. No nasal discharge, no septal abnormalities noted. Tympanic membranes are normal and external auditory canals are clear. Oropharynx with no redness, swelling, or masses, exudates, or evidence of obstruction, uvula midline. Mucous membranes moist. Neck: Trachea midline, no thyromegaly or masses palpated, and no cervical lymphadenopathy. Supple, full range of motion without nuchal rigidity, or vertebral point tenderness. No Meningismus. Chest/axilla: Normal chest wall appearance and motion. Nontender with no deformity. No lesions are appreciated. Cardiovascular: Regular rate and rhythm with a normal S1 and S2. No gallops, murmurs, or rubs. Normal PMI, no JVD. No pulse deficits. Respiratory: Lungs have equal breath sounds bilaterally, clear to auscultation and percussion. No rales, rhonchi or wheezes noted. No increased work of breathing, no retractions or nasal flaring. Abdomen/GI: Soft, non-tender, with normal bowel sounds. No distension or tympany. No guarding or rebound. No evidence of tenderness throughout. Back: No spinal tenderness. No costovertebral tenderness. Full range of motion. Skin: Warm, dry with normal turgor. Normal color with no rashes, no lesions, and no evidence of cellulitis. MS/ Extremity: Pulses equal, no cyanosis. Neurovascular intact. Full, normal range of motion. 23:05 Eyes: Periorbital structures: appear normal, Pupils: no acute changes, Extraocular movements: intact throughout. 23:05 Neuro: Orientation: is normal, Mentation: is normal, Motor: moves all fours, strength is normal, strength is 5/5 in all extremities, Sensation: numbness, that is mild, of the right side of face, difficulty with keeping right eyelids closed. Smile draws to left side. Forehead sparing right side. 08/05 00:29 Radiologist reports: Negative for acute findings pm1 Vital Signs: 08/04 22:41 BP 116 / 80; Pulse 85; Resp 20; Temp 98.5(O); Pulse Ox 95% ; lt1 22:57 Weight 78.02 kg (R); Height 4 ft. 10 in. (147.32 cm) (R); Pain 9/10; jd3 23:52 BP 99 / 72; Pulse 67; Resp 17 S; Pulse Ox 95% on R/A; jd3 08/05 00:45 BP 97 / 73; Pulse 69; Resp 16 S; Pulse Ox 97% on R/A; jd3 08/04 22:57 Body Mass Index 35.95 (78.02 kg, 147.32 cm) jd3 NIH Stroke Scale Scores: 08/04 22:57 NIHSS Score: 1 jd3 MDM: 22:50 Patient medically screened. pm1 08/05 00:18 Data reviewed: vital signs. Data interpreted: Pulse oximetry: on room air is 95 %. pm1 Interpretation: normal. 00:18 Counseling: I had a detailed discussion with the patient and/or guardian regarding: the pm1 historical points, exam findings, and any diagnostic results supporting the discharge/admit diagnosis, radiology results, the need for outpatient follow up, to return to the emergency department if symptoms worsen or persist or if there are any questions or concerns that arise at home. 08/04 22:56 Order name: CT Head Brain wo Cont pm1 Administered Medications: 00:22 Drug: Decadron 10 mg Route: IM; Site: right gluteus; rr5 00:43 Follow up: Response: No adverse reaction jd3 Point of Care Testin:45 none ordered jd3 Ranges: Critical Glucose Levels:Adult <50 mg/dl or >400 mg/dl <40 mg/dl or >180 mg/dl Disposition: 11:07 Co-signature as Attending Physician, Chay Gallo MD I agree with the assessment and jae plan of care. Disposition: 08/06/19 00:18 Discharged to Home. Impression: Hill's palsy. - Condition is Stable. - Discharge Instructions: Hill Palsy, Adult. - Prescriptions for prednisone 10 mg Oral tablet - take 1 tablet by ORAL route once daily 11 days Take 6 tablets once daily for 5 days, then 4 tablets once daily for 2 days, then 2 tablets once daily for 2 days, then 1 tablet once daily for 2 days; 44 tablet. - Medication Reconciliation Form, Thank You Letter, Antibiotic Education, Prescription Opioid Use form. - Follow up: Emergency Department; When: As needed; Reason: Worsening of condition. Follow up: Private Physician; When: 2 - 3 days; Reason: Recheck today's complaints, Continuance of care, Re-evaluation by your physician. - Problem is new. - Symptoms have improved. NIH Stroke Scale - NIH Stroke Score Date: 08/05/2019 Time: 22:57 Total Score = 1 1a. Level of Consciousness (LOC) - 0(Alert) 1b. Level of Consciousness (LOC) (Year \T\ Age) - 0(Both) 1c. LOC Commands (Open \T\ Closes Eyes/Impregnator Operator) - 0(Both) 2. Best Gaze (Lateral Gaze Paresis) - 0(Normal) 3. Visual Field Loss - 0(No visual loss) 4. Facial Palsy - 1(Minor Paralysis) 5a. Left Arm: Motor (10-second hold) - 0(No drift) 5b. Right Arm: Motor (10-second hold) - 0(No drift) 6a. Left Leg: Motor (5-second hold - always test supine) - 0(No drift) 6b. Right Leg: Motor (5-second hold - always test supine) - 0(No drift) 7. Limb Ataxia (finger/nose \T\ heel/ramos - test with eyes open) - 0(Absent) 8. Sensory Loss (pinprick arms/legs/face) - 0(Normal) 9. Best Language: Aphasia (description/naming/reading) - 0(No aphasia) 10. Dysarthria (speech clarity - read or repeat words) - 0(Normal) 11. Extinction and Inattention (visual/tactile/auditory/spatial/personal) - 0(No abnormality) Initials: jd3 Signatures: Dispatcher [employer] EDMS Chay Gallo MD MD cha Marinas, Patrick, GLUE JOINTER OPERATOR GLUE JOINTER OPERATOR pm1 Aguila Jones RN RN jd3 Chris Ferrara RN RN rr5 Corrections: (The following items were deleted from the chart) 00:45 00:18 08/06/2019 00:18 Discharged to Home. Impression: Hill's palsy. Condition jd3 is Stable. Forms are Medication Reconciliation Form, Thank You Letter, Antibiotic Education, Prescription Opioid Use. Follow up: Emergency Department; When: As needed; Reason: Worsening of condition. Follow up: Private Physician; When: 2 - 3 days; Reason: Recheck today's complaints, Continuance of care, Re-evaluation by your physician. Problem is new. Symptoms have improved. pm1
[2019-08-06] MEDS ORDERED: dexAMETHasone 10 MG/ML VIAL ONE (00:26)
[2019-08-06 00:55] VITALS: TEMP 98.5
[2019-08-06 00:58] VITALS: BP 97/73; O2SAT 97
--- NOTE | 2019-08-06 11:31 | RAD REPORT ---
EXAM DESCRIPTION: CT - Head Brain Wo Cont - 08/06/2019 6:32 am CLINICAL HISTORY 39 years Female NUMBNESS COMPARISON: None TECHNIQUE: Contiguous axial images of the brain were obtained without the administration of intraven ous contrast.This exam was performed according to our departmental dose-optimization program which in cludes use of Automated Exposure Control, adjustment of the mA and/or kV according to patient size an d/or use of iterative reconstruction technique. DLP: 785 mGy*cm FINDINGS: Brain: No acute intracranial hemorrhage. No extra-axial collection. No mass effect or nicolle iation. Ventricles: Within normal limits in size. Globes and orbits: No acute abnormality. Bones: No acute osseous finding Paranasal sinuses: Paranasal sinuses are clear. Mastoid air cells: Well pneumatized. Soft tissues: Within normal limits IMPRESSION: No acute intracranial abnormality. If clinical concern for acute ischemia, consider MRI brain without contrast for further evaluation. Electronically signed by: Dagoberto Mathis DO 08/05/2019 11:49 PM CDT Due to temporary technical issues with the PACS/Fluency reporting system, reports are being signed by the in house radiologist as a courtesy to ensure prompt reporting. The interpreting radiologist is f ully responsible for the content of the report.
== END 2019-08-06 00:45 | disposition home or self-care (01) ==
LOC: ER 22:25
DX: G51.0 Bell's palsy (principal); E03.9 Hypothyroidism, unspecified; F17.210 Nicotine dependence, cigarettes, uncomplicated; Z88.5 Allergy status to narcotic agent; Z88.6 Allergy status to analgesic agent; Z88.8 Allergy status to other drugs, medicaments and biological substances; Z91.013 Allergy to seafood; Z91.018 Allergy to other foods; Z91.040 Latex allergy status
CPT/HCPCS: 70450; 96372; 99284; J1100

== ENCOUNTER 2019-11-03 15:39 | Emergency (ER) | payer OTHER ==
--- OUTSIDE RECORDS SUMMARY | 2019-11-03 15:40 | XMS REPORT | Continuity of Care Document ---
:1980 Author Organization [facility] t Address [facility] [place] [address] Care Team Providers Name Role Phone Jacqueline Winn MD Attending Clinician [place] SH[place]HA Attending Clinician Problems This patient has no known problems. Allergies, Adverse Reactions, Alerts This patient has no known allergies or adverse reactions. Medications This patient has no known medications. Procedures This patient has no known procedures. Encounters Start End Encounter Admission Attending Care Care Encounter Source Date/Time Date/Time Type Type Clinicians Facility Department ID 2019-10-02 2019-10-02 Refsteve Winn [facility] [id number] 00:00:00 00:00:00 [facility] [id number] [place] [id number] [facility]io [phone] [place] [address] One 2019-09-30 2019-09-30 Refsteve Winn [facility] [id number] 00:00:00 00:00:00 [facility] [id number] [place] [id number] Professio [phone] [place] 0[address] 2019-09-27 2019-09-27 Vivi Winn [facility] [id number] 00:00:00 00:00:00 [facility] [id number] [place] [id number] Professio [phone] [place] 044 [address] One 2019-08-27 2019-08-27 Office [place] [facility] [id number] 09:12:11 13:48:32 Visit [facility] [id number] [place] [id number] [place] [phone] Medical 2 Office Building 2019-07-30 2019-07-30 Patient [place] [facility] [id number] 00:00:00 00:00:00 Secure Msg [facility] [id number] [place] [id number] [place] [phone] Medical 2 Office Building 2019-07-26 2019-07-26 Patient [place] [facility] [id number] 00:00:00 00:00:00 Secure Msg [employer] [id number] [place] [id number] Professio [phone] [place] [address] [address] One Results This patient has no known results.
--- OUTSIDE RECORDS SUMMARY | 2019-11-03 15:41 | XMS REPORT | Summary of Care ---
:[address] [facility] Address [address] [place] [id number] Care Team Providers Name Role Phone Jacqueline Winn MD Primary Care Provider Tech, Cardio Fac Unavailable Unavailable Boo Fontaine MD Unavailable Encounter Details Date Type Department Care Team Description 08/06/2019 Patient Secure [facility] Pediatric Marcial Rodgers and Adult Primary [address], [place] [address] [address] [place] [phone] Allergies Active Allergy Reactions Severity Noted Date Comments Bee [place] Anaphylaxis 08/14/2017 [place] Swelling 02/18/2016 Clams Swelling 02/18/2016 Tree Nuts Other - See comments 02/18/2016 Throat itching / raw Latex Itching 12/04/2015 Morphine Shortness of Breath 12/04/2015 Ibuprofen Hives 12/04/2015 Pork Derived (Porcine) Swelling 02/18/2016 documented as of this encounter (statuses as of 08/06/2019) Medications Medication Sig Dispensed Refills Start End [...] as of this encounter (statuses as of 08/06/2019) Active Problems Problem Noted Date Hair loss [...] as of this encounter (statuses as of 08/06/2019) Immunizations Name Administration Dates Next Due Influenza [...] Travel End No recent travel history available. COVID-19 Exposure Response Date Recorded In the last month, have you been in contact with No / Unsure 07/30/2019 9:21 AM CDT someone who was confirmed or suspected to have Coronavirus / COVID-19? documented as of this encounter Last Filed Vital Signs Not on filedocumented in this encounter Plan of Treatment Date Type Specialty Care Team Description 08/08/2019 Office Visit Family Medicine Winnie Winn MD [address] [place], [place] [phone] 08/19/2019 Telemedicine Visit Neurology Marily Madison MD [address] [place] [address] [phone] 09/03/2019 Office Visit Ophthalmology Iraj Garcia M D [address] [place] [address] [phone] 12/02/2019 Office Visit Neurology Marcus Madison MD [address] [place], [place] [phone] Health Maintenance Due Date Last Done Comments VARICELLA VACCINES (1 of 2 - 1981 2-dose childhood series) PNEUMOCOCCAL 0-64 YEARS COMBINED 1986 SERIES (1 of 1 - PPSV23) DTaP,Tdap,and Td Vaccines (1 - 1991 Tdap) INFLUENZA VACCINE (#1) 2018 12/25/2015 PAP SMEAR 02/17/2019 02/18/2016 URINE MICROALBUMIN 02/23/2019 02/23/2018 FOOT EXAM 12/28/2019 12/27/2018, 11/28/2017, 11/28/2017, Additional history exists HgA1C 01/04/2020 07/04/2019, 03/28/2019, 12/27/2018, Additional history exists CREATININE (SERUM) 07/03/2020 07/04/2019, 03/28/2019, 12/27/2018, Additional history exists LDL-C 07/03/2020 07/04/2019, 03/28/2019, 12/27/2018, Additional history exists EYE EXAM 07/29/2020 07/30/2019, 07/30/2019, 02/08/2018, Additional history exists documented as of this encounter Goals Goal Patient Goal Associated Recent Patient-Stated? 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
--- OUTSIDE RECORDS SUMMARY | 2019-11-03 15:41 | XMS REPORT | Summary of Care ---
:1980 Author Organization [facility] Address [address] [place] [address] Care Team Providers Name Role Phone Jacqueline Winn MD Primary Care Provider Tech, Cardio Fac Unavailable Unavailable Boo Fontaine MD Unavailable Reason for Visit Reason Comments ER F/U Shawnee palsy Refill Request Encounter Details Date Type Department Care Team Description 08/08/2019 Telemedicine Visit [facility] Jacqueline Winn Hill 's palsy (Primary Dx); Pediatric and Adult MD Diandra Muscle pain Primary Care- [address] [place] [address] [facility] [address] , [address] [place], [place] [phone] (Fax) [phone] Allergies Active Allergy Reactions Severity Noted Date Comments Bee [place] Anaphylaxis 08/14/2017 [place] Swelling 02/18/2016 Clams Swelling 02/18/2016 Tree Nuts Other - See comments 02/18/2016 Throat itching / raw Latex Itching 12/04/2015 Morphine Shortness of Breath 12/04/2015 Ibuprofen Hives 12/04/2015 Pork Derived (Porcine) Swelling 02/18/2016 documented as of this encounter (statuses as of 08/08/2019) Medications Medication Sig Dispensed Refills Start End Status Date Date aspirin 81 mg chewable Take 81 mg by 0 Active tablet mouth daily. vitamin B-12 (VITAMIN Take 1 tablet by 30 tablet 5 Active B-12) 500 mcg mouth daily. 018 tabletIndications: B12 deficiency Insulin [place], Use as directed 100 Each 1 Active [...] capsuleIndications: by mouth daily. 019 Medication refill EPINEPHrine (EPIPEN 0.3 mL by 2 Each [...] Gastroesophageal reflux times daily. disease without esophagitis fluticasone propionate Use 2 Sprays in 3 Bottle 1 Active 50 mcg/actuation nasal each nostril 020 sprayIndications: Acute daily. allergic rhinitis Blood-Glucose Meter Check glucose 1 Each 0 Active (ACCU-CHEK LEIDY PLUS once daily 020 METER) MiscIndications: before Diabetes mellitus type breakfast; 2 in obese Diagnosis code E11.9 ROSUVASTATIN 40 mg TAKE ONE (1) 60 tablet 0 Active tabletIndications: TABLET(S) BY 020 Hypercholesterolemia MOUTH AT BEDTIME. naproxen 500 mg Take 1 tab as needed for migraine twice a day < 3 days/week 16 tablet 2 Active tabletIndications: Take wit meals and Pantoprazole 020 Migraine without aura and without status migrainosus, not intractable blood sugar diagnostic TEST BLOOD SUGAR 100 Strip 10 Active stripIndications: 3 TIMES A DAY ; 020 Diabetes mellitus type ICD-10 CODE 2 in obese E11.69. tiZANidine 4 mg Take 1 tablet by 180 tablet 1 Active tabletIndications: mouth every 8 020 Muscle pain (eight) hours as needed (muscle pain or spasm). predniSONE 10 mg tablet TAKE SIX (6) 0 Active TABS BY MOUTH 020 ONCE A DAY FOR 5 DAYS, THEN FOUR (4) TABS ONCE A DAY FOR 2 DAYS, TWO (2) TABS ONCE A DAY FOR 2 DAYS, THEN ONE (1 tiZANidine 4 mg Take 1 tablet by 180 tablet 1 08/07/ Discontinued tabletIndications: mouth every 8 019 2020 (Reorder) Muscle pain, Muscle (eight) hours as cramps needed (muscle pain or spasm). methylPREDNISolone 4 mg Follow package 21 Each 0 2 0 4/30/ Discontinued tabletsIndications: directions 020 2019 Acute bacterial sinusitis, Nasal obstruction documented as of this encounter (statuses as of 08/08/2019) Active Problems Problem Noted Date Hill's palsy 08/08/2019 Hair loss 10/04/2017 Infection of skin due [...] as of this encounter (statuses as of 08/08/2019) Immunizations Name Administration Dates Next Due Influenza [...] filedocumented in this encounter Patient Instructions Patient InstructionsJacqueline Winn MD - 08/08/2019 1:00 PM CDT Patient Education Shawnee Palsy Hill's Palsy is a problem involving the nerve that controls the muscles on one side of the face. In most cases, the cause is unknown, but may be related to inflammation of the nerve, diabetes, , Lyme disease, and viral infections such as herpes or varicella. Symptoms usually appear only on one side. They may include: Inability to close the eyelid Tearing of the eye Facial drooping Drooling Numbness or pain Changes in taste Sound sensitivity Damage to the eye can be a serious problem. The inability to blink can cause the eye to dry out. An ulcer (sore) can then form on the cornea. Also, not blinking means that the eye has no protection from dirt and dust particles. Treatment involves protecting and moistening the eye. Medicines, such as steroids, may also help. Most people recover fully within 3 to 6 months. However, the condition sometimes returns months or years later. Home care Get plenty of rest and eat a healthy diet to help yourself recover. Use artificial tears often during the day and at bedtime to prevent drying. These drops are available without prescription at your drug store. Wear protective glasses especially when outside to protect from flying debris. Use sunglasses when outdoors. Tape the eyelid closed at bedtime with a paper tape (available at your pharmacy). It has a very mild adhesive so won't injure the lid. This will protect your eye from injury while you sleep. Sometimes medicines are prescribed to reduce inflammation or treat specific viral infections of the nerve. If medicines are prescribed, take them exactly as directed. Usually the sooner the medicines are started, the more effective they are. Taking this medicine as prescribed will help with a full recovery. Use low heat, for example from a heating pad, on the affected area. This can help reduce pain andswelling. If you have severe pain, contact your healthcare provider. Follow-up care Follow up with your healthcare provider as advised. If you referred to a specialist, make that appointment promptly. When to seek medical advice Call your healthcare provider if any of the following occur: Severe eye redness Eye pain Thick drainage from the eye Change in vision (such as double vision or losing vision) Fever over 100.4F (38C) or as directed by your healthcare provider Headache, neck pain, weakness, trouble speaking or walking, or other unexplained symptoms [employer] last reviewed this educational content on 06/08/[id number] [employer] [address] [place] [address], [place] [address]. All rights reserved. This information is not intended as a substitute for professional medical care. Always follow your healthcare professional's instructions. documented in this encounter Progress Notes Jacqueline Winn MD - 08/08/2019 1:00 PM CDT TELEHEALTH NOTE Verbal consent obtained from Patient: Hannah Oneill due to the COVID-19 pandemic for telehealth services provided below. Communication with patient was conducted via Video Call. Location of Patient: Home Location of Provider: Office Date of Service: 08/08/2019 CC: Chief Complaint Patient presents with ER F/U [place] palsy Refill Request HPI Hannah Oneill is a 39 year old F who participated in a Telehealth visit today for ER follow-up of Hill's palsy. The patient presented to [facility] ER 5 days with complaint of right facial droop. The patient underwent the following evaluations: CT of the head, labs. The patient was diagnosed with Hill's palsy. Treatments in the ER included: IV steroids. At discharge the patientwas instructed to take the following medications: Prednisone taper. The patient was told to follow-up with Neurology and her PCP. Since the ER visit the patient has experienced the following: Resolution of the facial droop. She denies dryness of her right eye, she has been using an eye lubricant regularly. She is still on a tapering dose of steroid. She also requests an Rx for tizanidine to use PRN for chronic myalgias. Allergies Allergen Reactions Bee [place] Anaphylaxis [place] Swelling Clams Swelling Coconut [Tree Nuts] Other - See comments Throat itching / raw Latex Itching Morphine Shortness of Breath Motrin [Ibuprofen] Hives Pork Derived (Porcine) Swelling Current Outpatient Medications on File Prior to Visit Medication Sig Dispense Refill predniSONE 10 mg tablet TAKE SIX (6) TABS BY MOUTH ONCE A DAY FOR 5 DAYS, THEN FOUR (4) TABS ONCE A DAY FOR 2 DAYS, TWO (2) TABS ONCE A DAY FOR 2 DAYS, THEN ONE (1 blood sugar diagnostic strip TEST BLOOD SUGAR 3 TIMES A DAY ; ICD-10 CODE E11.69. 100 Strip 10 naproxen 500 mg tablet Take 1 tab as needed for migraine twice a day < 3 days/week Take wit meals and Pantoprazole 16 tablet 2 ROSUVASTATIN 40 mg tablet TAKE ONE (1) TABLET(S) BY MOUTH AT BEDTIME. 60 tablet 0 Blood-Glucose Meter (ACCU-CHEK LEIDY PLUS METER) [facility] Check glucose once daily before breakfast;Diagnosis code E11.9 1 Each 0 fluticasone propionate 50 mcg/actuation nasal spray Use 2 Sprays in each nostril daily. 3 Bottle1 famotidine 20 mg tablet Take 1 tablet [...] of Breath. Via nebulizer 120 Vial 1 EPINEPHrine (EPIPEN 2-RUTH) 0.3 mg/0.3 mL [...] by mouth daily. 90 capsule 1 Lancets [facility] Check [...] capsule by mouth daily. 90 capsule 1 Insulin [place], Disposable, (BD ULTRA-FINE MICRO PEN NEEDLE) 32 gauge x 1/4" Ndle Use as directed to inject Victoza daily; ID-10 code E11.69 100 Each 1 vitamin B-12 (VITAMIN B-12) 500 mcg tablet Take 1 tablet by mouth daily. 30 tablet 5 aspirin 81 mg chewable tablet Take 81 mg by mouth daily. No current facility-administered medications on file prior to visit. Past Medical History: Diagnosis Date Abnormal uterine [...] N/A 07/01/2016 Surgeon: Sean Rodriguez MD; Location: [facility] Location ESOPHAGOGASTRODUODENOSCOPY N/A 09/06/2016 Surgeon: Jonny Enriquez MD; Location: [facility] ([facility]) OR Location HERNIA REPAIR HYSTERECTOMY 2009 due to DUB, still has ovaries KNEE ARTHROSCOPY bilateral RADICAL HYSTERECTOMY SALPINGECTOMY ? tube removed /not sure was very infected post tubal 2003 TUBAL LIGATION 2003 Family History Problem Relation Age of Onset [...] Grandmother Cancer Maternal Grandmother Stomach / 67 Blindness Maternal Grandmother Ovarian Cancer Paternal Aunt 6 or more of them have some form of cancer Uterine Cancer Paternal Aunt Diabetes Paternal Aunt Diabetes Paternal Uncle Blindness Paternal Grandfather Arthritis NoFHx Asthma NoFHx defects NoFHx Depression NoFHx Genetic NoFHx Mental retardation NoFHx Neurological NoFHx Osteoporosis NoFHx Psychiatry NoFHx Other - see comments NoFHx Social History Socioeconomic History Marital status: Single [...] file Gets together: Not on file Attends adventism service: Not on file Active member of [...] seizure d/o. Denies domestic or physical violence Review of Systems Constitutional: Negative. HENT: Negative. Eyes: Negative. Respiratory: Negative. Cardiovascular: Negative. Gastrointestinal: Negative. Genitourinary: Negative. Musculoskeletal: Positive for myalgias. Skin: Negative. Neurological: Positive for facial asymmetry and headaches (chronic, recently rebounded, plans on discussing this with her Neurologist soon). Psychiatric/Behavioral: Negative. Endocrine: Endocrine negative Vital signs Level of pain does not rate. Physical Exam Constitutional: She is oriented to person, place, and time. She appears well- developed and well-nourished. No distress. Pulmonary/Chest: Effort normal. No stridor. No respiratory distress. No audible adventitious breath sounds Neurological: She is alert and oriented to person, place, and time. No cranial nerve deficit. Skin: No rash noted. No pallor. Psychiatric: She has a normal mood and affect. Her speech is normal and behavior is normal. Judgmentand thought content normal. Cognition and memory are normal. LABS: CBC CMP WBC-LC (x10E3/uL) Date Value 09/01/2016 9.8 WBC (10*3/L) Date Value 03/28/2019 9.80 NA (mmol/L) Date Value 07/04/2019 138 Sodium, Serum-LC (mmol/L) Date Value 09/01/2016 141 RBC-LC (x10E6/uL) Date Value 09/01/2016 5.42 (H) RBC (10*6/L) Date Value 03/28/2019 5.22 K (mmol/L) Date Value 07/04/2019 4.4 Potassium, Serum-LC (mmol/L) Date Value 09/01/2016 4.3 Platelets-LC (x10E3/uL) Date Value 09/01/2016 254 PLT (10*3/L) Date Value 03/28/2019 290 CALCIUM (mg/dL) Date Value 07/04/2019 10.1 Calcium, Serum-LC (mg/dL) Date Value 09/01/2016 9.9 HGB (g/dL) Date Value 03/28/2019 14.8 Hemoglobin-LC (g/dL) Date Value 09/01/2016 15.6 CL (mmol/L) Date Value 07/04/2019 106 Chloride, Serum-LC (mmol/L) Date Value 09/01/2016 100 HCT (%) Date Value 03/28/2019 46.0 (H) Hematocrit-LC (%) Date Value 09/01/2016 46.1 BUN (mg/dL) Date Value 07/04/2019 12 BUN-LC (mg/dL) Date Value 09/01/2016 10 LIPID PANEL CREATININE (mg/dL) Date Value 07/04/2019 0.66 Creatinine, Serum-LC (mg/dL) Date Value 09/01/2016 0.80 CHOL (mg/dL) Date Value 07/04/2019 233 (H) Cholesterol, Total-LC (mg/dL) Date Value 07/08/2016 241 (H) GLUCOSE (mg/dL) Date Value 07/04/2019 101 Glucose, Serum-LC (mg/dL) Date Value 09/01/2016 126 (H) LDL CHOL (mg/dL) Date Value 07/04/2019 167 (H) LDL Cholesterol Calc-LC (mg/dL) Date Value 07/08/2016 172 (H) CO2 TOTAL (mmol/L) Date Value 07/04/2019 24 Carbon Dioxide, Total-LC (mmol/L) Date Value 09/01/2016 21 HDL Cholesterol-LC (mg/dL) Date Value 07/08/2016 40 HDL (mg/dL) Date Value 07/04/2019 40 (L) ALBUMIN Date Value Ref Range Status 07/04/2019 4.4 3.5 - 5.0 g/dL Final Albumin, Serum-LC Date Value Ref Range Status 09/01/2016 4.4 3.5 - 5.5 g/dL Final TRIG (mg/dL) Date Value 07/04/2019 129 Triglycerides-LC (mg/dL) Date Value 07/08/2016 144 T PROTEIN Date Value Ref Range Status 07/04/2019 7.3 6.3 - 8.2 g/dL Final Protein, Total, Serum-LC Date Value Ref Range Status 09/01/2016 7.1 6.0 - 8.5 g/dL Final TSH TOTAL BILI Date Value Ref Range Status 07/04/2019 0.4 0.1 - 1.1 mg/dL Final TSH (mIU/L) Date Value 07/04/2019 2.14 TSH-LC (uIU/mL) Date Value 09/01/2016 1.560 No components found for: BILIUNCOM No results found for: BILICONJ ALT(SGPT) Date Value Ref Range Status 12/27/2018 43 9 - 51 U/L Final ALT (SGPT)-LC Date Value Ref Range Status 09/01/2016 91 (H) 0 - 32 IU/L Final ALTv Date Value Ref Range Status 07/04/2019 26 5 - 35 U/L Final AST(SGOT) Date Value Ref Range Status 07/04/2019 22 13 - 40 U/L Final AST (SGOT)-LC Date Value Ref Range Status 09/01/2016 41 (H) 0 - 40 IU/L Final ALK PHOS Date Value Ref Range Status 07/04/2019 78 34 - 122 U/L Final Alkaline Phosphatase, S-LC Date Value Ref Range Status 09/01/2016 78 39 - 117 IU/L Final ASSESSMENT/PLAN Diagnoses and all orders for this visit: Hill's palsy Will request her medical records from [facility]. We discussed the pathophysiology, treatment, and recovery prospects for Hill's palsy. A facial droop was not appreciated on video exam today so she seems to be recovering well. Continue the ophthalmic lubricant PRN. Tape the affected eyelid shut QHS until all symptoms have completely resolved (in order to prevent corneal drying/ulceration/damage). Continue the prednisone taper as prescribed. Follow-up with Neurology. Muscle pain Likely fibromyalgia. Stable. Continue current pharmacotherapy. The patient understands she shouldfollow-up sooner if there is any rebound in her musculoskeletal symptoms. - tiZANidine 4 mg tablet; Take 1 tablet by mouth every 8 (eight) hours as needed (muscle pain orspasm). Plan of care, desired health behaviors, goals, Ddx, and any prescribed medications were discussed with the patient. Education resources and self- management tools were provided in the After Visit Summary (AVS) which is accessible through [employer]. A total of 25 minutes was spent on the Video Call, chart review, and coordination of care with specialists. Patient/guardian/family verbalized understanding and agrees to the plan of care. Barriers to care: None. Ability to manage care: Good. Advanced care planning (living will) information was not given/offered to the patient to review for discussion at a future visit. If applicable, the [place] [employer] database was accessed to review any controlled substance prescription claims data. If the patient is taking prescribed medications, the [employer] prescription claims data in [place] was reviewed to assess patient compliance with the medication treatment plan. COVID-19 precautions given including frequent handwashing, social distancing, cleaning and disinfecting, indications for testing, etc. Follow-up: Return if symptoms worsen or fail to improve. Return for routine care as scheduled or previously advised. documented in this encounter Plan of Treatment Date Type Specialty Care Team Description 08/19/2019 Telemedicine Visit Neurology Marily Madison MD [address] [place] [address] [phone] 09/03/2019 Office Visit Ophthalmology Iraj Garcia M D [address] [place], [place] [address]d. 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
--- OUTSIDE RECORDS SUMMARY | 2019-11-03 15:42 | XMS REPORT | Summary of Care ---
:1980 Author Organization [facility] Address [address] [place] [address] Care Team Providers Name Role Phone Jacqueline Winn MD Primary Care Provider Tech, Cardio Fac Unavailable Unavailable Boo Fontaine MD Unavailable Reason for Visit Reason Comments Assessment Encounter Details Date Type Department Care Team Description 08/13/2019 Telephone [facility] Pediatric and Jacqueline Bello MD Assessment Adult Primary Care- [address] [place] [address] [address] [facility] , [address] [place] [address] Allergies Active Allergy Reactions Severity Noted Date Comments Bee [facility] Anaphylaxis 08/14/2017 [place] Swelling 02/18/2016 Clams Swelling 02/18/2016 Tree Nuts Other - See comments 02/18/2016 Throat itching / raw Latex Itching 12/04/2015 Morphine Shortness of Breath 12/04/2015 Ibuprofen Hives 12/04/2015 Pork Derived (Porcine) Swelling 02/18/2016 documented as of this encounter (statuses as of 08/13/2019) Medications Medication Sig Dispensed Refills Start End Date Status Date aspirin 81 mg chewable Take 81 mg by 0 Active tablet mouth daily. vitamin B-12 (VITAMIN Take 1 tablet by 30 tablet 5 Active B-12) 500 mcg mouth daily. 8 tabletIndications: B12 deficiency Insulin [place], Use as directed 100 Each 1 Active [...] Active capsuleIndications: mouth daily. 9 Medication refill EPINEPHrine (EPIPEN 0.3 mL by [...] times daily. disease without esophagitis fluticasone propionate 50 Use 2 Sprays in [...] type 2 ICD-10 CODE in obese E11.69. tiZANidine 4 mg Take 1 tablet by 180 tablet 1 Active tabletIndications: Muscle mouth every 8 0 pain (eight) hours as needed (muscle pain or spasm). predniSONE 10 mg tablet TAKE SIX (6) TABS 0 08/06/19 2 Active BY MOUTH ONCE A 0 DAY FOR 5 DAYS, THEN FOUR (4) TABS ONCE A DAY FOR 2 DAYS, TWO (2) TABS ONCE A DAY FOR 2 DAYS, THEN ONE (1 documented as of this encounter (statuses as of 08/13/2019) Active Problems Problem Noted Date Hill's palsy [...] as of this encounter (statuses as of 08/13/2019) Immunizations Name Administration Dates Next Due Influenza [...] Visit Neurology Marily [place] MD [address] [place] [address] [phone] 09/03/2019 Office Visit Ophthalmology Iraj Garcia M D [address] [place] [address]. [place] [phone] 12/02/2019 Office Visit Neurology Marcus [place] MD [address] [address] [phone] Health Maintenance Due Date Last Done Comments VARICELLA VACCINES (1 of 2 - 1981 2-dose childhood series) PNEUMOCOCCAL 0-64 YEARS COMBINED 1986 SERIES (1 of 1 - PPSV23) DTaP,Tdap,and Td Vaccines (1 - 1991 Tdap) PAP SMEAR 02/17/2019 02/18/2016 URINE MICROALBUMIN 02/23/2019 02/23/2018 INFLUENZA VACCINE (Season Ended) 2019 12/25/2015 FOOT EXAM 12/28/2019 12/27/2018, 11/28/2017, 11/28/2017, Additional [...] Problems Progress Quit using Tobacco Use No [place], tobacco Wondiful A, (cigarettes, MD smokeless, etc) documented as of this encounter Results Not on filedocumented in this encounter Additional Health Concerns Infection Noted Time Resolved Time Contact- MRSA 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
--- OUTSIDE RECORDS SUMMARY | 2019-11-03 15:42 | XMS REPORT | Summary of Care ---
:1980 Author Organization [facility] Address [address] [place], [place] [address] Care Team Providers Name Role Phone Jacqueline Winn MD Primary Care Provider Tech, Cardio Fac Unavailable Unavailable Boo Fontaine MD Unavailable Reason for Visit Reason Comments Headache Encounter Details Date Type Department Care Team Description 08/19/2019 Telemedicine Visit [facility] [place], Julianabbeyana Migrai ne without aura and without status migrainosus, not intractable (Primary Dx); Neurology, Orion Galeas MD Pseudoseizures; [address] Mood disorder; [address] [place], [place] Right-si ded Hill's palsy [address] [address] [place], [place] [phone] Allergies Active Allergy Reactions Severity Noted Date Comments Bee [place] Anaphylaxis 08/14/2017 [place] Swelling 02/18/2016 Clams Swelling 02/18/2016 Tree Nuts Other - See comments 02/18/2016 Throat itching / raw Latex Itching 12/04/2015 Morphine Shortness of Breath 12/04/2015 Ibuprofen Hives 12/04/2015 Pork Derived (Porcine) Swelling 02/18/2016 documented as of this encounter (statuses as of 08/19/2019) Medications Medication Sig Dispensed Refills Start End Date Status Date aspirin 81 mg chewable Take 81 mg by 0 Active tablet mouth daily. vitamin B-12 (VITAMIN Take 1 tablet by 30 tablet 5 Active B-12) 500 mcg mouth daily. 8 tabletIndications: B12 deficiency Insulin [place], Use as directed 100 Each 1 Active [...] as of this encounter (statuses as of 08/19/2019) Active Problems Problem Noted Date Hill's palsy [...] as of this encounter (statuses as of 08/19/2019) Immunizations Name Administration Dates Next Due Influenza [...] Signs Not on filedocumented in this encounter Progress Notes Marcus [place] MD - 08/19/2019 11:00 AM CDT DATE OF SERVICE: 08/19/19 Visit type: follow up CHIEF COMPLAINT: seizure and headache TELEHEALTH NOTE Verbal consent obtained from patient due to the COVID-19 pandemic for telehealth services provided below. Communication with patient was conducted via video conference. Location of Patient: home Location of Provider: home Date of Service: 08/19/2019 Follow up visit: 08/19/19 Migraine Frequency almost daily for last 3-4 weeks Duration- 5-10 hours Rescue Excedrin 4-5 days/week Preventive- unable to get botox due to covid Dis not receive botox due to covid ED visit- none Rescue nurse visit- none No adverse reactions Mood stable, no suicidal or homicidal ideations She developed Right Hill`s palsy about 2 weeks ago. She received medrol dose ruth. She has noticed improvement juan miguel bout 3 days of symptoms onset. While she was on steroids headache was improved though returned once she has finished. Follow up visit: 05/25/2019 Here for follow [...] medication until she consulted DR. Ge at [facility]. She underwent 72hours EEG and Imagine studies( not available to me). 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 She was on Topamax 25am [id number] for seizures. She feels sleepy on it. [...] uterine bleeding Menorrhagia Anemia Anxiety Asthma Current Hill's palsy 08/08/2019 Depression Diabetes mellitus type 2, controlled Hair [...] N/A 07/01/2016 Surgeon: Sean Rodriguez MD; Location: [facility] Location ESOPHAGOGASTRODUODENOSCOPY N/A 09/06/2016 Surgeon: Jonny Enriquez MD; Location: [facility] Location HERNIA REPAIR HYSTERECTOMY 2009 due to DUB, still has ovaries KNEE ARTHROSCOPY bilateral RADICAL HYSTERECTOMY SALPINGECTOMY ? tube removed /not sure was very infected post tubal 2002 TUBAL LIGATION 2002 ? Current Outpatient Medications Medication Sig Dispense Refill predniSONE 10 mg tablet TAKE SIX (6) TABS BY MOUTH ONCE A DAY FOR 5 DAYS, THEN FOUR (4) TABS ONCE A DAY FOR 2 DAYS, TWO (2) TABS ONCE A DAY FOR 2 DAYS, THEN ONE (1 tiZANidine 4 mg tablet Take 1 tablet by mouth every 8 (eight) hours as needed (muscle pain or spasm). 180 tablet 1 blood sugar diagnostic strip TEST BLOOD SUGAR [...] 0 Blood-Glucose Meter (ACCU-CHEK LEIDY PLUS METER) [facility] Check glucose once [...] by mouth daily. 90 capsule 1 Lancets [facility] Check glucose every [...] by mouth daily. 90 capsule 1 Insulin Switchback, Disposable, (BD ULTRA-FINE MICRO PEN NEEDLE) 32 gauge x 1/4" Ndle Use as directed to inject Victoza daily; ID-10 code E11.69 100 Each 1 vitamin B-12 (VITAMIN B-12) 500 mcg tablet Take 1 tablet by mouth daily. 30 tablet 5 aspirin 81 mg chewable tablet Take 81 mg by mouth daily. No current facility-administered medications for this visit. ? Allergies Allergen Reactions Bee [place] Anaphylaxis [place] Swelling Clams Swelling Coconut [Tree Nuts] Other [...] file Gets together: Not on file Attends episcopalian service: Not on file Active member of [...] thyroid disease Neuro: (-) numbness, (-) tingling, right LMN facial Back: (-) pain, (-)spasms TREVON: (-) muscle pain, (-) joint pain, (-) claudication Psych: (-) anxiety, (+) depression, (-) psychiatric disorder Mar 2019 Essentially normal MRI study of lumbar spines. PHYSICAL EXAM Constitutional: alert and in no distress Resp: breathing comfortably Neuro: answers questions appropriately, residual mild right LMP paresis Psych: affect normal Reviewed labs RADIOLOGY/IMAGING Reviewed brain MRI (04/19/16) ASSESSMENT/ RECOMMENDATIONS/PLAN Hannah Oneill is a 39 year old female with PMH as above presenting with: Worsening lower back pain with radicular symptoms on right leg L5-S1 Failed multiple medication (Tramadol, Tylenol 3, Gabapentin) Was seen in the past by outside physician MRI LS spine- normal On Tizanidine by PCP Fall peevention Intractable migraine with aura without status migrainosus (primary encounter diagnosis) Comment: stable Plan: botox injection delayed -currently takes excedrin for breakthrough headaches, as needed <3 days/week with PPI/H2 blockersand meals -Magnesium 400mg daily and Riboflavin 400mg daily -MOA and adverse reactions discussed - Rebound headache - In meantime, Naproxen 500mg bid PRN as needed for migraine, with Reglan 10mg and Benadryl 25 mg; <3 days/week Botox for prevention once F2F clinic placed Hill`s palsy- right S/p medrol dose ruth Improving Exercise 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 A total of 10 minutes was spent on the video conference. Marcus [place] MD documented in this encounter Plan of Treatment Date Type Specialty Care Team Description 09/03/2019 Office Visit Ophthalmology Iraj Garcia M D [address] [place] [address]. [place] [phone] 12/02/2019 Office Visit Neurology Marcus [place] MD [address] [place], [place] [phone] Health Maintenance Due Date [...] convulsions Mood disorder Unspecified episodic mood disorder Right-sided Hill's palsy documented in this encounter Additional Health Concerns Infection Onset Date Last Indicated Resolved Time Contact- MRSA 02/27/2017 02/27/2017 documented as of this encounter Insurance Payer Benefit Plan / Subscriber ID Effective Phone Address T ype Group Dates [facility] [id number] 2018-Prese Medic are Adv HEALTHCARE - HEALTHCARE nt PPO MANAGED MEDICARE S[place]VER MEDICARE [place] xxxxxxxxx 2017-Pres Medicaid HEALTHCARE COMM PLUS ent PLAN - MANAGED MEDICAID documented as of this encounter Advance Directives Name Relationship Healthcare Agent Relationship Co mmunication Juliann Oneill Mother Primary healthcare agent
--- OUTSIDE RECORDS SUMMARY | 2019-11-03 15:43 | XMS REPORT | Summary of Care ---
:1980 Author Organization [facility] Address [address] [place] [address] Care Team Providers Name Role Phone Jacqueline Winn MD Primary Care Provider Tech, Cardio Fac Unavailable Unavailable Boo Fontaine MD Unavailable Reason for Visit Reason Comments Assessment c/o flashes and little black dots Encounter Details Date Type Department Care Team Description 08/22/2019 Telephone [facility] Eye [facility]j Garcia [facility] [address] [facility]. flashes and little [address] [facility]. [place], [place] black dots) [place] [phone] Allergies Active Allergy Reactions Severity Noted Date Comments Bee [place] Anaphylaxis 08/14/2017 [place] Swelling 02/18/2016 Clams Swelling 02/18/2016 Tree Nuts Other - See comments 02/18/2016 Throat itching / raw Latex Itching 12/04/2015 Morphine Shortness of Breath 12/04/2015 Ibuprofen Hives 12/04/2015 Pork Derived (Porcine) Swelling 02/18/2016 documented as of this encounter (statuses as of 08/22/2019) Medications Medication Sig Dispensed Refills Start End Date Status Date aspirin 81 mg chewable Take 81 mg by 0 Active tablet mouth daily. vitamin B-12 (VITAMIN Take 1 tablet by 30 tablet 5 Active B-12) 500 mcg mouth daily. 8 tabletIndications: B12 deficiency Insulin [place], Use as directed 100 Each 1 Active [...] as of this encounter (statuses as of 08/22/2019) Active Problems Problem Noted Date Hill's palsy [...] as of this encounter (statuses as of 08/22/2019) Immunizations Name Administration Dates Next Due Influenza [...] Treatment Date Type Specialty Care Team Description 08/23/2019 Office Visit Ophthalmology Eddie Trevino MD [address] [place] [phone] 08/26/2019 Office Visit Ophthalmology Iraj Garcia M D [address] [place] [phone] 12/02/2019 Office Visit Neurology Marcus [place] MD [address] [place] [address] [phone] Health Maintenance Due Date Last Done [...] ID Effective Phone Address T ype Group [facility] [id number] 2018-Prese Medic are Adv HEALTHCARE - HEALTHCARE nt PPO MANAGED MEDICARE [place]VER MEDICARE [place] xxxxxxxxx 2017-Pres Medicaid HEALTHCARE COMM PLUS ent PLAN - MANAGED MEDICAID documented as of this encounter Advance Directives Name Relationship Healthcare Agent Relationship Co mmunication Juliann Oneill Mother Primary healthcare agent
--- OUTSIDE RECORDS SUMMARY | 2019-11-03 15:43 | XMS REPORT | Summary of Care ---
:1980 Author Organization [facility] Address [address] [place] [address] Care Team Providers Name Role Phone Jacqueline Winn MD Primary Care Provider Tech, Cardio Fac Unavailable Unavailable Boo Fontaine MD Unavailable Reason for Visit Reason Comments Assessment c/o flashes and little black dots Encounter Details Date Type Department Care Team Description 08/22/[address] [facility] Eye Iraj Garcia M D [facility] [address] [facility]. flashes and little [address] [facility]. [place], [place] black dots) [place] [phone] Allergies Active Allergy Reactions Severity Noted Date Comments Bee [place] Anaphylaxis 08/14/2017 [place] Swelling 02/18/2016 Clams Swelling 02/18/2016 Tree Nuts [...] mouth daily. 8 tabletIndications: B12 deficiency Insulin [place], Use as directed 100 Each 1 Active [...] Treatment Date Type Specialty Care Team Description 08/26/2019 Office Visit Ophthalmology Iraj Garcia M D [address] [place] [address]. [place] [address] [phone] 12/02/2019 Office Visit Neurology Marcus [place] MD [address] [place] [address] [phone] Health Maintenance Due Date Last Done [...] Problems Progress Quit using Tobacco Use No [place], tobacco Wondiful A, (cigarettes, MD smokeless, etc) documented as of this encounter Results Not on filedocumented in this encounter Additional Health Concerns Infection Onset Date Last Indicated Resolved Time Contact- MRSA 02/27/2017 02/27/2017 documented as of this encounter Insurance Payer Benefit Plan / Subscriber ID Effective Phone Address T ype Group Dates [facility] [id number] 2018-Prese Medic are Adv HEALTHCARE - HEALTHCARE nt PPO MANAGED MEDICARE S[place]VER MEDICARE [place] xxxxxxxxx 2017-Pres Medicaid HEALTHCARE COMM PLUS ent PLAN - MANAGED MEDICAID documented as of this encounter Advance Directives Name Relationship Healthcare Agent Relationship Co mmunication Juliann Rodrigues Primary healthcare agent
--- OUTSIDE RECORDS SUMMARY | 2019-11-03 15:43 | XMS REPORT | Summary of Care ---
:1980 Author Organization [facility] Address [address] [place] [address] Care Team Providers Name Role Phone Jacqueline Winn MD Primary Care Provider Tech, Cardio Fac Unavailable Unavailable Boo Fontaine MD Unavailable Reason for Visit Reason Comments Assessment c/o flashes and little black dots Encounter Details Date Type Department Care Team Description 08/22/2019 Telephone [facility] Eye Iraj Garcia M D [facility] [address] [facility]. flashes and little [address] [facility]. [place], [place] black dots) [place] [phone] Allergies Active Allergy Reactions Severity Noted Date Comments Bee [place] Anaphylaxis 08/14/2017 [place] Swelling 02/18/2016 Clams Swelling 02/18/2016 Tree Nuts [...] mouth daily. 8 tabletIndications: B12 deficiency Insulin [place], Use as directed 100 Each 1 Active [...] Office Visit Ophthalmology Iraj Garcia M D [address] [place] [address]. [place] [phone] 12/02/2019 Office Visit Neurology Marcus [place] MD [address] [place] [address] [phone] Health Maintenance Due Date Last Done [...] Problems Progress Quit using Tobacco Use No [place], tobacco Wondiful A, (cigarettes, MD smokeless, etc) documented as of this encounter Results Not on filedocumented in this encounter Additional Health Concerns Infection Onset Date Last Indicated Resolved Time Contact- MRSA 02/27/2017 02/27/2017 documented as of this encounter Insurance Payer Benefit Plan / Subscriber ID Effective Phone Address T ype Group Dates [facility] [id number] 2018-Prese Medic are Adv HEALTHCARE - HEALTHCARE nt PPO MANAGED MEDICARE SILVER MEDICARE [place] xxxxxxxxx 2017-Pres Medicaid HEALTHCARE COMM PLUS ent PLAN - MANAGED MEDICAID documented as of this encounter Advance Directives Name Relationship Healthcare Agent Relationship Co mmunication Juliann Rodrigues Primary healthcare agent
--- OUTSIDE RECORDS SUMMARY | 2019-11-03 15:44 | XMS REPORT | Summary of Care ---
:1980 Author Organization [facility] Address [address] [place], [place] [address] Care Team Providers Name Role Phone Jacqueline Winn MD Primary Care Provider Tech, Cardio Fac Unavailable Unavailable Boo Fontaine MD Unavailable Reason for Visit Reason Comments Rx Concern/Question pharmacy didn't get Rx's Encounter Details Date Type Department Care Team Description 08/22/2019 Telephone [facility] Neurology, [place], Marcus V, Rx Concern/Question [facility] (pharmacy didn't get [address] Rx's) [address] [place] [phone] Allergies Active Allergy Reactions Severity Noted Date Comments Bee [place] Anaphylaxis 08/14/2017 [place] Swelling 02/18/2016 Clams Swelling 02/18/2016 Tree Nuts Other - See comments 02/18/2016 Throat itching / raw Latex Itching 12/04/2015 Morphine Shortness of Breath 12/04/2015 Ibuprofen Hives 12/04/2015 Pork Derived (Porcine) Swelling 02/18/2016 documented as of this encounter (statuses as of 08/26/2019) Medications Medication Sig Dispensed Refills Start End Date Status Date aspirin 81 mg chewable Take 81 mg by 0 Active tablet mouth daily. vitamin B-12 (VITAMIN Take 1 tablet by 30 tablet 5 Active B-12) 500 mcg mouth daily. 8 tabletIndications: B12 deficiency Insulin [place], Use as directed 100 Each 1 Active [...] as of this encounter (statuses as of 08/26/2019) Active Problems Problem Noted Date Hill's palsy [...] as of this encounter (statuses as of 08/26/2019) Immunizations Name Administration Dates Next Due Influenza [...] Office Visit Ophthalmology Iraj Garcia M D [address] [place] [address]. [place] [phone] 12/02/2019 Office Visit Neurology Marcus [place] MD [address] [place] [address] [phone] Health Maintenance Due Date Last Done [...] Problems Progress Quit using Tobacco Use No [place], tobacco Wondiful A, (cigarettes, MD smokeless, etc) documented as of this encounter Results Not on filedocumented in this encounter Additional Health Concerns Infection Onset Date Last Indicated Resolved Time Contact- MRSA 02/27/2017 02/27/2017 documented as of this encounter Insurance Payer Benefit Plan / Subscriber ID Effective Phone Address T ype Group Dates [facility] [id number] 2018-Prese Medic are Adv HEALTHCARE - HEALTHCARE nt PPO MANAGED MEDICARE S[place]VER MEDICARE [place] xxxxxxxxx 2017-Pres Medicaid HEALTHCARE COMM PLUS ent PLAN - MANAGED MEDICAID documented as of this encounter Advance Directives Name Relationship Healthcare Agent Relationship Co mmunication Juliann Oneill Mother Primary healthcare agent
--- OUTSIDE RECORDS SUMMARY | 2019-11-03 15:44 | XMS REPORT | Summary of Care ---
:1980 Author Organization [facility] Address [address] [place], [place] [address] Care Team Providers Name Role Phone Jacqueline Winn MD Primary Care Provider Tech, Cardio Fac Unavailable Unavailable Boo Fontaine MD Unavailable Reason for Visit Reason Comments Rx Concern/Question pharmacy didn't get Rx's Encounter Details Date Type Department Care Team Description 08/22/2019 Telephone [facility] Neurology, [place], Marcus V, Rx Concern/Question [facility] (pharmacy didn't get [address] Rx's) [address] [place] [phone] Allergies Active Allergy Reactions Severity Noted Date Comments Bee [place] Anaphylaxis 08/14/2017 [place] Swelling 02/18/2016 Clams Swelling 02/18/2016 Tree Nuts [...] mouth daily. 8 tabletIndications: B12 deficiency Insulin [place], Use as directed 100 Each 1 [...] DAY FOR 2 DAYS, THEN ONE (1 metoclopramide HCl Take 1 tablet by 30 tablet 2 Active (REGLAN) 10 mg tablet mouth every 8 0 (eight) hours as needed (With migraine for nausea). documented as of this encounter (statuses as [...] Office Visit Ophthalmology Iraj Garcia M D [address] [place] [address] [phone] 12/02/2019 Office Visit Neurology Marcus [place] MD [address] [place] [address] [phone] Health Maintenance Due Date Last Done [...] Problems Progress Quit using Tobacco Use No [place], tobacco Wondiful A, (cigarettes, MD smokeless, etc) documented as of this encounter Results Not on filedocumented in this encounter Additional Health Concerns Infection Onset Date Last Indicated Resolved Time Contact- MRSA 02/27/2017 02/27/2017 documented as of this encounter Insurance Payer Benefit Plan / Subscriber ID Effective Phone Address T ype Group [facility] [id number] 2018-Prese Medic are Adv HEALTHCARE - HEALTHCARE nt PPO MANAGED MEDICARE S[place]VER MEDICARE [place] xxxxxxxxx 2017-Pres Medicaid HEALTHCARE COMM PLUS ent PLAN - MANAGED MEDICAID documented as of this encounter Advance Directives Name Relationship Healthcare Agent Relationship Co mmunication Juliann Oneill Mother Primary healthcare agent
--- OUTSIDE RECORDS SUMMARY | 2019-11-03 15:44 | XMS REPORT | Summary of Care ---
:1980 Author Organization [facility] - Health Address [address] [place], [place] [address] Care Team Providers Name Role Phone Jacqueline Winn MD Primary Care Provider Tech, Cardio Fac Unavailable Unavailable Boo Fontaine MD Unavailable Encounter Details Date Type Department Care Team Description 08/26/2019 Orders Only [facility] Doctor Unassigned, No [address] [facility] [place] [address] Allergies Active Allergy Reactions Severity Noted Date Comments Bee [place] Anaphylaxis 08/14/2017 [place] Swelling 02/18/2016 Clams Swelling 02/18/2016 Tree Nuts [...] mouth daily. 8 tabletIndications: B12 deficiency Insulin [place], Use as directed 100 Each 1 Active [...] been in contact with No / Unsure 08/26/2019 1:58 PM CDT someone who was confirmed or suspected to have Coronavirus / COVID-19? documented as of this encounter Last Filed Vital Signs Not on filedocumented in this encounter Plan of Treatment Date Type Specialty Care Team Description 08/27/2019 Office Visit Neurology Marcus Madison MD [address] [place] [address] [phone] 10/01/2019 Office Visit Ophthalmology Iraj Garcia M D [address] [place] [address]. [place] [phone] 12/02/2019 Office Visit Neurology Marcus Madison MD [address] [place], [place] [phone] Health Maintenance Due Date [...] Diagnosis Comme nts DISCLOSURE AND CONSENT, Routine 08/26/2019 12:01 AM MEDICAL AND SURGICAL CDT PROCEDURES documented in this encounter Results Not on filedocumented in this encounter Additional Health Concerns Infection Onset Date Last Indicated Resolved Time Contact- MRSA 02/27/2017 02/27/2017 documented as of this encounter Insurance Payer Benefit Plan / Subscriber ID Effective Phone Address T ype Group [facility] [id number] 2018-Prese Medic are Adv HEALTHCARE - HEALTHCARE nt PPO MANAGED MEDICARE SILVER MEDICARE [place] xxxxxxxxx 2017-Pres Medicaid HEALTHCARE COMM PLUS ent PLAN - MANAGED MEDICAID documented as of this encounter Advance Directives Name Relationship Healthcare Agent Relationship Co mmunication Juliann Oneill Mother Primary healthcare agent
--- OUTSIDE RECORDS SUMMARY | 2019-11-03 15:45 | XMS REPORT | Summary of Care ---
:1980 Author Organization [facility] Address [address] [place] [address] Care Team Providers Name Role Phone Jacqueline Winn MD Primary Care Provider Tech, Cardio Fac Unavailable Unavailable Boo Fontaine MD Unavailable Reason for Visit Reason Comments Flashing, Light FLOATERS Encounter Details Date Type Department Care Team Description 08/26/2019 Office Visit [facility] Eye Iraj Garcia M D Retinal tear of right eye (Primary Dx); [address] Lattice degeneration, left eye; [address] [place] [address]. [place], [place] Dry eye; [place] [address] Type 2 diabetes mellitus without complic ation, with long-term current use of insulin [id number] Allergies Active Allergy Reactions Severity Noted Date Comments Bee [place] Anaphylaxis 08/14/2017 [place] Swelling 02/18/2016 Clams Swelling 02/18/2016 Tree Nuts [...] mouth daily. 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 Garcia Fellow: Dr. Mac Dunbar Procedure Date: 08/26/2019 Anesthesia: Bupivacaine 0.75%, Route: topical Procedure: Barrier laser OU Diagnosis: Retinal tear OD, Lattice degeneration OS Lens: [place]ett panretinal 2.2 R/B/A of laser were discussed with patient. Informed consent was obtained. Procedure in detail: OD: Wavelength : 532nm Duration: 120 msec Interval: 120 msec Power: 220 mw Total: 56 OS: OD: Wavelength : 532nm Duration: 120 msec Interval: 120 msec Power: 220 mw Total: 87 Patient tolerated the procedure well. Follow-up per clinic note. Mac Dunbar MD 08/26/2019 3:33 PM I personally examined the patient on 08/26/[address] Dunbar's fellow note as written .I actively participated in the decision-making process. Please see the fellows's note for additional details. Mac angelo MD - 08/26/2019 2:15 PM CDT Cc: No chief complaint on file. Hannah Oneill is a 39 year old female, here for follow up exam and possible laser (OS). HPI Pt states that flashes and floaters have been present in the last month, but have gotten worse sincea few days ago. Floaters have got worse too. States that her vision gets blurry due to a cloud coming in front of it. Flashes of light last sometimes from 5 min to 20 min. She also has pressing pain (6/10) in the back of her OS, which is accompanied by eye movements. Uses AT gel tears QID OU. Past Medical History: Diagnosis Date Abnormal uterine [...] of Systems Reviewed ROS done by the range technician during this encounter and there are no changes. Assessment ICD-10-CM ICD-9-CM 1. 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 Retinal tear of right eye H33.311 361.00 3. Dry eye H04.129 375.15 4. Type 2 diabetes mellitus without complication, with long-term current use of insulin E11.9 250.00 Z79.4 V58.67 Katie Young was seen today for flashing, light and floaters. Diagnoses and all orders for this visit: Retinal tear- Right eye - small retinal break with intraretinal heme on exam 08/26/2019 in the right eye - s/p Laser Retinopexy OD 08/26/19 - after discussion of R/B/A of LR patient wishes to proceed and signed consent. - RD precautions discussed at length and patient advised to call right away with any changes Lattice degeneration, left eye - no RT/RD on CAUSTICS LOADER 07/30/19 - after discussion of R/B/A of LR patient wishes to proceed and signed consent. - s/p Laser Retinopexy OS 08/26/19 - RD precautions discussed at length and patient advised to call right away with any changes Dry eye - Continue Ats QID OU Type 2 diabetes mellitus without complication, with long-term current use of insulin - previous use of insulin now on oral medication - last A1c of 5.9 in 12/2018 - no DR or CSME OU on exam 07/30/19 - recommend tight BP control and HgA1c<7 per PCP - continue to monitor Follow up: 1 month for DFe OU Mac Dunbar MD 08/26/2019 2:11 PM I personally examined the patient on 08/26/[address] Dunbar's fellow note as written .I actively participated in the decision-making process. Patient with Retinal Tear OD and Lattice OS.After discussion patient wishes to have LR OU and signed consent. RD signs and symptoms discussed and will follow up [id number] for recheck Please see the fellows's note for additional details. documented in this encounter Plan of Treatment Date Type Specialty Care Team Description 08/27/2019 Office Visit Neurology Marcus Madison MD [address] [place] [address] [phone] 10/01/2019 Office Visit Ophthalmology Irja Garcia M D [address] [place] [address]. [place] [phone] 12/02/2019 Office Visit Neurology Marcus Madison MD [address] [place] [address] [phone] Health Maintenance Due Date Last Done [...] Problems Progress Quit using Tobacco Use No [place], tobacco Wondiful A, (cigarettes, MD smokeless, etc) documented as of this encounter Procedures Procedure Name Priority Date/Time Associated Diagnosis Comme nts OU PROPHYLAXIS; Routine 08/26/2019 Retinal tear of right Res ults for this PHOTOCOAGULATION, BOTH eye procedure are in the EYES Lattice degeneration, result s section. 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 Dry eye Type 2 diabetes mellitus without complic ation, with long-term current use of insulin documented in this encounter Additional Health Concerns Infection Onset Date Last Indicated Resolved Time Contact- MRSA 02/27/2017 02/27/2017 documented as of this encounter Insurance Payer Benefit Plan / Subscriber ID Effective Phone Address T [facility] [id number] 2018-Prese Medic are Adv HEALTHCARE - HEALTHCARE nt PPO MANAGED MEDICARE [place]VER MEDICARE [place] xxxxxxxxx 2017-Pres Medicaid HEALTHCARE COMM PLUS ent PLAN - MANAGED MEDICAID documented as of this encounter Advance Directives Name Relationship Healthcare Agent Relationship Co mmunication Juliann Oneill Mother Primary healthcare agent
--- OUTSIDE RECORDS SUMMARY | 2019-11-03 15:46 | XMS REPORT | Summary of Care ---
:1980 Author Organization [facility] Address [address] [place], [place] [address] Care Team Providers Name Role Phone Jacqueline Winn MD Primary Care Provider Tech, Cardio Fac Unavailable Unavailable Boo [place] MD Unavailable Reason for Visit Reason Comments Botox Injection Encounter Details Date Type Department Care Team Description 08/27/2019 Office Visit [facility] Marcus Madison V, Migraine without status migrainosus, not intractable, unspecified migraine type (Primary Dx); Neurology, Orion Astorga MD Migraine without aura and without status migrainosus, not intractable [address] [address] [place], [place] [phone] [address] [phone] Allergies Active Allergy Reactions Severity Noted Date Comments Bee [place] Anaphylaxis 08/14/2017 [place] Swelling 02/18/2016 Clams Swelling 02/18/2016 Tree Nuts Other - See comments 02/18/2016 Throat itching / raw Latex Itching 12/04/2015 Morphine Shortness of Breath 12/04/2015 Ibuprofen Hives 12/04/2015 Pork Derived (Porcine) Swelling 02/18/2016 documented as of this encounter (statuses as of 08/27/2019) Medications Medication Sig Dispensed Refills Start End Date Status Date aspirin 81 mg chewable Take 81 mg by 0 Active tablet mouth daily. vitamin B-12 (VITAMIN Take 1 tablet by 30 tablet 5 Active B-12) 500 mcg mouth daily. 8 tabletIndications: B12 deficiency Insulin [place], Use as directed 100 Each 1 04/11/201 Active Disposable, (BD to inject Victoza 9 [...] hours as needed (With migraine for nausea). Hospital, Clinic, or Other Ordered Dose Route Frequency Start Date End Date Status Facility Administered Medication clostridium botulinum toxin 200 Units IM ONCE 08/27/2019 0 08/27/2019 Ended (BOTOX) 200 Units in NaCl 0.9% (NS) 4 mL injection documented as of this encounter (statuses as of 08/27/2019) Active Problems Problem Noted Date Hill's palsy [...] as of this encounter (statuses as of 08/27/2019) Immunizations Name Administration Dates Next Due Influenza [...] Sign Reading Time Taken Comments Blood Pressure 114/78 08/27/2019 9:24 AM CDT Pulse 79 08/27/2019 9:24 AM CDT Temperature 36.6 C (97.8 F) 08/27/2019 9:24 AM CDT Respiratory Rate - - Oxygen Saturation 97% 08/27/2019 9:24 AM CDT Inhaled Oxygen Concentration - - Weight 78.9 kg (173 lb 14.4 oz) 08/27/2019 9:24 AM CDT Height 147.3 cm (4' 10") 08/27/2019 9:24 AM CDT Body Mass Index 36.35 08/27/2019 9:24 AM CDT documented in this encounter Progress Notes Marty Storey MD - 08/27/2019 9:30 AM CDT DATE OF SERVICE: 08/27/2019 13:09 Visit type: follow up CHIEF COMPLAINT: seizure and headache Follow up visit: 08/27/2019 Here for follow up on botox injection for migraine prevention. Tolerated the procedure well without complications. Follow up visit: 05/25/2019 Here for follow [...] medication until she consulted DR. Ge at [facility]. She underwent 72hours EEG and Imagine studies( not available to me). 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 She was on Topamax 25am [id number] for seizures. She feels sleepy on it. [...] N/A 07/01/2016 Surgeon: Sean Rodriguez MD; Location: [place] [facility] ESOPHAGOGASTRODUODENOSCOPY N/A 09/06/2016 Surgeon: Jonny Enriquez MD; Location: [facility] ([facility]) OR Location [place]IA REPAIR HYSTERECTOMY 2009 due to DUB, still has ovaries KNEE ARTHROSCOPY bilateral RADICAL HYSTERECTOMY SALPINGECTOMY ? tube removed /not sure was very infected post tubal 2002 TUBAL LIGATION 2002 ? Current Outpatient Medications Medication Sig Dispense Refill metoclopramide HCl (REGLAN) 10 mg tablet Take 1 tablet by mouth every 8 (eight) hours as needed (With migraine for nausea). 30 tablet 2 predniSONE 10 mg tablet TAKE SIX (6) TABS BY MOUTH ONCE A DAY FOR 5 DAYS, THEN FOUR (4) TABS ONCE A DAY FOR 2 DAYS, TWO (2) TABS ONCE A DAY FOR 2 DAYS, THEN ONE (1 tiZANidine 4 mg tablet Take 1 tablet by mouth every 8 (eight) hours as needed (muscle pain or spasm). 180 tablet 1 naproxen 500 mg tablet Take 1 tab as needed for migraine twice a day < 3 days/week Take wit meals and Pantoprazole 16 tablet 2 ROSUVASTATIN 40 mg tablet TAKE ONE (1) TABLET(S) BY MOUTH AT BEDTIME. 60 tablet 0 fluticasone propionate 50 mcg/actuation nasal spray Use 2 Sprays in each nostril daily. 3 Bottle1 blood sugar diagnostic strip TEST BLOOD SUGAR 3 TIMES A DAY ; ICD-10 CODE E11.69. 100 Strip 10 Blood-Glucose Meter (ACCU-CHEK LEIDY PLUS METER) [facility] [place] glucose once daily before breakfast;Diagnosis code E11.9 1 Each 0 famotidine 20 mg tablet Take [...] by mouth daily. 90 capsule 1 Lancets [facility] Check glucose every morning before breakfast and [...] by mouth daily. 90 capsule 1 Insulin [place], Disposable, (BD ULTRA-FINE MICRO PEN NEEDLE) 32 gauge x 1/4" Ndle Use as directed to inject Victoza daily; ID-10 code E11.69 100 Each 1 vitamin B-12 (VITAMIN B-12) 500 mcg tablet Take 1 tablet by mouth daily. 30 tablet 5 aspirin 81 mg chewable tablet Take 81 mg by mouth daily. No current facility-administered medications for this visit. ? Allergies Allergen Reactions Bee [place] Anaphylaxis [place] Swelling Clams Swelling Coconut [Tree Nuts] Other [...] file Gets together: Not on file Attends confucianist service: Not on file Active member of [...] depression, (-) psychiatric disorder PHYSICAL EXAM Vitals: 08/27/19 0924 BP: 114/78 Pulse: 79 Temp: 36.6 C (97.8 F) TempSrc: Oral SpO2: 97% Weight: 173 lb 14.4 oz (78.9 kg) Height: 4' 10" (1.473 m) General: [...] standard protocol was used Botox lot number [id number], Expiration 2021, single 200 units vial Muscles Injected Right-dose left-dose Dose in units Procerus 5 5 Federal Mediator 5 5 10 Frontalis 5x2 5x2 20 [...] up in 3 months and 6 months Marty Sadler MD documented in this encounter Plan of Treatment Date Type Specialty Care Team Description 10/01/2019 Office Visit Ophthalmology Iraj Garcia M D [address] [place] [address]. [place] [phone] 12/02/2019 Office Visit Neurology Marcus Madison MD [address] [place] [address] [phone] 03/03/2020 Office Visit Neurology Marcus Madison MD [address] [place] [address] [phone] Health Maintenance Due Date Last Done [...] 03/28/2019, 12/27/2018, Additional history exists EYE EXAM 08/25/2020 08/26/2019, 08/26/2019, 07/30/2019, Additional history exists documented as of this encounter Goals Goal Patient Goal Associated Recent Patient-Stated? Author Type Problems Progress Quit using Tobacco Use No [place], tobacco Wondiful A, (cigarettes, MD smokeless, etc) documented as of this encounter Results Not on filedocumented in this encounter Visit Diagnoses Diagnosis Migraine without status migrainosus, not intractable, unspecified migraine type - Primary Migraine without aura and without status migrainosus, not intractable Migraine without aura, without mention o f intractable migraine without mention of status migrainosus documented in this encounter Administered Medications Medication Order MAR Action Action Date Dose Rate Site clostridium botulinum Given by Provider 08/27/2019 12:41 PM 200 Units Face toxin (BOTOX) 200 Units in CDT NaCl 0.9% (NS) 4 mL injection documented in this encounter Additional Health Concerns Infection Onset Date Last Indicated Resolved Time Contact- MRSA 02/27/2017 02/27/2017 documented as of this encounter Insurance Payer Benefit Plan / Subscriber ID Effective Phone Address T ype Group [facility] [id number] 2018-Prese Medic are Adv HEALTHCARE - HEALTHCARE nt PPO MANAGED MEDICARE [place]VER MEDICARE [place] [place] xxxxxxxxx 2017-Pres Medicaid HEALTHCARE COMM PLUS ent PLAN - MANAGED MEDICAID documented as of this encounter Advance Directives Name Relationship Healthcare Agent Relationship Co mmunication Julinan Oneill Mother Primary healthcare agent
--- OUTSIDE RECORDS SUMMARY | 2019-11-03 15:46 | XMS REPORT | Summary of Care ---
:1980 Author Organization [facility] Address [address] [place] [address] Care Team Providers Name Role Phone Jacqueline Winn MD Primary Care Provider Tech, Cardio Fac Unavailable Unavailable Boo [place]aine MD Unavailable Reason for Visit Reason Comments Flashing, Light FLOATERS Encounter Details Date Type Department Care Team Description 08/26/2019 Office Visit [facility] Eye Iraj aGrcia M D Retinal tear of right eye (Primary Dx); [address] Lattice degeneration, left eye; [address] [place] [address]. [place], [place] Dry eye; [place] [address] Type 2 diabetes mellitus without complic ation, with long-term current use of insulin [id number] Allergies Active Allergy Reactions Severity Noted Date Comments Bee [place] Anaphylaxis 08/14/2017 [place] Swelling 02/18/2016 Clams Swelling 02/18/2016 Tree Nuts [...] mouth daily. 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 Garcia Fellow: Dr. Mac Dunbar [...] of Systems Reviewed ROS done by the plasma center technician during this encounter and there are [...] degeneration, left eye - no RT/RD on OUTDOOR LANDSCAPE ARCHITECT 07/30/19 - after discussion of R/B/A of [...] and symptoms discussed and will follow up [id number] for recheck Please see the fellows's note for additional details. documented in this encounter Plan of Treatment Date Type Specialty Care Team Description 08/27/2019 Office Visit Neurology Marcus Madison MD [address] [place] [address] [phone] 10/01/2019 Office Visit Ophthalmology Iraj Garcia M D [address] [place] [address]. [place] [phone] 12/02/2019 Office Visit Neurology Marcus Madison MD [address] [place] [address] [phone] Health Maintenance Due Date Last Done [...] Problems Progress Quit using Tobacco Use No [place], tobacco Wondiful A, (cigarettes, MD smokeless, etc) [...] / Subscriber ID Effective Phone Address T [facility] [id number] 2018-Prese Medic are Adv HEALTHCARE - HEALTHCARE nt PPO MANAGED MEDICARE [place]VER MEDICARE [place] xxxxxxxxx 2017-Pres Medicaid HEALTHCARE COMM PLUS ent PLAN - MANAGED MEDICAID documented as of this encounter Advance Directives Name Relationship Healthcare Agent Relationship Co mmunication Juliann Oneill Mother Primary healthcare agent
--- OUTSIDE RECORDS SUMMARY | 2019-11-03 15:46 | XMS REPORT | Summary of Care ---
:1980 Author Organization [facility] Address [address] [place], [place] [address] Care Team Providers Name Role Phone Jacqueline Winn MD Primary Care Provider Tech, Cardio Fac Unavailable Unavailable Boo [place] MD Unavailable Reason for Visit Reason Comments Botox Injection Encounter Details Date Type Department Care Team Description 08/27/2019 Office Visit [facility] Marcus Madison V, Migraine without status migrainosus, not intractable, unspecified migraine type (Primary Dx); Neurology, Orion Astorga MD Migraine without aura and without status migrainosus, not intractable [address] [phone] [place], [place] [phone] [phone] Allergies Active Allergy Reactions Severity Noted Date Comments Bee [place] Anaphylaxis 08/14/2017 [place] Swelling 02/18/2016 Clams Swelling 02/18/2016 Tree Nuts [...] mouth daily. 8 tabletIndications: B12 deficiency Insulin [place], Use as directed 100 Each 1 04/11/201 [...] medication until she consulted DR. Ge at [facility]. She underwent 72hours EEG and Imagine studies( not available to me). 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 She was on Topamax 25am [id number] for seizures. She feels sleepy on it. [...] N/A 07/01/2016 Surgeon: Sean Rodriguez MD; Location: [place] [facility] ESOPHAGOGASTRODUODENOSCOPY N/A 09/06/2016 Surgeon: Jonny [...] 10 Blood-Glucose Meter (ACCU-CHEK LEIDY PLUS METER) [facility] [place] [place] Check glucose once daily before breakfast;Diagnosis code [...] by mouth daily. 90 capsule 1 Lancets [facility] [place] [place] Check glucose every morning before breakfast and [...] by mouth daily. 90 capsule 1 Insulin [place], Disposable, (BD ULTRA-FINE MICRO PEN NEEDLE) 32 gauge x 1/4" Ndle Use as directed to inject Victoza daily; ID-10 code E11.69 100 Each 1 vitamin B-12 (VITAMIN B-12) 500 mcg tablet Take 1 tablet by mouth daily. 30 tablet 5 aspirin 81 mg chewable tablet Take 81 mg by mouth daily. No current facility-administered medications for this visit. ? Allergies Allergen Reactions Bee [place] Anaphylaxis [place] Swelling Clams Swelling Coconut [Tree Nuts] Other [...] file Gets together: Not on file Attends advent service: Not on file Active member of [...] standard protocol was used Botox lot number [id number], Expiration 2021, single 200 units vial Muscles Injected Right-dose left-dose Dose in units Procerus 5 5 Assembler Motor Vehicle 5 5 10 Frontalis 5x2 5x2 20 [...] Office Visit Ophthalmology Iraj Garcia M D [address] [place] [address]. [place] [phone] 12/02/2019 Office Visit Neurology Marcus Madison MD [address] [place] [address] [phone] 03/03/2020 Office Visit Neurology Marcus Madison MD [address] [place] [address] [phone] Health Maintenance Due Date Last Done [...] Problems Progress Quit using Tobacco Use No [place], tobacco Wondiful A, (cigarettes, MD smokeless, etc) [...] ID Effective Phone Address T ype Group [facility] [id number] 2018-Prese Medic are Adv HEALTHCARE - HEALTHCARE nt PPO MANAGED MEDICARE S[place]VER MEDICARE [place] xxxxxxxxx 2017-Pres Medicaid HEALTHCARE COMM PLUS ent PLAN - MANAGED MEDICAID documented as of this encounter Advance Directives Name Relationship Healthcare Agent Relationship Co mmunication Juliann Oneill Mother Primary healthcare agent
--- OUTSIDE RECORDS SUMMARY | 2019-11-03 15:47 | XMS REPORT | Summary of Care ---
:1980 Author Organization [facility] Address [address] [place] [address] Care Team Providers Name Role Phone Jacqueline Winn MD Primary Care Provider Tech, Cardio Fac Unavailable Unavailable Boo Fontaine MD Unavailable Encounter Details Date Type Department Care Team Description 07/26/2019 [facility] Winnie Winn, [address] [address] [place] [address] [phone] Allergies Active Allergy Reactions Severity Noted Date Comments Bee [place] Anaphylaxis 08/14/2017 [place] Swelling 02/18/2016 Clams Swelling 02/18/2016 Tree Nuts Other - See comments 02/18/2016 Throat itching / raw Latex Itching 12/04/2015 Morphine Shortness of Breath 12/04/2015 Ibuprofen Hives 12/04/2015 Pork Derived (Porcine) Swelling 02/18/2016 documented as of this encounter (statuses as of 08/31/2019) Medications Medication Sig Dispensed Refills Start End Date Status Date aspirin 81 mg chewable Take 81 mg by 0 Active tablet mouth daily. vitamin B-12 (VITAMIN Take 1 tablet by 30 tablet 5 Active B-12) 500 mcg mouth daily. 8 tabletIndications: B12 deficiency Insulin [place], Use as directed 100 Each 1 Active [...] as of this encounter (statuses as of 08/31/2019) Active Problems Problem Noted Date Hill's palsy [...] as of this encounter (statuses as of 08/31/2019) Immunizations Name Administration Dates Next Due Influenza [...] Visit Ophthalmology Iraj Garcia M D [address] [place] [address]. [place] [phone] 12/02/2019 Office Visit Neurology Marcus Madison MD [address] [place] [address] [phone] 03/03/2020 Office Visit Neurology Marcus Madison MD [address] [place], [place] [address] [phone] Health Maintenance Due Date [...] Problems Progress Quit using Tobacco Use No [place], tobacco Wondiful A, (cigarettes, MD smokeless, etc) documented as of this encounter Results Not on filedocumented in this encounter Additional Health Concerns Infection Onset Date Last Indicated Resolved Time Contact- MRSA 02/27/2017 02/27/2017 documented as of this encounter Insurance Payer Benefit Plan / Subscriber ID Effective Phone Address [facility] [id number] 2018-Prese Medic are Adv HEALTHCARE - HEALTHCARE nt PPO MANAGED MEDICARE SILVER MEDICARE [place] xxxxxxxxx 2017-Pres Medicaid HEALTHCARE COMM PLUS ent PLAN - MANAGED MEDICAID documented as of this encounter Advance Directives Name Relationship Healthcare Agent Relationship Co mmunication Juliann Rodrigues Primary healthcare agent
--- OUTSIDE RECORDS SUMMARY | 2019-11-03 15:47 | XMS REPORT | Summary of Care ---
:1980 Author Organization [facility] Address [address] [place], [place] [address] Care Team Providers Name Role Phone Jacqueline Winn MD Primary Care Provider Tech, Cardio Fac Unavailable Unavailable Boo Fontaine MD Unavailable Reason for Visit Reason Comments Botox Injection Encounter Details Date Type Department Care Team Description 08/27/2019 Office Visit [facility] Marcus Madison V, Migraine without status migrainosus, not intractable, unspecified migraine type (Primary Dx); Neurology, Orion Astorga MD Migraine without aura and without status migrainosus, not intractable [address] [address] [place], [place] [phone] [address] [phone] Allergies Active Allergy Reactions Severity Noted Date Comments Bee [place] Anaphylaxis 08/14/2017 [place] Swelling 02/18/2016 Clams Swelling 02/18/2016 Tree Nuts [...] mouth daily. 8 tabletIndications: B12 deficiency Insulin [place], Use as directed 100 Each 1 04/11/201 [...] CDT documented in this encounter Progress Notes Marcus Madison MD - 08/27/2019 9:30 AM CDTBotox for prevention Tolerated well I was present and had performed botox procedure with Dr. Moshe Sadler. I personally examined the patient on 08/27/[address]Davila Mesa's note. I actively participated in the decision-making process. Please see the resident's note for additional details. Marcus Madison MD erez Marty Sadler MD - 08/27/2019 9:30 AM CDT DATE [...] medication until she consulted DR. Ge at [facility]. She underwent 72hours EEG and Imagine studies( not available to me). 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 She was on Topamax 25am [id number] for seizures. She feels sleepy on it. [...] N/A 07/01/2016 Surgeon: Sean Rodriguez MD; Location: [facility] OR Location ESOPHAGOGASTRODUODENOSCOPY N/A 09/06/2016 Surgeon: Jonny [...] 10 Blood-Glucose Meter (ACCU-CHEK LEIDY PLUS METER) [facility] Check glucose once daily before breakfast;Diagnosis code [...] by mouth daily. 90 capsule 1 Lancets [facility] Check glucose every morning before breakfast and [...] by mouth daily. 90 capsule 1 Insulin [place], Disposable, (BD ULTRA-FINE MICRO PEN NEEDLE) 32 gauge x 1/4" Ndle Use as directed to inject Victoza daily; ID-10 code E11.69 100 Each 1 vitamin B-12 (VITAMIN B-12) 500 mcg tablet Take 1 tablet by mouth daily. 30 tablet 5 aspirin 81 mg chewable tablet Take 81 mg by mouth daily. No current facility-administered medications for this visit. ? Allergies Allergen Reactions Bee [place] Anaphylaxis [place] Swelling Clams Swelling Coconut [Tree Nuts] Other [...] file Gets together: Not on file Attends christian service: Not on file Active member of [...] standard protocol was used Botox lot number [id number], Expiration 2021, single 200 units vial Muscles Injected Right-dose left-dose Dose in units Procerus 5 5 Button Sawyer 5 5 10 Frontalis 5x2 5x2 20 [...] Office Visit Ophthalmology Iraj Garcia M D [address] [place], [place] [address]. [place] [address] [phone] 12/02/2019 Office Visit Neurology Marcus Madison MD [address] [place] [address] [phone] 03/03/2020 Office Visit Neurology Marcus Madison MD [address] [place] [address] [phone] Health Maintenance Due Date Last Done Comments VARICELLA VACCINES ( - 1981 2-dose childhood series) PNEUMOCOCCAL 0-64 [...] Effective Phone Address T ype Group Dates [facility] [id number] 2018-Prese Medic are Adv HEALTHCARE - HEALTHCARE nt PPO MANAGED MEDICARE S[place]VER MEDICARE [place] xxxxxxxxx 2017-Pres Medicaid HEALTHCARE COMM PLUS ent PLAN - MANAGED MEDICAID documented as of this encounter Advance Directives Name Relationship Healthcare Agent Relationship Co mmunication Juliann Oneill Mother Primary healthcare agent
--- OUTSIDE RECORDS SUMMARY | 2019-11-03 15:47 | XMS REPORT | Summary of Care ---
:1980 Author Organization [facility] Address [address] [place], [place] [address] Care Team Providers Name Role Phone Jacqueline Winn MD Primary Care Provider Tech, Cardio Fac Unavailable Unavailable Boo Fontaine MD Unavailable Encounter Details Date Type Department Care Team Description 07/30/2019 [facility] [place], Chilv jeaneth V, [facility] [address] [place] [address] [address] [place] [phone] Allergies Active Allergy Reactions Severity Noted Date Comments Bee [place] Anaphylaxis 08/14/2017 [place] Swelling 02/18/2016 Clams Swelling 02/18/2016 Tree Nuts [...] mouth daily. 8 tabletIndications: B12 deficiency Insulin [place], Use as directed 100 Each 1 Active [...] Visit Ophthalmology Iraj Garcia M D [address] [place] [address]. [place] [phone] 12/02/2019 Office Visit Neurology Marcus Madison MD [address] [place] [address] [phone] 03/03/2020 Office Visit Neurology Marcus Madison MD [address] [place] [address] [phone] Health Maintenance Due Date Last Done [...] Problems Progress Quit using Tobacco Use No Smoot, tobacco Wondiful A, (cigarettes, MD smokeless, etc) documented as of this encounter Results Not on filedocumented in this encounter Additional Health Concerns Infection Onset Date Last Indicated Resolved Time Contact- MRSA 02/27/2017 02/27/2017 documented as of this encounter Insurance Payer Benefit Plan / Subscriber ID Effective Phone Address T e Group [facility] [id number] 2018-Prese Medic are Adv HEALTHCARE - HEALTHCARE nt PPO MANAGED MEDICARE S[place]VER MEDICARE [place] xxxxxxxxx 2017-Pres Medicaid HEALTHCARE COMM PLUS ent PLAN - MANAGED MEDICAID documented as of this encounter Advance Directives Name Relationship Healthcare Agent Relationship Co mmunication Juliann Rodrigues Primary healthcare agent
--- OUTSIDE RECORDS SUMMARY | 2019-11-03 15:48 | XMS REPORT | Summary of Care ---
:1980 Author Organization [facility] Address [address] [place] [address] Care Team Providers Name Role Phone Jacqueline Winn MD Primary Care Provider Tech, Cardio Fac Unavailable Unavailable Boo Fontaine MD Unavailable Reason for Visit Reason Comments Refill Request Encounter Details Date Type Department Care Team Description 09/27/2019 Refill [facility] Family Medicine Jacqueline Thomas MD Refill Request - [address] [place] [address] [place] [address] [phone] Allergies Active Allergy Reactions Severity Noted Date Comments Bee [place] Anaphylaxis 08/14/2017 [place] Swelling 02/18/2016 Clams Swelling 02/18/2016 Tree Nuts Other - See comments 02/18/2016 Throat itching / raw Latex Itching 12/04/2015 Morphine Shortness of Breath 12/04/2015 Ibuprofen Hives 12/04/2015 Pork Derived (Porcine) Swelling 02/18/2016 documented as of this encounter (statuses as of 09/27/2019) Medications Medication Sig Dispensed Refills Start End Status Date Date aspirin 81 mg chewable Take 81 mg by 0 Active tablet mouth daily. vitamin B-12 (VITAMIN Take 1 tablet by 30 tablet 5 02/24/20 Active B-12) 500 mcg mouth daily. 18 tabletIndications: B12 deficiency Insulin [place], Use as directed 100 Each 1 07/20/19 Active Disposable, (BD to inject 19 ULTRA-FINE MICRO PEN Victoza daily; NEEDLE) 32 gauge x 04/13" ID-10 code NdleIndications: E11.69 Diabetes mellitus type [...] as rhinitis, Medication needed for refill Allergies. magnesium oxide 400 mg Take 1 tablet [...] capsuleIndications: by mouth daily. 19 Medication refill EPINEPHrine (EPIPEN 0.3 mL by 2 Each 1 03/28/20 Active 2-RUTH) 0.3 mg/0.3 mL Intramuscular 19 injectionIndications: route as needed History of food allergy (anaphylaxis). famotidine 20 mg Take 1 tablet by 180 tablet 1 04/24/19 Active tabletIndications: mouth 2 (two) 20 Gastroesophageal reflux times daily. disease without esophagitis Blood-Glucose Meter Check glucose 1 Each 0 [...] Take 1 tablet by 180 tablet 1 08/08/19 Active tabletIndications: mouth every 8 20 Muscle pain (eight) hours as needed (muscle pain or spasm). predniSONE 10 mg tablet TAKE SIX (6) 0 08/06/19 Active TABS BY MOUTH 20 ONCE A DAY FOR 5 DAYS, THEN FOUR (4) TABS ONCE A DAY FOR 2 DAYS, TWO (2) TABS ONCE A DAY FOR 2 DAYS, THEN ONE (1 metoclopramide HCl Take 1 tablet by 30 tablet 2 08/26/19 Active (REGLAN) 10 mg tablet mouth every 8 20 (eight) hours as needed (With migraine for nausea). LEVOTHYROXINE 125 mcg TAKE ONE (1) 90 tablet 0 09/27/19 Active tablet TABLET(S) BY 20 MOUTH EVERY MORNING. FLUTICASONE PROPIONATE INSTILL TWO (2) 48 g 0 09/27/19 Active 50 mcg/actuation nasal SPRAY(S) INTO 20 sprayIndications: Acute EACH NOSTRIL allergic rhinitis ONCE A DAY. ESCITALOPRAM OXALATE 10 TAKE ONE (1) 90 tablet 0 09/27/19 Active mg tabletIndications: TABLET(S) BY 20 PTSD (post-traumatic MOUTH ONCE A stress disorder), Panic DAY. disorder with agoraphobia, Chronic depression levothyroxine 125 mcg TAKE ONE (1) 90 tablet 1 03/28/2009/26 / tablet TABLET(S) BY 19 2020 MOUTH EVERY MORNING. escitalopram oxalate 10 Take 1 tablet by 90 tablet 1 03/28/20 mg tabletIndications: mouth daily. 2019 PTSD (post-traumatic stress disorder), Panic disorder with agoraphobia, Chronic depression fluticasone propionate Use 2 Sprays in 3 Bottle 1 07/04/19 0 50 mcg/actuation nasal each nostril 2019 sprayIndications: Acute daily. allergic rhinitis documented as of this encounter (statuses as of 09/27/2019) Active Problems Problem Noted Date Hill's palsy [...] as of this encounter (statuses as of 09/27/2019) Immunizations Name Administration Dates Next Due Influenza [...] Office Visit Ophthalmology Iraj Garcia M D [address] [place] [address]. [place] [address] [phone] 12/02/2019 Office Visit Neurology Marcus Madison MD [address] [place] [address] [phone] 03/03/2020 Office Visit Neurology Marcus Madison MD [address] [place] [address] [phone] Health Maintenance Due Date Last Done [...] 01/04/2020 07/04/2019, 03/28/2019, 12/27/2018, Additional history exists Depression Screening 05/31/2020 05/31/2019 CREATININE (SERUM) 07/03/2020 07/04/2019, 03/28/2019, 12/27/2018, Additional history exists LDL-C 07/03/2020 07/04/2019, 03/28/2019, 12/27/2018, Additional history exists EYE EXAM 08/25/2020 08/26/2019, 08/26/2019, 07/30/2019, Additional history exists documented as of this encounter Goals Goal Patient Goal Associated Recent Patient-Stated? Author Type Problems Progress Quit using Tobacco Use No Bul[place], tobacco Jacqueline A, (cigarettes, MD smokeless, etc) documented as of this encounter Results Not on filedocumented in this encounter Visit Diagnoses Diagnosis Medication refill Issue of repeat prescriptions Acute allergic rhinitis PTSD (post-traumatic stress disorder) Posttraumatic stress disorder Panic disorder with agoraphobia Agoraphobia with panic disorder Chronic depression Depressive disorder, not elsewhere class ified documented in this encounter Additional Health Concerns Infection Onset Date Last Indicated Resolved Time Contact- MRSA 02/27/2017 02/27/2017 documented as of this encounter Insurance Payer Benefit Plan / Subscriber ID Effective Phone Address T e Group [facility] [id number] 2018-Prese Medic are Adv HEALTHCARE - HEALTHCARE nt PPO MANAGED MEDICARE SILVER MEDICARE [place] xxxxxxxxx 2017-Pres Medicaid HEALTHCARE COMM PLUS ent PLAN - MANAGED MEDICAID documented as of this encounter Advance Directives Name Relationship Healthcare Agent Relationship Co mmunication Juliann Oneill Mother Primary healthcare agent
--- OUTSIDE RECORDS SUMMARY | 2019-11-03 15:48 | XMS REPORT | Summary of Care ---
:1980 Author Organization [facility] Address [address] [place] [address] Care Team Providers Name Role Phone Jacqueline Winn MD Primary Care Provider Tech, Cardio Fac Unavailable Unavailable Boo Fontaine MD Unavailable Reason for Visit Reason Comments Refill Request Encounter Details Date Type Department Care Team Description 09/30/[address] [facility] Family Medicine Jacqueline Thomas MD Refill Request - [address] [place] [address] [place] [address] [phone] Allergies Active Allergy Reactions Severity Noted Date Comments Bee [place] Anaphylaxis 08/14/2017 [place] Swelling 02/18/2016 Clams Swelling 02/18/2016 Tree Nuts Other - See comments 02/18/2016 Throat itching / raw Latex Itching 12/04/2015 Morphine Shortness of Breath 12/04/2015 Ibuprofen Hives 12/04/2015 Pork Derived (Porcine) Swelling 02/18/2016 documented as of this encounter (statuses as of 09/30/2019) Medications Medication Sig Dispensed Refills Start End Status Date Date aspirin 81 mg chewable Take 81 mg by 0 Active tablet mouth daily. vitamin B-12 (VITAMIN Take 1 tablet by 30 tablet 5 02/24/20 Active B-12) 500 mcg mouth daily. 18 tabletIndications: B12 deficiency Insulin [place], Use as directed 100 Each 1 07/20/19 [...] breakfast; 2 in obese Diagnosis code E11.9 naproxen 500 mg Take 1 tab [...] Panic DAY. disorder with agoraphobia, Chronic depression ROSUVASTATIN 40 mg TAKE ONE (1) 90 tablet 1 09/30/19 Active tabletIndications: TABLET(S) BY 20 Hypercholesterolemia MOUTH AT BEDTIME. ROSUVASTATIN 40 mg TAKE ONE (1) 60 tablet 0 07/28/20 tabletIndications: TABLET(S) BY 20 2020 Hypercholesterolemia MOUTH AT BEDTIME. documented as of this encounter (statuses as of 09/30/2019) Active Problems Problem Noted Date Hill's palsy [...] as of this encounter (statuses as of 09/30/2019) Immunizations Name Administration Dates Next Due Influenza [...] Office Visit Ophthalmology Iraj Garcia M D [address] [place] [address] [phone] 12/02/2019 Office Visit Neurology Marcus Madison MD [address] [place] [address] [phone] 03/03/2020 Office Visit Neurology Marcus Madison MD [address] [place], [place] [address] [phone] Health Maintenance Due Date [...] Effective Phone Address T e Group Dates [facility] [id number] 2018-Prese Medic are Adv HEALTHCARE - HEALTHCARE nt PPO MANAGED MEDICARE S[place]VER MEDICARE [place] xxxxxxxxx 2017-Pres Medicaid HEALTHCARE COMM PLUS ent PLAN - MANAGED MEDICAID documented as of this encounter Advance Directives Name Relationship Healthcare Agent Relationship Co mmunication Juliann Oneill Mother Primary healthcare agent
--- OUTSIDE RECORDS SUMMARY | 2019-11-03 15:49 | XMS REPORT | Summary of Care ---
:1980 Author Organization [facility] Address [address] [place] [address] Care Team Providers Name Role Phone Jacqueline Winn MD Primary Care Provider Tech, Cardio Fac Unavailable Unavailable Boo Fontaine MD Unavailable Reason for Visit Reason Comments Refill Request Encounter Details Date Type Department Care Team Description 10/02/2019 Refill [facility] Family Medicine Jacqueline Thomas MD Refill Request - [address] [place] [address] [place] [address] [phone] Allergies Active Allergy Reactions Severity Noted Date Comments Bee [place] Anaphylaxis 08/14/2017 [place] Swelling 02/18/2016 Clams Swelling 02/18/2016 Tree Nuts Other - See comments 02/18/2016 Throat itching / raw Latex Itching 12/04/2015 Morphine Shortness of Breath 12/04/2015 Ibuprofen Hives 12/04/2015 Pork Derived (Porcine) Swelling 02/18/2016 documented as of this encounter (statuses as of 10/02/2019) Medications Medication Sig Dispensed Refills Start End Date Status Date aspirin 81 mg chewable Take 81 mg by 0 Active tablet mouth daily. vitamin B-12 (VITAMIN Take 1 tablet by 30 tablet 5 Active B-12) 500 mcg mouth daily. 8 tabletIndications: B12 deficiency Insulin [place], Use as directed 100 Each 1 Active [...] mcg TAKE ONE (1) 90 tablet 0 Active tablet TABLET(S) BY 0 MOUTH EVERY MORNING. FLUTICASONE PROPIONATE 50 INSTILL TWO (2) 48 g 0 09/27/19 2 Active mcg/actuation nasal SPRAY(S) INTO 0 sprayIndications: Acute EACH NOSTRIL ONCE allergic rhinitis A DAY. ESCITALOPRAM OXALATE 10 TAKE ONE (1) 90 tablet 0 Active mg tabletIndications: TABLET(S) BY 0 PTSD (post-traumatic MOUTH ONCE A DAY. stress disorder), Panic disorder with agoraphobia, Chronic depression ROSUVASTATIN 40 mg TAKE ONE (1) 90 tablet 1 Active tabletIndications: TABLET(S) BY 0 Hypercholesterolemia MOUTH AT BEDTIME. documented as of this encounter (statuses as of 10/02/2019) Active Problems Problem Noted Date Hill's palsy [...] as of this encounter (statuses as of 10/02/2019) Immunizations Name Administration Dates Next Due Influenza [...] Treatment Date Type Specialty Care Team Description 12/02/2019 Office Visit Neurology Marcus Madison MD [address] [place] [address] [phone] 03/03/2020 Office Visit Neurology Marcus Madison MD [address] [place] [address] [phone] Health Maintenance Due Date Last Done [...] Problems Progress Quit using Tobacco Use No [place], tobacco Wondiful A, (cigarettes, MD smokeless, etc) documented as of this encounter Results Not on filedocumented in this encounter Visit Diagnoses Diagnosis Medication refill Issue of repeat prescriptions documented in this encounter Additional Health Concerns Infection Onset Date Last Indicated Resolved Time Contact- MRSA 02/27/2017 02/27/2017 documented as of this encounter Insurance Payer Benefit Plan / Subscriber ID Effective Phone Address T ype Group Dates [facility] [id number] 2018-Prese Medic are Adv HEALTHCARE - HEALTHCARE nt PPO MANAGED MEDICARE SILVER MEDICARE [place] xxxxxxxxx 2017-Pres Medicaid HEALTHCARE COMM PLUS ent PLAN - MANAGED MEDICAID documented as of this encounter Advance Directives Name Relationship Healthcare Agent Relationship Co mmunication Juliann Oneill Mother Primary healthcare agent
[2019-11-03 16:23] LABS: Absolute Lymphocytes (CBC) 3.6 K/uL (0.7-4.9); Basophils % 0.3 % (0-1.3); Hematocrit 42.4 % (36.0-45.0); Lymphocytes % 38.2 % (15.3-44.8); MPV 8.8 fL (7.6-11.3); RBC Red Blood Cell Count 4.98 M/uL (3.86-4.86)
[2019-11-03] MEDS ORDERED: NA CHLORIDE 0.9% 1,000 ML ONE (16:26)
[2019-11-03] MEDS ORDERED: ONDANSETRON 4 MG/2 ML VIAL ONE (16:26)
[2019-11-03] MEDS ORDERED: FENTANYL CITR 100 MCG/2 ML ONE (16:26)
[2019-11-03 16:34] LABS: Albumin 3.6 g/dL (3.4-5.0); Bilirubin Direct 0.1 mg/dL (0-0.2); Bilirubin Total 0.5 mg/dL (0.2-1.0); Potassium 3.9 mmol/L (3.5-5.1); Protein, Total 7.4 g/dL (6.4-8.2)
--- NOTE | 2019-11-03 17:15 | RAD REPORT ---
EXAM DESCRIPTION: CT - Abdomen Pelvis W Contrast - 11/03/2019 4:51 pm CLINICAL HISTORY: Abdominal pain COMPARISON: 2016 TECHNIQUE: Computed axial tomography of the abdomen pelvis was obtained. 100 cc Isovue-300 was admin istered intravenously. Oral contrast was not requested which limits evaluation of bowel. All CT scans are performed using dose optimization technique as appropriate and may include automated exposure control or mA/KV adjustment according to patient size. FINDINGS: The liver, spleen, pancreas, adrenal and kidneys appear unremarkable. There is no evidence of diverticulitis. The appendix is not seen. No stranding adjacent to the cecum. Hysterectomy IMPRESSION: No acute abnormality is displayed.
--- NOTE | 2019-11-03 17:24 | EDPHYS ---
Physician Documentation [facility] Name: Hannah Oneill Age: 39 yrs Sex: Female : 1980 Arrival Date: 11/03/2019 Time: 15:40 Bed 18 Private MD: ED Physician Chay Gallo HPI: 11/02 16:06 This 39 yrs old Female presents to ER via Ambulatory with complaints of pm1 Abdominal Pain. 16:06 The patient presents with abdominal pain. Onset: The symptoms/episode began/occurred 3 pm1 day(s) ago. 16:06 The symptoms do not radiate. Associated signs and symptoms: Pertinent positives: nausea pm1 and vomiting, constipation, Pertinent negatives: chest pain, constipation, diarrhea, dysuria, fever, shortness of breath. The symptoms are described as sharp. Severity of pain: in the emergency department the pain is actually worse. 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 - Social history:: Smoking status: Patient reports the use of cigarette tobacco products, smokes one-half pack cigarettes per day. ROS: 16:06 Constitutional: Negative for fever, chills, and weight loss, Eyes: Negative for injury, pm1 pain, redness, and discharge, ENT: Negative for injury, pain, and discharge, Neck: Negative for injury, pain, and swelling, Cardiovascular: Negative for chest pain, palpitations, and edema, Respiratory: Negative for shortness of breath, cough, wheezing, and pleuritic chest pain. 16:06 Back: Negative for injury and pain, MS/Extremity: Negative for injury and deformity, Skin: Negative for injury, rash, and discoloration, Neuro: Negative for headache, weakness, numbness, tingling, and seizure. 16:06 Abdomen/GI: Positive for abdominal pain, nausea and vomiting, constipation, of the umbilical area, Negative for diarrhea. Exam: 16:06 Constitutional: This is a well developed, well nourished patient who is awake, alert, pm1 and in no acute distress. Head/Face: Normocephalic, atraumatic. 16:06 Cardiovascular: Exam negative for acute changes, Rate: normal, Rhythm: regular, Pulses: no pulse deficits are appreciated. 16:06 Respiratory: Exam negative for acute changes, respiratory distress, shortness of breath. 16:06 Abdomen/GI: Inspection: abdomen appears normal, Palpation: soft, in all quadrants, moderate abdominal tenderness, in the umbilical area. 16:06 Back: No spinal tenderness. No costovertebral tenderness. Full range of motion. pm1 Skin: Warm, dry with normal turgor. Normal color with no rashes, no lesions, and no evidence of cellulitis. MS/ Extremity: Pulses equal, no cyanosis. Neurovascular intact. Full, normal range of motion. 16:06 Neuro: Exam negative for acute changes, Orientation: is normal, Mentation: is normal, Motor: is normal, moves all fours. Vital Signs: 15:44 BP 138 / 98; Pulse 102; Resp 16; Temp 98.2; Pulse Ox 100% on R/A; Weight 79.83 kg; hb Height 4 ft. 10 in. (147.32 cm); Pain 9/10; 16:15 BP 109 / 72; Pulse 67; Resp 18; Temp 98.2(TE); Pulse Ox 96% on R/A; Pain 10/10; ks7 16:33 BP 99 / 61; Pulse 78; Resp 18; Pulse Ox 96% ; ks7 17:31 Pain 0/10; ks7 17:31 Pain 0/10; ks7 15:44 Body Mass Index 36.78 (79.83 kg, 147.32 cm) hb MDM: 15:49 Patient medically screened. pm1 16:09 Data reviewed: vital signs. Data interpreted: Pulse oximetry: on room air is 100 %. pm1 Interpretation: normal. 17:23 Counseling: I had a detailed discussion with the patient and/or guardian regarding: the pm1 historical points, exam findings, and any diagnostic results supporting the discharge/admit diagnosis, lab results, radiology results, the need for outpatient follow up, to return to the emergency department if symptoms worsen or persist or if there are any questions or concerns that arise at home. 11/02 16:02 Order name: Basic Metabolic Panel; Complete Time: 16:44 pm1 11/02 16:02 Order name: CBC with Diff; Complete Time: 16:29 pm1 11/02 16:02 Order name: Hepatic Function; Complete Time: 16:44 pm1 11/02 16:02 Order name: Lipase; Complete Time: 16:44 pm1 11/02 17:16 Order name: Urine Dipstick--Ancillary (enter results); Complete Time: 17:35 eb 11/02 17:16 Order name: Urine --Ancillary (enter results); Complete Time: 17:35 eb 11/02 16:02 Order name: IV Saline Lock; Complete Time: 16:14 pm1 11/02 16:02 Order name: Labs collected and sent; Complete Time: 16:14 pm1 11/02 16:02 Order name: Urine Dipstick-Ancillary (obtain specimen); Complete Time: 17:19 pm1 11/02 16:02 Order name: CT Abd/Pelvis - IV Contrast Only; Complete Time: 17:22 pm1 Administered Medications: Discontinued: NS 0.9% 1000 ml IV at 1000 ml once 16:27 Drug: NS 0.9% 1000 ml Route: IV; Rate: 1000 ml; Site: left forearm; ks7 16:28 Drug: fentaNYL (PF) 50 mcg Route: IVP; Site: left forearm; ks7 17:31 Follow up: Pain 0/10 Adult ks7 16:29 Drug: Zofran (Ondansetron) 4 mg Route: IVP; Site: left forearm; ks7 17:31 Follow up: Pain 0/10 Adult ks7 Disposition: 11/03 05:34 Co-signature as Attending Physician, Chay Gallo MD I agree with the assessment and jae plan of care. Disposition: 11/03/19 17:23 Discharged to Home. Impression: Unspecified abdominal pain, Constipation, unspecified. - Condition is Stable. - Discharge Instructions: Abdominal Pain, Adult, Constipation, Adult. - Prescriptions for Zofran ODT 4 mg Oral tablet,disintegrating - place 1 tablet by TRANSLINGUAL route every 8 hours As needed; 12 tablet. Bentyl 20 mg Oral Tablet - take 1 tablet by ORAL route every 6 hours As needed; 20 tablet. Lactulose 10 gram/15 mL Oral Solution - take 30 milliliter by ORAL route once daily; 300 milliliter. - Medication Reconciliation Form, Thank You Letter, Antibiotic Education, Prescription Opioid Use form. - Follow up: Emergency Department; When: As needed; Reason: Worsening of condition. Follow up: Private Physician; When: 2 - 3 days; Reason: Recheck today's complaints, Continuance of care, Re-evaluation by your physician. - Problem is new. - Symptoms have improved. Signatures: Dispatcher [employer] EDMS Chay Gallo MD MD cha Calderon, Audri RN RN aa5 Yomi Atkins NP BUSINESS CONTINUITY ANALYST pm1 Aditi Stein RN RN Gregoria Ortiz RN RN ks7 Corrections: (The following items were deleted from the chart) 11/02 16:12 16:06 Abdomen/GI: Positive for abdominal pain, nausea and vomiting, of the umbilical pm1 area, Negative for diarrhea, constipation, pm1 16:13 16:06 Associated signs and symptoms: Pertinent positives: nausea and vomiting, pm1 Pertinent negatives: chest pain, constipation, diarrhea, dysuria, fever, shortness of breath, pm1 16:13 16:06 Abdomen/GI: Positive for abdominal pain, nausea and vomiting, constipation, of pm1 the umbilical area, Negative for diarrhea, constipation, pm1 17:26 17:23 11/03/2019 17:23 Discharged to Home. Impression: Unspecified abdominal pain. pm1 Condition is Stable. Forms are Medication Reconciliation Form, Thank You Letter, Antibiotic Education, Prescription Opioid Use. Follow up: Emergency Department; When: As needed; Reason: Worsening of condition. Follow up: Private Physician; When: 2 - 3 days; Reason: Recheck today's complaints, Continuance of care, Re-evaluation by your physician. Problem is new. Symptoms have improved. pm1 17:53 17:26 11/03/2019 17:23 Discharged to Home. Impression: Unspecified abdominal pain; aa5 Constipation, unspecified. Condition is Stable. Discharge Instructions: Abdominal Pain, Adult, Constipation, Adult. Prescriptions for Zofran ODT 4 mg Oral tablet,disintegrating - place 1 tablet by TRANSLINGUAL route every 8 hours As needed; 12 tablet, Bentyl 20 mg Oral Tablet - take 1 tablet by ORAL route every 6 hours As needed; 20 tablet, Miralax 17 gram/dose Oral - take 1 packet by ORAL route once daily As needed dilute powder in 8 ounces of water or juice; 7 packet. and Forms are Medication Reconciliation Form, Thank You Letter, Antibiotic Education, Prescription Opioid Use. Follow up: Emergency Department; When: As needed; Reason: Worsening of condition. Follow up: Private Physician; When: 2 - 3 days; Reason: Recheck today's complaints, Continuance of care, Re-evaluation by your physician. Problem is new. Symptoms have improved. pm1
--- NOTE | 2019-11-03 17:24 | ER ---
Nurse's Notes [facility] Name: Hannah Oneill Age: 39 yrs Sex: Female : 1980 Arrival Date: 11/03/2019 Time: 15:40 Bed 18 Private MD: Diagnosis: Unspecified abdominal pain;Constipation, unspecified Presentation: 11/02 15:44 Chief complaint: Sharp right sided abdominal pain and nausea x 2 days. Pain has become hb severe. Coronavirus screen: Proceed with normal triage. Ebola Screen: No symptoms or risks identified at this time. Initial Sepsis Screen: Does the patient meet any 2 criteria? No. Patient's initial sepsis screen is negative. Does the patient have a suspected source of infection? No. Patient's initial sepsis screen is negative. Risk Assessment: Do you want to hurt yourself or someone else? Patient reports no desire to harm self or others. Onset of symptoms was November 01, 2019. 15:44 Method Of Arrival: Ambulatory hb 15:44 Acuity: MARY ANNE 3 hb Triage Assessment: 15:55 General: Appears uncomfortable, Behavior is cooperative. Pain: Complains of pain in ks7 abdomen left side Pain currently is 8 out of 10 on a pain scale. Quality of pain is described as sharp. GI: Reports upper abdominal pain. 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 - Social history:: Smoking status: Patient reports the use of cigarette tobacco products, smokes one-half pack cigarettes per day. Screenin:56 Abuse screen: Denies threats or abuse. Denies injuries from another. Nutritional ks7 screening: No deficits noted. Tuberculosis screening: No symptoms or risk factors identified. Fall Risk None identified. Assessment: 16:30 General: Reports feeling ill for c/o pain to abd, umbilicus area and to the left. pt ks7 also c/o N/V and she hasn't "pooped for a few days". Pain: Complains of pain in abdomen Pain currently is 10 out of 10 on a pain scale. Quality of pain is described as sharp, Also complains of decreased appetite, nausea. GI: Bowel sounds hypoactive in right upper quadrant, left upper quadrant, right lower quadrant and left lower quadrant Abdomen is tender to palpation in umbilical area, right upper quadrant and left upper quadrant. 17:53 Reassessment: Patient is alert, oriented x 3, equal unlabored respirations, skin aa5 warm/dry/pink. Vital Signs: 15:44 BP 138 / 98; Pulse 102; Resp 16; Temp 98.2; Pulse Ox 100% on R/A; Weight 79.83 kg; hb Height 4 ft. 10 in. (147.32 cm); Pain 9/10; 16:15 BP 109 / 72; Pulse 67; Resp 18; Temp 98.2(TE); Pulse Ox 96% on R/A; Pain 10/10; ks7 16:33 BP 99 / 61; Pulse 78; Resp 18; Pulse Ox 96% ; ks7 17:31 Pain 0/10; ks7 17:31 Pain 0/10; ks7 15:44 Body Mass Index 36.78 (79.83 kg, 147.32 cm) hb ED Course: 15:40 Patient arrived in ED. ag5 15:46 Triage completed. hb 15:47 Arm band placed on. hb 15:49 Yomi Atkins NP is PHCP. pm1 15:49 Chay Gallo MD is Attending Physician. pm1 15:55 Gregoria Ortiz, KWESI is Primary Nurse. ks7 15:56 Patient has correct armband on for positive identification. Bed in low position. Call ks7 light in reach. Side rails up X2. 15:56 No provider procedures requiring assistance completed. ks7 16:14 Basic Metabolic Panel Sent. ks7 16:14 CBC with Diff Sent. ks7 16:14 Hepatic Function Sent. ks7 16:14 Lipase Sent. ks7 16:15 Resting quietly. ks7 16:15 Inserted saline lock: 20 gauge in left forearm, using aseptic technique. Blood ks7 collected. 16:[address] via wheelchair. ks7 16:49 CT completed. Patient tolerated procedure well. Patient moved back from CT. bq 16:50 CT Abd/Pelvis - IV Contrast Only In Process Unspecified. EDMS 16:56 ambulated to bathroom independently. urine collected. ks7 17:30 Nurse Practitioner and/or Physician Chute Tapper to see patient. updating pt on plan of ks7 care, dc instructions. 17:53 IV discontinued, intact, bleeding controlled, No redness/swelling at site. Pressure aa5 dressing applied. Administered Medications: Discontinued: NS 0.9% 1000 ml IV at 1000 ml once 16:27 Drug: NS 0.9% 1000 ml Route: IV; Rate: 1000 ml; Site: left forearm; ks7 16:28 Drug: fentaNYL (PF) 50 mcg Route: IVP; Site: left forearm; ks7 17:31 Follow up: Pain 0/10 Adult ks7 16:29 Drug: Zofran (Ondansetron) 4 mg Route: IVP; Site: left forearm; ks7 17:31 Follow up: Pain 0/10 Adult ks7 Outcome: 17:23 Discharge ordered by MD. pm1 17:53 Discharged to home ambulatory. aa5 17:53 Condition: stable 17:53 Discharge instructions given to patient, Instructed on discharge instructions, follow up and referral plans. medication usage, Demonstrated understanding of instructions, follow-up care, medications, Prescriptions given X 3. 17:53 Patient left the ED. aa5 Signatures: Dispatcher [employer] [facility] Cee George Mckenzie Carr RN KWESI aa5 Yomi Atkins, MANUFACTURING PROJECT MANAGER MANUFACTURING PROJECT MANAGER pm1 Aditi Stein RN RN hb [place], Ajare 5 Gregoria Ortiz RN RN ks7
[2019-11-03 17:27] LABS: Urine Blood NEGATIVE (NEG); Urine Glucose NEGATIVE (NEG); Urine Protein NEGATIVE (NEG); Urine pH 7.5 (5.0-7.0)
[2019-11-03 18:17] VITALS: TEMP 98.2
[2019-11-03 18:19] VITALS: O2SAT 96
[2019-11-03 18:21] VITALS: BP 99/61
[2019-11-03] MEDS ORDERED: LIDOCAINE 1% MPF 30 ML VIAL ONE (19:23)
== END 2019-11-03 17:53 | disposition home or self-care (01) ==
LOC: ER 15:39
DX: K59.00 Constipation, unspecified (principal); E03.9 Hypothyroidism, unspecified; F17.210 Nicotine dependence, cigarettes, uncomplicated; Z88.5 Allergy status to narcotic agent; Z88.6 Allergy status to analgesic agent; Z91.013 Allergy to seafood; Z91.018 Allergy to other foods; Z91.040 Latex allergy status; Z91.048 Other nonmedicinal substance allergy status
CPT/HCPCS: 85025; 80048; 36415; 81025; 80076; 81003; 83690; 74177; Q9967; J3010; J7030; J2405; 96374; 96375; 99284

== ENCOUNTER 2019-11-29 22:31 | Emergency (ER) | payer OTHER ==
--- OUTSIDE RECORDS SUMMARY | 2019-11-29 22:33 | XMS REPORT | Continuity of Care Document ---
:1980 Author Organization [facility] t Address [address] [place] [address] Care Team Providers Name Role Phone Jacqueline [...] Date/Time Type Type Clinicians Facility Department ID 2019-11-05 2019-11-05 Telephone LUIZA Winn [id number] 00:00:00 00:00:00 [facility] [id number] [place] [id number] Professio [phone] nal [facility] Office Building One 2019-10-02 2019-10-02 Refill LUIZA Winn [id number] 00:00:00 00:00:00 [facility] [id number] [place] [id number] Professio [phone] nal 044 Office Building One 2019-09-30 2019-09-30 Refill LUIZA Winn [id number] 00:00:00 00:00:00 [facility] [id number] [place] [id number] Professio [phone] nal [facility] Office Building One 2019-09-27 2019-09-27 Refill LUIZA Winn [id number] 00:00:00 00:00:00 [facility] [id number] [place] [id number] Professio [phone] nal 044 Office Building One 2019-08-27 2019-08-27 Office LUIZA [place] [id number] 09:12:11 13:48:32 Visit [facility] [id number] [place] [id number] [place] [phone] Medical [facility] Office Building 2019-07-30 2019-07-30 Patient [place] [id number] 00:00:00 00:00:00 Secure Msg [facility] [id number] [place] [id number] [place] [phone] Medical 2 Office Building 2019-07-26 2019-07-26 Patient LUIZA Winn [id number] 00:00:00 00:00:00 Secure Msg [facility] [id number] [place] [id number] Professio [phone] nal [facility] Office Building One Results This patient has no known results.
--- OUTSIDE RECORDS SUMMARY | 2019-11-29 22:35 | XMS REPORT | Summary of Care ---
:1980 Author Organization [facility] Address [address] [place] [id number] Care Team Providers Name Role Phone Jacqueline Winn MD Primary Care Provider Tech, Cardio Fac Unavailable Unavailable Boo Fontaine MD Unavailable Reason for Visit Reason Comments Assessment Encounter Details Date Type Department Care Team Description 11/05/2019 Telephone [facility] Jacqueline Thomas MD Assessment - [address] [place] [address] [place] [address] [phone] Allergies Active Allergy Reactions Severity Noted Date Comments Bee [place] Anaphylaxis 08/14/2017 [place] Swelling 02/18/2016 Clams Swelling 02/18/2016 Tree Nuts Other - See comments 02/18/2016 Throat itching / raw Latex Itching 12/04/2015 Morphine Shortness of Breath 12/04/2015 Ibuprofen Hives 12/04/2015 Pork Derived (Porcine) Swelling 02/18/2016 documented as of this encounter (statuses as of 11/06/2019) Medications Medication Sig Dispensed Refills Start End Date Status Date aspirin 81 mg chewable Take 81 mg by 0 Active tablet mouth daily. vitamin B-12 (VITAMIN Take 1 tablet by 30 tablet 5 Active B-12) 500 mcg mouth daily. 8 tabletIndications: B12 deficiency Insulin [place], Use as directed 100 Each 1 Active [...] as of this encounter (statuses as of 11/06/2019) Active Problems Problem Noted Date Hill's palsy [...] as of this encounter (statuses as of 11/06/2019) Immunizations Name Administration Dates Next Due Influenza [...] Office Visit Neurology Marcus [place] MD [address] [place] [address] [phone] 03/03/2020 Office Visit Neurology Marcus Madison MD [address] [place], [place] [address] [phone] Health Maintenance Due Date Last Done Comments VARICELLA VACCINES (1 of 2 - 1981 2-dose childhood series) PNEUMOCOCCAL 0-64 YEARS COMBINED 1986 SERIES (1 of 1 - PPSV23) DTaP,Tdap,and Td Vaccines (1 - 1991 Tdap) PAP SMEAR 02/17/2019 02/18/2016 URINE MICROALBUMIN 02/23/2019 02/23/2018 INFLUENZA VACCINE (#1) 2019 12/25/2015 FOOT EXAM 12/28/2019 12/27/2018, 11/28/2017, [...] Problems Progress Quit using Tobacco Use No [place], tobacco [place] [facility], (cigarettes, MD smokeless, etc) documented as of this encounter Results Not on filedocumented in this encounter Additional Health Concerns Infection Onset Date Last Indicated Resolved Time Contact- MRSA 02/27/2017 02/27/2017 documented as of this encounter Insurance Payer Benefit Plan / Subscriber ID Effective Phone Address T ype Group Dates [facility] [id number] 2018-Prese Medic are Adv HEALTHCARE - HEALTHCARE nt PPO MANAGED MEDICARE [place] MEDICARE [place] xxxxxxxxx 2017-Pres Medicaid HEALTHCARE COMM PLUS ent PLAN - MANAGED MEDICAID documented as of this encounter Advance Directives Name Relationship Healthcare Agent Relationship Co mmunication Juliann Oneill Mother Primary healthcare agent
[2019-11-29] MEDS ORDERED: LORazepam 2 MG/ML VIAL ONE (22:47)
[2019-11-29] MEDS ORDERED: LEVETIRACETAM 500 MG/5 ML VIAL IV ONE (22:53)
[2019-11-29] MEDS ORDERED: NA CHLORIDE 0.9% 100 ML IV ONE (22:53)
[2019-11-29 22:56] LABS: Absolute Lymphocytes (CBC) 5.5 K/uL (0.7-4.9); Basophils % 0.5 % (0-1.3); Hematocrit 46.1 % (36.0-45.0); RBC Red Blood Cell Count 5.36 M/uL (3.86-4.86)
[2019-11-29 23:02] LABS: Protime INR 0.85
[2019-11-29] MEDS ORDERED: NA CHLORIDE 0.9% 1,000 ML ONE (23:20)
[2019-11-29 23:22] LABS: ALT/SGPT 43 U/L (12-78); AST/SGOT 22 U/L (15-37); Albumin 3.6 g/dL (3.4-5.0); Alkaline Phosphatase 97 U/L (45-117); BUN Blood Urea Nitrogen 12 mg/dL (7-18); Bicarbonate 25 mmol/L (21-32); Bilirubin Direct < 0.1 mg/dL (0-0.2); Bilirubin Total 0.3 mg/dL (0.2-1.0); Glucose Level 126 mg/dL (74-106); Potassium 3.9 mmol/L (3.5-5.1); Protein, Total 7.8 g/dL (6.4-8.2); Sodium Level 142 mmol/L (136-145); T3 Free 2.85 pg/mL (2.18-3.98)
[2019-11-29] MEDS ORDERED: ACETAMINOPHEN 500 MG TAB ONE (23:50)
--- NOTE | 2019-11-30 01:10 | ER ---
Nurse's Notes [facility] Name: Hannah Oneill Age: 39 yrs Sex: Female : 1980 Arrival Date: 11/29/2019 Time: 22:38 Bed 3 Private MD: Diagnosis: Seizure Presentation: 11/28 22:38 Chief complaint: sister states: "she has a history of seizures, today she had 3 of them jd3 back to back and hit head. she has recently thrown out all of her meds so she also had a seizure yesterday.". Coronavirus screen: At this time, the client does not indicate any symptoms associated with coronavirus-19. Ebola Screen: Patient negative for fever greater than or equal to 101.5 degrees Fahrenheit, and additional compatible Ebola Virus Disease symptoms. Initial Sepsis Screen: Does the patient meet any 2 criteria? No. Patient's initial sepsis screen is negative. Does the patient have a suspected source of infection? No. Patient's initial sepsis screen is negative. Risk Assessment: Do you want to hurt yourself or someone else? Patient reports no desire to harm self or others. Onset of symptoms was November 29, 2019. 22:38 Method Of Arrival: Wheelchair jd3 22:38 Acuity: MARY ANNE 3 jd3 CENA: 22:42 LMP N/A - Hysterectomy jd3 Historical: - Allergies: 22:42 cherries; jd3 22:42 Chives; jd3 22:42 clams; jd3 22:42 coconuts; jd3 22:42 codeine sulfate; jd3 22:42 Ibuprofen (Throat Swells); jd3 22:42 Latex, Natural Rubber; jd3 22:42 Morphine (Anaphylaxis); jd3 - Home Meds: 22:42 levothyroxine 125 mcg tab once daily [Active]; jd3 - PMHx: 22:42 Hypothyroidism; Pseudo-seizures; Migraines; jd3 - PSHx: 22:42 Hysterectomy; GOLDEN Knee; jd3 - Immunization history:: Adult Immunizations up to date. - Social history:: Smoking status: Patient reports the use of cigarette tobacco products, smokes three packs cigarettes per day. Screenin:50 Abuse screen: Denies threats or abuse. Denies injuries from another. Nutritional rr5 screening: No deficits noted. Tuberculosis screening: No symptoms or risk factors identified. Fall Risk Secondary diagnosis (15 points) seizures, IV access (20 points). Mental Status- Overestimates/Forgets Limitations (15 pts.). Total Walton Fall Scale indicates High Risk Score (45 or more points). Fall prevention measures have been instituted. Side Rails Up X 2 Placed Close to Nursing Station Frequent Obs/Assessments Occuring As available patient and family educated on Fall Prevention Program and Strategies. Assessment: 23:10 Reassessment: Patient appears in no apparent distress at this time. drowsy, respond to rr5 verbal stimuli. O2 91%, hooked to oxygen at 3 liter via nasal cannula. reassess by ED provider. 23:43 Reassessment: Patient appears in no apparent distress at this time. ED provider aware rr5 with order made and carried out. Pain: Complains of pain in head Pain currently is 8 out of 10 on a pain scale. Quality of pain is described as aching, Pain began gradually, Is continuous. 23:58 Reassessment: Hanane (sister) . ea 11/29 00:56 Reassessment: Pt reacts to verbal stimulus, oriented x 3. Pt was able to sit on the ea side of the bed, without assist. Tolerated well. Pt reports she doesn't think she will be able to ambulate yet. 01:55 Reassessment: Patient and/or family updated on plan of care and expected duration. Pain ea level reassessed. Pt more alert, oriented x 3. Pt is able to ambulate with standby assists, tolerating well. Discharge instruction given to patient, verbalized the understanding of instruction. Pt left ED via wheelchair per ED staff. Pt assisted to vehicle per family and ED staff, tolerated well. Vital Signs: 11/28 22:42 BP 150 / 103; Pulse 101; Resp 20 S; Temp 98.3(A); Pulse Ox 96% on R/A; Pain 11/17; jd3 23:14 BP 116 / 83; Pulse 90; Resp 19; Pulse Ox 95% on 3 lpm NC; rr5 11/29 00:59 BP 130 / 43; Pulse 84; Resp 18; Pulse Ox 98% on 3 lpm NC; ea 01:55 BP 99 / 50; Pulse 80; Resp 18; Pulse Ox 95% on R/A; ea ED Course: 11/28 22:38 Patient arrived in ED. jd3 22:38 Chay Marlow PA is PHCP. cp 22:38 Vaughn Pierre MD is Attending Physician. cp 22:40 Triage completed. jd3 22:43 Arm band placed on. jd3 22:49 Anne Carranza, KWESI is Primary Nurse. ea 22:50 Patient has correct armband on for positive identification. Bed in low position. Call rr5 light in reach. Side rails up X2. Seizure precautions initiated. mining machinery assembler on. Pulse ox on. NIBP on. 23:12 CT Head C Spine In Process Unspecified. EDMS 23:33 EKG done, by ED staff, reviewed by Vaughn Pierre MD. rr5 11/29 01:07 Mehdi Peña MD is Referral Physician. cp 01:55 No provider procedures requiring assistance completed. ea 01:55 IV discontinued, intact, bleeding controlled, No redness/swelling at site. Pressure ea dressing applied. Administered Medications: 11/28 22:40 Drug: Ativan 1 mg Route: IVP; Site: right forearm; ea 23:40 Follow up: Response: No adverse reaction ea 22:50 Drug: Keppra 1000 mg Route: IV; Rate: calculated rate; Site: right forearm; ea 23:13 Follow up: Response: No adverse reaction; IV Status: Completed infusion; IV Intake: rr5 100ml 23:13 Drug: NS 0.9% 1000 ml Route: IV; Rate: 1 bolus; Site: right antecubital; rr5 11/29 00:54 Follow up: Response: No adverse reaction; IV Status: Completed infusion; IV Intake: ea 1000ml 11/28 23:42 Drug: Tylenol 1000 mg Route: PO; rr5 11/29 00:54 Follow up: Response: No adverse reaction ea Intake: 11/28 23:13 IV: 100ml; Total: 100ml. rr5 11/29 00:54 IV: 1000ml; Total: 1100ml. ea Outcome: 01:09 Discharge ordered by . cp 02:05 Discharged to home via wheelchair, with family. ea 02:05 Condition: stable 02:05 Discharge instructions given to patient, family, Instructed on discharge instructions, follow up and referral plans. medication usage, Demonstrated understanding of instructions, follow-up care, medications, Prescriptions given X 1. 02:06 Patient left the ED. ea Signatures: Dispatcher [employer] EDMS Chay Marlow PA PA cp Antunez, Elena, RN RN Aguila Dexter RN RN jd3 Chris Ferrara RN RN rr5
--- NOTE | 2019-11-30 01:10 | EDPHYS ---
Physician Documentation [facility] Name: Hannah Oneill Age: 39 yrs Sex: Female : 1980 Arrival Date: 11/29/2019 Time: 22:38 Bed 3 Private MD: ED Physician Vaughn Pierre HPI: 11/28 22:45 This 39 yrs old Female presents to ER via Wheelchair with complaints of cp Seizure. 22:45 The patient presents with a history of multiple seizures, a total of 3, the episode(s) cp was witnessed, by family. Seizure onset: today. Seizure Hx: Seizure medications: Keppra. Associated injury: Head/face: pain. Current symptoms: confusion, decreased level of consciousness, arms and legs contracted. 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 - Social history:: Smoking status: Patient reports the use of cigarette tobacco products, smokes three packs cigarettes per day. ROS: 22:50 Constitutional: Negative for fever. cp 22:50 Unable to obtain ROS due to patient's inability to understand questions. cp Exam: 22:55 Constitutional: The patient appears in no acute distress, awake, non-toxic, well cp developed, well nourished. 22:55 Head/Face: Normocephalic, atraumatic. cp 22:55 Eyes: Pupils: equal, round, and reactive to light and accomodation, Conjunctiva: normal, no exudate, no injection, Sclera: no appreciated abnormality, Lids and lashes: appear normal, bilaterally. 22:55 ENT: External ear(s): are unremarkable, Nose: is normal, Mouth: Lips: moist, Posterior pharynx: Airway: no evidence of obstruction, patent. 22:55 Neck: C-spine: crepitus, is not appreciated. 22:55 Chest/axilla: Inspection: normal. 22:55 Cardiovascular: Rate: normal, Rhythm: regular. 22:55 Respiratory: the patient does not display signs of respiratory distress, Respirations: normal, no use of accessory muscles, no retractions, labored breathing, is not present, Breath sounds: are clear throughout. 22:55 Abdomen/GI: Inspection: abdomen appears normal. 22:55 Musculoskeletal/extremity: Exam is negative for deformity, injury. 22:55 Neuro: Orientation: unable to test, patient not verbally responsive, Mentation: unable to test, Motor: the patient is contracted. 23:38 ECG was reviewed by the Attending Physician. Vital Signs: 22:42 BP 150 / 103; Pulse 101; Resp 20 S; Temp 98.3(A); Pulse Ox 96% on R/A; Pain 8/10; jd3 23:14 BP 116 / 83; Pulse 90; Resp 19; Pulse Ox 95% on 3 lpm NC; rr5 11/29 00:59 BP 130 / 43; Pulse 84; Resp 18; Pulse Ox 98% on 3 lpm NC; ea 01:55 BP 99 / 50; Pulse 80; Resp 18; Pulse Ox 95% on R/A; ea MDM: 11/28 22:42 Patient medically screened. cp 23:00 Differential diagnosis: cerebral vascular accident, drug overdose, seizure, TIA. cp 23:30 ED course: VSS. Patient now more alert and when questioned, reports being prescribed cp Keppra for seizures and not taking medication recently. 11/29 01:08 Data reviewed: vital signs, nurses notes, lab test result(s), EKG, radiologic studies, cp CT scan. 01:08 Test interpretation: by ED physician or midlevel provider: ECG. Counseling: I had a cp detailed discussion with the patient and/or guardian regarding: the historical points, exam findings, and any diagnostic results supporting the discharge/admit diagnosis, lab results, radiology results, the need for outpatient follow up, a neurologist, to return to the emergency department if symptoms worsen or persist or if there are any questions or concerns that arise at home. Response to treatment: the patient's symptoms have markedly improved after treatment, VSS. No seizure activity observed while patient in ED. Will discharge to home for continued monitoring. 11/28 22:41 Order name: Acetaminophen; Complete Time: 00:21 cp 11/28 22:41 Order name: Basic Metabolic Panel; Complete Time: 00: cp 11/29 00:22 Interpretation: Normal except: CL 109; GLUC 126; GFR 74. cp 11/28 22:41 Order name: CBC with Diff; Complete Time: 00: cp 11/29 00:22 Interpretation: Normal except: WBC 12.5; RBC 5.36; HGB 15.7; HCT 46.1; LYMA 5.5. cp 11/28 22:41 Order name: ETOH Level; Complete Time: 00: cp 11/28 22:41 Order name: Hepatic Function; Complete Time: 00: cp 11/28 22:41 Order name: PT-INR; Complete Time: 00: cp 11/28 22:41 Order name: Ptt, Activated; Complete Time: 00: cp 11/28 22:41 Order name: Salicylate; Complete Time: 00: cp 11/28 22:41 Order name: CT Head C Spine cp 11/28 22:42 Order name: TSH; Complete Time: 00: cp 11/28 22:42 Order name: T3 Free; Complete Time: 00: cp 11/28 22:41 Order name: EKG; Complete Time: 22:42 cp 11/28 22:41 Order name: EKG - Nurse/Tech; Complete Time: 23:33 cp 11/28 22:41 Order name: IV Saline Lock; Complete Time: 23:33 cp 11/28 22:41 Order name: Labs collected and sent; Complete Time: 23:33 cp EC/21 23:38 Rate is 84 beats/min. Rhythm is regular. OK interval is normal. QRS interval is normal. cp QT interval is normal. T waves are Inverted in lead aVR. Interpreted by me. Reviewed by me. Administered Medications: 22:40 Drug: Ativan 1 mg Route: IVP; Site: right forearm; ea 23:40 Follow up: Response: No adverse reaction ea 22:50 Drug: Keppra 1000 mg Route: IV; Rate: calculated rate; Site: right forearm; ea 23:13 Follow up: Response: No adverse reaction; IV Status: Completed infusion; IV Intake: rr5 100ml 23:13 Drug: NS 0.9% 1000 ml Route: IV; Rate: 1 bolus; Site: right antecubital; rr5 11/29 00:54 Follow up: Response: No adverse reaction; IV Status: Completed infusion; IV Intake: ea 1000ml 11/28 23:42 Drug: Tylenol 1000 mg Route: PO; rr5 11/29 00:54 Follow up: Response: No adverse reaction ea Disposition: Chart complete. cp 03:36 Co-signature as Attending Physician, Vaguhn Pierre MD. mh7 Disposition: 11/30/19 01:09 Discharged to Home. Impression: Seizure. - Condition is Stable. - Discharge Instructions: Seizure, Adult. - Prescriptions for Keppra 500 mg Oral Tablet - take 1 tablet by ORAL route once daily; 30 tablet. - Medication Reconciliation Form, Thank You Letter, Antibiotic Education, Prescription Opioid Use form. - Follow up: Mehdi Peña MD; When: 2 - 3 days; Reason: Recheck today's complaints. - Problem is an ongoing problem. - Symptoms have improved. Signatures: Dispatcher [employer] EDMS Chay Marlow PA PA cp Antunez, Elena, RN RN ea Davies, Jonathon, RN RN jd3 Roque, Raymond, RN RN rr5 Vaughn Pierre MD MD 7 Corrections: (The following items were deleted from the chart) 00:51 11/28 22:50 Unable to obtain ROS due to post ictal, cp cp 11/29 01:10 01:09 11/30/2019 01:09 Discharged to Home. Impression: Pseudoseizure. Condition is cp Stable. Forms are Medication Reconciliation Form, Thank You Letter, Antibiotic Education, Prescription Opioid Use. Follow up: Mehdi Peña; When: 2 - 3 days; Reason: Recheck today's complaints. Problem is an ongoing problem. Symptoms have improved. cp 02:06 01:10 11/30/2019 01:09 Discharged to Home. Impression: Seizure. Condition is Stable. ea Forms are Medication Reconciliation Form, Thank You Letter, Antibiotic Education, Prescription Opioid Use. Follow up: Mehdi Peña; When: 2 - 3 days; Reason: Recheck today's complaints. Problem is an ongoing problem. Symptoms have improved. cp
--- NOTE | 2019-11-30 14:04 | RAD REPORT ---
EXAM DESCRIPTION: CT - Head C Spine Mpr Wo Con - 11/30/2019 5:09 am CLINICAL HISTORY: Headache COMPARISON: None. TECHNIQUE: CT Head and Cervical spine WO contrast on 11/29/2019 10:41 PM CDT This exam was performed according to our departmental dose-optimization program, which includes autom ated exposure control, adjustment of the mA and/or kV according to patient size and/or use of iterati ve reconstruction technique. FINDINGS: Brain: There is no acute hemorrhage, mass effect or midline shift. Colón-white differentiat ion is preserved. There is no hydrocephalus. There is no significant volume loss for age. The calvarium is intact. Orbits and globes are unremarkable. The paranasal sinuses are clear. Mastoid air cells are clear. Cervical Spine: There is no acute fracture. Alignment is anatomic. Disc spaces are maintained. Vertebral body heights are preserved. Soft tissues are unremarkable. IMPRESSION: No acute postraumatic findings. Electronically signed by: Bhavesh York MD 11/29/2019 11:23 PM CDT Due to temporary technical issues with the PACS/Fluency reporting system, reports are being signed by the in house radiologist without review as a courtesy to ensure prompt reporting. The interpreting r adiologist is fully responsible for the content of the report.
== END 2019-11-30 02:06 | disposition home or self-care (01) ==
LOC: ER 22:31
DX: R56.9 Unspecified convulsions (principal); Z88.6 Allergy status to analgesic agent; Z91.040 Latex allergy status; Z91.018 Allergy to other foods; Z91.013 Allergy to seafood; E03.9 Hypothyroidism, unspecified; F17.210 Nicotine dependence, cigarettes, uncomplicated
CPT/HCPCS: 96365; 96361; 93005; 85025; 80048; 36415; 80320; 80329 ×2; 85610; 80076; 85730; 84443; 84481; 70450; 72125; 96375; 99284; J1953; J7030

== ENCOUNTER 2019-12-18 21:39 | Emergency (ER) | payer OTHER ==
--- OUTSIDE RECORDS SUMMARY | 2019-12-18 21:41 | XMS REPORT | Continuity of Care Document ---
:[address] [facility] t Address [address] [place] [address] Care Team Providers Name Role Phone Jacqueline [...] 2019-11-05 2019-11-05 Telephone LUIZA Winn [id number] 00:00:00 00:00:00 [facility] [id number] [place] [id number] Professio [phone] nal [facility] Office Building One 2019-10-02 2019-10-02 Refill LUIZA Winn [id number] 00:00:00 00:00:00 [facility] [id number] [place] [id number] Professio [phone] nal [address] Office [address] One 2019-09-30 2019-09-30 Refill LUIZA Winn [id number] 00:00:00 00:00:00 [facility] [id number] [place] [id number] Professio [phone] nal [facility] Office Building One 2019-09-27 2019-09-27 Refill LUIZA Winn [id number] 00:00:00 00:00:00 [facility] [id number] [place] [id number] Professio [phone] nal 044 Office Building One 2019-08-27 2019-08-27 Office LUIZA [place] [id number] 09:12:11 13:48:32 Visit [facility] [id number] Clear [id number] [place] [phone] Medical [facility] Office Building 2019-07-30 2019-07-30 Patient [place] ARNESTOR [id number] 00:00:00 00:00:00 Secure Msg [facility] [id number] Clear [id number] [place] [phone] Medical 2 Office Building 2019-07-26 2019-07-26 Patient LUIZA Winn [id number] 00:00:00 00:00:00 Secure Msg [facility] [id number] [place] [id number] Professio [phone] nal [facility] Office Building One Results This patient has no known results.
[2019-12-18] MEDS ORDERED: LIDOCAINE VISCOUS 2% SOLN 15 ML UDC ONE (22:10)
[2019-12-18] MEDS ORDERED: MAGNE/ALUM HYDROXD 30 ML UCUP ONE (22:10)
[2019-12-18] MEDS ORDERED: ONDANSETRON 4 MG/2 ML VIAL ONE (22:10)
[2019-12-18 22:21] LABS: Absolute Lymphocytes (CBC) 4.9 K/uL (0.7-4.9); Basophils % 0.5 % (0-1.3); Hematocrit 43.2 % (36.0-45.0); Lymphocytes % 36.3 % (15.3-44.8); MPV 8.7 fL (7.6-11.3); RBC Red Blood Cell Count 5.04 M/uL (3.86-4.86)
[2019-12-18 22:23] LABS: Protime INR 0.85
[2019-12-18 22:35] LABS: ALT/SGPT 42 U/L (12-78); AST/SGOT 19 U/L (15-37); Albumin 3.5 g/dL (3.4-5.0); Alkaline Phosphatase 92 U/L (45-117); BUN Blood Urea Nitrogen 12 mg/dL (7-18); Bicarbonate 24 mmol/L (21-32); Bilirubin Direct < 0.1 mg/dL (0-0.2); Bilirubin Total 0.3 mg/dL (0.2-1.0); Glucose Level 98 mg/dL (74-106); Magnesium 2.3 mg/dL (1.8-2.4); NT PRO-BNP 38 pg/mL (<125); Potassium 3.8 mmol/L (3.5-5.1); Protein, Total 7.8 g/dL (6.4-8.2); Sodium Level 141 mmol/L (136-145); Troponin (Emerg Dept Use Only) < 0.02 ng/mL (0.0-0.045)
--- NOTE | 2019-12-18 22:48 | EDPHYS ---
Physician Documentation [facility] Name: Hannah Oneill Age: 39 yrs Sex: Female : 1980 Arrival Date: 12/18/2019 Time: 21:39 Bed 8 Private MD: ED Physician Vaughn Pierre HPI: 12/17 21:50 This 39 yrs old Female presents to ER via Ambulatory with complaints of Chest jmm Pain. 21:50 The patient or guardian reports chest pain that is located primarily in the anterior jm chest wall. The pain does not radiate. Associated signs and symptoms: Pertinent negatives: shortness of breath. The chest pain is described as sharp. Duration: The patient or guardian reports a single episode, that is still ongoing. Modifying factors: The symptoms are alleviated by nothing. the symptoms are aggravated by movement, palpation of area. This is a 39 year old female with a history of hypothyroidism that presents ot the ED with complaints of chest pain beginning approx 2 hours ago while cooking. Patient denies known injury. Pain is worsened with movement of the right arm. . 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 - Social history:: Smoking status: Patient reports the use of cigarette tobacco products, smokes one-half pack cigarettes per day. ROS: 21:50 Constitutional: Negative for fever, chills, and weight loss, Respiratory: Negative for jmm shortness of breath, cough, wheezing, and pleuritic chest pain. 21:50 Cardiovascular: Positive for chest pain. 21:50 All other systems are negative. Exam: 21:50 Constitutional: This is a well developed, well nourished patient who is awake, alert, jmm and in no acute distress. Head/Face: atraumatic. Eyes: EOMI, no conjunctival erythema appreciated ENT: Moist Mucus Membranes Neck: Trachea midline, Supple 21:50 Cardiovascular: Regular rate and rhythm. No edema appreciated Respiratory: Normal respirations, no respiratory distress appreciated Abdomen/GI: Non distended, soft Back: Normal ROM Skin: General appearance color normal MS/ Extremity: Moves all extremities, no obvious deformities appreciated, no edema noted to the lower extremities Neuro: Awake and alert, normal gait Psych: Behavior is normal, Mood is normal, Patient is cooperative and pleasant 21:50 Chest/axilla: Palpation: tenderness, that is moderate, of the mid-sternal area, that totally reproduces the patient's complaints. Vital Signs: 21:44 Weight 77.11 kg; Height 4 ft. 10 in. (147.32 cm) (R); ca1 21:54 BP 115 / 74; Pulse 88; Resp 18; Temp 98.5; Pulse Ox 96% on R/A; mg2 22:33 BP 115 / 81; Pulse 77; Resp 16; Pulse Ox 99% on R/A; Pain 6/10; mt2 23:01 BP 119 / 82; Pulse 76; Resp 16; Pulse Ox 97% ; Pain 0/10; mt2 21:44 Body Mass Index 35.53 (77.11 kg, 147.32 cm) ca1 MDM: 21:45 Patient medically screened. [facility] 22:45 Data reviewed: vital signs, nurses notes. Counseling: I had a detailed discussion with debi the patient and/or guardian regarding: the historical points, exam findings, and any diagnostic results supporting the discharge/admit diagnosis, lab results, radiology results, the need for outpatient follow up, to return to the emergency department if symptoms worsen or persist or if there are any questions or concerns that arise at home. ED course: Patient is alert and non toxic in appearance in the ED. Heart Score = 2. D-dimer negative. Patient is advised to follow up with pcp and otherwise given strict return precautions. Patient understood and agrees with the plan of care. . 12/17 21:43 Order name: Basic Metabolic Panel; Complete Time: :45 mg2 12/17 21:43 Order name: CBC with Diff; Complete Time: 22:31 mg2 12/17 21:43 Order name: LFT's; Complete Time: :45 mg2 12/17 21:43 Order name: Magnesium; Complete Time: :45 mg2 12/17 21:43 Order name: NT PRO-BNP; Complete Time: 22:45 mg2 12/17 21:43 Order name: PT-INR; Complete Time: 22:31 mg2 12/17 21:43 Order name: Troponin (emerg Dept Use Only); Complete Time: 22:45 mg2 12/17 21:43 Order name: XRAY Chest (1 view) mg2 12/17 21:43 Order name: EKG; Complete Time: 21:43 mg2 12/17 21:43 Order name: Cardiac monitoring; Complete Time: 21:55 mg2 12/17 22:05 Order name: D-Dimer; Complete Time: 22:31 EDMS 12/17 21:43 Order name: EKG - Nurse/Tech; Complete Time: 21:55 mg2 12/17 21:43 Order name: IV Saline Lock; Complete Time: 21:55 mg2 12/17 21:43 Order name: Labs collected and sent; Complete Time: 21:55 mg2 12/17 21:43 Order name: O2 Per Protocol; Complete Time: 21:55 mg2 12/17 21:43 Order name: O2 Sat Monitoring; Complete Time: 21:55 mg2 Administered Medications: 22:04 Drug: Zofran (Ondansetron) 4 mg Route: IVP; Site: right antecubital; mg2 22:34 Follow up: Response: No adverse reaction; Nausea is decreased mt2 22:04 Drug: GI Cocktail without - (Maalox Suspension 30 ml, Lidocaine Liquid 2 % 15 mg2 ml) Route: PO; 22:33 Follow up: Response: No adverse reaction; Pain is decreased mt2 Disposition: 12/18 05:53 Co-signature as Attending Physician, Vaughn Pierre MD. [email or web address] Disposition: 12/18/19 22:47 Discharged to Home. Impression: Chest pain, unspecified. - Condition is Stable. - Discharge Instructions: Nonspecific Chest Pain. - Prescriptions for orphenadrine citrate 100 mg Oral Tablet Sustained Release - take 1 tablet by ORAL route 2 times per day As needed; 20 tablet. - Medication Reconciliation Form, Thank You Letter, Antibiotic Education, Prescription Opioid Use form. - Follow up: Private Physician; When: 2 - 3 days; Reason: Recheck today's complaints, Continuance of care, Re-evaluation by your physician. Signatures: Dispatcher [employer] EDMS Oneal Romo PA PA [facility] Pako Bean, RN RN mg2 Laila Lugo RN RN ca1 Vaughn Pierre MD MD [facility] Diana Flynn RN RN mt2 Corrections: (The following items were deleted from the chart) 12/17 22:04 21:49 D-DIMER+[id number].BRZ ordered. [facility] EDMT 23:06 22:47 12/18/2019 22:47 Discharged to Home. Impression: Chest pain, unspecified. mt2 Condition is Stable. Forms are Medication Reconciliation Form, Thank You Letter, Antibiotic Education, Prescription Opioid Use. Follow up: Private Physician; When: 2 - 3 days; Reason: Recheck today's complaints, Continuance of care, Re-evaluation by your physician. debi
--- NOTE | 2019-12-18 22:48 | ER ---
Nurse's Notes [facility] Name: Hannah Oneill Age: 39 yrs Sex: Female : 1980 Arrival Date: 12/18/2019 Time: 21:39 Bed 8 Private MD: Diagnosis: Chest pain, unspecified Presentation: 12/17 21:44 Chief complaint: Patient states: L sided chest pain x 2 hrs ago, tingling of R arm, SOB ca1 with CP. Denies cough, denies injury to chest. Coronavirus screen: Client denies travel out of the [place] in the last 14 days. At this time, the client does not indicate any symptoms associated with coronavirus-19. Ebola Screen: Patient negative for fever greater than or equal to 101.5 degrees Fahrenheit, and additional compatible Ebola Virus Disease symptoms Patient denies exposure to infectious person. Patient denies travel to an Ebola-affected area in the 21 days before illness onset. No symptoms or risks identified at this time. Initial Sepsis Screen: Does the patient meet any 2 criteria? No. Patient's initial sepsis screen is negative. Does the patient have a suspected source of infection? No. Patient's initial sepsis screen is negative. Risk Assessment: Do you want to hurt yourself or someone else? Patient reports no desire to harm self or others. Onset of symptoms was December 18, 2019 at 19:45. 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 - Social history:: Smoking status: Patient reports the use of cigarette tobacco products, smokes one-half pack cigarettes per day. Screenin:53 Abuse screen: Denies threats or abuse. Denies injuries from another. Nutritional mg2 screening: No deficits noted. Tuberculosis screening: No symptoms or risk factors identified. Fall Risk IV access (20 points). Assessment: 21:53 General: Appears in no apparent distress. comfortable, Behavior is calm, cooperative. mg2 Pain: Complains of pain in mid-sternal area Pain radiates to right arm Pain currently is 8 out of 10 on a pain scale. Quality of pain is described as aching, Pain began gradually, 2 hours ago. Is intermittent. Neuro: Level of Consciousness is awake, alert, obeys commands, Oriented to person, place, time, situation. Cardiovascular: Capillary refill < 3 seconds Patient's skin is warm and dry. Respiratory: Airway is patent Trachea midline Respiratory effort is even, unlabored, Respiratory pattern is regular, symmetrical. GI: No signs and/or symptoms were reported involving the gastrointestinal system. : No signs and/or symptoms were reported regarding the genitourinary system. EENT: No signs and/or symptoms were reported regarding the EENT system. Derm: Skin is intact, is healthy with good turgor, Skin is pink, warm \T\ dry. normal. Musculoskeletal: Circulation, motion, and sensation intact. Capillary refill < 3 seconds. 22:32 Reassessment: Patient and/or family updated on plan of care and expected duration. Pain mt2 level reassessed. Patient is alert, oriented x 3, equal unlabored respirations, skin warm/dry/pink. General: Appears comfortable, Behavior is calm. Pain: Complains of pain in chest Pain currently is 6 out of 10 on a pain scale. Quality of pain is described as aching. 23:00 Reassessment: Patient and/or family updated on plan of care and expected duration. Pain mt2 level reassessed. Patient is alert, oriented x 3, equal unlabored respirations, skin warm/dry/pink. General: Appears comfortable, Behavior is cooperative. Pain: Denies pain. Vital Signs: 21:44 Weight 77.11 kg; Height 4 ft. 10 in. (147.32 cm) (R); ca1 21:54 BP 115 / 74; Pulse 88; Resp 18; Temp 98.5; Pulse Ox 96% on R/A; mg2 22:33 BP 115 / 81; Pulse 77; Resp 16; Pulse Ox 99% on R/A; Pain 6/10; mt2 23:01 BP 119 / 82; Pulse 76; Resp 16; Pulse Ox 97% ; Pain 0/10; mt2 21:44 Body Mass Index 35.53 (77.11 kg, 147.32 cm) ca1 ED Course: 21:39 Patient arrived in ED. am2 21:41 Oneal Romo PA is PHCP. [facility] 21:41 Vaughn Pierre MD is Attending Physician. [facility] 21:42 Pako Bean RN is Primary Nurse. mg2 21:46 Triage completed. ca1 21:46 Arm band placed on right wrist. ca1 21:50 Inserted saline lock: 20 gauge in right antecubital area, using aseptic technique. mg2 Blood collected. 21:53 No provider procedures requiring assistance completed. Patient maintains SpO2 mg2 saturation greater than 95% on room air. 22:02 XRAY Chest (1 view) In Process Unspecified. EDMS 22:04 Patient has correct armband on for positive identification. Bed in low position. Call mt2 light in reach. Side rails up X 1. environmental monitoring specialist on. Pulse ox on. NIBP on. 23:01 IV discontinued, intact, bleeding controlled, No redness/swelling at site. Pressure mt2 dressing applied. Administered Medications: 22:04 Drug: Zofran (Ondansetron) 4 mg Route: IVP; Site: right antecubital; mg2 22:34 Follow up: Response: No adverse reaction; Nausea is decreased mt2 22:04 Drug: GI Cocktail without - (Maalox Suspension 30 ml, Lidocaine Liquid 2 % 15 mg2 ml) Route: PO; 22:33 Follow up: Response: No adverse reaction; Pain is decreased mt2 Outcome: 22:47 Discharge ordered by . [facility] 23:01 Discharged to home ambulatory. mt2 23:01 Condition: good 23:01 Discharge instructions given to patient, Instructed on discharge instructions, follow up and referral plans. medication usage, Demonstrated understanding of instructions, follow-up care, medications, Prescriptions given X 1. 23:06 Patient left the ED. mt2 Signatures: Dispatcher [employer] EDMS Oneal Romo PA PA [facility] Ade Richardson am2 Pako Bean RN RN mg2 Laila Lugo RN RN ca1 Diana Flynn RN RN mt2
[2019-12-18 23:14] VITALS: TEMP 98.5
[2019-12-18 23:17] VITALS: BP 119/82; O2SAT 97
--- NOTE | 2019-12-19 07:42 | RAD REPORT ---
EXAM DESCRIPTION: [place] Single View12/18/2019 10:02 pm CLINICAL HISTORY: Chest pain COMPARISON: 2017 FINDINGS: The lungs appear clear of acute infiltrate. The heart is normal size IMPRESSION: No acute abnormalities displayed
== END 2019-12-18 23:06 | disposition home or self-care (01) ==
LOC: ER 21:39
DX: R07.9 Chest pain, unspecified (principal); F17.210 Nicotine dependence, cigarettes, uncomplicated; Z88.5 Allergy status to narcotic agent; Z88.6 Allergy status to analgesic agent; Z88.8 Allergy status to other drugs, medicaments and biological substances; Z91.013 Allergy to seafood; Z91.018 Allergy to other foods; Z91.040 Latex allergy status; Z91.048 Other nonmedicinal substance allergy status
CPT/HCPCS: 93005; 85025; 80048; 36415; 83735; 85610; 85379; 80076; 84484; 83880; 71045; 96374; 99285; J2405

== ENCOUNTER 2020-07-06 21:11 | Inpatient (IN) | payer OTHER ==
--- OUTSIDE RECORDS SUMMARY | 2020-07-06 21:14 | XMS REPORT | Continuity of Care Document ---
:1980 Author Organization [facility] t Address [facility] [place] [address] Care Team Providers Name Role Phone Ashwin Velazquez DO Attending Clinician Diandra Winn MD Attending Clinician Problems This patient has no known problems. Allergies, Adverse Reactions, Alerts This patient has no known allergies or adverse reactions. Medications This patient has no known medications. Procedures This patient has no known procedures. Encounters Start End Encounter Admission Attending Care Care Encounter Source Date/Time Date/Time Type Type Clinicians Facility Department ID 2020-06-25 2020-06-25 Patient LUIZA Velazquez [id number] 00:00:00 00:00:00 Outreach Ashwin ALVARES [id number] Emmanuel [facility] [id number] PAVILLION [id number] 2020-06-11 2020-06-11 Office LUIZA Winn [id number] 11:01:59 12:17:09 Visit Entrec [id number] [place] [id number] [facility]io [id number] nal 044 Office Building One Results This patient has no known results.
[2020-07-06 21:47] LABS: Absolute Lymphocytes (CBC) 6.1 K/uL (0.7-4.9); Basophils % 0.3 % (0-1.3); Lymphocytes % 41.7 % (15.3-44.8); MPV 8.7 fL (7.6-11.3); RBC Red Blood Cell Count 5.37 M/uL (3.86-4.86)
[2020-07-06 21:57] LABS: Potassium 3.8 mmol/L (3.5-5.1)
[2020-07-06 22:00] LABS: Protime INR 0.86
--- NOTE | 2020-07-06 23:57 | ER ---
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 VAN+. A\T\Ox4. No slurring. Slept at 1600 today. 21:18 Coronavirus screen: Client denies travel out of the [place] in the last 14 days. At this ca1 time, the client does not indicate any symptoms associated with coronavirus-19. Ebola Screen: Patient negative for fever greater than or equal to 101.5 degrees Fahrenheit, and additional compatible Ebola Virus Disease symptoms Patient denies exposure to infectious person. Patient denies travel to an Ebola-affected area in the 21 days before illness onset. No symptoms or risks identified at this time. Initial Sepsis Screen: Does the patient meet any 2 criteria? No. Patient's initial sepsis screen is negative. Does the patient have a suspected source of infection? No. Patient's initial sepsis screen is negative. Risk Assessment: Do you want to hurt yourself or someone else? Patient reports no desire to harm self or others. Onset of symptoms was July 06, 2020 at 21:00. 21:18 Acuity: MARY ANNE 2 ca1 21:48 No acute neurological deficit is noted. ea 21:50 Pre-hospital glucose is not applicable to this patient. ea Triage Assessment: 23:00 The onset of the patients symptoms was July 06, 2020 at 16:00. 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 - Hysterectomy ca1 Stroke Activation: Symtpom onset >3 hours and < 6 hours Physician: Stroke Attending; Name: ; Notified At: ; Arrived At: Physician: Chief Stroke Resident; Name: ; Notified At: ; Arrived At: Physician: Stroke Resident; Name: ; Notified At: ; Arrived At: Physician: ED Attending; Name: ; Notified At: ; Arrived At: Physician: ED Resident; Name: ; Notified At: ; Arrived At: Historical: - Allergies: 21:31 cherries; ca1 21:31 Chives; ca1 21:31 clams; ca1 21:31 coconuts; ca1 21:31 codeine sulfate; ca1 21:31 Demerol; ca1 21:31 Ibuprofen (Throat Swells); ca1 21:31 Latex, Natural Rubber; ca1 21:31 Morphine (Anaphylaxis); ca1 - PMHx: 21:31 Hypothyroidism; Migraines; Pseudo-seizures; Hill's Palsy; ca1 - PSHx: 21:31 Hysterectomy; GOLDEN Knee; ca1 - Immunization history:: Flu vaccine is not up to date. - Social history:: Smoking status: Patient reports the use of cigarette tobacco products, smokes one-half pack cigarettes per day. Screenin:42 Abuse screen: Denies threats or abuse. Nutritional screening: No deficits noted. ea Tuberculosis screening: No symptoms or risk factors identified. Fall Risk None identified. Assessment: 21:39 VAN Scoring: Arm Drift: Severe drift The patient has not been NPO before screening. The ea patient is alert, and able to follow commands. The patient exhibits slurred or garbled speech. The patient is not exhibiting difficulty speaking. The patient does not exhibit difficulty understanding words. The patient is able to swallow own secretions with no drooling or need for suction. Patient tolerated one teaspoon of water. No drooling, immediate coughing, gurgling, or clearing of the throat was noted. The patient tolerated 90mL of water. No drooling, immediate coughing, gurgling, or clearing of the throat was noted. The patient passed the bedside swallow screening. Oral medications may be given as ordered. Contact Physician for further diet orders. Provider notified of bedside swallow screening results: Jonn Eason MD. General: Appears in no apparent distress. Behavior is calm, cooperative, appropriate for age. Pain: Denies pain. 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 Respiratory: Airway is patent Respiratory effort is even, unlabored, Respiratory pattern is regular, symmetrical. 22:50 Reassessment: Patient and/or family updated on plan of care and expected duration. Pain ea level reassessed. Patient is alert, oriented x 3, equal unlabored respirations, skin warm/dry/pink. 07/07 01:00 T-PA (Activase) Screening: Contraindications: Other: not appropriate, pt out of window. ea 02:37 Reassessment: Patient and/or family updated on plan of care and expected duration. Pain ea level reassessed. Patient is alert, oriented x 3, equal unlabored respirations, skin warm/dry/pink. Pt admitted to second floor. Report given to receiving nurse. Pt left ED via wheelchair per tech. Pt tolerating well. Vital Signs: 07/06 21:18 BP 124 / 77; Pulse 83; Resp 17 S; Temp 98.6(O); Pulse Ox 99% on R/A; Weight 71.21 kg ca1 (R); Height 4 ft. 10 in. (147.32 cm) (R); Pain 0/10; 22:00 BP 124 / 77; Pulse 86; Resp 16; Pulse Ox 98% on R/A; ea 07/07 00:59 BP 107 / 75; Pulse 74; Resp 18; Pulse Ox 96% ; ea 02:05 BP 104 / 63; Pulse 77; Resp 16; Pulse Ox 98% ; rr5 07/06 21:18 Body Mass Index 32.81 (71.21 kg, 147.32 cm) ca1 NIH Stroke Scale Scores: 07/06 21:39 NIHSS Score: 11 ea ED Course: 21:18 Patient arrived in ED. ca1 21:21 Jonn Eason MD is Attending Physician. tw4 21:24 CT Stroke Brain w/o Contrast In Process Unspecified. EDMS 21:30 Triage completed. ca1 21:31 Arm band placed on right wrist. ca1 21:39 Anne Carranza, KWESI is Primary Nurse. ea 21:40 Patient has correct armband on for positive identification. Placed in gown. Bed in low ea position. Call light in reach. Side rails up X2. engine monitor on. Pulse ox on. NIBP on. 21:41 Stroke CXR 1 View In Process Unspecified. EDMS 21:45 Inserted saline lock: 20 gauge in left forearm, using aseptic technique. Blood rr5 collected. 21:50 EKG done, by ED staff, reviewed by Jonn Eason MD. rr5 22:27 CT Head Angio In Process Unspecified. EDMS 22:27 CT Neck Angio In Process Unspecified. EDMS 23:55 Chris Perales MD is Hospitalizing Provider. tw4 07/07 01:00 No provider procedures requiring assistance completed. Patient admitted, IV remains in ea place. Administered Medications: 00:25 Drug: Aspirin Chewable Tablet 324 mg Route: PO; ea 01:03 Follow up: Response: No adverse reaction ea 00:25 Drug: PlaVIX (clopidogrel) 75 mg Route: PO; ea 01:02 Follow up: Response: No adverse reaction ea 00:25 Drug: foLIC Acid 1 mg Route: PO; ea 01:02 Follow up: Response: No adverse reaction ea Point of Care Testing: Blood Glucose: 07/06 21:41 Blood Glucose: 99 mg/dL; rr5 Ranges: Outcome: 23:56 Decision to Hospitalize by Provider. tw4 07/07 01:00 Instructed on the need for admit, Demonstrated understanding of instructions. ea 02:38 Admitted to Med/surg accompanied by tech, via wheelchair, room 223, with chart, Report ea called to Receiving nurse 02:38 Condition: stable 02:38 Patient left the ED. ea NIH Stroke Scale - NIH Stroke Score Date: 07/06/2020 Time: 21:39 Total Score = 11 1a. Level of Consciousness (LOC) - 0(Alert) 1b. Level of Consciousness (LOC) (Year \T\ Age) - 0(Both) 1c. LOC Commands (Open \T\ Closes Eyes/Manometer Technician) - 0(Both) 2. Best Gaze (Lateral Gaze Paresis) - 0(Normal) 3. Visual Field Loss - 0(No visual loss) 4. Facial Palsy - 2(Partial paralysis) 5a. Left Arm: Motor (10-second hold) - 0(No drift) 5b. Right Arm: Motor (10-second hold) - 3(No effort against gravity) 6a. Left Leg: Motor (5-second hold - always test supine) - 0(No drift) 6b. Right Leg: Motor (5-second hold - always test supine) - 2(Drift, some effort against gravity) 7. Limb Ataxia (finger/nose \T\ heel/ramos - test with eyes open) - 1(Present in one limb) 8. Sensory Loss (pinprick arms/legs/face) - 1(Mild to moderate loss) 9. Best Language: Aphasia (description/naming/reading) - 1(Mild to moderate aphasia) 10. Dysarthria (speech clarity - read or repeat words) - 1(Mild to Moderate) 11. 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 VAN+. A\T\Ox4. No slurring ca1 21:26 Method Of Arrival: Wheelchair ca1 ca1
--- NOTE | 2020-07-06 23:57 | EDPHYS ---
Physician Documentation [facility] Name: Hannah Oneill Age: 40 yrs Sex: Female : 1980 Arrival Date: 07/06/2020 Time: 21:18 Bed 7 Private MD: ED Physician Jonn Eason HPI: 07/07 02:33 This 40 yrs old Female presents to ER via Wheelchair with complaints of tw4 Weakness. 02:33 The patient presents to the emergency department with weakness of the right upper tw4 extremity, right lower extremity, that is severe, right side of the face. Onset: The symptoms/episode began/occurred just prior to arrival, 1 hour(s) ago. Context: occurred at home, occurred while the patient was. Associated signs and symptoms: The patient has no apparent associated signs or symptoms. Severity of symptoms: At their worst the symptoms were severe in the emergency department the symptoms are unchanged. The patient has not experienced similar symptoms in the past. 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 - Social history:: Smoking status: Patient reports the use of cigarette tobacco products, smokes one-half pack cigarettes per day. ROS: 07/07 02:33 Constitutional: Negative for fever, chills, and weight loss, Eyes: Negative for injury, tw4 pain, redness, and discharge, Cardiovascular: Negative for chest pain, palpitations, and edema, Respiratory: Negative for shortness of breath, cough, wheezing, and pleuritic chest pain, Abdomen/GI: Negative for abdominal pain, nausea, vomiting, diarrhea, and constipation, Back: Negative for injury and pain, MS/Extremity: Negative for injury and deformity, Skin: Negative for injury, rash, and discoloration. Neuro: Positive for weakness. Neuro: Positive for numbness. Exam: 02:33 Constitutional: This is a well developed, well nourished patient who is awake, alert, tw4 and in no acute distress. Head/Face: Normocephalic, atraumatic. Chest/axilla: Normal chest wall appearance and motion. Nontender with no deformity. No lesions are appreciated. Cardiovascular: Regular rate and rhythm with a normal S1 and S2. No gallops, murmurs, or rubs. Normal PMI, no JVD. No pulse deficits. Respiratory: Lungs have equal breath sounds bilaterally, clear to auscultation and percussion. No rales, rhonchi or wheezes noted. No increased work of breathing, no retractions or nasal flaring. Abdomen/GI: Soft, non-tender, with normal bowel sounds. No distension or tympany. No guarding or rebound. No evidence of tenderness throughout. Back: No spinal tenderness. No costovertebral tenderness. Full range of motion. MS/ Extremity: Pulses equal, no cyanosis. Neurovascular intact. Full, normal range of motion. 02:33 Neuro: Orientation: is normal, Mentation: is normal, Memory: is normal, Motor: Strength is 2/5 in the right eye, right cheek, mouth, right arm and right leg. Vital Signs: 07/06 21:18 BP 124 / 77; Pulse 83; Resp 17 S; Temp 98.6(O); Pulse Ox 99% on R/A; Weight 71.21 kg ca1 (R); Height 4 ft. 10 in. (147.32 cm) (R); Pain 0/10; 22:00 BP 124 / 77; Pulse 86; Resp 16; Pulse Ox 98% on R/A; ea 07/07 00:59 BP 107 / 75; Pulse 74; Resp 18; Pulse Ox 96% ; ea 02:05 BP 104 / 63; Pulse 77; Resp 16; Pulse Ox 98% ; rr5 07/06 21:18 Body Mass Index 32.81 (71.21 kg, 147.32 cm) ca1 NIH Stroke Scale Scores: 07/06 21:39 NIHSS Score: 11 ea MDM: 23:56 Patient medically screened. tw4 07/07 06:23 Data reviewed: lab test result(s), cardiac enzymes, CBC, electrolytes, radiologic tw4 studies, CT scan, plain films. Data interpreted: Pulse oximetry: Interpretation:. Counseling: I had a detailed discussion with the patient and/or guardian regarding: the historical points, exam findings, and any diagnostic results supporting the discharge/admit diagnosis, lab results, radiology results. Special discussion: I discussed with the patient/guardian in detail that at this point there is no indication for admission to the hospital. It is understood, however, that if the symptoms persist or worsen the patient needs to return immediately for re-evaluation. 06:25 Physician consultation: Chris Perales MD regarding admission, to the telemetry unit. patient's condition, and will see patient in ED, would like consultation with . Dr Peña consulted at [id number] not a Tpa candidate due to time greater than 4.5 hours. 07/06 21:25 Order name: Basic Metabolic Panel; Complete Time: 22:32 tw4 07/06 22:32 Interpretation: Normal except: CL 108; GFR 79. tw4 07/06 21:25 Order name: CBC with Diff; Complete Time: 22:32 tw4 07/06 22:32 Interpretation: Normal except: WBC 14.70; RBC 5.37; HGB 16.0; HCT 46.0. tw4 07/06 21:25 Order name: Protime (+inr); Complete Time: 22:32 tw4 07/06 22:33 Interpretation: Within normal limits: PT 9.9. tw4 07/06 21:25 Order name: Ptt, Activated; Complete Time: 22:32 tw4 07/06 22:33 Interpretation: Within normal limits: PTT 29.8. tw4 07/06 21:41 Order name: Glucose, Ancillary Testing; Complete Time: 21:51 EDMS 07/06 21:18 Order name: CT Stroke Brain w/o Contrast ca1 07/06 21:25 Order name: Stroke CXR 1 View tw4 07/06 21:38 Order name: CT Head Angio tw4 07/06 21:38 Order name: CT Neck Angio tw4 07/07 02:22 Order name: SARS-COV-2 RT PCR EDMT 07/06 21:25 Order name: EKG; Complete Time: 21:26 tw4 07/06 21:25 Order name: Accucheck; Complete Time: 22:07 tw4 07/06 21:25 Order name: Cardiac monitoring; Complete Time: :07/06 21:25 Order name: EKG - Nurse/Tech; Complete Time: :07/06 21:25 Order name: IV Saline Lock; Complete Time: :07/06 21:25 Order name: Labs collected and sent; Complete Time: :07/06 21:25 Order name: NPO; Complete Time: :07/06 21:25 Order name: O2 Per Protocol; Complete Time: :07/06 21:25 Order name: O2 Sat Monitoring; Complete Time: :07/06 21:25 Order name: Stroke Swallow Screen; Complete Time: EC:27 Rate is 85 beats/min. Rhythm is regular. QRS [place] is Normal. RI interval is normal. QRS tw4 interval is normal. QT interval is normal. No Q waves. T waves are Normal. No ST changes noted. Clinical impression: NSR w/ Non-specific ST/T Changes. Interpreted by me. Reviewed by me. Administered Medications: 00:25 Drug: Aspirin Chewable Tablet 324 mg Route: PO; ea 01:03 Follow up: Response: No adverse reaction ea 00:25 Drug: PlaVIX (clopidogrel) 75 mg Route: PO; ea 01:02 Follow up: Response: No adverse reaction ea 00:25 Drug: foLIC Acid 1 mg Route: PO; ea 01:02 Follow up: Response: No adverse reaction ea Point of Care Testing: Blood Glucose: 07/06 21:41 Blood Glucose: 99 mg/dL; rr5 Ranges: Critical Glucose Levels:Adult <50 mg/dl or >400 mg/dl <40 mg/dl or >180 mg/dl Disposition: 07/06/20 23:56 Hospitalization ordered by Chris Perales for Inpatient Admission. Preliminary diagnosis are Cerebrovascular disease, unspecified, Cerebral infarction due to unspecified occlusion or stenosis of middle cerebral artery. - Bed requested for Telemetry/MedSurg (Inpatient). - Status is Inpatient Admission. ea - Condition is Stable. - Problem is new. - Symptoms are unchanged. NIH Stroke Scale - NIH Stroke Score Date: 07/06/2020 Time: 21:39 Total Score = 11 1a. Level of Consciousness (LOC) - 0(Alert) 1b. Level of Consciousness (LOC) (Year \T\ Age) - 0(Both) 1c. LOC Commands (Open \T\ Closes Eyes/Senior Sharepoint [employer]) - 0(Both) 2. Best Gaze (Lateral Gaze Paresis) - 0(Normal) 3. Visual Field Loss - 0(No visual loss) 4. Facial Palsy - 2(Partial paralysis) 5a. Left Arm: Motor (10-second hold) - 0(No drift) 5b. Right Arm: Motor (10-second hold) - 3(No effort against gravity) 6a. Left Leg: Motor (5-second hold - always test supine) - 0(No drift) 6b. Right Leg: Motor (5-second hold - always test supine) - 2(Drift, some effort against gravity) 7. Limb Ataxia (finger/nose \T\ heel/ramos - test with eyes open) - 1(Present in one limb) 8. Sensory Loss (pinprick arms/legs/face) - 1(Mild to moderate loss) 9. Best Language: Aphasia (description/naming/reading) - 1(Mild to moderate aphasia) 10. Dysarthria (speech clarity - read or repeat words) - 1(Mild to Moderate) 11. Extinction and Inattention (visual/tactile/auditory/spatial/personal) - 0(No abnormality) Initials: aneta Signatures: Dispatcher [employer] [facility] Any Rojas RN RN Brock Bravo, SHIFT STACKER-C SHIFT STACKER-Cla1 Anne Carranza RN RN ea Wadley, Terrence, MD MD tw4 Laila Lugo RN RN ca1 Corrections: (The following items were deleted from the chart) 07/07 01:12 07/06 23:58 CORONAVIRUS+.MO ordered. [facility] EDMT 07/07 02:31 07/06 23:56 Hospitalization Ordered by Chris Perales MD for Inpatient Admission. Preliminary diagnosis is Cerebrovascular disease, unspecified; Cerebral infarction due to unspecified occlusion or stenosis of middle cerebral artery. Bed requested for Telemetry/MedSurg (Inpatient). Status is Inpatient Admission. Condition is Stable. Problem is new. Symptoms are unchanged. tw4 07/07 02:38 02:31 07/06/2020 23:56 Hospitalization Ordered by Chris Perales MD for ea Inpatient Admission. Preliminary diagnosis is Cerebrovascular disease, unspecified; Cerebral infarction due to unspecified occlusion or stenosis of middle cerebral artery. Bed requested for Telemetry/MedSurg (Inpatient). Status is Inpatient Admission. Condition is Stable. Problem is new. Symptoms are unchanged. mw
[2020-07-07] MEDS ORDERED: FOLIC ACID 1 MG TABLET ONE (00:39)
[2020-07-07] MEDS ORDERED: CLOPIDOGREL 75 MG TABLET ONE (00:39)
[2020-07-07] MEDS ORDERED: ASPIRIN 81 MG CHEWABLE TABLET ONE (00:39)
--- NOTE | 2020-07-07 00:56 | P.HP ---
Certification for Inpatient Patient admitted to: Inpatient With expected LOS: >2 Midnights Patient will require the following post-hospital care: None Practitioner: I am a practitioner with admitting privileges, knowledge of patient current condition, hospital course, and medical plan of care. Services: Services provided to patient in accordance with Admission requirements found in Title 42 Section 412.3 of the Code of Federal Regulations <Brock Bravo - Last Filed: 07/07/20 00:50> Patient History Date of Service: 07/07/20 Reason for admission: Right hemiparesis History of Present Illness: 40-year-old female with history of hypothyroidism, migraines, pseudoseizures, Hill's palsy presents emergency department for right-sided weakness. Patient reports lying down for a nap around 1600 on 07/06/2020, patient reports waking up around 1950 with tingling and numbness to the right side of her body, symptoms continued to progress over the course of the next 5- 10 min with development of severe weakness on the right side of the body with facial droop. Patient was evaluated in the emergency department, onset of symp toms was noted to be 1600 as this was patient's last night well prior to sleeping. CT head without contrast negative for any acute findings, CT angio head and neck negative for acute findings. Case was discussed with neurology by ED attending who recommended admission if she was not a candidate for intra- arterial intervention based on the CT angio exams. Lab significant for white blood cell count 14.7 hemoglobin 16, hematocrit 46.0. On exam patient noted to have severe right-sided weakness with my exam demonstrating NIH score of 13. Patient noted to have unilateral facial paralysis, right upper and lower extremity with no effort against gravity but able to slightly move while at rest, mild to moderate sensory loss in the right upper and lower extremity mild to moderate dysarthria. Patient reportedly passed swallow screen by ED staff, was given aspirin, Plavix, folic acid in the emergency department. - Past Medical/Surgical History -: Hill's palsy -: Migraines -: Pseudoseizures -: Hypothyroidism -: Hysterectomy -: Bilateral knee surgery Psychosocial/ Personal History: Patient is unemployed, lives with her - Family History Family History: Reviewed- Non-Contributory - Social History Smoking Status: Current every day smoker Counseled patient to stop smoking for: less than 10 minutes Smoking therapy provided: Yes Alcohol use: No CD- Drugs: No Caffeine use: Yes Place of Residence: Home <Brock Bravo - Last Filed: 07/07/20 00:50> Date of Service: 07/07/20 <Chris Perales - Last Filed: 07/07/20 12:18> Allergies ibuprofen Allergy (Verified 07/07/20 03:00) Anaphylaxis Latex, Natural Rubber Allergy (Verified 07/07/20 03:00) Hives/Rash morphine Allergy (Verified 07/07/20 03:00) Anaphylaxis cherries Allergy (Uncoded 07/07/20 03:00) Itching Chives Allergy (Uncoded 07/07/20 03:00) Itching Clams Allergy (Uncoded 07/07/20 03:00) Anaphylaxis coconuts Allergy (Uncoded 07/07/20 03:00) Anaphylaxis codeine sulfate Allergy (Uncoded 07/07/20 03:00) Anaphylaxis Review of Systems 10-point ROS is otherwise unremarkable Neurological: Weakness, Numbness, Change in Speech, As per HPI <Brock Bravo - Last Filed: 07/07/20 00:50> Physical Examination - Physical Exam General: Alert, In no apparent distress HEENT: Atraumatic, PERRLA, Mucous membr. moist/pink, EOMI, Sclerae nonicteric Neck: Supple, 2+ carotid pulse no bruit, No LAD, Without JVD or thyroid abnormality Respiratory: Clear to auscultation bilaterally, Normal air movement Cardiovascular: Regular rate/rhythm, Normal S1 S2 Gastrointestinal: Normal bowel sounds, No tenderness Musculoskeletal: No tenderness Integumentary: No rashes Neurological: Normal gait, Normal speech, Normal affect, Other (Right-sided facial paralysis), Abnormal speech (Speech is slurred), Abnormal strength (1/5 strength right upper and lower extremities), Abnormal sensation (Decreased sensation right upper and lower extremities) Lymphatics: No axilla or inguinal lymphadenopathy - Studies Laboratory Data (last 24 hrs) 07/06/20 21:25: PT 9.9, INR 0.86, APTT 29.8 07/06/20 21:25: WBC 14.70 H, Hgb 16.0 H, Hct 46.0 H, Plt Count 288 07/06/20 21:25: Sodium 142, Potassium 3.8, BUN 10, Creatinine 0.80, Glucose 93 <Brock Bravo - Last Filed: 07/07/20 00:50> - Studies Laboratory Data (last 24 hrs) 07/06/20 21:25: PT 9.9, INR 0.86, APTT 29.8 07/06/20 21:25: WBC 14.70 H, Hgb 16.0 H, Hct 46.0 H, Plt Count 288 07/06/20 21:25: Sodium 142, Potassium 3.8, BUN 10, Creatinine 0.80, Glucose 93 <Chris Perales - Last Filed: 07/07/20 12:18> Assessment and Plan - Plan Assessment Right-sided debbie paresis suspected ischemic CVA Hypothyroidism Tobacco abuse Plan Right-sided debbie paresis suspected ischemic CVA: Neurology consulted, continue with aspirin, Plavix, folic acid. Speech and physical therapy consults ordered. MRI stroke protocol, echocardiogram ordered. Will allow for some permissive hypertension if this occurs, currently patient's blood pressure normal in the 110-120. DVT prophylaxis Lovenox 40 mg subcutaneous once daily. Will encourage tobacco cessation. Patient will likely need either inpatient rehab or physical therapy at home and discharge, this was discussed with patient and . Hypothyroidism: Continue levothyroxine, thyroid panel morning labs. Tobacco abuse: Provide with Nicoderm as needed. Discussed need for tobacco cessation. Discharge Plan: Home Plan to discharge in: Greater than 2 days - Advance Directives Does patient have a Living Will: No Does patient have a Durable POA for Healthcare: No - Code Status/Comfort Care Code Status Assessed: Yes (Full code) Critical Care: No Time Spent Managing Pts Care (In Minutes): 55 <Brock Bravo - Last Filed: 07/07/20 00:50> - Plan Plan of care reviewed as noted above by Brock Bravo R-sided hemiparesis, possible ischemic CVA - CT negative in ED involving her upper and lower face, speech, and RUE/RLE MRI ordered Neuro consulted Pt with slight improvement of symptoms this morning <Chris Perales - Last Filed: 07/07/20 12:18>
[2020-07-07] MEDS ORDERED: ONDANSETRON 4 MG/2 ML VIAL IV PRN (03:01)
[2020-07-07] MEDS ORDERED: HYDROCODONE/APAP 5/325 MG TAB PO PRN (03:01)
[2020-07-07 03:21] VITALS: BMI 34.6
[2020-07-07] MEDS: NA CHLORIDE 0.9% 1,000 ML IV SCH ×2 (03:22→15:49)
[2020-07-07] MEDS ORDERED: TIZANIDINE 4 MG TABLET PO PRN (04:32)
[2020-07-07] MEDS: DRISDOL (VITAMIN D=ERGOCALCIFEROL) 50000 UNIT CAP PO SCH ×2 (05:00→20:16)
[2020-07-07] MEDS: PANTOPRAZOLE 40MG TABLET PO SCH (05:29)
[2020-07-07] MEDS: LEVOTHYROXINE SOD 0.125 MG TAB PO SCH (05:29)
[2020-07-07 06:11] LABS: Absolute Lymphocytes (CBC) 4.1 K/uL (0.7-4.9); Basophils % 0.2 % (0-1.3); Hematocrit 41.3 % (36.0-45.0); Lymphocytes % 46.2 % (15.3-44.8); MPV 8.5 fL (7.6-11.3); RBC Red Blood Cell Count 4.82 M/uL (3.86-4.86)
[2020-07-07 06:38] LABS: ALT/SGPT 50 U/L (12-78); AST/SGOT 19 U/L (15-37); Alkaline Phosphatase 85 U/L (45-117); BUN Blood Urea Nitrogen 9 mg/dL (7-18); Bicarbonate 25 mmol/L (21-32); Bilirubin Total 0.4 mg/dL (0.2-1.0); Glucose Level 121 mg/dL (74-106); HDL Cholesterol 27 mg/dL (40-60); LDL Cholesterol, Calculated 93 (<130); Magnesium 2.2 mg/dL (1.8-2.4); Potassium 3.6 mmol/L (3.5-5.1); Protein, Total 6.4 g/dL (6.4-8.2); Sodium Level 143 mmol/L (136-145)
[2020-07-07 07:25] LABS: Platelet Estimate ADEQ
[2020-07-07 07:26] LABS: Blood Morphology Comment NOT SEEN (NOT SEEN)
--- NOTE | 2020-07-07 08:51 | RAD REPORT ---
EXAM DESCRIPTION: RAD - Chest Single View - 07/06/2020 9:41 pm CLINICAL HISTORY: cva Chest pain. COMPARISON: Chest Single View dated 12/18/2019; Chest Single View dated 02/04/2017; Chest Single View dated 11/24/2015 FINDINGS: Portable technique limits examination quality. The lungs are grossly clear. The heart is normal in size. No displaced fractures. IMPRESSION: No acute intrathoracic process suspected.
[2020-07-07] MEDS: CYANOCOBALAMIN 1,000 MCG TAB PO SCH (09:00)
[2020-07-07] MEDS ORDERED: INFLUENZA VACCINE (for 3y+) 0.5 ML DOSE IMVAC ONE (09:00)
[2020-07-07] MEDS ORDERED: ASPIRIN EC 81 MG TAB PO SCH (09:00)
[2020-07-07] MEDS ORDERED: POTASSIUM CL SA 10 MEQ TAB PO ONE (09:00)
[2020-07-07] MEDS: MAGNESIUM OXIDE 400 MG TAB PO SCH (09:00)
[2020-07-07] MEDS ORDERED: FAMOTIDINE 20 MG TAB PO SCH (09:00)
[2020-07-07] MEDS: ESCITALOPRAM 20 MG TAB PO SCH (09:00)
[2020-07-07] MEDS: FAMOTIDINE 20 MG TAB PO SCH ×2 (09:37→20:15)
[2020-07-07] MEDS: CLOPIDOGREL 75 MG TABLET PO SCH (09:38)
[2020-07-07] MEDS: NICOTINE 14 MG/PAT TD PRN (09:38)
[2020-07-07] MEDS: ENOXAPARIN 40 MG/0.4 ML SQ SCH ×2 (09:39→09:40)
[2020-07-07] MEDS: FOLIC ACID 1 MG TABLET PO SCH (09:40)
--- NOTE | 2020-07-07 09:46 | RAD REPORT ---
EXAM DESCRIPTION: MRI - Brain W/Wo Cont - 07/07/2020 8:26 am CLINICAL HISTORY: AMS Headache, drowsiness, CVA symptomology COMPARISON: MRA Head Wo Cont dated 07/07/2020; MRA Neck W/Wo Cont dated 07/07/2020; Neck Angio dated ; Head angio dated 07/06/2020 TECHNIQUE: Multi-sequence, multiplanar MR imaging of the brain was performed with contrast. FINDINGS: No intracranial hemorrhage, hydrocephalus, or extra-axial fluid collection. No edema or sh ift of midline structures. No intracranial mass. DWI is negative for acute CVA. The midline structures are normally formed. Mastoid air cells and paranasal sinuses are clear. Post-contrast images show no abnormal enhancement to suggest tumor or infection. IMPRESSION: No acute or concerning intracranial abnormalities. No pathologic post-contrast enhancement suspected.
--- NOTE | 2020-07-07 09:48 | RAD REPORT ---
EXAM DESCRIPTION: MRI - MRA Head Wo Cont - 07/07/2020 8:27 am CLINICAL HISTORY: Right sided weakness CVA COMPARISON: Head angio dated 07/06/2020 FINDINGS: 3D noncontrast [id number] MR angiography of the [place] was performed. No aneurysm, flow-limiting stenosis or vascular malformation is seen. Forward flow seen in codominant vertebral arteries. The visualized dural venous sinuses appear patent. IMPRESSION: No significant flow abnormality of the [place] is identified.
--- NOTE | 2020-07-07 09:51 | RAD REPORT ---
EXAM DESCRIPTION: MRI - MRA Neck W/Wo Cont - 07/07/2020 8:27 am CLINICAL HISTORY: AMS Headache, drowsiness, CVA symptomology COMPARISON: Carotid Artery Bilateral dated 07/07/2020 FINDINGS: Contrast enhance 2D [id number] MR angiography of the neck vessels was performed. A left aortic arch is present. Normal branching pattern of the great vessels is seen. Both subclavian arteries and common carotid arteries have a normal appearance and are patent. No sign ificant internal carotid artery stenosis seen. Antegrade flow is seen in codominant vertebral arterie s. IMPRESSION: No significant flow abnormality seen of the neck vessels.
--- NOTE | 2020-07-07 09:51 | RAD REPORT ---
EXAM DESCRIPTION: US - CP - 07/07/2020 8:24 am CLINICAL HISTORY: cva Headache, drowsiness, CVA symptomology COMPARISON: Neck Angio dated 07/06/2020 TECHNIQUE: Real-time sonographic evaluation of both carotid systems was performed. Doppler interroga tion was performed with waveform tracing bilaterally. FINDINGS: Normal high resistance waveforms are noted in both external carotid arteries. The common c arotid arteries and internal carotid arteries show normal low resistance waveforms. No significant plaque formation is seen. Peak systolic and end diastolic velocity values and the ICA/ CCA ratios are in the non-hemodynamically significant range. Antegrade flow seen in both vertebral arteries. IMPRESSION: No significant atherosclerotic changes noted. No evidence of a hemodynamically significant stenosis.
--- NOTE | 2020-07-07 10:06 | RAD REPORT ---
EXAM DESCRIPTION: ADDENDUM #1 ADDENDUM: THIS REPORT CONTAINS FINDINGS THAT MAY BE CRITICAL TO PATIENT'S CARE: The findings were verbally discussed via telephone conference with Jonn Eason by Dr. Mathis on 07/06/2020 9:43 PM CDT. The results were acknowledged and understood. Electronically signed by: Dagoberto Mathis DO 07/06/2020 9:43 PM CDT End of Addendum EXAM DESCRIPTION: Ct Stroke Brain Wo Cont CLINICAL HISTORY: 40 years Female WEAKNESS COMPARISON: CT head without contrast dated November 29, 2019 TECHNIQUE: Contiguous axial images of the brain were obtained without the administration of intraven ous contrast.This exam was performed according to our departmental dose-optimization program which in cludes use of Automated Exposure Control, adjustment of the mA and/or kV according to patient size an d/or use of iterative reconstruction technique. DLP: 803 mGy*cm FINDINGS: Brain: No acute intracranial hemorrhage. No extra-axial collection. No mass effect or nicolle iation. Ventricles: Within normal limits in size. Globes and orbits: No acute abnormality. Bones: No acute osseous finding Paranasal sinuses: Paranasal sinuses are clear. Mastoid air cells: Well pneumatized. Soft tissues: Within normal limits IMPRESSION: No acute intracranial abnormality. Electronically signed by: Dagoberto Mathis DO 07/06/2020 9:32 PM CDT Due to temporary technical issues with the PACS/Fluency reporting system, reports are being signed by the in house radiologists without review as a courtesy to insure prompt reporting. The interpreting radiologist is fully responsible for the content of the report.
--- NOTE | 2020-07-07 10:30 | RAD REPORT ---
CLINICAL HISTORY: SLURRED SPEECH COMPARISON: None. TECHNIQUE: CT HEAD ANGIOGRAPHY WITH IV CONTRAST, CT NECK ANGIOGRAPHY WITH IV CONTRAST on 07/06/2020 9 :38 PM CDT This exam was performed according to our departmental dose-optimization program, which includes autom ated exposure control, adjustment of the mA and/or kV according to patient size and/or use of iterati ve reconstruction technique. MIP reconstructions were generated. Stenoses are calculated by NASCET criteria. FINDINGS: The visualized aortic arch and origins of the great vessels unremarkable. The common carotid arteries are patent and symmetric bilaterally. No hemodynamically significant stenosis is observed at the common carotid bifurcations or origins of the internal carotid arteries bilaterally. Vertebral arteries are unremarkable without evidence of pseudoaneurysm, hemodynamically significant s tenosis, or dissection. Intracranially the cavernous segments of the internal carotid arteries are patent and symmetric bilat erally. Vertebral basilar system within normal limits for age. No aneurysm identified within the [place]. Anterior, middle, and posterior cerebral circulations patent and symmetric bilaterally. Dural sinuses are well opacified and without filling defect. IMPRESSION: Unremarkable CT angiogram of the neck for age without dissection or hemodynamically sign ificant stenosis. Unremarkable CTA of the brain without evidence of hemodynamically significant stenosis, aneurysm or A VM. CAROTID STENOSIS REFERENCE USING NASCET CRITERIA: % ICA stenosis = (1 - narrowest ICA diameter/diameter of distal cervical ICA) x 100. Mild - <50% stenosis. Moderate - 50-69% stenosis. Severe - 70-94% stenosis. Near occlusion - 95-99% stenosis. Occluded - 100% stenosis. Electronically signed by: Bhavesh York MD 07/06/2020 10:55 PM CDT Due to temporary technical issues with the PACS/Fluency reporting system, reports are being signed by the in house radiologists without review as a courtesy to insure prompt reporting. The interpreting radiologist is fully responsible for the content of the report.
--- NOTE | 2020-07-07 10:45 | RAD REPORT ---
CLINICAL HISTORY: SLURRED SPEECH COMPARISON: None. TECHNIQUE: CT HEAD ANGIOGRAPHY WITH IV CONTRAST, CT NECK ANGIOGRAPHY WITH IV CONTRAST on 07/06/2020 9 :38 PM CDT This exam was performed according to our departmental dose-optimization program, which includes autom ated exposure control, adjustment of the mA and/or kV according to patient size and/or use of iterati ve reconstruction technique. MIP reconstructions were generated. Stenoses are calculated by NASCET criteria. FINDINGS: The visualized aortic arch and origins of the great vessels unremarkable. The common carotid arteries are patent and symmetric bilaterally. No hemodynamically significant stenosis is observed at the common carotid bifurcations or origins of the internal carotid arteries bilaterally. Vertebral arteries are unremarkable without evidence of pseudoaneurysm, hemodynamically significant s tenosis, or dissection. Intracranially the cavernous segments of the internal carotid arteries are patent and symmetric bilat erally. Vertebral basilar system within normal limits for age. No aneurysm identified within the [place]. Anterior, middle, and posterior cerebral circulations patent and symmetric bilaterally. Dural sinuses are well opacified and without filling defect. IMPRESSION: Unremarkable CT angiogram of the neck for age without dissection or hemodynamically sign ificant stenosis. Unremarkable CTA of the brain without evidence of hemodynamically significant stenosis, aneurysm or A VM. CAROTID STENOSIS REFERENCE USING NASCET CRITERIA: % ICA stenosis = (1 - narrowest ICA diameter/diameter of distal cervical ICA) x 100. Mild - <50% stenosis. Moderate - 50-69% stenosis. Severe - 70-94% stenosis. Near occlusion - 95-99% stenosis. Occluded - 100% stenosis. Electronically signed by: Bhavesh York MD 07/06/2020 10:55 PM CDT Due to temporary technical issues with the PACS/Fluency reporting system, reports are being signed by the in house radiologists without review as a courtesy to insure prompt reporting. The interpreting radiologist is fully responsible for the content of the report.
--- NOTE | 2020-07-07 12:53 | EKG ---
Test Date: 2020-07-06 Test Time: 21:29:45 Senior Php Software Developer: KELLY MEASUREMENT RESULTS: Intervals: Rate: 85 NH: 118 QRSD: 76 QT: 370 QTc: 440 [place]: P: 40 NH: 118 QRS: 57 T: 47 INTERPRETIVE STATEMENTS: Normal sinus rhythm Low voltage QRS Cannot rule out Anterior infarct, age undetermined Abnormal ECG Compared to ECG 12/18/2019 21:56:38 Low QRS voltage now present Myocardial infarct finding still present Electronically Signed On 07-07-20 12:52:34 CDT by Chester Bonner
[2020-07-07] MEDS: EZETIMIBE 10 MG TAB PO SCH (13:27)
[2020-07-07] MEDS: FENOFIBRATE 48 MG TAB PO SCH (13:28)
[2020-07-07] MEDS: FLUTICASONE 50MCG NASAL SPRAY NAS SCH (13:28)
--- NOTE | 2020-07-07 14:07 | P.PN ---
Subjective Date of Service: 07/07/20 Chief Complaint: Right hemiparesis Subjective: Improving (R sided weakness improved mildly, able to understand her speech now, reports she continues with R forehead/scalp tingling sensation. nothing worsened. denies chills, no UTI symptoms, no diarrhea) Review of Systems 10-point ROS is otherwise unremarkable Physical Examination - Vital Signs Temperature: 97.6 F Blood Pressure: 88/50 Pulse: 71 Respirations: 18 Pulse Ox (%): 95 - Studies Laboratory Data (last 24 hrs) 07/06/20 21:25: PT 9.9, INR 0.86, APTT 29.8 07/06/20 21:25: WBC 14.70 H, Hgb 16.0 H, Hct 46.0 H, Plt Count 288 07/06/20 21:25: Sodium 142, Potassium 3.8, BUN 10, Creatinine 0.80, Glucose 93 Assessment & Plan Physician Review Additional Text: Physical Exam General: Alert, In no apparent distress HEENT: PERRL, MMM, EOMI Pulm: CTAB, no wheeze/rales CV: RRR, no murmur Abd: soft, NTND Integumentary: No rashes Neuro: R forehead: diminished sensation, R lower face: weakness - asymmetric smile, tongue deviated to left with inability to go past midline. Strength: 2/5 RUE and RLE. Intact sensation of RUE/RLE Problem List Right-sided debbie paresis Hypothyroidism Tobacco abuse debbie-paresis: imaging so far negative (MRI/MRA/CT/CTA,Carotid U/S), possible due to TIA vs Migraine w/ aura vs Ian's paralysis vs MS vs somatoform however, denies headache or seizure activity yesterday Echo pending Neuro consulted, recommended LP to r/o MS / infection / other causes of hemiparesis with some partial improvement overnight continue statin/aspirin continue home synthroid Dispo: anticipate dc home in 1-2 days Time Spent Managing Pts Care (In Minutes): 40
[2020-07-07] MEDS ORDERED: ROSUVASTATIN 10 MG TAB PO SCH (21:00)
[2020-07-07 22:08] LABS: Urine Appearance CLEAR (Clear); Urine Bilirubin NEGATIVE (Negataive); Urine Blood NEGATIVE (Negative); Urine Color YELLOW (Yellow); Urine Glucose NEGATIVE (Negative); Urine Protein NEGATIVE (Negative)
[2020-07-07 22:12] LABS: Urine Microscopic Reflex NO UMIC
[2020-07-08 01:09] VITALS: O2SAT 92
[2020-07-08] MEDS: NA CHLORIDE 0.9% 1,000 ML IV SCH (02:40)
[2020-07-08 04:25] LABS: Absolute Lymphocytes (CBC) 4.8 K/uL (0.7-4.9); Basophils % 0.2 % (0-1.3); Hematocrit 38.8 % (36.0-45.0); MPV 8.5 fL (7.6-11.3); RBC Red Blood Cell Count 4.57 M/uL (3.86-4.86)
[2020-07-08 05:16] LABS: Bilirubin Total 0.4 mg/dL (0.2-1.0); Magnesium 2.1 mg/dL (1.8-2.4); Potassium 4.2 mmol/L (3.5-5.1); Protein, Total 6.2 g/dL (6.4-8.2)
[2020-07-08] MEDS ORDERED: NA CHLORIDE 0.9% 1,000 ML IV SCH (05:59)
[2020-07-08] MEDS: LEVOTHYROXINE SOD 0.125 MG TAB PO SCH (06:24)
[2020-07-08] MEDS: PANTOPRAZOLE 40MG TABLET PO SCH (06:24)
[2020-07-08] MEDS: CLOPIDOGREL 75 MG TABLET PO SCH (08:33)
[2020-07-08 08:56] VITALS: BP 110/62; TEMP 98.3
[2020-07-08] MEDS: MAGNESIUM OXIDE 400 MG TAB PO SCH (09:00)
[2020-07-08] MEDS: FLUTICASONE 50MCG NASAL SPRAY NAS SCH (09:00)
[2020-07-08] MEDS: FOLIC ACID 1 MG TABLET PO SCH (09:26)
[2020-07-08] MEDS: CYANOCOBALAMIN 1,000 MCG TAB PO SCH (09:28)
[2020-07-08] MEDS: ESCITALOPRAM 20 MG TAB PO SCH (09:29)
[2020-07-08] MEDS: FAMOTIDINE 20 MG TAB PO SCH (09:30)
[2020-07-08] MEDS: NICOTINE 14 MG/PAT TD PRN (09:31)
[2020-07-08] MEDS: FENOFIBRATE 48 MG TAB PO SCH (09:31)
[2020-07-08] MEDS: EZETIMIBE 10 MG TAB PO SCH (09:33)
--- NOTE | 2020-07-08 12:20 | CON ---
Reason For Consultation: Consultation called because of hemiplegia. History Of Present Illness: Ms. Oneill is a 40-year-old, right-handed, patient, who has his tory of migraine since age 10. She is followed by a neurologist in the [facility] where she receiv es Botox every 3 months for migraine prophylaxis, which has fair controls, but she may still have 5 o r perhaps small migraines in a month. She was at home on July 06, 2020 when she began having numbne ss in the right face, also weakness in the right face, arm, and leg. Weakness developed to the point that she could not move the right face. She did not move the right arm or leg. Left side remained normal. She came to [facility] after symptom onset with arrival and brain CT scan actually being done within 25 minutes of arrival. She arrived at [facility] at 2117. Head CT scan w as done by 2142 and results no acute ischemic or hemorrhagic change was communicated to the emergency room physician by the radiologist. It should be noted that the depression apparently woke up with t he right-sided weakness, but went to bed for a nap in the afternoon and by her arrival and the CT sca n being done, it was over 5 hours from when she was last known normal. Therefore, she was not a cand idate for tPA. She did have an additional workup for large vessel intracranial abnormalities, which included a CT angiogram of the head and neck. Those were unremarkable for any abnormalities, AVMs, a neurysms, or any occlusion of the large vessels. She was admitted for further workup to [facility]. The following day, brain MRI was done which showed no acute ischemic or hemorrhagic change. At that point, she returned about 25% to 30% strength in the right upper and lower extremity and may d also some return of sensation. MRA of the neck and brain also showed no significant abnormalities and carotid artery ultrasound showed no significant abnormalities as well. At the time of my evaluat ion, she felt about 80% back to strength in the right upper and lower extremities along with her face and her tongue which was also weak turning to the right side. Past Medical History: Includes migraine, pseudoseizure, left-sided Hill's palsy with full recovery, hypothyroidism. Past Surgical History: Hysterectomy, bilateral knee surgery. Social History: She does smoke tobacco, 1 pack cigarettes per day. Reports vaccines are up-to-date. No recent alcohol or IV drug use. Allergies: , CLAMS, COCONUT, CODEINE, DEMEROL, IBUPROFEN, LATEX, AND MORPHINE. Current Medications: She has received [place] 5/325 every 6 hours as needed, aspirin 81 mg daily, Plav ix 75 mg daily, vitamin B12 orally daily, Lovenox 40 mg subcutaneously daily, vitamin D 50 ,000 units on Tuesdays and Saturdays, Lexapro 10 mg daily, Zetia 10 mg daily, Pepcid 20 mg twice catarino y. Tricor daily, Flonase 2 sprays daily, folic acid 1 mg daily, Synthroid 0.125 mg daily, magnesium oxide 400 mg daily, nicotine patch 14 mg daily, Zofran 4 mg every 6 hours as needed, Crest or 40 mg at bedtime, and Zanaflex 4 mg every 8 hours as needed for muscle spasms. Review of Systems: As noted, Ms. Oneill had right face, arm, and leg weakness and numbness. She has had headache as wel l in the past and has been treated for migraine with Botox. She at this point appears to have a debbie plegic migraine. Workup for the stroke is completely normal and the patient is recovering significan tly in terms of her deficits on the right side. She has multiple comorbid conditions as indicated. Plan: The patient should be on the aspirin and Plavix given her high stroke risk and because of her stroke risk factors, however, this is likely to be hemiplegic migraine and not due to stroke. She sh ould follow up with her neurologist and they may adjust the prophylactic medication for migraine as a ppropriate. She may use Ubrelvy as an abortive treatment for migraine. She should maintain a headac he diary and if she is so inclined, may make a visit to my office for followup. JASMYNE Voice ID: [id number] Report ID: [id number]
--- NOTE | 2020-07-08 17:58 | P.DS ---
Admission Date: 07/07/20 Discharge Date: 07/08/20 Disposition: ROUTINE DISCHARGE Discharge Condition: GOOD Reason for Admission: Right hemiparesis Consultations: Neurology - Dr. Peña Procedures: CT Brain (07/06): No acute intracranial abnormality. CXR (07/06): No acute intrathoracic process suspected. CTA Head/Neck (07/06): : Unremarkable CT angiogram of the neck for age without dissection or hemodynamically significant stenosis. Unremarkable CTA of the brain without evidence of hemodynamically significant stenosis, aneurysm or AVM. MRI brain (07/07): No acute or concerning intracranial abnormalities. No pathologic post-contrast enhancement suspected MRA Neck (07/07): No significant flow abnormality seen of the neck vessels. MRA Brain (07/07): No significant flow abnormality of the [place] is identified. Carotid U/S (07/07): No significant atherosclerotic changes noted. No evidence of a hemodynamically significant stenosis. Problem List Right-sided hemiparesis - secondary hemiplegic migraine Migraines Hypothyroidism Tobacco abuse Brief History of Present Illness: 40-year-old female with history of hypothyroidism, migraines, pseudoseizures, Hill's palsy presents emergency department for right-sided weakness. Patient reports lying down for a nap around 1600 on 07/06/2020, patient reports waking up around 1950 with tingling and numbness to the right side of her body, symptoms continued to progress over the course of the next 5- 10 min with development of severe weakness on the right side of the body with facial droop. Patient was evaluated in the emergency department, onset of symptoms was noted to be 1600 as this was patient's last night well prior to sleeping. CT head without contrast negative for any acute findings, CT angio head and neck negative for acute findings. Case was discussed with neurology by ED attending who recommended admission if she was not a candidate for intra- arterial intervention based on the CT angio exams. Lab significant for white blood cell count 14.7 hemoglobin 16, hematocrit 46.0. On exam patient noted to have severe right-sided weakness with my exam demonstrating NIH score of 13. Patient noted to have unilateral facial paralysis, right upper and lower extremity with no effort against gravity but able to slightly move while at rest, mild to moderate sensory loss in the right upper and lower extremity mild to moderate dysarthria. Patient reportedly passed swallow screen by ED staff, was given aspirin, Plavix, folic acid in the emergency department. Hospital Course: Patient was treated with aspirin, Plavix and statin. She had gradual improvement of her symptoms. Neurology was consulted acute. Neuro imaging was all negative. This Keena with discussion with Neurology at the patient, felt the patient's hemiparesis was likely secondary to her migraines. Patient was discharged on aspirin and Plavix, and to follow up with her neurologist. Vital Signs/Physical Exam: Physical Exam General: Alert, In no apparent distress HEENT: PERRL, MMM, EOMI Pulm: CTAB, no wheeze/rales CV: RRR, no murmur Abd: soft, NTND Integumentary: No rashes Neuro: Strength: 4/5 RUE and RLE. Intact sensation of RUE/RLE Temp Pulse Resp BP Pulse Ox 98.3 F 65 16 110/62 95 07/08/20 08:00 07/08/20 08:00 07/08/20 08:00 07/08/20 08:00 07/08/20 08:00 Laboratory Data at Discharge: WBC 9.10 K/uL (4.3-10.9) 07/08/20 04:02 Hgb 13.4 g/dL (12.0-15.0) 07/08/20 04:02 Hct 38.8 % (36.0-45.0) 07/08/20 04:02 Plt Count 247 K/uL (152-406) 07/08/20 04:02 PT 9.9 SECONDS (9.5-12.5) 07/06/20 21:25 INR 0.86 07/06/20 21:25 APTT 29.8 SECONDS (24.3-36.9) 07/06/20 21:25 Sodium 144 mmol/L (136-145) 07/08/20 04:02 Potassium 4.2 mmol/L (3.5-5.1) 07/08/20 04:02 BUN 7 mg/dL (7-18) 07/08/20 04:02 Creatinine 0.78 mg/dL (0.55-1.3) 07/08/20 04:02 Glucose 92 mg/dL (74-106) 07/08/20 04:02 Magnesium 2.1 mg/dL (1.8-2.4) 07/08/20 04:02 Total Bilirubin 0.4 mg/dL (0.2-1.0) 07/08/20 04:02 AST 19 U/L (15-37) 07/08/20 04:02 ALT 47 U/L (12-78) 07/08/20 04:02 Alkaline Phosphatase 77 U/L (45-117) 07/08/20 04:02 Triglycerides 215 mg/dL (<150) H 07/07/20 05:53 Cholesterol 163 mg/dL (<200) 07/07/20 05:53 HDL Cholesterol 27 mg/dL (40-60) L 07/07/20 05:53 Cholesterol/HDL Ratio 6.04 07/07/20 05:53 Home Medications: Aspirin [Ecotrin 81 MG] 81 mg PO DAILY 07/07/20 Cyanocobalamin (Vitamin B-12) [Vitamin B12] 5,000 mcg PO DAILY 07/07/20 EPINEPHrine [Symjepi] 1 ml IJ PRN PRN 07/07/20 Ergocalciferol (Vitamin D2) [Vitamin D2] 50,000 unit PO SEECOM 07/07/20 Escitalopram Oxalate [Lexapro] 10 mg PO DAILY 07/07/20 Ezetimibe [Zetia*] 10 mg PO DAILY 07/07/20 Famotidine [Pepcid] 20 mg PO BID 07/07/20 Fenofibric Acid (Choline) [Fenofibric Acid] 135 mg PO DAILY 07/07/20 Fluticasone Propionate 2 spray NS DAILY 07/07/20 Levothyroxine Sodium 125 mcg PO DAILY 07/07/20 Magnesium Oxide 400 mg PO DAILY 07/07/20 Metoclopramide HCl [Reglan] 10 mg PO Q8H PRN 07/07/20 Omeprazole [Prilosec] 40 mg PO DAILY 07/07/20 Rosuvastatin Calcium 40 mg PO BEDTIME 07/07/20 Sumatriptan [Imitrex*] 50 mg PO SEECOM 07/07/20 Tizanidine HCl 4 mg PO Q8HP PRN 07/07/20 Clopidogrel Bisulfate [Plavix] 75 mg PO DAILY 30 Days #30 tablet 07/08/20 New Medications: Clopidogrel Bisulfate [Plavix] 75 mg PO DAILY 30 Days #30 tablet Diet: AHA Activity: Ad claire Followup: Mehdi Peña MD [ASSOCIATE-ACTIVE - CAN ADMIT] - Johnny Winn MD [Primary Care Provider] - Time spent managing pt's care (in minutes): 35
--- NOTE | 2020-07-09 08:51 | ECHO ---
HEIGHT: 5 ft 10 in WEIGHT: 165 lb 12.8 oz DATE OF STUDY: 07/08/[address]: Brock Bravo NP 2-DIMENSIONAL: YES M.MODE: YES DOPPLER: YES COLOR FLOW: YES TDS: NO PORTABLE: NO DEFINITY: NO BUBBLE STUDY: NO DIAGNOSIS: CEREBRAL VASCULAR ACCIDENT CARDIAC HISTORY: CATHERIZATION: NO SURGERY: NO PROSTHETIC VALVE: NO PACEMAKER: NO MEASUREMENTS (cm) DIASTOLIC (NORMALS) SYSTOLIC (NORMALS) IVSd 0.9 (0.6-1.2) LA Diam 2.5 (1.9-4.0) LVEF 63% LVIDd 3.9 (3.5-5.7) LVIDs 2.6 (2.0-3.5) %FS 34% LVPWd 0.9 (0.6-1.2) Ao Diam 2.2 (2.0-3.7) 2 DIMENSIONAL ASSESSMENT: RIGHT ATRIUM: NORMAL LEFT ATRIUM: NORMAL RIGHT VENTRICLE: NORMAL LEFT VENTRICLE: NORMAL TRICUSPID VALVE: NORMAL MITRAL VALVE: NORMAL PULMONIC VALVE: NORMAL AORTIC VALVE: NORMAL PERICARDIAL EFFUSION: NONE AORTIC ROOT: NORMAL LEFT VENTRICULAR WALL MOTION: NORMAL DOPPLER/COLOR FLOW: NORMAL COMMENTS: NORMAL 2D ECHOCARDIOGRAM WITH DOPPLER. NO WALL MOTION ABNORMALITY. NO EFFUSION. NO THROMBUS. TECHNOLOGIST: Ivette STAUFFER
[2020-07-10 06:23] LABS: Albumin, (SPE) 3.5 g/dL (3.8-4.8); Alpha-1-Globulins 0.3 g/dL (0.2-0.3); Alpha-2-Globulins 0.6 g/dL (0.5-0.9); Gamma Globulins 0.8 g/dL (0.8-1.7); INTERPRETATION REPORT
== END 2020-07-08 10:40 | disposition home or self-care (01) | DRG 103 ==
LOC: ER 21:11 → 2ND 07-07 02:45
PROVIDERS: ADMIT Hospitalist; ATTEND Hospitalist
DX: G43.409 Hemiplegic migraine, not intractable, without status migrainosus (principal); G81.91 Hemiplegia, unspecified affecting right dominant side; E03.9 Hypothyroidism, unspecified; F17.210 Nicotine dependence, cigarettes, uncomplicated; Z90.710 Acquired absence of both cervix and uterus; Z91.040 Latex allergy status; Z56.0 Unemployment, unspecified; Z88.5 Allergy status to narcotic agent; Z88.8 Allergy status to other drugs, medicaments and biological substances; Z91.018 Allergy to other foods; Z79.899 Other long term (current) drug therapy; Z79.82 Long term (current) use of aspirin; Z79.02 Long term (current) use of antithrombotics/antiplatelets; Z79.890 Hormone replacement therapy; Z20.822 Contact with and (suspected) exposure to COVID-19
CPT/HCPCS: 36415; 70450; 70496; 70498; 70544; 70549; 70553; 71045; 80048; 80053; 80061; 81003; 82947; 83036; 83735; 84145; 84165; 84439; 84443; 85025; 85610; 85652; 85730; 86140; 92610; 93005; 93306; 93880; 97112; 97161; 99285; A9577; J1650; J7030; Q9967; U0003

== ENCOUNTER 2020-10-31 17:56 | Emergency (ER) | payer OTHER ==
--- OUTSIDE RECORDS SUMMARY | 2020-10-31 17:59 | XMS REPORT | Continuity of Care Document ---
:1980 Author Organization [facility] t Address [address] [place] [address] [address]. [address] [place] [address] Care Team Providers Name Role Phone Jacqueline Winn MD Attending Clinician Problems This patient has no known problems. Allergies, Adverse Reactions, Alerts This patient has no known allergies or adverse reactions. Medications This patient has no known medications. Procedures This patient has no known procedures. Encounters Start End Encounter Admission Attending Care Care Encounter Source Date/Time Date/Time Type Type Clinicians Facility Department ID 2020-10-09 2020-10-09 Refill LUIZA Winn [id number] 00:00:00 00:00:00 [facility] [id number] [place] [id number] [facility] [phone] [address]al [address] 2020-09-11 2020-09-11 Office LUIZA Winn [id number] 15:41:31 16:15:33 Visit Jacqu[facility] [id number] [place] [id number] [facility] [phone] nal [phone] Results This patient has no known results.
--- NOTE | 2020-10-31 18:50 | RAD REPORT ---
EXAM DESCRIPTION: CT - Head Brain Wo Cont - 10/31/2020 6:42 pm CLINICAL HISTORY: Numbness COMPARISON: MRI June 2020 TECHNIQUE: Computed axial tomography of the head was obtained. IV contrast was not requested. All CT scans are performed using dose optimization technique as appropriate and may include automated exposure control or mA/KV adjustment according to patient size. FINDINGS: An intracranial bleed is not seen . The ventricles are normal in caliber. No extra-axial fluid collection is noted. Fluid within the sinuses/ mastoids is not seen. IMPRESSION: No acute intracranial abnormality is seen. If patient's symptoms persist MRI of the bra in would be recommended.
[2020-10-31 20:18] LABS: Basophils % 0.2 % (0-1.3); Hematocrit 42.4 % (36.0-45.0); Lymphocytes % 39.3 % (15.3-44.8); MPV 8.7 fL (7.6-11.3); RBC Red Blood Cell Count 4.95 M/uL (3.86-4.86)
[2020-10-31 20:19] LABS: Protime INR 0.85
[2020-10-31 20:31] LABS: ALT/SGPT 37 U/L (12-78); AST/SGOT 9 U/L (15-37); Albumin 3.7 g/dL (3.4-5.0); Alkaline Phosphatase 74 U/L (45-117); BUN Blood Urea Nitrogen 17 mg/dL (7-18); Bicarbonate 29 mmol/L (21-32); Bilirubin Direct < 0.1 mg/dL (0-0.2); Bilirubin Total 0.3 mg/dL (0.2-1.0); Glucose Level 89 mg/dL (74-106); Magnesium 2.5 mg/dL (1.8-2.4); NT PRO-BNP 21 pg/mL (<125); Potassium 3.9 mmol/L (3.5-5.1); Protein, Total 7.3 g/dL (6.4-8.2); Sodium Level 140 mmol/L (136-145); Troponin (Emerg Dept Use Only) < 0.02 ng/mL (0.0-0.045)
--- NOTE | 2020-10-31 21:25 | RAD REPORT ---
EXAM DESCRIPTION: Chester Single View10/31/2020 9:09 pm CLINICAL HISTORY: Chest pain COMPARISON: June 2020 FINDINGS: The lungs appear clear of acute infiltrate. The heart is normal size IMPRESSION: No acute abnormalities displayed
[2020-10-31 21:31] LABS: Urine Blood Negative (Negative); Urine Glucose Negative (Negative); Urine Protein Negative (Negative); Urine Specific Gravity 1.015 (1.005-1.030)
[2020-10-31 21:35] LABS: Barbiturates NEGATIVE (NEGATIVE); Benzodiazepines NEGATIVE (NEGATIVE); Cocaine NEGATIVE (NEGATIVE); METHAMPHETAM NEGATIVE (NEGATIVE); Methadone NEGATIVE (NEGATIVE); Opiates NEGATIVE (NEGATIVE); Phencyclidine NEGATIVE (NEGATIVE); THC Cannibis NEGATIVE (NEGATIVE)
--- NOTE | 2020-10-31 22:26 | ER ---
Nurse's Notes [facility] Name: Hannah Oneill Age: 40 yrs Sex: Female : 1980 Arrival Date: 10/31/2020 Time: 17:57 Bed 13 Private MD: Diagnosis: Chest pain, unspecified Presentation: 10/31 18:03 Chief complaint: Patient states: Pt stated, "I had chest pain last night when kg swallowing my medications, When I woke this morning I had burning pain in between my shoulder blades and since then it feels like the chest pain is just getting worse. I started having tingling in my left arm that started 17:45". Coronavirus screen: Client denies travel out of the [place] in the last 14 days. At this time, unable to obtain information related to travel outside the [place] At this time, the client does not indicate any symptoms associated with coronavirus-19. Ebola Screen: Patient negative for fever greater than or equal to 101.5 degrees Fahrenheit, and additional compatible Ebola Virus Disease symptoms Patient denies exposure to infectious person. Patient denies travel to an Ebola-affected area in the 21 days before illness onset. No symptoms or risks identified at this time. Initial Sepsis Screen: Does the patient meet any 2 criteria? No. Patient's initial sepsis screen is negative. Does the patient have a suspected source of infection? No. Patient's initial sepsis screen is negative. Risk Assessment: Do you want to hurt yourself or someone else? Patient reports no desire to harm self or others. Onset of symptoms was October 30, 2020 at 22:00. 18:03 Method Of Arrival: Wheelchair kg 18:03 Acuity: MARY ANNE 3 kg Triage Assessment: 18:07 General: Appears in no apparent distress. Behavior is calm, cooperative, appropriate kg for age, quiet. Pain: Complains of pain in anterior aspect of left upper chest and left breast Pain radiates to thoracic area Pain currently is 9 out of 10 on a pain scale. at worst was 9 out of 10 on a pain scale. level that patient reports is acceptable is 4 out of 10 on a pain scale. Quality of pain is described as sharp, squeezing. Cardiovascular: Chest pain. 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 - Social history:: Smoking status: Patient reports the use of cigarette tobacco products, smokes one-half pack cigarettes per day. Screenin:09 Abuse screen: Denies threats or abuse. Denies injuries from another. Nutritional kg screening: No deficits noted. Tuberculosis screening: No symptoms or risk factors identified. Fall Risk None identified. No fall in past 12 months (0 pts). No secondary diagnosis (0 pts). No IV (0 pts). Ambulatory Aid- None/Bed Rest/Nurse Assist (0 pts). Gait- Normal/Bed Rest/Wheelchair (0 pts) Mental Status- Oriented to own ability (0 pts). Total [place] Fall Scale indicates No Risk (0-24 pts). Assessment: 18:13 Pain: Pain began 1 day ago. kg 20:33 Reassessment: Patient ambulating to bathroom for urine specimen collection. lp1 21:41 General: Appears in no apparent distress. Behavior is calm, cooperative, appropriate kg for age, quiet. Pain: Complains of pain in anterior aspect of left upper chest and left breast Pain radiates to thoracic area. Vital Signs: 18:03 BP 114 / 74; Pulse 82; Resp 20; Temp 98.6(O); Pulse Ox 97% ; Weight 73.48 kg; Height 4 kg ft. 10 in. (147.32 cm); Pain 9/10; 20:12 BP 113 / 71; Pulse 71; Resp 20; Pulse Ox 98% ; kg 18:03 Body Mass Index 33.86 (73.48 kg, 147.32 cm) kg ED Course: 17:57 Patient arrived in ED. ds1 18:07 Triage completed. kg 18:09 Patient has correct armband on for positive identification. kg 18:42 Head Brain Wo Cont In Process Unspecified. EDMS 19:26 Vaughn Pierre MD is Attending Physician. 7 20:11 emergency management specialist on. Pulse ox on. NIBP on. kg 20:11 Inserted saline lock: 20 gauge in right antecubital area, using aseptic technique. kg 20:12 Patient maintains SpO2 saturation greater than 95% on room air. kg 20:13 Arm band placed on. kg 20:49 Lu Arrieta, RN is Primary Nurse. kg 21:09 XRAY Chest (1 view) In Process Unspecified. EDMS 21:40 Basic Metabolic Panel Sent. kg 21:40 CBC with Diff Sent. kg 22:42 No provider procedures requiring assistance completed. kg 22:43 IV discontinued, intact, bleeding controlled, No redness/swelling at site. Pressure kg dressing applied. Administered Medications: No medications were administered Outcome: 22:26 Discharge ordered by . mh7 22:42 Discharged to home ambulatory. kg 22:42 Condition: good 22:42 Discharge instructions given to patient, Instructed on discharge instructions, follow up and referral plans. Demonstrated understanding of instructions, follow-up care. 22:43 Patient left the ED. kg Signatures: Dispatcher [employer] EDGA Syeda Trevizo ds1 Lelia Rodgers RN RN lp1 Vaughn Pierre MD MD [facility] Lu Arrieta, KWESI RN kg Corrections: (The following items were deleted from the chart) 22:43 22:43 Patient did not have IV access during this emergency room visit. kg kg
--- NOTE | 2020-10-31 22:27 | EDPHYS ---
Physician Documentation [facility] Name: Hannah Oneill Age: 40 yrs Sex: Female : 1980 Arrival Date: 10/31/2020 Time: 17:57 Bed 13 Private MD: ED Physician Vaughn Pierre HPI: 10/31 19:33 This 40 yrs old Female presents to ER via Wheelchair with complaints of Chest mh7 Pain, S/S of Possible Stroke. 19:33 The patient or guardian reports chest pain that is located primarily in the anterior mh7 chest wall, left. Onset: yesterday. The pain radiates to the left arm. 19:33 Associated signs and symptoms: Pertinent negatives: abdominal pain, cough, diaphoresis, mh7 dizziness, headache, lower extremity pain, lower extremity swelling, lightheadedness, nausea, near syncope, palpitations, recent travel, shortness of breath, syncope, vomiting. 19:33 The chest pain is described as sharp. Duration: The patient or guardian reports mh7 multiple episodes, that are intermittent, that wax and wane. Modifying factors: The symptoms are alleviated by remaining still, the symptoms are aggravated by movement, palpation of area. Severity of pain: At its worst the pain was moderate yesterday, in the emergency department the pain has improved markedly. 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 - Social history:: Smoking status: Patient reports the use of cigarette tobacco products, smokes one-half pack cigarettes per day. ROS: 19:33 Constitutional: Negative for fever, chills, and weight loss, Eyes: Negative for injury, mh7 pain, redness, and discharge, ENT: Negative for injury, pain, and discharge, Neck: Negative for injury, pain, and swelling, Respiratory: Negative for shortness of breath, cough, wheezing, and pleuritic chest pain, Abdomen/GI: Negative for abdominal pain, nausea, vomiting, diarrhea, and constipation, Back: Negative for injury and pain, : Negative for injury, bleeding, discharge, and swelling, MS/Extremity: Negative for injury and deformity, Skin: Negative for injury, rash, and discoloration, Neuro: Negative for headache, weakness, numbness, tingling, and seizure, Psych: Negative for depression, anxiety, suicide ideation, homicidal ideation, and hallucinations, Allergy/Immunology: Negative for hives, rash, and allergies, Endocrine: Negative for neck swelling, polydipsia, polyuria, polyphagia, and marked weight changes, Hematologic/Lymphatic: Negative for swollen nodes, abnormal bleeding, and unusual bruising. Exam: 19:33 Constitutional: This is a well developed, well nourished patient who is awake, alert, mh7 and in no acute distress. Head/Face: Normocephalic, atraumatic. Eyes: Pupils equal round and reactive to light, extra-ocular motions intact. Lids and lashes normal. Conjunctiva and sclera are non-icteric and not injected. Cornea within normal limits. Periorbital areas with no swelling, redness, or edema. Neck: Trachea midline, no thyromegaly or masses palpated, and no cervical lymphadenopathy. Supple, full range of motion without nuchal rigidity, or vertebral point tenderness. No Meningismus. 19:33 Cardiovascular: Regular rate and rhythm with a normal S1 and S2. No gallops, murmurs, or rubs. Normal PMI, no JVD. No pulse deficits. Respiratory: Lungs have equal breath sounds bilaterally, clear to auscultation and percussion. No rales, rhonchi or wheezes noted. No increased work of breathing, no retractions or nasal flaring. Abdomen/GI: Soft, non-tender, with normal bowel sounds. No distension or tympany. No guarding or rebound. No evidence of tenderness throughout. Back: No spinal tenderness. No costovertebral tenderness. Full range of motion. Skin: Warm, dry with normal turgor. Normal color with no rashes, no lesions, and no evidence of cellulitis. MS/ Extremity: Pulses equal, no cyanosis. Neurovascular intact. Full, normal range of motion. Neuro: Awake and alert, GCS 15, oriented to person, place, time, and situation. Cranial nerves II-XII grossly intact. Motor strength 5/5 in all extremities. Sensory grossly intact. Cerebellar exam normal. Normal gait. Psych: Awake, alert, with orientation to person, place and time. Behavior, mood, and affect are within normal limits. 19:33 Chest/axilla: Inspection: normal, Palpation: tenderness, that is moderate, of the anterior aspect of left upper chest, that totally reproduces the patient's complaints, Axilla: are normal, Lymph nodes: lymphadenopathy is not appreciated. Vital Signs: 18:03 BP 114 / 74; Pulse 82; Resp 20; Temp 98.6(O); Pulse Ox 97% ; Weight 73.48 kg; Height 4 kg ft. 10 in. (147.32 cm); Pain 9/10; 20:12 BP 113 / 71; Pulse 71; Resp 20; Pulse Ox 98% ; kg 18:03 Body Mass Index 33.86 (73.48 kg, 147.32 cm) kg MDM: 19:33 Differential diagnosis: acute myocardial infarction, acute pericarditis, anxiety, 7 coronary artery disease chest wall pain, congestive heart failure costochondritis, myocarditis, pericarditis, pneumonia, pneumothorax. HEART Score: History: Slightly Suspicious (0), ECG: Normal (0), Age: < or = 45 years (0), Risk Factors: No Risk Factors Known (0), Troponin: < or = 1 x Normal Limit (0), Total Score = 0. Data reviewed: vital signs, nurses notes, lab test result(s), cardiac enzymes, CBC, electrolytes, EKG, radiologic studies, plain films. Data interpreted: Pulse oximetry: on room air is 98 %. Interpretation: normal. Counseling: I had a detailed discussion with the patient and/or guardian regarding: the historical points, exam findings, and any diagnostic results supporting the discharge/admit diagnosis, lab results, radiology results, the need for outpatient follow up, to return to the emergency department if symptoms worsen or persist or if there are any questions or concerns that arise at home. 22:26 Patient medically screened. [facility] 10/31 19:40 Order name: Basic Metabolic Panel [facility] 10/31 19:40 Order name: CBC with Diff [facility] 10/31 19:40 Order name: LFT's; Complete Time: 21:12 [facility] 10/31 19:40 Order name: Magnesium; Complete Time: 21:12 [facility] 10/31 19:40 Order name: NT PRO-BNP; Complete Time: 21:12 [facility] 10/31 19:40 Order name: PT-INR; Complete Time: 21:12 [facility] 10/31 18:25 Order name: Head Brain Wo Cont; Complete Time: 19:29 [facility] 10/31 19:40 Order name: Troponin (emerg Dept Use Only); Complete Time: 21:12 [facility] 10/31 19:40 Order name: XRAY Chest (1 view); Complete Time: 21:48 [facility] 10/31 19:41 Order name: UDS; Complete Time: 21:48 [facility] 10/31 19:41 Order name: Basic Metabolic Panel; Complete Time: 21:12 [facility] 10/31 19:41 Order name: CBC with Automated Diff; Complete Time: 21:12 [facility] 10/31 21:31 Order name: Urine Dipstick-Ancillary; Complete Time: 21:48 [facility] 10/31 19:40 Order name: EKG; Complete Time: 19:41 [facility] 10/31 19:40 Order name: Cardiac monitoring; Complete Time: 21:40 [facility] 10/31 19:40 Order name: EKG - Nurse/Tech; Complete Time: 21:40 [facility] 10/31 19:40 Order name: IV Saline Lock; Complete Time: 21:41 [facility] 10/31 19:40 Order name: Labs collected and sent; Complete Time: 21:41 [facility] 10/31 19:40 Order name: O2 Per Protocol; Complete Time: 21:41 [facility] 10/31 19:40 Order name: O2 Sat Monitoring; Complete Time: 21:41 [facility] 10/31 19:41 Order name: Urine Dipstick-Ancillary (obtain specimen); Complete Time: 21:40 [facility] Administered Medications: No medications were administered Disposition Summary: 10/31/20 22:26 Discharge Ordered Location: Home [facility] Problem: new [facility] Symptoms: have improved [facility] Condition: Stable [facility] Diagnosis - Chest pain, unspecified [facility] Followup: mh7 - With: Private Physician - When: 1 - 2 days - Reason: Recheck today's complaints, Continuance of care, Re-evaluation by your physician Discharge Instructions: - Discharge Summary Sheet [facility] - Chest Wall Pain [facility] - Nonspecific Chest Pain, Adult, [id number] [facility] Forms: - Medication Reconciliation Form [facility] - Thank You Letter [facility] - Antibiotic Education [facility] - Prescription Opioid Use [facility] Signatures: Dispatcher [employer] EDVaughn Unger MD MD [facility] Lu Arrieta RN RN kg Corrections: (The following items were deleted from the chart) 18:25 18:16 Head Brain W/ Wo Con+CT.RAD.BRZ ordered. EDMS EDMS
[2020-10-31 22:54] VITALS: TEMP 98.6
[2020-10-31 22:56] VITALS: BP 113/71; O2SAT 98
== END 2020-10-31 22:43 | disposition home or self-care (01) ==
LOC: ER 17:56
DX: R07.89 Other chest pain (principal); G51.0 Bell's palsy; F17.210 Nicotine dependence, cigarettes, uncomplicated; Z86.73 Personal history of transient ischemic attack (TIA), and cerebral infarction without residual deficits; Z88.6 Allergy status to analgesic agent; Z88.5 Allergy status to narcotic agent; Z91.018 Allergy to other foods; Z91.040 Latex allergy status; Z91.048 Other nonmedicinal substance allergy status
CPT/HCPCS: 36415; 70450; 71045; 80048; 80076; 80307; 81003; 83735; 83880; 84484; 85025; 85610; 93005; 99285

== ENCOUNTER 2022-09-03 16:09 | Emergency (ER) | payer OTHER ==
--- OUTSIDE RECORDS SUMMARY | 2022-09-03 16:18 | XMS REPORT | Continuity of Care Document ---
:1980 Author Organization [facility] t Address [address] [place] [address] [place] [id number] Care Team Providers Name Role Phone Jeffery Mcmillan Primary Care Physician FARHANA JACOBSON Attending Clinician Unavailable TWYLA WOODS Attending Clinician Unavailable COY FLORES Attending Clinician Unavailable Jeffery Mcmillan Attending Clinician Doctor Unassigned, [place] Attending Clinician Unavailable Chuck Galeas MD, Twyla Attending Clinician Lab, Ang - Db Attending Clinician Unavailable Dav Puckett Attending Clinician DAV BUTTS Attending Clinician Unavailable Caitlin SHRESTHA, Kevin Jim Attending Clinician Cruz Walton MD Attending Clinician DIANDRA DIAZ Attending Clinician Unavailable Diandra Jaeger Attending Clinician ADE ROMERO Attending Clinician Unavailable Nico Baker Attending Clinician Ade Romero MD Attending Clinician Annabel Fiore RN Attending Clinician Unavailable Only, Ang Db Test Attending Clinician Unavailable Keira Whitfield Attending Clinician KEIRA POSEY Attending Clinician Unavailable Cisco Small Attending Clinician JEFFERY LAUREANO Attending Clinician Unavailable Farhana Jacobson MD Attending Clinician Samir ALARCON, Whit Attending Clinician Unavailable Michelle Milner MD Attending Clinician MICHELLE MILNER Attending Clinician Unavailable Motility, Endoscopy Attending Clinician Unavailable Only, Adc Test Attending Clinician Unavailable Sean Rodriguez MD Attending Clinician REESEAN Piña Attending Clinician Unavailable SEAN RODRIGUEZ Attending Clinician Unavailable KEVIN TUCKER Attending Clinician Unavailable Yimi CARDIOVASCULAR SURGICAL TECH, Charla Attending Clinician CHARLA GELLER Attending Clinician Unavailable Gurmeet Gipson MD Attending Clinician NICO MARTIN Attending Clinician Unavailable Lab, Adc Fam Pob I Attending Clinician Unavailable Pob, [facility] Lab Main Attending Clinician Unavailable Vls-Lab Attending Clinician Unavailable Ashwin Velazquez DO Attending Clinician Provider, [facility] Attending Clinician Unavailable Gramm CARDIOVASCULAR SURGICAL TECH, Angela A Attending Clinician GRAMM, ANGELA A Attending Clinician Unavailable Susan Charles MD Attending Clinician RAMIRO PEARL Attending Clinician Unavailable Ramiro Pearl MD Attending Clinician Raya Rodgers Attending Clinician Unavailable 2, [facility] Lab Attending Clinician Unavailable Lon Mejia MD, Aba Attending Clinician [phone] Unknown, Attending Attending Clinician Unavailable Andres Arroyo MD Attending Clinician 1, [facility] Cardio Fac Room Attending Clinician Unavailable Pc, Adc Echo Room 1 - Attending Clinician Unavailable Zhen SHRESTHA, Dao Haddad Attending Clinician Pc, Adc Vascular Room 1 - Attending Clinician Unavailable Jin SHRESTHA, Ann Attending Clinician Neema Pike MD Attending Clinician ANN TRAN Attending Clinician Unavailable Donald OROSCO, Mika Jim Attending Clinician Unavailable FARHANA JACOBSON Admitting Clinician Unavailable Farhana Jacobson MD Admitting Clinician KEVIN TUCKER Admitting Clinician Unavailable TWYLA WOODS Admitting Clinician Unavailable Payers Payer Name Policy Type Policy Number Effective Date Expiration Date Luke cheema [facility] MEDICARE [id number] 2020 COMPLETE CHOICE 00:00:00 [facility] JACKIE POWELL [id number] 2017 PLUS 00:00:00 MED[place] [id number] 2020 00:00:00 MEDICARE PART A [id number] 2019 \T\ B 00:00:00 Problems Condition Condition Condition Status Onset Resolution Last Treating Co mments Source Name Details Category Date Date Treatment Clinician Date History of History of Disease Active U nivers food food 3-22 ity of allergy allergy 00:00: Medical Branch Dysphagia, Dysphagia, Disease Active Overview : Univers pharyngoes pharyngoes 3-03 Formattin ity of ophageal ophageal 00:00: g of this [place] as phase phase 00 note Medical might be Branch different from the original. Added automatic ally from request for surgery [id number] Loss of Loss of Disease Active Overview: Univ ers weight weight 4-06 Formattin ity of 00:00: g of this [place] note Medical might be Branch different from the original. Added automatic ally from request for surgery [id number] Early Early Disease Active Overview: Univer s satiety satiety 4-06 Formattin ity o f 00:00: g of this [place] note Medical might be Branch different from the original. Added automatic ally from request for surgery [id number] History of History of Disease Active Overview : Univers colon colon 4-06 Formattin ity of polyps polyps 00:00: g of this [place] note Medical might be Branch different from the original. Added automatic ally from request for surgery [id number] [place] Disease Active Univers palsy palsy 4-30 ity of 00:00: [place] 00 Medical Branch Hair loss Hair loss Disease Active Uni vers 6-27 ity of 00:00: [place] 00 Medical Branch Infection Infection Disease Active 2016-04 Uni vers of skin of skin 1-20 ity of due to due to 00:00: [place] methicilli methicilli 00 Me dical n n Branch resistant resistant Staphyloco Staphyloco ccus ccus aureus aureus (MRSA) (MRSA) Infection Infection Disease Active 2016-04 Uni vers of skin of skin 1-20 ity of due to due to 00:00: [place] methicilli methicilli 00 Me dical n n Branch resistant resistant Staphyloco Staphyloco ccus ccus aureus aureus (MRSA) (MRSA) Positive Positive Disease Active Unive rs test for test for 9-25 ity of herpes herpes 00:00: [place] simplex simplex 00 Medical virus virus Branch (HSV) (HSV) antibody antibody Positive Positive Disease Active Unive rs test for test for 9-25 ity of herpes herpes 00:00: [place] simplex simplex 00 Medical virus virus Branch (HSV) (HSV) antibody antibody Headache Headache Disease Active Unive rs disorder disorder 9-06 ity of 00:00: [place] Medical Branch Obesity Obesity Disease Active Univers (BMI (BMI 8-04 ity of 30-39.9) 30-39.9) 00:00: [place] [facility] Seizure Seizure Disease Active Univers 7-31 ity of 00:00: [place] [facility] Female Female Disease Active Univers hirsutism hirsutism 7-17 ity of 00:00: [place] [facility] Submandibu Submandibu Disease Active U nivers lar lar 4-14 ity of sialoadeni sialoadeni [place] Hyperinsul Hyperinsul Disease Active U nivers inemia inemia 4-12 ity of 00:00: [place] [facility] Heart Heart Disease Active Univers palpitatio palpitatio 4-03 it y of ns ns 00:00: [place] [facility] Obstructiv Obstructiv Disease Active U nivers e sleep e sleep 1-04 ity of apnea apnea 00:00: [place] [facility] LUQ LUQ Disease Active 2015-04 Univers abdominal abdominal 0-20 ity of pain pain 00:00: [place] [facility] Gastroesop Gastroesop Disease Active 2015-04 U nivkathy hageal hageal 0-12 ity of reflux reflux 00:00: [place] disease disease 00 Medical without without Branch esophagiti esophagiti s s Onychomyco Onychomyco Disease Active U nivkathy sis sis 12-24 ity of 00:00: [place] [facility] Seborrhea Seborrhea Disease Active Uni vers 12-24 ity of 00:00: [place] [facility] Chronic Chronic Disease Active 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 00:00: [place] [facility] Fatty Fatty Disease Active Univers liver liver 12-15 ity of 00:00: [place] [facility] 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 00:[place] dism dism Medical [place] Abnormal Abnormal Disease Active Unive rs liver liver 12-08 ity of function function 00:00: [place] test test Medical Branch Hyperchole Hyperchole Disease Active U jaguarers sterolemia sterolemia 12-08 it y of 00:00: [place] [facility] Diabetes Diabetes Disease Active Unive rs mellitus mellitus 12-08 ity of type 2 in type 2 in 00:[place] obese obese [place] Microscopi Microscopi Disease Active U jaguarers c c 12-08 ity of hematuria hematuria 00:[place] B12 B12 Disease Active Univers deficiency deficiency 12-08 it y of 00:00: [place] [facility] Vitamin D Vitamin D Disease Active Uni vers deficiency deficiency 12-08 it y of 00:00: [place] 00 Medical Branch Pseudoseiz Pseudoseiz Disease Active U janna ures ures 12-03 ity of 00:00: [place] [facility] Migraines Migraines Disease Active Uni vers 12-03 ity of 00:00: [place] 00 Medical Branch Depression Depression Disease Active U nivers ity of Medical Branch Asthma Asthma Disease Active Overview: Univer s Formattin ity of g of this [place] note Medical might be Branch different from the original. Current Allergies, Adverse Reactions, Alerts Allergy Allergy Status Severity Reaction(s) Onset Inactive Treating Comm ents Source Name Type Date Date Clinician Bee [place] Propensi Active Anaphylaxis U nivers ty to 08-14 ity of adverse 00:00: [place] reaction 00 Medical s Branch BEE BALM DRUG Active Anaphylaxis Uni vers 08-14 ity of 00:00: [place] 00 Medical Branch Arriaga Propensi Active Swelling 2016- Univer s Tree ty to 1-10 ity of adverse 00:00: [place] reaction 00 Medical s Branch Clams Propensi Active Swelling 2015- Univer s ty to 1-10 ity of adverse 00:00: [place] reaction 00 Medical s Branch Tree Propensi Active Other - See 2015-04 Throat Uni vers Nuts ty to comments 1-10 itching / ity o f adverse 00:00: raw [place] reaction 00 Medical s Branch Pork Propensi Active Swelling 2015- Univer s Derived ty to 1-10 ity of (Porcine adverse 00:00: [place] ) reaction 00 Medical s Branch ARRIAGA DRUG Active Swelling 2015- Univers TREE INGREDI 1-10 ity of 00:00: [place] 00 Medical Branch CLAMS DRUG Active Swelling 2015- Univers INGREDI 1-10 ity of 00:00: [place] 00 Medical Branch TREE Food Active Other-Cmnt 2015- Univer s NUTS 1-10 ity of 00:00: [place] 00 Medical Branch PORK DRUG Active Swelling 2015- Univers DERIVED INGREDI 1-10 ity of (PORCINE 00:00: [place] ) 00 Medical Branch Latex Propensi Active Itching 2016-0 Univers ty to 8-26 ity of adverse 00:00: [place] reaction 00 Medical s Branch Morphine Propensi Active Shortness of 2016-0 Univers ty to Breath 8-26 ity of adverse 00:00: [place] reaction 00 Medical s Branch Ibuprofe Propensi Active Hives 2016-0 Univer s n ty to 8-26 ity of adverse 00:00: [place] reaction 00 Medical s Branch LATEX DRUG Active ITCHING 2016-0 Univers INGREDI 8-26 ity of 00:00: [place] 00 Medical Branch MORPHINE DRUG Active SOB 2016-0 Univers INGREDI 8-26 ity of 00:00: [place] 00 Medical Branch IBUPROFE DRUG Active Hives 2016-0 Univers N INGREDI 8-26 ity of 00:00: [place] 00 Medical Branch Opioids Propensi Active Unknown - 2013-04 Univ ers - ty to See comments 2-04 ity of Morphine adverse 00:00: [place] Analogue reaction 00 Medica l s s Branch OPIOIDS Drug Active High Unknown-Cmnt 2013-04 Uni vers - Class 2-04 ity of MORPHINE 00:00: [place] ANALOGUE 00 Medical S Branch Social History Social Habit Start Date Stop Date Quantity Comments Source History of Smokes tobacco University of tobacco use daily [facility] Exposure to 2022-07-22 2022-08-01 Not sure University SARS-CoV-2 00:00:00 08:03:00 [facility] (event) [place] Alcohol intake 2022-08-01 2022-08-01 0 /d University of 00:00:00 00:00:00 [facility] Tobacco use and 2021-10-26 2021-10-26 Smokeless tobacco Un iversity of exposure 00:00:00 00:00:00 non-user [facility] Sex Ass[birth year] At [birth year] Universit y of 00:00:00 00:00:00 [facility] Smoking Status Start Date Stop Date Source Smokes tobacco daily 2021-10-26 00:00:00 Univers ity of [facility] Medications Ordered Filled Start Stop Current Ordering Indication Dosage Frequency Signature Comments Components Source Medication Medication Date Date Medication? Clinician (SIG) Name Name levothyroxi Yes [id number] 125ug Take 1 Univers ne 125 mcg 5-22 tablet by ity of tablet 00:00: mouth [place] 00 every Medical morning. Branch clostridium 2022- No [id number] 155U Univers botulinum 08-01 9105 ity of toxin 16:00: 15:08 [place] (BOTOX) 00 :00 Medical injection Branch 155 Units clostridium 2022- No [id number] 155U 155 Units, Univers botulinum 08-01 9105 Intramuscu ity of toxin 16:00: 15:08 DG cobb, [place] (BOTOX) 00 :00 1 dose, On Medica l injection Mon Branch 155 Units 08/01/22 at 1100, Routine
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 tiZANidine 2022-0 Yes [id number] 2mg Take 1 U nivers 2 mg tablet 4-24 tablet by ity of 00:00: mouth [place] 00 every 8 Medical (eight) Branch hours as needed for Pain (scale 4-6). tiZANidine 2022-0 Yes [id number] 2mg Take 1 U nivers 2 mg tablet 4-24 tablet by ity of 00:00: mouth [place] 00 every 8 Medical (eight) Branch hours as needed for Pain (scale 4-6). tiZANidine 2022-0 Yes [id number] 2mg Take 1 U nivers 2 mg tablet 4-24 tablet by ity of 00:00: mouth [place] 00 every 8 Medical (eight) Branch hours as needed for Pain (scale 4-6). rosuvastati 2022-0 Yes [id number] 40mg Take 1 Univers n 40 mg 3-22 tablet by ity of tablet 00:00: mouth at [place] 00 bedtime. Medical Branch omeprazole 2022-0 Yes [id number] 40mg Take 1 Univers 40 mg 3-22 capsule by ity of capsule 00:00: mouth in [place] 00 the Medical morning. Branch metFORMIN 2022-0 Yes [id number] 500mg Take 1 U nivers 500 mg 3-22 tablet by ity of tablet 00:00: mouth in [place] 00 the Medical morning Branch and 1 tablet in the evening. Take with meals. levothyroxi 2022-0 Yes [id number] 125ug Take 1 Univers ne 125 mcg 3-22 tablet by ity of tablet 00:00: mouth [place] 00 every Medical morning. Branch famotidine 2022-0 Yes [id number] 20mg Take 1 Univers 20 mg 3-22 tablet by ity of tablet 00:00: mouth in [place] 00 the Medical morning Branch and 1 tablet in the evening. EPINEPHrine 2022-0 Yes [id number] INJECT 0.3 Univers 0.3 mg/0.3 3-22 ML(S) BY ity o f mL 00:00: INTRAMUSCU [place] injection 00 LAR ROUTE Medic al NEEDED Branch FOR ANAPHYLAXI S. rosuvastati Yes [id number] 40mg Take 1 Univers n 40 mg 3-22 tablet by ity of tablet 00:00: mouth at [place] 00 bedtime. Medical Branch omeprazole Yes [id number] 40mg Take 1 Univers 40 mg 3-22 capsule by ity of capsule 00:00: mouth in [place] 00 the Medical morning. Branch metFORMIN Yes [id number] 500mg Take 1 U nivers 500 mg 3-22 tablet by ity of tablet 00:00: mouth in [place] 00 the Medical morning Branch and 1 tablet in the evening. Take with meals. levothyroxi Yes [id number] 125ug Take 1 Univers ne 125 mcg 3-22 tablet by ity of tablet 00:00: mouth [place] 00 every Medical morning. Branch famotidine Yes [id number] 20mg Take 1 Univers 20 mg 3-22 tablet by ity of tablet 00:00: mouth in [place] 00 the Medical morning Branch and 1 tablet in the evening. EPINEPHrine Yes [id number] INJECT 0.3 Univers 0.3 mg/0.3 3-22 ML(S) BY ity o f mL 00:00: INTRAMUSCU [place] injection 00 LAR ROUTE Medic al NEEDED Branch FOR ANAPHYLAXI S. Blood-Gluco Yes [id number] Use as Univers se Meter 3-22 directed ity of (GLUCOCARD 00:00: [place] SHINE 00 Medical METER) [facility] Branch lancets Yes [id number] Check Unive rs (TECHLITE 3-22 blood ity of LANCETS) 28 00:00: glucose [place] as gauge Misc 00 FBS Medical time(s) a Branch daily blood sugar Yes [id number] Check U nivers diagnostic 3-22 blood ity of (GLUCOCARD 00:00: [place] SHINE TEST 00 FBS Medical STRIPS) time(s) a Branch strip daily rosuvastati Yes [id number] 40mg Take 1 Univers n 40 mg 3-22 tablet by ity of tablet 00:00: mouth at [place] [address] bedtime. Medical Branch omeprazole Yes [id number] 40mg Take 1 Univers 40 mg 3-22 capsule by ity of capsule 00:00: mouth in [place] 00 the Medical morning. Branch metFORMIN Yes [id number] 500mg Take 1 U nivers 500 mg 3-22 tablet by ity of tablet 00:00: mouth in [place] 00 the Medical morning Branch and 1 tablet in the evening. Take with meals. levothyroxi Yes [id number] 125ug Take 1 Univers ne 125 mcg 3-22 tablet by ity of tablet 00:00: mouth [place] 00 every Medical morning. Branch famotidine Yes [id number] 20mg Take 1 Univers 20 mg 3-22 tablet by ity of tablet 00:00: mouth in [place] 00 the Medical morning Branch and 1 tablet in the evening. EPINEPHrine Yes [id number] INJECT 0.3 Univers 0.3 mg/0.3 3-22 ML(S) BY ity o f mL 00:00: INTRAMUSCU [place] injection 00 LAR ROUTE Medic al NEEDED Branch FOR ANAPHYLAXI S. Blood-Gluco Yes [id number] Use as Univers se Meter 3-22 directed ity of (GLUCOCARD 00:00: [place] SHINE 00 Medical METER) [facility] Branch lancets Yes [id number] Check Unive rs (TECHLITE 3-22 blood ity of LANCETS) 28 00:00: glucose [place] as gauge Misc 00 FBS Medical time(s) a Branch daily blood sugar Yes [id number] Check U nivers diagnostic 3-22 blood ity of (GLUCOCARD 00:00: glucose [place] SHINE TEST 00 FBS Medical STRIPS) time(s) a Branch strip daily rosuvastati Yes [id number] 40mg Take 1 Univers n 40 mg 3-22 tablet by ity of tablet 00:00: mouth at [place] 00 bedtime. Medical Branch omeprazole Yes [id number] 40mg Take 1 Univers 40 mg 3-22 capsule by ity of capsule 00:00: mouth in [place] 00 the Medical morning. Branch metFORMIN Yes [id number] 500mg Take 1 U nivers 500 mg 3-22 tablet by ity of tablet 00:00: mouth in [place] the Medical morning Branch and 1 tablet in the evening. Take with meals. levothyroxi 2022-0 Yes [id number] 125ug Take 1 Univers ne 125 mcg 3-22 tablet by ity of tablet 00:00: mouth [place] [address] every Medical morning. Branch famotidine 2022-0 Yes [id number] 20mg Take 1 Univers 20 mg 3-22 tablet by ity of tablet 00:00: mouth in [place] the Medical morning Branch and 1 tablet in the evening. EPINEPHrine 2022-0 Yes [id number] INJECT 0.3 Univers 0.3 mg/0.3 3-22 ML(S) BY ity o f mL 00:00: INTRAMUSCU [place] injection 00 LAR ROUTE Medic al NEEDED Branch FOR ANAPHYLAXI S. rosuvastati 2022-0 Yes [id number] 40mg Take 1 Univers n 40 mg 3-22 tablet by ity of tablet 00:00: mouth at [place] [address] bedtime. Medical Branch omeprazole 2022-0 Yes [id number] 40mg Take 1 Univers 40 mg 3-22 capsule by ity of capsule 00:00: mouth in [place] the Medical morning. Branch metFORMIN 2022-0 Yes [id number] 500mg Take 1 U nivers 500 mg 3-22 tablet by ity of tablet 00:00: mouth in [place] the Medical morning Branch and 1 tablet in the evening. Take with meals. levothyroxi 2022-0 Yes [id number] 125ug Take 1 Univers ne 125 mcg 3-22 tablet by ity of tablet 00:00: mouth [place] [address] every Medical morning. Branch famotidine 2022-0 Yes [id number] 20mg Take 1 Univers 20 mg 3-22 tablet by ity of tablet 00:00: mouth in [place] the Medical morning Branch and 1 tablet in the evening. EPINEPHrine 2022-0 Yes [id number] INJECT 0.3 Univers 0.3 mg/0.3 3-22 ML(S) BY ity o f mL 00:00: INTRAMUSCU [place] injection 00 LAR ROUTE Medic al NEEDED Branch FOR ANAPHYLAXI S. rosuvastati 2022-0 Yes [id number] 40mg Take 1 Univers n 40 mg 3-22 tablet by ity of tablet 00:00: mouth at [place] [address] bedtime. Medical Branch omeprazole 2023-0 Yes [id number] 40mg Take 1 Univers 40 mg 3-22 capsule by ity of capsule 00:00: mouth in [place] 00 the Medical morning. Branch metFORMIN 0 Yes [id number] 500mg Take 1 U nivers 500 mg 3-22 tablet by ity of tablet 00:00: mouth in [place] 00 the Medical morning Branch and 1 tablet in the evening. Take with meals. levothyroxi 0 Yes [id number] 125ug Take 1 Univers ne 125 mcg 3-22 tablet by ity of tablet 00:00: mouth [place] 00 every Medical morning. Branch famotidine Yes [id number] 20mg Take 1 Univers 20 mg 3-22 tablet by ity of tablet 00:00: mouth in [place] the morning Branch and 1 tablet in the evening. EPINEPHrine Yes [id number] INJECT 0.3 Univers 0.3 mg/0.3 3-22 ML(S) BY ity o f mL 00:00: INTRAMUSCU [place] injection 00 LAR ROUTE Medic al NEEDED Branch FOR ANAPHYLAXI S. Blood-Gluco Yes [id number] Use as Univers se Meter 3-22 directed ity of (GLUCOCARD 00:00: [place] SHINE 00 Medical METER) [facility] Branch lancets Yes [id number] Check Unive rs (TECHLITE 3-22 blood ity of LANCETS) 28 00:00: glucose [place] as gauge Misc 00 FBS Medical time(s) a Branch daily blood sugar 0 Yes [id number] Check U nivers diagnostic 3-22 blood ity of (GLUCOCARD 00:00: glucose [place] SHINE TEST 00 FBS Medical STRIPS) time(s) a Branch strip daily rosuvastati 0 Yes [id number] 40mg Take 1 Univers n 40 mg 3-22 tablet by ity of tablet 00:00: mouth at [place] 00 bedtime. Medical Branch omeprazole 0 Yes [id number] 40mg Take 1 Univers 40 mg 3-22 capsule by ity of capsule 00:00: mouth in [place] 00 the Medical morning. Branch metFORMIN 2022-0 Yes [id number] 500mg Take 1 U nivers 500 mg 3-22 tablet by ity of tablet 00:00: mouth in [place] the Medical morning Branch and 1 tablet in the evening. Take with meals. levothyroxi Yes [id number] 125ug Take 1 Univers ne 125 mcg 3-22 tablet by ity of tablet 00:00: mouth [place] every Medical morning. Branch famotidine Yes [id number] 20mg Take 1 Univers 20 mg 3-22 tablet by ity of tablet 00:00: mouth in [place] the Medical morning Branch and 1 tablet in the evening. EPINEPHrine Yes [id number] INJECT 0.3 Univers 0.3 mg/0.3 3-22 ML(S) BY ity o f mL 00:00: INTRAMUSCU [place] injection 00 LAR ROUTE Medic al NEEDED Branch FOR ANAPHYLAXI S. Blood-Gluco Yes [id number] Use as Univers se Meter 3-22 directed ity of (GLUCOCARD 00:00: [place] SHINE 00 Medical METER) [facility] Branch lancets Yes [id number] Check Unive rs (TECHLITE 3- blood ity of LANCETS) 28 00:00: glucose [place] as gauge Misc 00 FBS Medical time(s) a Branch daily blood sugar Yes [id number] Check U nivers diagnostic 3-22 blood ity of (GLUCOCARD 00:00: glucose [place] SHINE TEST 00 FBS Medical STRIPS) time(s) a Branch strip daily rosuvastati Yes [id number] 40mg Take 1 Univers n 40 mg 3-22 tablet by ity of tablet 00:00: mouth at [place] [address] bedtime. Medical Branch omeprazole Yes [id number] 40mg Take 1 Univers 40 mg 3-22 capsule by ity of capsule 00:00: mouth in [place] 00 the Medical morning. Branch metFORMIN Yes [id number] 500mg Take 1 U nivers 500 mg 3-22 tablet by ity of tablet 00:00: mouth in [place] 00 the Medical morning Branch and 1 tablet in the evening. Take with meals. levothyroxi Yes [id number] 125ug Take 1 Univers ne 125 mcg 3-22 tablet by ity of tablet 00:00: mouth [place] [address] every Medical morning. Branch famotidine Yes [id number] 20mg Take 1 Univers 20 mg 3-22 tablet by ity of tablet 00:00: mouth in [place] the Medical morning Branch and 1 tablet in the evening. EPINEPHrine Yes [id number] INJECT 0.3 Univers 0.3 mg/0.3 3-22 ML(S) BY ity o f mL 00:00: INTRAMUSCU [place] injection 00 LAR ROUTE Medic al NEEDED Branch FOR ANAPHYLAXI S. Blood-Gluco Yes [id number] Use as Univers se Meter 3-22 directed ity of (GLUCOCARD 00:00: [place] SHINE 00 Medical METER) [facility] Branch lancets Yes [id number] Check Unive rs (TECHLITE 3-22 blood ity of LANCETS) 28 00:00: glucose [place] as gauge Mis 00 FBS Medical time(s) a Branch daily blood sugar Yes [id number] Check U nivers diagnostic 3-22 blood ity of (GLUCOCARD 00:00: glucose [place] SHINE TEST 00 FBS Medical STRIPS) time(s) a Branch strip daily rosuvastati Yes [id number] 40mg Take 1 Univers n 40 mg 3-22 tablet by ity of tablet 00:00: mouth at [place] [address] bedtime. Medical Branch omeprazole Yes [id number] 40mg Take 1 Univers 40 mg 3-22 capsule by ity of capsule 00:00: mouth in [place] [address] the Medical morning. Branch metFORMIN 0 Yes [id number] 500mg Take 1 U nivers 500 mg 3-22 tablet by ity of tablet 00:00: mouth in [place] the Medical morning Branch and 1 tablet in the evening. Take with meals. levothyroxi 0 Yes [id number] 125ug Take 1 [facility] ne 125 mcg 3-22 tablet by ity of tablet 00:00: mouth [place] [address] every Medical morning. Branch famotidine Yes [id number] 20mg Take 1 [facility] 20 mg 3-22 tablet by ity of tablet 00:00: mouth in [place] the Medical morning Branch and 1 tablet in the evening. EPINEPHrine 0 Yes [id number] INJECT 0.3 Univers 0.3 mg/0.3 3-22 ML(S) BY ity o f mL 00:00: INTRAMUSCU [place] injection 00 LAR ROUTE Medic al NEEDED Branch FOR ANAPHYLAXI S. Blood-Gluco Yes [id number] Use as Univers se Meter 3-22 directed ity of (GLUCOCARD 00:00: [place] SHINE 00 Medical METER) [facility] Branch lancets Yes [id number] Check Unive rs (TECHLITE 3-22 blood ity of LANCETS) 28 00:00: glucose [place] as gauge Misc 00 FBS Medical time(s) a Branch daily blood sugar Yes [id number] Check U nivers diagnostic 3-22 blood ity of (GLUCOCARD 00:00: glucose [place] SHINE TEST 00 FBS Medical STRIPS) time(s) a Branch strip daily rosuvastati Yes [id number] 40mg Take 1 [facility] n 40 mg 3-22 tablet by ity of tablet 00:00: mouth at [place] [address] bedtime. Medical Branch omeprazole Yes [id number] 40mg Take 1 [facility] 40 mg 3-22 capsule by ity of capsule 00:00: mouth in [place] [address] the Medical morning. Branch metFORMIN Yes [id number] 500mg Take 1 U nivers 500 mg 3-22 tablet by ity of tablet 00:00: mouth in [place] 00 the Medical morning Branch and 1 tablet in the evening. Take with meals. levothyroxi Yes [id number] 125ug Take 1 [facility] ne 125 mcg 3-22 tablet by ity of tablet 00:00: mouth [place] [address] every Medical morning. Branch famotidine Yes [id number] 20mg Take 1 [facility] 20 mg 3-22 tablet by ity of tablet 00:00: mouth in [place] 00 the Medical morning Branch and 1 tablet in the evening. EPINEPHrine Yes [id number] INJECT 0.3 [facility] 0.3 mg/0.3 3-22 ML(S) BY ity o f mL 00:00: INTRAMUSCU [place] injection 00 LAR ROUTE Medic al NEEDED Branch FOR ANAPHYLAXI S. Blood-Gluco Yes [id number] Use as [facility] se Meter 3-22 directed ity of (GLUCOCARD 00:00: [place] SHINE 00 Medical METER) [facility] Branch lancets Yes [id number] Check Unive rs (TECHLITE 3-22 blood ity of LANCETS) 28 00:00: glucose [place] as gauge Misc 00 FBS Medical time(s) a Branch daily blood sugar Yes [id number] Check U nivers diagnostic 3-22 blood ity of (GLUCOCARD 00:00: glucose [place] SHINE TEST 00 FBS Medical STRIPS) time(s) a Branch strip daily rosuvastati Yes [id number] 40mg Take 1 [facility] n 40 mg 3-22 tablet by ity of tablet 00:00: mouth at [place] 00 bedtime. Medical Branch omeprazole Yes [id number] 40mg Take 1 [facility] 40 mg 3-22 capsule by ity of capsule 00:00: mouth in [place] 00 the Medical morning. Branch metFORMIN Yes [id number] 500mg Take 1 U nivers 500 mg 3-22 tablet by ity of tablet 00:00: mouth in [place] 00 the Medical morning Branch and 1 tablet in the evening. Take with meals. famotidine Yes [id number] 20mg Take 1 [facility] 20 mg 3-22 tablet by ity of tablet 00:00: mouth in [place] 00 the Medical morning Branch and 1 tablet in the evening. EPINEPHrine Yes [id number] INJECT 0.3 [facility] 0.3 mg/0.3 3-22 ML(S) BY ity o f mL 00:00: INTRAMUSCU [place] injection 00 LAR ROUTE Medic al NEEDED Branch FOR ANAPHYLAXI S. Blood-Gluco Yes [id number] Use as Univers se Meter 3-22 directed ity of (GLUCOCARD 00:00: [place] SHINE 00 Medical METER) [facility] Branch lancets Yes [id number] Check Unive rs (TECHLITE 3-22 blood ity of LANCETS) 28 00:00: glucose [place] as gauge Misc 00 FBS Medical time(s) a Branch daily blood sugar Yes [id number] Check U nivers diagnostic 3-22 blood ity of (GLUCOCARD 00:00: glucose [place] SHINE TEST 00 FBS Medical STRIPS) time(s) a Branch strip daily levothyroxi 2022- No [id number] 125ug Take 1 [facility] ne 125 mcg 3-22 05-22 tablet by ity of tablet 00:00: 00:00 mouth [place] 00 :00 every Medical morning. Branch clostridium 2022-0 2022- No [id number] 200U [facility] botulinum 05-09 9105 ity of toxin 17:00: 16:02 [place] (BOTOX) 00 :00 Medical injection Branch 200 Units clostridium 2022-0 2022- No [id number] 200U 200 Units, Univers botulinum 05-09 9105 Intramuscu ity of toxin 17:00: 16:02 lar, ONCE, [place] (BOTOX) 00 :00 1 dose, On Medica l injection Mon Branch 200 Units 05/09/22 at 1100, Routine
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 Branch Can repeat in 2 hours, max 200 mg in 24 hours, less than 3 days a week SUMAtriptan 2023-0 Yes [id number] 50mg Take 1 [facility] 50 mg 1-30 9105 tablet by ity of tablet 00:00: mouth as [place] 00 needed for Medical Migraine. [place] Can repeat in 2 hours, max 200 mg in 24 hours, less than 3 days a week SUMAtriptan 2022-0 Yes [id number] 50mg Take 1 [facility] 50 mg 1-30 9105 tablet by ity of tablet 00:00: mouth as [place] 00 needed for Medical Migraine. Branch Can repeat in 2 hours, max 200 mg in 24 hours, less than 3 days a week SUMAtriptan 2022-0 Yes [id number] 50mg Take 1 [facility] 50 mg 1-30 9105 tablet by ity of tablet 00:00: mouth as [place] 00 needed for Medical Migraine. Branch Can repeat in 2 hours, max 200 mg in 24 hours, less than 3 days a week SUMAtriptan 2022-0 Yes [id number] 50mg Take 1 [facility] 50 mg 1-30 9105 tablet by ity of tablet 00:00: mouth as [place] 00 needed for Medical Migraine. Branch Can repeat in 2 hours, max 200 mg in 24 hours, less than 3 days a week SUMAtriptan 2022-0 Yes [id number] 50mg Take 1 [facility] 50 mg 1-30 9105 tablet by ity of tablet 00:00: mouth as [place] 00 needed for Medical Migraine. Branch Can repeat in 2 hours, max 200 mg in 24 hours, less than 3 days a week SUMAtriptan 2022-0 Yes [id number] 50mg Take 1 [facility] 50 mg 1-30 9105 tablet by ity of tablet 00:00: mouth as [place] 00 needed for Medical Migraine. Branch Can repeat in 2 hours, max 200 mg in 24 hours, less than 3 days a week SUMAtriptan 2022-0 Yes [id number] 50mg Take 1 [facility] 50 mg 1-30 9105 tablet by ity of tablet 00:00: mouth as [place] 00 needed for Medical Migraine. [place] Can repeat in 2 hours, max 200 mg in 24 hours, less than 3 days a week SUMAtriptan 2022-0 Yes [id number] 50mg Take 1 [facility] 50 mg 1-30 9105 tablet by ity of tablet 00:00: mouth as [place] 00 needed for Medical Migraine. [place] Can repeat in 2 hours, max 200 mg in 24 hours, less than 3 days a week SUMAtriptan 3-0 Yes [id number] 50mg Take 1 [facility] 50 mg 1-30 9105 tablet by ity of tablet 00:00: mouth as [place] 00 needed for Medical Migraine. Branch Can repeat in 2 hours, max 200 mg in 24 hours, less than 3 days a week SUMAtriptan 3-0 Yes [id number] 50mg Take 1 [facility] 50 mg 1-30 9105 tablet by ity of tablet 00:00: mouth as [place] 00 needed for Medical Migraine. Branch Can repeat in 2 hours, max 200 mg in 24 hours, less than 3 days a week SUMAtriptan 2022-0 Yes [id number] 50mg Take 1 [facility] 50 mg 1-30 9105 tablet by ity of tablet 00:00: mouth as [place] 00 needed for Medical Migraine. Branch Can repeat in 2 hours, max 200 mg in 24 hours, less than 3 days a week SUMAtriptan 2022-0 Yes [id number] 50mg Take 1 [facility] 50 mg 1-30 9105 tablet by ity of tablet 00:00: mouth as [place] 00 needed for Medical Migraine. Branch Can repeat in 2 hours, max 200 mg in 24 hours, less than 3 days a week SUMAtriptan 2022-0 Yes [id number] 50mg Take 1 [facility] 50 mg 1-30 9105 tablet by ity of tablet 00:00: mouth as [place] 00 needed for Medical Migraine. Branch Can repeat in 2 hours, max 200 mg in 24 hours, less than 3 days a week SUMAtriptan 2022-0 Yes [id number] 50mg Take 1 [facility] 50 mg 1-30 9105 tablet by ity of tablet 00:00: mouth as [place] 00 needed for Medical Migraine. Branch Can repeat in 2 hours, max 200 mg in 24 hours, less than 3 days a week EPINEPHrine 2022-0 Yes [id number] INJECT 0.3 Univers 0.3 mg/0.3 1-03 ML(S) BY ity o f mL 00:00: INTRAMUSCU [place] injection 00 LAR ROUTE Medic al NEEDED Branch FOR ANAPHYLAXI S. EPINEPHrine 2022-0 Yes [id number] INJECT 0.3 Univers 0.3 mg/0.3 1-03 ML(S) BY ity o f mL 00:00: INTRAMUSCU [place] injection 00 LAR ROUTE Medic al NEEDED Branch FOR ANAPHYLAXI S. EPINEPHrine 0 Yes [id number] INJECT 0.3 Univers 0.3 mg/0.3 1-03 ML(S) BY ity o f mL 00:00: INTRAMUSCU [place] injection 00 LAR ROUTE Medic al NEEDED Branch FOR ANAPHYLAXI S. EPINEPHrine 0 Yes [id number] INJECT 0.3 Univers 0.3 mg/0.3 1-03 ML(S) BY ity o f mL 00:00: INTRAMUSCU [place] injection 00 LAR ROUTE Medic al NEEDED Branch FOR ANAPHYLAXI S. EPINEPHrine Yes [id number] INJECT 0.3 Univers 0.3 mg/0.3 1-03 ML(S) BY ity o f mL 00:00: INTRAMUSCU [place] injection 00 LAR ROUTE Medic al NEEDED Branch FOR ANAPHYLAXI S. EPINEPHrine Yes [id number] INJECT 0.3 Univers 0.3 mg/0.3 1-03 ML(S) BY ity o f mL 00:00: INTRAMUSCU [place] injection 00 LAR ROUTE Medic al NEEDED Branch FOR ANAPHYLAXI S. EPINEPHrine 2022- No [id number] INJECT 0.3 Univers 0.3 mg/0.3 1-03 03-22 ML(S) BY ity of mL 00:00: 00:00 INTRAMUSCU [place] injection 00 :00 LAR ROUTE Medic al NEEDED Branch FOR ANAPHYLAXI S. EPINEPHrine 2022- No [id number] INJECT 0.3 Univers 0.3 mg/0.3 1-03 03-22 ML(S) BY ity of mL 00:00: 00:00 INTRAMUSCU [place] injection 00 :00 LAR ROUTE Medic al NEEDED Branch FOR ANAPHYLAXI S. METFORMIN 2021-04 Yes TAKE ONE Univ ers 500 mg 1-22 (1) TABLET ity of tablet 00:00: BY MOUTH IN THE Medical MORNING Branch AND 1 TABLET IN THE EVENING WITH MEALS. METFORMIN 2021-04 Yes TAKE ONE Univ ers 500 mg 1-22 (1) TABLET ity of tablet 00:00: BY MOUTH 00 IN THE Medical MORNING Branch AND 1 TABLET IN THE EVENING WITH MEALS. METFORMIN 2021-04 Yes TAKE ONE Univ ers 500 mg 1-22 (1) TABLET ity of tablet 00:00: BY MOUTH [place] 00 IN THE Medical MORNING Branch AND 1 TABLET IN THE EVENING WITH MEALS. METFORMIN 2021-04 Yes TAKE ONE Univ ers 500 mg 1-22 (1) TABLET ity of tablet 00:00: BY MOUTH [place] 00 IN THE Medical MORNING Branch AND 1 TABLET IN THE EVENING WITH MEALS. METFORMIN 2021-04 Yes TAKE ONE Univ ers 500 mg 1-22 (1) TABLET ity of tablet 00:00: BY MOUTH [place] 00 IN THE Medical MORNING Branch AND 1 TABLET IN THE EVENING WITH MEALS. METFORMIN 2021-04 Yes TAKE ONE Univ ers 500 mg 1-22 (1) TABLET ity of tablet 00:00: BY MOUTH [place] 00 IN THE Medical MORNING Branch AND 1 TABLET IN THE EVENING WITH MEALS. METFORMIN 2021-04 Yes TAKE ONE Univ ers 500 mg 1-22 (1) TABLET ity of tablet 00:00: BY MOUTH [place] 00 IN THE Medical MORNING Branch AND 1 TABLET IN THE EVENING WITH MEALS. METFORMIN 2021-04- No TAKE ONE Uni vers 500 mg 1-22 03-22 (1) TABLET ity of tablet 00:00: 00:00 BY MOUTH [place] 00 :00 IN THE Medical MORNING Branch AND 1 TABLET IN THE EVENING WITH MEALS. METFORMIN 2021-04- No TAKE ONE Uni vers 500 mg 1-22 03-22 (1) TABLET ity of tablet 00:00: 00:00 BY MOUTH [place] 00 :00 IN THE Medical MORNING Branch AND 1 TABLET IN THE EVENING WITH MEALS. clostridium 2021-04- No [id number] 155U [facility] botulinum 0-02-07 9105 ity of toxin 15:30: 14:41 [place] (BOTOX) 00 :00 Medical injection Branch 155 Units clostridium 2021-04- No [id number] 155U 155 Units, Univers botulinum 0-02-07 9105 Intramuscu ity of toxin 15:30: 14:41 lar, ONCE, [place] (BOTOX) 00 :00 1 dose, On Medica l injection Mon Branch 155 Units 02/07/22 at 1030, Routine
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 [place] Can repeat in 2 hours, max 200 mg in 24 hours, less than 3 days a week SUMAtriptan 2021-04 Yes [id number] 50mg Take 1 Univers 50 mg 0-31 9105 tablet by ity of tablet 00:00: mouth as [place] 00 needed for Medical Migraine. [place] Can repeat in 2 hours, max 200 mg in 24 hours, less than 3 days a week SUMAtriptan 2021-04 Yes [id number] 50mg Take 1 [facility] 50 mg 0-31 9105 tablet by ity of tablet 00:00: mouth as [place] 00 needed for Medical Migraine. [place] Can repeat in 2 hours, max 200 mg in 24 hours, less than 3 days a week SUMAtriptan 2021-04 Yes [id number] 50mg Take 1 [facility] 50 mg 0-31 9105 tablet by ity of tablet 00:00: mouth as [place] 00 needed for Medical Migraine. [place] Can repeat in 2 hours, max 200 mg in 24 hours, less than 3 days a week SUMAtriptan 2021-04 Yes [id number] 50mg Take 1 [facility] 50 mg 0-31 9105 tablet by ity of tablet 00:00: mouth as [place] 00 needed for Medical Migraine. [place] Can repeat in 2 hours, max 200 mg in 24 hours, less than 3 days a week SUMAtriptan 2021-04 Yes [id number] 50mg Take 1 [facility] 50 mg 0-31 9105 tablet by ity of tablet 00:00: mouth as [place] 00 needed for Medical Migraine. [place] Can repeat in 2 hours, max 200 mg in 24 hours, less than 3 days a week SUMAtriptan 2021-04- No [id number] 50mg Take 1 [facility] 50 mg 0-31 -30 9105 tablet by ity of tablet 00:00: 00:00 mouth as [place] 00 :00 needed for Medical Migraine. Branch Can repeat in 2 hours, max 200 mg in 24 hours, less than 3 days a week SUMAtriptan 2021-04- No [id number] 50mg Take 1 [facility] 50 mg 05-09 9105 tablet by ity of tablet 00:00: 00:00 mouth as [place] 00 :00 needed for Medical Migraine. Branch Can repeat in 2 hours, max 200 mg in 24 hours, less than 3 days a week SUMAtriptan 2021-04- No [id number] 50mg Take 1 [facility] 50 mg 05-09 9105 tablet by ity of tablet 00:00: 00:00 mouth as [place] 00 :00 needed for Medical Migraine. Branch Can repeat in 2 hours, max 200 mg in 24 hours, less than 3 days a week albuterol 0 Yes [id number] 2{puff} Inhale 2 Univers 90 9-08 Puffs ity of mcg/actuati 00:00: every 6 [place] as on inhaler 00 (six) Medical hours as Branch needed for Wheezing or Shortness of Breath. benzonatate 2021-0 Yes [id number] 100mg Take 1 Univers (TESSALON 9-08 capsule by ity of PERLES) 100 00:00: mouth [place] mg capsule 00 every 8 Medica l (eight) Branch hours as needed for Cough. azithromyci 2021-0 Yes [id number] Take 500 Univers n 250 mg 9-08 mg PO day ity of tablet 00:00: 1, then [place] 00 250 mg PO Medical days 2 to Branch 5 albuterol 2021-0 Yes [id number] 2{puff} Inhale 2 Univers 90 9-08 Puffs ity of mcg/actuati 00:00: every 6 [place] as on inhaler 00 (six) Medical hours as Branch needed for Wheezing or Shortness of Breath. benzonatate 2021-0 Yes [id number] 100mg Take 1 Univers (TESSALON 9-08 capsule by ity of PERLES) 100 00:00: mouth [place] mg capsule 00 every 8 Medica l (eight) Branch hours as needed for Cough. azithromyci 2021-0 Yes [id number] Take 500 Univers n 250 mg 9-08 mg PO day ity of tablet 00:00: 1, then [place] 00 250 mg PO Medical days 2 to Branch 5 albuterol 2021-0 Yes [id number] 2{puff} Inhale 2 Univers 90 9-08 Puffs ity of mcg/actuati 00:00: every 6 [place] as on inhaler 00 (six) Medical hours as Branch needed for Wheezing or Shortness of Breath. benzonatate 2021-0 Yes [id number] 100mg Take 1 Univers (TESSALON 9-08 capsule by ity of HARMONY) 100 00:00: mouth [place] mg capsule 00 every 8 Medica l (eight) Branch hours as needed for Cough. azithromyci 2021-0 Yes [id number] Take 500 [facility] n 250 mg 9-08 mg PO day ity of tablet 00:00: 1, then [place] 00 250 mg PO Medical days 2 to Branch 5 albuterol 2021-0 Yes [id number] 2{puff} Inhale 2 Univers 90 9-08 Puffs ity of mcg/actuati 00:00: every 6 [place] as on inhaler 00 (six) Medical hours as Branch needed for Wheezing or Shortness of Breath. benzonatate 2021-0 Yes [id number] 100mg Take 1 Univers (TESSALON 9-08 capsule by ity of HARMONY) 100 00:00: mouth [place] mg capsule 00 every 8 Medica l (eight) Branch hours as needed for Cough. azithromyci 2021-0 Yes [id number] Take 500 [facility] n 250 mg 9-08 mg PO day ity of tablet 00:00: 1, then [place] 00 250 mg PO Medical days 2 to Branch 5 albuterol 2021-0 Yes [id number] 2{puff} Inhale 2 Univers 90 9-08 Puffs ity of mcg/actuati 00:00: every 6 [place] as on inhaler 00 (six) Medical hours as Branch needed for Wheezing or Shortness of Breath. benzonatate 2021-0 Yes [id number] 100mg Take 1 Univers (TESSALON 9-08 capsule by ity of PERLRADHA) 100 00:00: mouth [place] mg capsule 00 every 8 Medica l (eight) Branch hours as needed for Cough. azithromyci 2021-0 Yes [id number] Take 500 [facility] n 250 mg 9-08 mg PO day ity of tablet 00:00: 1, then [place] 00 250 mg PO Medical days 2 to Branch 5 albuterol 2-0 Yes [id number] 2{puff} Inhale 2 Univers 90 9-08 Puffs ity of mcg/actuati 00:00: every 6 [place] as on inhaler 00 (six) Medical hours as Branch needed for Wheezing or Shortness of Breath. benzonatate 2-0 Yes [id number] 100mg Take 1 Univers (TESSALON 9-08 capsule by ity of HARMONY) 100 00:00: mouth [place] mg capsule 00 every 8 Medica l (eight) Branch hours as needed for Cough. azithromyci 2021-0 Yes [id number] Take 500 [facility] n 250 mg 9-08 mg PO day ity of tablet 00:00: 1, then [place] 00 250 mg PO Medical days 2 to Branch 5 albuterol 2021-0 Yes [id number] 2{puff} Inhale 2 [facility] 90 9-08 Puffs ity of mcg/actuati 00:00: every 6 [place] as on inhaler 00 (six) Medical hours as Branch needed for Wheezing or Shortness of Breath. benzonatate 2021-0 Yes [id number] 100mg Take 1 Univers (TESSALON 9-08 capsule by ity of HARMONY) 100 00:00: mouth [place] mg capsule 00 every 8 Medica l (eight) Branch hours as needed for Cough. azithromyci 2021-0 Yes [id number] Take 500 [facility] n 250 mg 9-08 mg PO day ity of tablet 00:00: 1, then [place] 00 250 mg PO Medical days 2 to Branch 5 albuterol 2-0 Yes [id number] 2{puff} Inhale 2 [facility] 90 9-08 Puffs ity of mcg/actuati 00:00: every 6 [place] as on inhaler 00 (six) Medical hours as Branch needed for Wheezing or Shortness of Breath. benzonatate 2022-0 Yes [id number] 100mg Take 1 Univers (TESSALON 9-08 capsule by ity of PERLRADHA) 100 00:00: mouth [place] mg capsule 00 every 8 Medica l (eight) Branch hours as needed for Cough. azithromyci 2-0 Yes [id number] Take 500 [facility] n 250 mg 9-08 mg PO day ity of tablet 00:00: 1, then [place] 00 250 mg PO Medical days 2 to Branch 5 albuterol 2021-0 Yes [id number] 2{puff} Inhale 2 [facility] 90 9-08 Puffs ity of mcg/actuati 00:00: every 6 [place] as on inhaler 00 (six) Medical hours as Branch needed for Wheezing or Shortness of Breath. benzonatate 2-0 Yes [id number] 100mg Take 1 Univers (TESSALON 9-08 capsule by ity of PERLRADHA) 100 00:00: mouth [place] mg capsule 00 every 8 Medica l (eight) Branch hours as needed for Cough. azithromyci 2021-0 Yes [id number] Take 500 [facility] n 250 mg 9-08 mg PO day ity of tablet 00:00: 1, then [place] 00 250 mg PO Medical days 2 to Branch 5 albuterol 2021-0 Yes [id number] 2{puff} Inhale 2 [facility] 90 9-08 Puffs ity of mcg/actuati 00:00: every 6 [place] as on inhaler 00 (six) Medical hours as Branch needed for Wheezing or Shortness of Breath. benzonatate 2021-0 Yes [id number] 100mg Take 1 [facility] (TESSALON 9-08 capsule by ity of HARMONY) 100 00:00: mouth [place] mg capsule 00 every 8 Medica l (eight) Branch hours as needed for Cough. azithromyci 2021-0 Yes [id number] Take 500 [facility] n 250 mg 9-08 mg PO day ity of tablet 00:00: 1, then [place] 00 250 mg PO Medical days 2 to Branch 5 albuterol 2021-0 Yes [id number] 2{puff} Inhale 2 [facility] 90 9-08 Puffs ity of mcg/actuati 00:00: every 6 [place] as on inhaler 00 (six) Medical hours as Branch needed for Wheezing or Shortness of Breath. benzonatate 2-0 Yes [id number] 100mg Take 1 [facility] (TESSALON 9-08 capsule by ity of PERLES) 100 00:00: mouth [place] mg capsule 00 every 8 Medica l (eight) Branch hours as needed for Cough. azithromyci 2-0 Yes [id number] Take 500 [facility] n 250 mg 9-08 mg PO day ity of tablet 00:00: 1, then [place] 00 250 mg PO Medical days 2 to Branch 5 albuterol 2022-0 Yes [id number] 2{puff} Inhale 2 [facility] 90 9-08 Puffs ity of mcg/actuati 00:00: every 6 [place] as on inhaler 00 (six) Medical hours as Branch needed for Wheezing or Shortness of Breath. benzonatate 2021-0 Yes [id number] 100mg Take 1 [facility] (TESSALON 9-08 capsule by ity of [employer]) 100 00:00: mouth [place] mg capsule 00 every 8 Medica l (eight) Branch hours as needed for Cough. azithromyci 2021-0 Yes [id number] Take 500 [facility] n 250 mg 9-08 mg PO day ity of tablet 00:00: 1, then [place] 00 250 mg PO Medical days 2 to Branch 5 albuterol 2021-0 Yes [id number] 2{puff} Inhale 2 [facility] 90 9-08 Puffs ity of mcg/actuati 00:00: every 6 [place] as on inhaler 00 (six) Medical hours as Branch needed for Wheezing or Shortness of Breath. benzonatate 2021-0 Yes [id number] 100mg Take 1 [facility] (TESSALON 9-08 capsule by ity of [facility]) 100 00:00: mouth [place] mg capsule 00 every 8 Medica l (eight) Branch hours as needed for Cough. azithromyci 2021-0 Yes [id number] Take 500 [facility] n 250 mg 9-08 mg PO day ity of tablet 00:00: 1, then [place] 00 250 mg PO Medical days 2 to Branch 5 albuterol 2021-0 Yes [id number] 2{puff} Inhale 2 [facility] 90 9-08 Puffs ity of mcg/actuati 00:00: every 6 [place] as on inhaler 00 (six) Medical hours as Branch needed for Wheezing or Shortness of Breath. albuterol 2021-0 Yes [id number] 2{puff} Inhale 2 [facility] 90 9-08 Puffs ity of mcg/actuati 00:00: every 6 [place] as on inhaler 00 (six) Medical hours as Branch needed for Wheezing or Shortness of Breath. albuterol 2021-0 Yes [id number] 2{puff} Inhale 2 [facility] 90 9-08 Puffs ity of mcg/actuati 00:00: every 6 [place] as on inhaler 00 (six) Medical hours as Branch needed for Wheezing or Shortness of Breath. albuterol Yes [id number] 2{puff} Inhale 2 [facility] 90 9-08 Puffs ity of mcg/actuati 00:00: every 6 [place] as on inhaler 00 (six) Medical hours as Branch needed for Wheezing or Shortness of Breath. albuterol Yes [id number] 2{puff} Inhale 2 [facility] 90 9-08 Puffs ity of mcg/actuati 00:00: every 6 [place] as on inhaler 00 (six) Medical hours as Branch needed for Wheezing or Shortness of Breath. albuterol Yes [id number] 2{puff} Inhale 2 [facility] 90 9-08 Puffs ity of mcg/actuati 00:00: every 6 [place] as on inhaler 00 (six) Medical hours as Branch needed for Wheezing or Shortness of Breath. albuterol Yes [id number] 2{puff} Inhale 2 [facility] 90 9-08 Puffs ity of mcg/actuati 00:00: every 6 [place] as on inhaler 00 (six) Medical hours as Branch needed for Wheezing or Shortness of Breath. albuterol Yes [id number] 2{puff} Inhale 2 [facility] 90 9-08 Puffs ity of mcg/actuati 00:00: every 6 [place] as on inhaler 00 (six) Medical hours as Branch needed for Wheezing or Shortness of Breath. albuterol Yes [id number] 2{puff} Inhale 2 [facility] 90 9-08 Puffs ity of mcg/actuati 00:00: every 6 [place] as on inhaler 00 (six) Medical hours as Branch needed for Wheezing or Shortness of Breath. albuterol Yes [id number] 2{puff} Inhale 2 [facility] 90 9-08 Puffs ity of mcg/actuati 00:00: every 6 [place] as on inhaler 00 (six) Medical hours as Branch needed for Wheezing or Shortness of Breath. albuterol Yes [id number] 2{puff} Inhale 2 [facility] 90 9-08 Puffs ity of mcg/actuati 00:00: every 6 [place] as on inhaler 00 (six) Medical hours as Branch needed for Wheezing or Shortness of Breath. benzonatate 2021-0 2022- No [id number] 100mg Take 1 [facility] (TESSALON 12-16 capsule by [place]) 100 00:00: 00:00 mouth [place] mg capsule 00 :00 every 8 Medica l (eight) Branch hours as needed for Cough. azithromyci 2021-3- No [id number] Take 500 [facility] n 250 mg 12-16 03-22 mg PO day ity o f tablet 00:00: 00:00 1, then [place] 00 :00 250 mg PO Medical days 2 to Branch 5 benzonatate 2021-0 2022- No [id number] 100mg Take 1 [facility] (TESSALON 12-16 capsule by [place]) 100 00:00: 00:00 mouth [place] mg capsule 00 :00 every 8 Medica l (eight) Branch hours as needed for Cough. azithromyci 2022- No [id number] Take 500 [facility] n 250 mg 12-16-22 mg PO day ity o f tablet 00:00: 00:00 1, then [place] 00 :00 250 mg PO Medical days 2 to Branch 5 metFORMIN 2022-0 Yes 500mg Take 1 [facility] rs 500 mg 8-04 tablet by ity of tablet 00:00: mouth in [place] [address] the [facility] morning Branch and 1 tablet in the evening. Take with meals. metFORMIN 2022-0 Yes 500mg Take 1 [facility] rs 500 mg 8-04 tablet by ity of tablet 00:00: mouth in [address] morning Branch and 1 tablet in the evening. Take with meals. metFORMIN 2022-0 Yes 500mg Take 1 [facility] rs 500 mg 8-04 tablet by ity of tablet 00:00: mouth in [address] morning Branch and 1 tablet in the evening. Take with meals. metFORMIN 2022-0 Yes 500mg Take 1 [facility] rs 500 mg 8-04 tablet by ity of tablet 00:00: mouth in [address] morning [place] and 1 tablet in the evening. Take with meals. metFORMIN 2022-0 Yes 500mg Take 1 [facility] rs 500 mg 8-04 tablet by ity of tablet 00:00: mouth in [address] morning [place] and 1 tablet in the evening. Take with meals. metFORMIN 2022-0 Yes 500mg Take 1 [facility] rs 500 mg 8- tablet by ity of tablet 00:00: mouth in [place] 00 the Medical morning Branch and 1 tablet in the evening. Take with meals. metFORMIN 2021-0 2021- No 500mg Take 1 [facility] ers 500 mg 8-03-01 tablet by ity of tablet 00:00: 00:00 mouth in [place] 00 :00 the Medical morning Branch and 1 tablet in the evening. Take with meals. rosuvastati 2021-0 Yes [id number] 40mg Take 1 [facility] n 40 mg 7-19 tablet by ity of tablet 00:00: mouth at [place] [address] bedtime. Medical Branch levothyroxi 2021-0 Yes [id number] 125ug Take 1 [facility] ne 125 mcg 7-19 tablet by ity of tablet 00:00: mouth [place] 00 every Medical morning. Branch omeprazole 2021-0 Yes [id number] 40mg Take 1 [facility] 40 mg 7-19 capsule by ity of capsule 00:00: mouth in [place] 00 the Medical morning. Branch famotidine 2021-0 Yes [id number] 20mg Take 1 [facility] 20 mg 7-19 tablet by ity of tablet 00:00: mouth in [place] 00 the Medical morning Branch and 1 tablet in the evening. rosuvastati 2021-0 Yes [id number] 40mg Take 1 [facility] n 40 mg 7-19 tablet by ity of tablet 00:00: mouth at [place] [address] bedtime. Medical Branch levothyroxi 2021-0 Yes [id number] 125ug Take 1 [facility] ne 125 mcg 7-19 tablet by ity of tablet 00:00: mouth [place] 00 every Medical morning. Branch omeprazole 2021-0 Yes [id number] 40mg Take 1 [facility] 40 mg 7-19 capsule by ity of capsule 00:00: mouth in [place] 00 the Medical morning. Branch famotidine 2021-0 Yes [id number] 20mg Take 1 [facility] 20 mg 7-19 tablet by ity of tablet 00:00: mouth in [place] 00 the Medical morning Branch and 1 tablet in the evening. rosuvastati 2021-0 Yes [id number] 40mg Take 1 [facility] n 40 mg 7-19 tablet by ity of tablet 00:00: mouth at [place] [address] bedtime. Medical Branch levothyroxi 2021-0 Yes [id number] 125ug Take 1 [facility] ne 125 mcg 7-19 tablet by ity of tablet 00:00: mouth [place] 00 every Medical morning. Branch omeprazole 2021-0 Yes [id number] 40mg Take 1 [facility] 40 mg 7-19 capsule by ity of capsule 00:00: mouth in [place] 00 the Medical morning. Branch famotidine 2021-0 Yes [id number] 20mg Take 1 [facility] 20 mg 7-19 tablet by ity of tablet 00:00: mouth in [place] 00 the Medical morning Branch and 1 tablet in the evening. rosuvastati 2021-0 Yes [id number] 40mg Take 1 [facility] n 40 mg 7-19 tablet by ity of tablet 00:00: mouth at [place] [address] bedtime. Medical Branch levothyroxi 2021-0 Yes [id number] 125ug Take 1 [facility] ne 125 mcg 7-19 tablet by ity of tablet 00:00: mouth [place] 00 every Medical morning. Branch omeprazole 2021-0 Yes [id number] 40mg Take 1 [facility] 40 mg 7-19 capsule by ity of capsule 00:00: mouth in [place] 00 the Medical morning. Branch famotidine 2021-0 Yes [id number] 20mg Take 1 [facility] 20 mg 7-19 tablet by ity of tablet 00:00: mouth in [place] the Medical morning Branch and 1 tablet in the evening. rosuvastati 2021-0 Yes [id number] 40mg Take 1 [facility] n 40 mg 7-19 tablet by ity of tablet 00:00: mouth at [place] [address] bedtime. Medical Branch levothyroxi 2021-0 Yes [id number] 125ug Take 1 [facility] ne 125 mcg 7-19 tablet by ity of tablet 00:00: mouth [place] 00 every Medical morning. Branch omeprazole 2021-0 Yes [id number] 40mg Take 1 [facility] 40 mg 7-19 capsule by ity of capsule 00:00: mouth in [place] 00 the Medical morning. Branch famotidine 2021-0 Yes [id number] 20mg Take 1 [facility] 20 mg 7-19 tablet by ity of tablet 00:00: mouth in [place] 00 the Medical morning Branch and 1 tablet in the evening. rosuvastati 2021-0 Yes [id number] 40mg Take 1 [facility] n 40 mg 7-19 tablet by ity of tablet 00:00: mouth at [place] [address] bedtime. Medical Branch levothyroxi 2021-0 Yes [id number] 125ug Take 1 [facility] ne 125 mcg 7-19 tablet by ity of tablet 00:00: mouth [place] 00 every Medical morning. Branch omeprazole 2021-0 Yes [id number] 40mg Take 1 [facility] 40 mg 7-19 capsule by ity of capsule 00:00: mouth in [place] 00 the Medical morning. Branch famotidine 2021-0 Yes [id number] 20mg Take 1 [facility] 20 mg 7-19 tablet by ity of tablet 00:00: mouth in [place] 00 the Medical morning Branch and 1 tablet in the evening. rosuvastati 2021-0 Yes [id number] 40mg Take 1 [facility] n 40 mg 7-19 tablet by ity of tablet 00:00: mouth at [place] [address] bedtime. Medical Branch levothyroxi 2021-0 Yes [id number] 125ug Take 1 [facility] ne 125 mcg 7-19 tablet by ity of tablet 00:00: mouth [place] 00 every Medical morning. Branch omeprazole 2021-0 Yes [id number] 40mg Take 1 [facility] 40 mg 7-19 capsule by ity of capsule 00:00: mouth in [place] 00 the Medical morning. Branch famotidine 2021-0 Yes [id number] 20mg Take 1 [facility] 20 mg 7-19 tablet by ity of tablet 00:00: mouth in [place] the Medical morning Branch and 1 tablet in the evening. rosuvastati 2021-0 Yes [id number] 40mg Take 1 [facility] n 40 mg 7-19 tablet by ity of tablet 00:00: mouth at [place] [address] bedtime. Medical Branch levothyroxi 2021-0 Yes [id number] 125ug Take 1 [facility] ne 125 mcg 7-19 tablet by ity of tablet 00:00: mouth [place] 00 every Medical morning. Branch omeprazole 2021-0 Yes [id number] 40mg Take 1 [facility] 40 mg 7-19 capsule by ity of capsule 00:00: mouth in [place] 00 the Medical morning. Branch famotidine 2021-0 Yes [id number] 20mg Take 1 [facility] 20 mg 7-19 tablet by ity of tablet 00:00: mouth in [place] 00 the Medical morning Branch and 1 tablet in the evening. rosuvastati 2021-0 Yes [id number] 40mg Take 1 [facility] n 40 mg 7-19 tablet by ity of tablet 00:00: mouth at [place] [address] bedtime. Medical Branch levothyroxi 2021-0 Yes [id number] 125ug Take 1 [facility] ne 125 mcg 7-19 tablet by ity of tablet 00:00: mouth [place] 00 every Medical morning. Branch omeprazole 2021-0 Yes [id number] 40mg Take 1 [facility] 40 mg 7-19 capsule by ity of capsule 00:00: mouth in [place] 00 the Medical morning. Branch famotidine 2021-0 Yes [id number] 20mg Take 1 [facility] 20 mg 7-19 tablet by ity of tablet 00:00: mouth in [place] 00 the Medical morning Branch and 1 tablet in the evening. rosuvastati 2021-0 Yes [id number] 40mg Take 1 [facility] n 40 mg 7-19 tablet by ity of tablet 00:00: mouth at [place] [address] bedtime. Medical Branch levothyroxi 2021-0 Yes [id number] 125ug Take 1 [facility] ne 125 mcg 7-19 tablet by ity of tablet 00:00: mouth [place] 00 every Medical morning. Branch omeprazole 2021-0 Yes [id number] 40mg Take 1 [facility] 40 mg 7-19 capsule by ity of capsule 00:00: mouth in [place] 00 the Medical morning. Branch famotidine 2021-0 Yes [id number] 20mg Take 1 [facility] 20 mg 7-19 tablet by ity of tablet 00:00: mouth in [place] the Medical morning Branch and 1 tablet in the evening. rosuvastati 2021-0 Yes [id number] 40mg Take 1 [facility] n 40 mg 7-19 tablet by ity of tablet 00:00: mouth at [place] [address] bedtime. Medical Branch levothyroxi 2021-0 Yes [id number] 125ug Take 1 [facility] ne 125 mcg 7-19 tablet by ity of tablet 00:00: mouth [place] 00 every Medical morning. Branch omeprazole 2021-0 Yes [id number] 40mg Take 1 [facility] 40 mg 7-19 capsule by ity of capsule 00:00: mouth in [place] 00 the Medical morning. Branch famotidine 2021-0 Yes [id number] 20mg Take 1 [facility] 20 mg 7-19 tablet by ity of tablet 00:00: mouth in [place] 00 the Medical morning Branch and 1 tablet in the evening. rosuvastati 2021-0 Yes [id number] 40mg Take 1 [facility] n 40 mg 7-19 tablet by ity of tablet 00:00: mouth at [place] 00 bedtime. Medical Branch levothyroxi Yes [id number] 125ug Take 1 [facility] ne 125 mcg 7-19 tablet by ity of tablet 00:00: mouth [place] 00 every Medical morning. Branch omeprazole Yes [id number] 40mg Take 1 [facility] 40 mg 7-19 capsule by ity of capsule 00:00: mouth in [place] 00 the Medical morning. Branch famotidine Yes [id number] 20mg Take 1 [facility] 20 mg 7-19 tablet by ity of tablet 00:00: mouth in [place] 00 the Medical morning Branch and 1 tablet in the evening. rosuvastati Yes [id number] 40mg Take 1 [facility] n 40 mg 7-19 tablet by ity of tablet 00:00: mouth at [place] 00 bedtime. Medical Branch levothyroxi Yes [id number] 125ug Take 1 [facility] ne 125 mcg 7-19 tablet by ity of tablet 00:00: mouth [place] 00 every Medical morning. Branch omeprazole Yes [id number] 40mg Take 1 [facility] 40 mg 7-19 capsule by ity of capsule 00:00: mouth in [place] 00 the Medical morning. Branch famotidine Yes [id number] 20mg Take 1 [facility] 20 mg 7-19 tablet by ity of tablet 00:00: mouth in [place] 00 the Medical morning Branch and 1 tablet in the evening. rosuvastati 2021-2022- No [id number] 40mg Take 1 [facility] n 40 mg 7-19 03-22 tablet by ity of tablet 00:00: 00:00 mouth at [place] 00 :00 bedtime. Medical Branch levothyroxi 2022- No [id number] 125ug Take 1 [facility] ne 125 mcg 7-19 -22 tablet by ity of tablet 00:00: 00:00 mouth [place] 00 :00 every Medical morning. Branch omeprazole 2021-2022- No [id number] 40mg Take 1 [facility] 40 mg 7-19 03-22 capsule by ity of capsule 00:00: 00:00 mouth in [place] 00 :00 the Medical morning. Branch famotidine 2021-2022- No [id number] 20mg Take 1 [facility] 20 mg 7-19 03-22 tablet by ity of tablet 00:00: 00:00 mouth in [place] 00 :00 the Medical morning Branch and 1 tablet in the evening. rosuvastati 2022- No [id number] 40mg Take 1 [facility] n 40 mg 10-26 tablet by ity of tablet 00:00: 00:00 mouth at [place] 00 :00 bedtime. Medical Branch levothyroxi 2022- No [id number] 125ug Take 1 [facility] ne 125 mcg 10-26 tablet by ity of tablet 00:00: 00:00 mouth [place] 00 :00 every Medical morning. Branch omeprazole 2022- No [id number] 40mg Take 1 [facility] 40 mg 10-26 capsule by ity of capsule 00:00: 00:00 mouth in [place] 00 :00 the Medical morning. Branch famotidine 2022- No [id number] 20mg Take 1 [facility] 20 mg 10-26 tablet by ity of tablet 00:00: 00:00 mouth in [place] 00 :00 the Medical morning Branch and 1 tablet in the evening. SUMAtriptan Yes [id number] 50mg Take 1 [facility] 50 mg 5-03 9105 tablet by ity of tablet 00:00: mouth as [place] 00 needed for Medical Migraine Branch for up to 9 doses. SUMAtriptan Yes [id number] 50mg Take 1 [facility] 50 mg 5-03 9105 tablet by ity of tablet 00:00: mouth as [place] 00 needed for Medical Migraine Branch for up to 9 doses. SUMAtriptan 0 Yes [id number] 50mg Take 1 [facility] 50 mg 5-03 9105 tablet by ity of tablet 00:00: mouth as [place] 00 needed for Medical Migraine Branch for up to 9 doses. SUMAtriptan 2021- No [id number] 50mg Take 1 [facility] 50 mg 5-03 10- 9105 tablet by ity of tablet 00:00: 00:00 mouth as [place] 00 :00 needed for Medical Migraine Branch for up to 9 doses. SUMAtriptan 2021- No [id number] 50mg Take 1 [facility] 50 mg 5-03 10- 9105 tablet by ity of tablet 00:00: 00:00 mouth as [place] 00 :00 needed for Medical Migraine Branch for up to 9 doses. blood sugar 2021-0 Yes [id number] Check U nivers diagnostic 4-19 glucose ity of strip 00:00: every [place] 00 morning Medical before Branch breakfast and as needed for symptoms; ICD-10 E11.9 Lancets 2021-0 Yes [id number] Check Univ ers Misc 4-19 glucose ity of 00:00: every [place] 00 morning Medical before Branch breakfast and as needed for symptoms; ICD-10 E11.9 blood sugar 2021-0 Yes [id number] Check U nivers diagnostic 4-19 glucose ity of strip 00:00: every [place] 00 morning Medical before Branch breakfast and as needed for symptoms; ICD-10 E11.9 Lancets 2021-0 Yes [id number] Check Univ ers Misc 4-19 glucose ity of 00:00: every [place] 00 morning Medical before Branch breakfast and as needed for symptoms; ICD-10 E11.9 blood sugar 2021-0 Yes [id number] Check U nivers diagnostic 4-19 glucose ity of strip 00:00: every [place] 00 morning Medical before Branch breakfast and as needed for symptoms; ICD-10 E11.9 Lancets 2021-0 Yes [id number] Check Univ ers Misc 4-19 glucose ity of 00:00: every [place] 00 morning Medical before Branch breakfast and as needed for symptoms; ICD-10 E11.9 blood sugar 2021-0 Yes [id number] Check U nivers diagnostic 4-19 glucose ity of strip 00:00: every [place] 00 morning Medical before Branch breakfast and as needed for symptoms; ICD-10 E11.9 Lancets 2-0 Yes [id number] Check Univ ers Misc 4-19 glucose ity of 00:00: every [place] 00 morning Medical before Branch breakfast and as needed for symptoms; ICD-10 E11.9 blood sugar 2021-0 Yes [id number] Check U nivers diagnostic 4-19 glucose ity of strip 00:00: every [place] 00 morning Medical before Branch breakfast and as needed for symptoms; ICD-10 E11.9 Lancets 2-0 Yes [id number] Check Univ ers Misc 4-19 glucose ity of 00:00: every [place] 00 morning Medical before Branch breakfast and as needed for symptoms; ICD-10 E11.9 blood sugar 2022-0 Yes [id number] Check U nivers diagnostic 4-19 glucose ity of strip 00:00: every [place] 00 morning Medical before Branch breakfast and as needed for symptoms; ICD-10 E11.9 Lancets 2021-0 Yes [id number] Check Univ ers Misc 4-19 glucose ity of 00:00: every [place] 00 morning Medical before Branch breakfast and as needed for symptoms; ICD-10 E11.9 blood sugar 2021-0 Yes [id number] Check U nivers diagnostic 4-19 glucose ity of strip 00:00: every [place] 00 morning Medical before Branch breakfast and as needed for symptoms; ICD-10 E11.9 Lancets 2021-0 Yes [id number] Check Univ ers Misc 4-19 glucose ity of 00:00: every [place] 00 morning Medical before Branch breakfast and as needed for symptoms; ICD-10 E11.9 blood sugar 2021-0 Yes [id number] Check U nivers diagnostic 4-19 glucose ity of strip 00:00: every [place] 00 morning Medical before Branch breakfast and as needed for symptoms; ICD-10 E11.9 Lancets 2021-0 Yes [id number] Check Univ ers Misc 4-19 glucose ity of 00:00: every [place] 00 morning Medical before Branch breakfast and as needed for symptoms; ICD-10 E11.9 blood sugar 2021-0 Yes [id number] Check U nivers diagnostic 4-19 glucose ity of strip 00:00: every [place] 00 morning Medical before Branch breakfast and as needed for symptoms; ICD-10 E11.9 Lancets 2-0 Yes [id number] Check Univ ers Misc 4-19 glucose ity of 00:00: every [place] 00 morning Medical before Branch breakfast and as needed for symptoms; ICD-10 E11.9 blood sugar 2021-0 Yes [id number] Check U nivers diagnostic 4-19 glucose ity of strip 00:00: every [place] 00 morning Medical before Branch breakfast and as needed for symptoms; ICD-10 E11.9 Lancets 2-0 Yes [id number] Check Univ ers Misc 4-19 glucose ity of 00:00: every [place] 00 morning Medical before Branch breakfast and as needed for symptoms; ICD-10 E11.9 blood sugar 2-0 Yes [id number] Check U nivers diagnostic 4-19 glucose ity of strip 00:00: every [place] 00 morning Medical before Branch breakfast and as needed for symptoms; ICD-10 E11.9 Lancets 2-0 Yes [id number] Check Univ ers Misc 4-19 glucose ity of 00:00: every [place] 00 morning Medical before Branch breakfast and as needed for symptoms; ICD-10 E11.9 blood sugar 2021-0 Yes [id number] Check U nivers diagnostic 4-19 glucose ity of strip 00:00: every [place] 00 morning Medical before Branch breakfast and as needed for symptoms; ICD-10 E11.9 Lancets 2021-0 Yes [id number] Check Univ ers Misc 4-19 glucose ity of 00:00: every [place] 00 morning Medical before Branch breakfast and as needed for symptoms; ICD-10 E11.9 blood sugar 2021-0 Yes [id number] Check U nivers diagnostic 4-19 glucose ity of strip 00:00: every [place] 00 morning Medical before Branch breakfast and as needed for symptoms; ICD-10 E11.9 Lancets 2021-0 Yes [id number] Check Univ ers Misc 4-19 glucose ity of 00:00: every [place] 00 morning Medical before Branch breakfast and as needed for symptoms; ICD-10 E11.9 blood sugar 2021-0 Yes [id number] Check U nivers diagnostic 4-19 glucose ity of strip 00:00: every [place] [address] morning Medical before Branch breakfast and as needed for symptoms; ICD-10 E11.9 Lancets 2021-0 Yes [id number] Check Univ ers Misc 4-19 glucose ity of 00:00: every [place] 00 morning Medical before Branch breakfast and as needed for symptoms; ICD-10 E11.9 blood sugar 2021-0 Yes [id number] Check U nivers diagnostic 4-19 glucose ity of strip 00:00: every [place] 00 morning Medical before Branch breakfast and as needed for symptoms; ICD-10 E11.9 Lancets 2-0 Yes [id number] Check [facility] ers Misc 4-19 glucose ity of 00:00: every [place] 00 morning Medical before Branch breakfast and as needed for symptoms; ICD-10 E11.9 blood sugar 2-0 Yes [id number] Check U nivers diagnostic 4-19 glucose ity of strip 00:00: every [place] 00 morning Medical before Branch breakfast and as needed for symptoms; ICD-10 E11.9 Lancets 2022-0 Yes [id number] Check [facility] ers Misc 4-19 glucose ity of 00:00: every [place] 00 morning Medical before Branch breakfast and as needed for symptoms; ICD-10 E11.9 blood sugar 2021-0 Yes [id number] Check U nivers diagnostic 4-19 glucose ity of strip 00:00: every [place] 00 morning Medical before Branch breakfast and as needed for symptoms; ICD-10 E11.9 Lancets 2-0 Yes [id number] Check [facility] ers Misc 4-19 glucose ity of 00:00: every [place] 00 morning Medical before Branch breakfast and as needed for symptoms; ICD-10 E11.9 blood sugar 2021-0 Yes [id number] Check U nivers diagnostic 4-19 glucose ity of strip 00:00: every [place] 00 morning Medical before Branch breakfast and as needed for symptoms; ICD-10 E11.9 Lancets 2021-0 Yes [id number] Check [facility] ers Misc 4-19 glucose ity of 00:00: every [place] 00 morning Medical before Branch breakfast and as needed for symptoms; ICD-10 E11.9 blood sugar 2021-0 Yes [id number] Check U nivers diagnostic 4-19 glucose ity of strip 00:00: every [place] 00 morning Medical before Branch breakfast and as needed for symptoms; ICD-10 E11.9 Lancets 2021-0 Yes [id number] Check [facility] ers Misc 4-19 glucose ity of 00:00: every [place] 00 morning Medical before Branch breakfast and as needed for symptoms; ICD-10 E11.9 blood sugar 2-0 Yes [id number] Check U nivers diagnostic 4-19 glucose ity of strip 00:00: every [place] 00 morning Medical before Branch breakfast and as needed for symptoms; ICD-10 E11.9 Lancets 2-0 Yes [id number] Check [facility] ers Misc 4-19 glucose ity of 00:00: every [place] 00 morning Medical before Branch breakfast and as needed for symptoms; ICD-10 E11.9 blood sugar 2-0 Yes [id number] Check U nivers diagnostic 4-19 glucose ity of strip 00:00: every [place] 00 morning Medical before Branch breakfast and as needed for symptoms; ICD-10 E11.9 Lancets 2-0 Yes [id number] Check [facility] ers Misc 4-19 glucose ity of 00:00: every [place] 00 morning Medical before Branch breakfast and as needed for symptoms; ICD-10 E11.9 blood sugar 2-0 Yes [id number] Check U nivers diagnostic 4-19 glucose ity of strip 00:00: every [place] 00 morning Medical before Branch breakfast and as needed for symptoms; ICD-10 E11.9 Lancets 2-0 Yes [id number] Check [facility] ers Misc 4-19 glucose ity of 00:00: every [place] morning Medical before Branch breakfast and as needed for symptoms; ICD-10 E11.9 blood sugar 2021-0 Yes [id number] Check [facility] nivers diagnostic 4-19 glucose ity of strip 00:00: every [place] morning Medical before Branch breakfast and as needed for symptoms; ICD-10 E11.9 Lancets 2021-0 Yes [id number] Check [facility] ers Misc 4-19 glucose ity of 00:00: every [place] morning Medical before Branch breakfast and as needed for symptoms; ICD-10 E11.9 blood sugar 2-0 Yes [id number] Check [facility] nivers diagnostic 4-19 glucose ity of strip 00:00: every [place] morning Medical before Branch breakfast and as needed for symptoms; ICD-10 E11.9 Lancets 2021-0 Yes [id number] Check [facility] ers Misc 4-19 glucose ity of 00:00: every [place] morning Medical before Branch breakfast and as needed for symptoms; ICD-10 E11.9 aspirin 81 2021-0 Yes 81mg Take 81 mg U nivers mg chewable 3-15 by mouth ity of tablet 08:37: daily. [address] aspirin 81 2021-0 Yes 81mg Take 81 mg U nivers mg chewable 3-15 by mouth ity of tablet 08:37: daily. [address] aspirin 81 2-0 Yes 81mg Take 81 mg U nivers mg chewable 3-15 by mouth ity of tablet 08:37: daily. [address] aspirin 81 2-0 Yes 81mg Take 81 mg U nivers mg chewable 3-15 by mouth ity of tablet 08:37: daily. [address] aspirin 81 2-0 Yes 81mg Take 81 mg U nivers mg chewable 3-15 by mouth ity of tablet 08:37: daily. [address] aspirin 81 2-0 Yes 81mg Take 81 mg U nivers mg chewable 3-15 by mouth ity of tablet 08:37: daily. [place] [address] Medical Branch aspirin 81 2-0 Yes 81mg Take 81 mg U nivers mg chewable 3-15 by mouth ity of tablet 08:37: daily. [place] Medical Branch aspirin 81 2-0 Yes 81mg Take 81 mg U nivers mg chewable 3-15 by mouth ity of tablet 08:37: daily. [address] Branch aspirin 81 2021-0 Yes 81mg Take 81 mg U nivers mg chewable 3-15 by mouth ity of tablet 08:37: daily. [address] Branch aspirin 81 2-0 Yes 81mg Take 81 mg U nivers mg chewable 3-15 by mouth ity of tablet 08:37: daily. [address] Branch aspirin 81 2022-0 Yes 81mg Take 81 mg U nivers mg chewable 3-15 by mouth ity of tablet 08:37: daily. [address] Branch aspirin 81 2021-0 Yes 81mg Take 81 mg U nivers mg chewable 3-15 by mouth ity of tablet 08:37: daily. [address] Branch aspirin 81 2021-0 Yes 81mg Take 81 mg U nivers mg chewable 3-15 by mouth ity of tablet 08:37: daily. [address] Branch aspirin 81 2-0 Yes 81mg Take 81 mg U nivers mg chewable 3-15 by mouth ity of tablet 08:37: daily. [address] Branch aspirin 81 2-0 Yes 81mg Take 81 mg U nivers mg chewable 3-15 by mouth ity of tablet 08:37: daily. [address] Branch aspirin 81 2-0 Yes 81mg Take 81 mg U nivers mg chewable 3-15 by mouth ity of tablet 08:37: daily. [address] Branch aspirin 81 2-0 Yes 81mg Take 81 mg U nivers mg chewable 3-15 by mouth ity of tablet 08:37: daily. [address] Branch aspirin 81 2022-0 Yes 81mg Take 81 mg U nivers mg chewable 3-15 by mouth ity of tablet 08:37: daily. [address] Branch aspirin 81 2-0 Yes 81mg Take 81 mg U nivers mg chewable 3-15 by mouth ity of tablet 08:37: daily. [address] aspirin 81 2021-0 Yes 81mg Take 81 mg U nivers mg chewable 3-15 by mouth ity of tablet 08:37: daily. [address] aspirin 81 2021-0 Yes 81mg Take 81 mg U nivers mg chewable 3-15 by mouth ity of tablet 08:37: daily. [address] aspirin 81 2021-0 Yes 81mg Take 81 mg U nivers mg chewable 3-15 by mouth ity of tablet 08:37: daily. [address] aspirin 81 2021-0 Yes 81mg Take 81 mg U nivers mg chewable 3-15 by mouth ity of tablet 08:37: daily. [address] aspirin 81 2021-0 Yes 81mg Take 81 mg [facility] n[facility] mg chewable 3-15 by mouth ity of tablet 08:37: daily. [address] fluticasone 0 Yes [id number] 2{spray Use 2 [facility] propionate 1-24 } Sprays in ity of 50 00:00: each [place] mcg/actuati 00 nostril Medic al on nasal daily. Branch spray ergocalcife 2021-0 Yes [id number] 1 capsule [facility] rol, 1-24 by mouth 2 ity of vitamin d2, 00:00: x a week [place] (VITAMIN 00 with food Medica l D2) 1,250 Branch mcg (50,000 unit) capsule fluticasone 2021-0 Yes [id number] 2{spray Use 2 [facility] propionate 1-24 } Sprays in ity of 50 00:00: each [place] mcg/actuati 00 nostril Medic al on nasal daily. Branch spray ergocalcife 2021-0 Yes [id number] 1 capsule [facility] rol, 1-24 by mouth 2 ity of vitamin d2, 00:00: x a week [place] (VITAMIN 00 with food Medica l D2) 1,250 [facility] mcg (50,000 unit) capsule fluticasone 2021-0 Yes [id number] 2{spray Use 2 [facility] propionate 1-24 } Sprays in ity of 50 00:00: each [place] mcg/actuati 00 nostril Medic al on nasal daily. Branch spray ergocalcife 2021-0 Yes [id number] 1 capsule [facility] rol, 1-24 by mouth 2 ity of vitamin d2, 00:00: x a week [place] (VITAMIN 00 with food Medica l D2) 1,250 [facility] mcg (50,000 unit) capsule fluticasone 2022-0 Yes [id number] 2{spray Use 2 [facility] propionate 1-24 } Sprays in ity of 50 00:00: each [place] mcg/actuati 00 nostril Medic al on nasal daily. Branch spray ergocalcife 2021-0 Yes [id number] 1 capsule [facility] rol, 1-24 by mouth 2 ity of vitamin d2, 00:00: x a week [place] (VITAMIN 00 with food Medica l D2) 1,250 [facility] mcg (50,000 unit) capsule fluticasone 2022-0 Yes [id number] 2{spray Use 2 [facility] propionate 1-24 } Sprays in ity of 50 00:00: each [place] mcg/actuati 00 nostril Medic al on nasal daily. Branch spray ergocalcife 2021-0 Yes [id number] 1 capsule [facility] rol, 1-24 by mouth 2 ity of vitamin d2, 00:00: x a week [place] (VITAMIN 00 with food Medica l D2) 1,250 [facility] mcg (50,000 unit) capsule fluticasone 2022-0 Yes [id number] 2{spray Use 2 [facility] propionate 1-24 } Sprays in ity of 50 00:00: each [place] mcg/actuati 00 nostril Medic al on nasal daily. Branch spray ergocalcife 2021-0 Yes [id number] 1 capsule [facility] rol, 1-24 by mouth 2 ity of vitamin d2, 00:00: x a week [place] (VITAMIN 00 with food Medica l D2) 1,250 [facility] mcg (50,000 unit) capsule fluticasone 2022-0 Yes [id number] 2{spray Use 2 [facility] propionate 1-24 } Sprays in ity of 50 00:00: each [place] mcg/actuati 00 nostril Medic al on nasal daily. Branch spray ergocalcife 2022-0 Yes [id number] 1 capsule [facility] rol, 1-24 by mouth 2 ity of vitamin d2, 00:00: x a week [place] (VITAMIN 00 with food Medica l D2) 1,250 [facility] mcg (50,000 unit) capsule fluticasone 2022-0 Yes [id number] 2{spray Use 2 [facility] propionate 1-24 } Sprays in ity of 50 00:00: each [place] mcg/actuati 00 nostril Medic al on nasal daily. Branch spray ergocalcife 2022-0 Yes [id number] 1 capsule [facility] rol, 1-24 by mouth 2 ity of vitamin d2, 00:00: x a week [place] (VITAMIN 00 with food Medica l D2) 1,250 [facility] mcg (50,000 unit) capsule fluticasone 2022-0 Yes [id number] 2{spray Use 2 [facility] propionate 1-24 } Sprays in ity of 50 00:00: each [place] mcg/actuati 00 nostril Medic al on nasal daily. Branch spray ergocalcife 2022-0 Yes [id number] 1 capsule [facility] rol, 1-24 by mouth 2 ity of vitamin d2, 00:00: x a week [place] (VITAMIN 00 with food Medica l D2) 1,250 [facility] mcg (50,000 unit) capsule fluticasone 2022-0 Yes [id number] 2{spray Use 2 [facility] propionate 1-24 } Sprays in ity of 50 00:00: each [place] mcg/actuati 00 nostril Medic al on nasal daily. Branch spray ergocalcife 2-0 Yes [id number] 1 capsule [facility] rol, 1-24 by mouth 2 ity of vitamin d2, 00:00: x a week [place] (VITAMIN 00 with food Medica l D2) 1,250 [facility] mcg (50,000 unit) capsule fluticasone 2022-0 Yes [id number] 2{spray Use 2 [facility] propionate 1-24 } Sprays in ity of 50 00:00: each [place] mcg/actuati 00 nostril Medic al on nasal daily. Branch spray ergocalcife 2022-0 Yes [id number] 1 capsule [facility] rol, 1-24 by mouth 2 ity of vitamin d2, 00:00: x a week [place] (VITAMIN 00 with food Medica l D2) 1,250 [facility] mcg (50,000 unit) capsule fluticasone 2022-0 Yes [id number] 2{spray Use 2 [facility] propionate 1-24 } Sprays in ity of 50 00:00: each [place] mcg/actuati 00 nostril Medic al on nasal daily. Branch spray ergocalcife 2022-0 Yes [id number] 1 capsule [facility] rol, 1-24 by mouth 2 ity of vitamin d2, 00:00: x a week [place] (VITAMIN 00 with food Medica l D2) 1,250 [facility] mcg (50,000 unit) capsule fluticasone 2021-0 Yes [id number] 2{spray Use 2 [facility] propionate 1-24 } Sprays in ity of 50 00:00: each [place] mcg/actuati 00 nostril Medic al on nasal daily. Branch spray ergocalcife 2021-0 Yes [id number] 1 capsule [facility] rol, 1-24 by mouth 2 ity of vitamin d2, 00:00: x a week [place] (VITAMIN 00 with food Medica l D2) 1,250 [facility] mcg (50,000 unit) capsule fluticasone 2021-0 Yes [id number] 2{spray Use 2 [facility] propionate 1-24 } Sprays in ity of 50 00:00: each [place] mcg/actuati 00 nostril Medic al on nasal daily. Branch spray ergocalcife 2021-0 Yes [id number] 1 capsule [facility] rol, 1-24 by mouth 2 ity of vitamin d2, 00:00: x a week [place] (VITAMIN 00 with food Medica l D2) 1,250 [facility] mcg (50,000 unit) capsule fluticasone 2021-0 Yes [id number] 2{spray Use 2 [facility] propionate 1-24 } Sprays in ity of 50 00:00: each [place] mcg/actuati 00 nostril Medic al on nasal daily. Branch spray ergocalcife 2021-0 Yes [id number] 1 capsule [facility] rol, 1-24 by mouth 2 ity of vitamin d2, 00:00: x a week [place] (VITAMIN 00 with food Medica l D2) 1,250 [facility] mcg (50,000 unit) capsule fluticasone 2022-0 Yes [id number] 2{spray Use 2 [facility] propionate 1-24 } Sprays in ity of 50 00:00: each [place] mcg/actuati 00 nostril Medic al on nasal daily. Branch spray ergocalcife 2021-0 Yes [id number] 1 capsule [facility] rol, 1-24 by mouth 2 ity of vitamin d2, 00:00: x a week [place] (VITAMIN 00 with food Medica l D2) 1,250 [facility] mcg (50,000 unit) capsule fluticasone 202-0 Yes [id number] 2{spray Use 2 [facility] propionate 1-24 } Sprays in ity of 50 00:00: each [place] mcg/actuati 00 nostril Medic al on nasal daily. Branch spray ergocalcife 2-0 Yes [id number] 1 capsule [facility] rol, 1-24 by mouth 2 ity of vitamin d2, 00:00: x a week [place] (VITAMIN 00 with food Medica l D2) 1,250 [facility] mcg (50,000 unit) capsule fluticasone 2022-0 Yes [id number] 2{spray Use 2 [facility] propionate 1-24 } Sprays in ity of 50 00:00: each [place] mcg/actuati 00 nostril Medic al on nasal daily. Branch spray ergocalcife 2021-0 Yes [id number] 1 capsule [facility] rol, 1-24 by mouth 2 ity of vitamin d2, 00:00: x a week [place] (VITAMIN 00 with food Medica l D2) 1,250 [facility] mcg (50,000 unit) capsule fluticasone 2022-0 Yes [id number] 2{spray Use 2 [facility] propionate 1-24 } Sprays in ity of 50 00:00: each [place] mcg/actuati 00 nostril Medic al on nasal daily. Branch spray ergocalcife 2-0 Yes [id number] 1 capsule [facility] rol, 1-24 by mouth 2 ity of vitamin d2, 00:00: x a week [place] (VITAMIN 00 with food Medica l D2) 1,250 [facility] mcg (50,000 unit) capsule fluticasone 2022-0 Yes [id number] 2{spray Use 2 [facility] propionate 1-24 } Sprays in ity of 50 00:00: each [place] mcg/actuati 00 nostril Medic al on nasal daily. Branch spray ergocalcife 2022-0 Yes [id number] 1 capsule [facility] rol, 1-24 by mouth 2 ity of vitamin d2, 00:00: x a week [place] (VITAMIN 00 with food Medica l D2) 1,250 [facility] mcg (50,000 unit) capsule fluticasone 2022-0 Yes [id number] 2{spray Use 2 [facility] propionate 1-24 } Sprays in ity of 50 00:00: each [place] mcg/actuati 00 nostril Medic al on nasal daily. Branch spray ergocalcife 2022-0 Yes [id number] 1 capsule [facility] rol, 1-24 by mouth 2 ity of vitamin d2, 00:00: x a week [place] (VITAMIN 00 with food Medica l D2) 1,250 [facility] mcg (50,000 unit) capsule fluticasone Yes [id number] 2{spray Use 2 [facility] propionate 1-24 } Sprays in ity of 50 00:00: each [place] mcg/actuati 00 nostril Medic al on nasal daily. Branch spray ergocalcife Yes [id number] 1 capsule [facility] rol, 1-24 by mouth 2 ity of vitamin d2, 00:00: x a week [place] (VITAMIN 00 with food Medica l D2) 1,250 [facility] mcg (50,000 unit) capsule fluticasone Yes [id number] 2{spray Use 2 [facility] propionate 1-24 } Sprays in ity of 50 00:00: each [place] mcg/actuati 00 nostril Medic al on nasal daily. Branch spray ergocalcife Yes [id number] 1 capsule [facility] rol, 1-24 by mouth 2 ity of vitamin d2, 00:00: x a week [place] (VITAMIN 00 with food Medica l D2) 1,250 [facility] mcg (50,000 unit) capsule fluticasone Yes [id number] 2{spray Use 2 [facility] propionate 1-24 } Sprays in ity of 50 00:00: each [place] mcg/actuati 00 nostril Medic al on nasal daily. Branch spray ergocalcife Yes [id number] 1 capsule [facility] rol, 1-24 by mouth 2 ity of vitamin d2, 00:00: x a week [place] (VITAMIN 00 with food Medica l D2) 1,250 [facility] mcg (50,000 unit) capsule bromphenira 2021- No [id number] 5mL Take 5 mL [facility] mine-pseudo -08 by mouth 4 i ty of ephedrine-D 00:00: 00:00 (four) [place] M (BROMFED 00 :00 times Medical DM) 2-30-10 daily as Bran ch mg/5 mL needed for syrup Congestion /Allergies or Cough. albuterol 2021- No [id number] 2{puff} Inhale 2 [facility] 90 05-03-08 Puffs ity of mcg/actuati 00:00: 00:00 every 6 [place] on inhaler 00 :00 (six) Medical hours as Branch needed for Wheezing, Shortness of Breath or Chest tightness. bromphenira 2021- No [id number] 5mL Take 5 mL [facility] mine-pseudo 05-03 by mouth 4 i ty of ephedrine-D 00:00: 00:00 (four) [place] M (BROMFED 00 :00 times Medical DM) 2-30-10 daily as [facility] ch mg/5 mL needed for syrup Congestion /Allergies or Cough. albuterol 2021- No [id number] 2{puff} Inhale 2 [facility] 90 05-03-08 Puffs ity of mcg/actuati 00:00: 00:00 every 6 [place] on inhaler 00 :00 (six) Medical hours as Branch needed for Wheezing, Shortness of Breath or Chest tightness. escitalopra 2021- No [id number] 10mg Take 1 [facility] m oxalate 04-28 tablet by ity of 10 mg 00:00: 00:00 mouth [place] tablet 00 :00 daily. Medical Branch hydrOXYzine 2021- No [id number] 10mg Take 1 [facility] 10 mg 04-28 tablet by ity of tablet 00:00: 00:00 mouth [place] 00 :00 every 8 Medical (eight) Branch hours as needed for Itching or Anxiety. escitalopra 2021- No [id number] 10mg Take 1 [facility] m oxalate 04-28- tablet by ity of 10 mg 00:00: 00:00 mouth [place] tablet 00 :00 daily. Medical Branch hydrOXYzine 2021- No [id number] 10mg Take 1 [facility] 10 mg 04-28 tablet by ity of tablet 00:00: 00:00 mouth [place] 00 :00 every 8 Medical (eight) Branch hours as needed for Itching or Anxiety. Blood-Gluco 2020-04 Yes [id number] Check U nivers se Meter 0-08 glucose ity of (ACCU-CHEK 00:00: every [place] LEIDY PLUS 00 morning Medica l METER) Misc before Branch breakfast and as needed for symptoms; ICD-10 E11.9 EPINEPHrine 2020-04 Yes [id number] .3mg 0.3 mL by [facility] (EPIPEN 0-08 Intramuscu ity of 2-RUTH) 0.3 00:00: lar route [place] mg/0.3 mL 00 as needed Medic al injection (anaphylax Bran ch is). Blood-Gluco 2020-04 Yes [id number] Check U nivers se Meter 0-08 glucose ity of (ACCU-CHEK 00:00: every [place] LEIDY PLUS 00 morning Medica l METER) Misc before Branch breakfast and as needed for symptoms; ICD-10 E11.9 EPINEPHrine 2020-04 Yes [id number] .3mg 0.3 mL by [facility] (EPIPEN 0-08 Intramuscu ity of 2-RUTH) 0.3 00:00: lar route [place] mg/0.3 mL 00 as needed Medic al injection (anaphylax Bran ch is). Blood-Gluco 2020-04 Yes [id number] Check U nivers se Meter 0-08 glucose ity of (ACCU-CHEK 00:00: every [place] LEIDY PLUS 00 morning Medica l METER) Misc before Branch breakfast and as needed for symptoms; ICD-10 E11.9 EPINEPHrine 2020-04 Yes [id number] .3mg 0.3 mL by [facility] (EPIPEN 0-08 Intramuscu ity of 2-RUTH) 0.3 00:00: lar route [place] mg/0.3 mL 00 as needed Medic al injection (anaphylax Bran ch is). Blood-Gluco 2020-04 Yes [id number] Check U nivers se Meter 0-08 glucose ity of (ACCU-CHEK 00:00: every [place] LEIDY PLUS 00 morning Medica l METER) Misc before Branch breakfast and as needed for symptoms; ICD-10 E11.9 Blood-Gluco 2020-04 Yes [id number] Check U nivers se Meter 0-08 glucose ity of (ACCU-CHEK 00:00: every [place] LEIDY PLUS 00 morning Medica l METER) Misc before Branch breakfast and as needed for symptoms; ICD-10 E11.9 Blood-Gluco 2020-04 Yes [id number] Check U nivers se Meter 0-08 glucose ity of (ACCU-CHEK 00:00: every [place] LEIDY PLUS 00 morning Medica l METER) Misc before Branch breakfast and as needed for symptoms; ICD-10 E11.9 Blood-Gluco 2020-04 Yes [id number] Check U nivers se Meter 0-08 glucose ity of (ACCU-CHEK 00:00: every [place] LEIDY PLUS 00 morning Medica l METER) Misc before Branch breakfast and as needed for symptoms; ICD-10 E11.9 Blood-Gluco 2020-04 Yes [id number] Check U nivers se Meter 0-08 glucose ity of (ACCU-CHEK 00:00: every [place] LEIDY PLUS 00 morning Medica l METER) Misc before Branch breakfast and as needed for symptoms; ICD-10 E11.9 Blood-Gluco 2020-04 Yes [id number] Check U nivers se Meter 0-08 glucose ity of (ACCU-CHEK 00:00: every [place] LEIDY PLUS 00 morning Medica l METER) Misc before Branch breakfast and as needed for symptoms; ICD-10 E11.9 Blood-Gluco 2020-04 Yes [id number] Check U nivers se Meter 0-08 glucose ity of (ACCU-CHEK 00:00: every [place] LEIDY PLUS 00 morning Medica l METER) Misc before Branch breakfast and as needed for symptoms; ICD-10 E11.9 Blood-Gluco 2020-04 Yes [id number] Check U nivers se Meter 0-08 glucose ity of (ACCU-CHEK 00:00: every [place] LEIDY PLUS 00 morning Medica l METER) Misc before Branch breakfast and as needed for symptoms; ICD-10 E11.9 Blood-Gluco 2020-04 Yes [id number] Check U nivers se Meter 0-08 glucose ity of (ACCU-CHEK 00:00: every [place] LEIDY PLUS 00 morning Medica l METER) Misc before Branch breakfast and as needed for symptoms; ICD-10 E11.9 Blood-Gluco 2020-04 Yes [id number] Check U nivers se Meter 0-08 glucose ity of (ACCU-CHEK 00:00: every [place] LEIDY PLUS 00 morning Medica l METER) Misc before Branch breakfast and as needed for symptoms; ICD-10 E11.9 Blood-Gluco 2020-04 Yes [id number] Check U nivers se Meter 0-08 glucose ity of (ACCU-CHEK 00:00: every [place] LEIDY PLUS 00 morning Medica l METER) Misc before Branch breakfast and as needed for symptoms; ICD-10 E11.9 Blood-Gluco 2020-04 Yes [id number] Check U nivers se Meter 0-08 glucose ity of (ACCU-CHEK 00:00: every [place] LEIDY PLUS 00 morning Medica l METER) Misc before Branch breakfast and as needed for symptoms; ICD-10 E11.9 Blood-Gluco 2020-04 Yes [id number] Check U nivers se Meter 0-08 glucose ity of (ACCU-CHEK 00:00: every [place] LEIDY PLUS 00 morning Medica l METER) Misc before Branch breakfast and as needed for symptoms; ICD-10 E11.9 Blood-Gluco 2020-04 Yes [id number] Check U nivers se Meter 0-08 glucose ity of (ACCU-CHEK 00:00: every [place] LEIDY PLUS 00 morning Medica l METER) Misc before Branch breakfast and as needed for symptoms; ICD-10 E11.9 Blood-Gluco 2020-04 Yes [id number] Check U nivers se Meter 0-08 glucose ity of (ACCU-CHEK 00:00: every [place] LEIDY PLUS 00 morning Medica l METER) Misc before Branch breakfast and as needed for symptoms; ICD-10 E11.9 Blood-Gluco 2020-04 Yes [id number] Check U nivers se Meter 0-08 glucose ity of (ACCU-CHEK 00:00: every [place] LEIDY PLUS 00 morning Medica l METER) Misc before Branch breakfast and as needed for symptoms; ICD-10 E11.9 Blood-Gluco 2020-04 Yes [id number] Check U nivers se Meter 0-08 glucose ity of (ACCU-CHEK 00:00: every [place] LEIDY PLUS 00 morning Medica l METER) Misc before Branch breakfast and as needed for symptoms; ICD-10 E11.9 Blood-Gluco 2020-04 Yes [id number] Check U nivers se Meter 0-08 glucose ity of (ACCU-CHEK 00:00: every [place] LEIDY PLUS 00 morning Medica l METER) Misc before Branch breakfast and as needed for symptoms; ICD-10 E11.9 EPINEPHrine 2020-04 Yes [id number] .3mg 0.3 mL by [facility] (EPIPEN 0-08 Intramuscu ity of 2-RUTH) 0.3 00:00: lar route [place] mg/0.3 mL 00 as needed Medic al injection (anaphylax Bran ch is). Blood-Gluco 2020-04 Yes [id number] Check U nivers se Meter 0-08 glucose ity of (ACCU-CHEK 00:00: every [place] LEIDY PLUS 00 morning Medica l METER) Misc before Branch breakfast and as needed for symptoms; ICD-10 E11.9 EPINEPHrine 2020-04 Yes [id number] .3mg 0.3 mL by [facility] (EPIPEN 0-08 Intramuscu ity of 2-RUTH) 0.3 00:00: lar route [place] mg/0.3 mL 00 as needed Medic al injection (anaphylax Bran ch is). Blood-Gluco 2020-04 Yes [id number] Check U nivers se Meter 0-08 glucose ity of (ACCU-CHEK 00:00: every [place] LEIDY PLUS 00 morning Medica l METER) Misc before Branch breakfast and as needed for symptoms; ICD-10 E11.9 EPINEPHrine 2020-04 Yes [id number] .3mg 0.3 mL by [facility] (EPIPEN 0-08 Intramuscu ity of 2-RUTH) 0.3 00:00: lar route [place] mg/0.3 mL 00 as needed Medic al injection (anaphylax Bran ch is). Blood-Gluco 2020-04 Yes [id number] Check U nivers se Meter 0-08 glucose ity of (ACCU-CHEK 00:00: every [place] LEIDY PLUS 00 morning Medica l METER) Misc before Branch breakfast and as needed for symptoms; ICD-10 E11.9 EPINEPHrine 2020-04 Yes [id number] .3mg 0.3 mL by [facility] (EPIPEN 0-08 Intramuscu ity of 2-RUTH) 0.3 00:00: lar route [place] mg/0.3 mL 00 as needed Medic al injection (anaphylax Bran ch is). EPINEPHrine 2020-04- No [id number] .3mg 0.3 mL by [facility] (EPIPEN 0-08 01-03 Intramuscu ity o f 2-RUTH) 0.3 00:00: 00:00 lar route [place] mg/0.3 mL 00 :00 as needed Medic al injection (anaphylax Bran ch is). budesonide- Yes [id number] 2{puff} Inhale 2 [facility] formoteroL 8-10 Puffs 2 ity of 80-4.5 00:00: (two) [place] mcg/actuati 00 times Medical on inhaler daily. [place] budesonide- Yes [id number] 2{puff} Inhale 2 [facility] formoteroL 8-10 Puffs 2 ity of 80-4.5 00:00: (two) [place] mcg/actuati 00 times Medical on inhaler daily. [place] budesonide- Yes [id number] 2{puff} Inhale 2 [facility] formoteroL 8-10 Puffs 2 ity of 80-4.5 00:00: (two) [place] mcg/actuati 00 times Medical on inhaler daily. Branch budesonide- Yes [id number] 2{puff} Inhale 2 [facility] formoteroL 8-10 Puffs 2 ity of 80-4.5 00:00: (two) [place] mcg/actuati 00 times Medical on inhaler daily. [place] budesonide- Yes [id number] 2{puff} Inhale 2 [facility] formoteroL 8-10 Puffs 2 ity of 80-4.5 00:00: (two) [place] mcg/actuati 00 times Medical on inhaler daily. Branch budesonide- Yes [id number] 2{puff} Inhale 2 [facility] formoteroL 8-10 Puffs 2 ity of 80-4.5 00:00: (two) [place] mcg/actuati 00 times Medical on inhaler daily. Branch budesonide- Yes [id number] 2{puff} Inhale 2 [facility] formoteroL 8-10 Puffs 2 ity of 80-4.5 00:00: (two) [place] mcg/actuati 00 times Medical on inhaler daily. Branch budesonide- Yes [id number] 2{puff} Inhale 2 [facility] formoteroL 8-10 Puffs 2 ity of 80-4.5 00:00: (two) [place] mcg/actuati 00 times Medical on inhaler daily. Branch budesonide- 2020- Yes [id number] 2{puff} Inhale 2 [facility] formoteroL 8-10 Puffs 2 ity of 80-4.5 00:00: (two) [place] mcg/actuati 00 times Medical on inhaler daily. Branch budesonide- 2020- Yes [id number] 2{puff} Inhale 2 [facility] formoteroL 8-10 Puffs 2 ity of 80-4.5 00:00: (two) [place] mcg/actuati 00 times Medical on inhaler daily. Branch budesonide- 2020- Yes [id number] 2{puff} Inhale 2 [facility] formoteroL 8-10 Puffs 2 ity of 80-4.5 00:00: (two) [place] mcg/actuati 00 times Medical on inhaler daily. Branch budesonide- 2020- Yes [id number] 2{puff} Inhale 2 [facility] formoteroL 8-10 Puffs 2 ity of 80-4.5 00:00: (two) [place] mcg/actuati 00 times Medical on inhaler daily. Branch budesonide- 2020- Yes [id number] 2{puff} Inhale 2 [facility] formoteroL 8-10 Puffs 2 ity of 80-4.5 00:00: (two) [place] mcg/actuati 00 times Medical on inhaler daily. Branch budesonide- 2020- Yes [id number] 2{puff} Inhale 2 [facility] formoteroL 8-10 Puffs 2 ity of 80-4.5 00:00: (two) [place] mcg/actuati 00 times Medical on inhaler daily. Branch budesonide- 2020- Yes [id number] 2{puff} Inhale 2 [facility] formoteroL 8-10 Puffs 2 ity of 80-4.5 00:00: (two) [place] mcg/actuati 00 times Medical on inhaler daily. Branch budesonide- 2020- Yes [id number] 2{puff} Inhale 2 [facility] formoteroL 8-10 Puffs 2 ity of 80-4.5 00:00: (two) [place] mcg/actuati 00 times Medical on inhaler daily. Branch budesonide- Yes [id number] 2{puff} Inhale 2 [facility] formoteroL 8-10 Puffs 2 ity of 80-4.5 00:00: (two) [place] mcg/actuati 00 times Medical on inhaler daily. Branch budesonide- Yes [id number] 2{puff} Inhale 2 [facility] formoteroL 8-10 Puffs 2 ity of 80-4.5 00:00: (two) [place] mcg/actuati 00 times Medical on inhaler daily. Branch budesonide- Yes [id number] 2{puff} Inhale 2 [facility] formoteroL 8-10 Puffs 2 ity of 80-4.5 00:00: (two) [place] mcg/actuati 00 times Medical on inhaler daily. Branch budesonide- Yes [id number] 2{puff} Inhale 2 [facility] formoteroL 8-10 Puffs 2 ity of 80-4.5 00:00: (two) [place] mcg/actuati 00 times Medical on inhaler daily. Branch budesonide- Yes [id number] 2{puff} Inhale 2 [facility] formoteroL 8-10 Puffs 2 ity of 80-4.5 00:00: (two) [place] mcg/actuati 00 times Medical on inhaler daily. Branch budesonide- Yes [id number] 2{puff} Inhale 2 [facility] formoteroL 8-10 Puffs 2 ity of 80-4.5 00:00: (two) [place] mcg/actuati 00 times Medical on inhaler daily. Branch budesonide- Yes [id number] 2{puff} Inhale 2 [facility] formoteroL 8-10 Puffs 2 ity of 80-4.5 00:00: (two) [place] mcg/actuati 00 times Medical on inhaler daily. Branch budesonide- Yes [id number] 2{puff} Inhale 2 [facility] formoteroL 8-10 Puffs 2 ity of 80-4.5 00:00: (two) [place] mcg/actuati 00 times Medical on inhaler daily. [place] TIZANIDINE Yes [id number] TAKE ONE [facility] 4 mg tablet 7-04 (1) ity of 00:00: TABLET(S) [place] 00 BY MOUTH Medical EVERY Branch EIGHT HOURS NEEDED FOR MUSCLE SPASMS. TIZANIDINE 2020-0 Yes [id number] TAKE ONE [facility] 4 mg tablet 7-04 (1) ity of 00:00: TABLET(S) [place] 00 BY MOUTH Medical EVERY Branch EIGHT HOURS NEEDED FOR MUSCLE SPASMS. TIZANIDINE 2020-0 Yes [id number] TAKE ONE [facility] 4 mg tablet 7-04 (1) ity of 00:00: TABLET(S) [place] 00 BY MOUTH Medical EVERY Branch EIGHT HOURS NEEDED FOR MUSCLE SPASMS. TIZANIDINE 2020-0 Yes [id number] TAKE ONE [facility] 4 mg tablet 7-04 (1) ity of 00:00: TABLET(S) [place] 00 BY MOUTH Medical EVERY Branch EIGHT HOURS NEEDED FOR MUSCLE SPASMS. TIZANIDINE 2020-0 Yes [id number] TAKE ONE [facility] 4 mg tablet 7-04 (1) ity of 00:00: TABLET(S) [place] 00 BY MOUTH Medical EVERY Branch EIGHT HOURS NEEDED FOR MUSCLE SPASMS. TIZANIDINE 2020-0 Yes [id number] TAKE ONE [facility] 4 mg tablet 7-04 (1) ity of 00:00: TABLET(S) [place] 00 BY MOUTH Medical EVERY Branch EIGHT HOURS NEEDED FOR MUSCLE SPASMS. TIZANIDINE 2020-0 Yes [id number] TAKE ONE [facility] 4 mg tablet 7-04 (1) ity of 00:00: TABLET(S) [place] 00 BY MOUTH Medical EVERY Branch EIGHT HOURS NEEDED FOR MUSCLE SPASMS. TIZANIDINE 2020-0 Yes [id number] TAKE ONE [facility] 4 mg tablet 7-04 (1) ity of 00:00: TABLET(S) [place] 00 BY MOUTH Medical EVERY Branch EIGHT HOURS NEEDED FOR MUSCLE SPASMS. TIZANIDINE 2020-0 Yes [id number] TAKE ONE [facility] 4 mg tablet 7-04 (1) ity of 00:00: TABLET(S) [place] 00 BY MOUTH Medical EVERY Branch EIGHT HOURS NEEDED FOR MUSCLE SPASMS. TIZANIDINE 2020-0 Yes [id number] TAKE ONE [facility] 4 mg tablet 7-04 (1) ity of 00:00: TABLET(S) [place] 00 BY MOUTH Medical EVERY Branch EIGHT HOURS NEEDED FOR MUSCLE SPASMS. TIZANIDINE 2021-0 Yes [id number] TAKE ONE [facility] 4 mg tablet -04 (1) ity of 00:00: TABLET(S) [place] 00 BY MOUTH Medical EVERY Branch EIGHT HOURS NEEDED FOR MUSCLE SPASMS. TIZANIDINE 2020-0 Yes [id number] TAKE ONE [facility] 4 mg tablet 7-04 (1) ity of 00:00: TABLET(S) [place] 00 BY MOUTH Medical EVERY Branch EIGHT HOURS NEEDED FOR MUSCLE SPASMS. TIZANIDINE 2020-0 Yes [id number] TAKE ONE [facility] 4 mg tablet 7-04 (1) ity of 00:00: TABLET(S) [place] 00 BY MOUTH Medical EVERY Branch EIGHT HOURS NEEDED FOR MUSCLE SPASMS. TIZANIDINE 2020-0 3- No [id number] TAKE ONE [facility] 4 mg tablet 7-06-29 (1) ity of 00:00: 00:00 TABLET(S) [place] 00 :00 BY MOUTH Medical EVERY Branch EIGHT HOURS NEEDED FOR MUSCLE SPASMS. TIZANIDINE 2020-0 3- No [id number] TAKE ONE [facility] 4 mg tablet 10-11 (1) ity of 00:00: 00:00 TABLET(S) [place] 00 :00 BY MOUTH Medical EVERY Branch EIGHT HOURS NEEDED FOR MUSCLE SPASMS. Fenofibric 2020-0 Yes [id number] 135mg Take 1 [facility] Acid 135 mg 3-04 capsule by it y of capsule 00:00: mouth [place] 00 daily. Medical Branch ezetimibe 2020-0 Yes [id number] TAKE ONE [facility] 10 mg 3-04 (1) ity of tablet 00:00: TABLET(S) [place] 00 BY MOUTH Medical ONCE A Branch DAY. Fenofibric 2020-0 Yes [id number] 135mg Take 1 [facility] Acid 135 mg 3-04 capsule by it y of capsule 00:00: mouth [place] 00 daily. Medical Branch ezetimibe 2020-0 Yes [id number] TAKE ONE [facility] 10 mg 3-04 (1) ity of tablet 00:00: TABLET(S) [place] 00 BY MOUTH Medical ONCE A Branch DAY. Fenofibric 1-0 Yes [id number] 135mg Take 1 [facility] Acid 135 mg 3-04 capsule by it y of capsule 00:00: mouth [place] 00 daily. [facility] ezetimibe 2020-0 Yes [id number] TAKE ONE [facility] 10 mg 3-04 (1) ity of tablet 00:00: TABLET(S) [place] 00 BY MOUTH Medical ONCE A Branch DAY. Fenofibric 2021-0 Yes [id number] 135mg Take 1 [facility] Acid 135 mg 3-04 capsule by it y of capsule 00:00: mouth [place] 00 daily. [facility] ezetimibe 2021-0 Yes [id number] TAKE ONE [facility] 10 mg 3-04 (1) ity of tablet 00:00: TABLET(S) [place] 00 BY MOUTH Medical ONCE A Branch DAY. Fenofibric 2021-0 Yes [id number] 135mg Take 1 [facility] Acid 135 mg 3-04 capsule by it y of capsule 00:00: mouth [place] 00 daily. [facility] ezetimibe 1-0 Yes [id number] TAKE ONE [facility] 10 mg 3-04 (1) ity of tablet 00:00: TABLET(S) [place] 00 BY MOUTH Medical ONCE A Branch DAY. Fenofibric 2021-0 Yes [id number] 135mg Take 1 [facility] Acid 135 mg 3-04 capsule by it y of capsule 00:00: mouth [place] 00 daily. [facility] ezetimibe 2020-0 Yes [id number] TAKE ONE [facility] 10 mg 3-04 (1) ity of tablet 00:00: TABLET(S) [place] 00 BY MOUTH Medical ONCE A Branch DAY. Fenofibric 2021-0 Yes [id number] 135mg Take 1 [facility] Acid 135 mg 3-04 capsule by it y of capsule 00:00: mouth [place] 00 daily. [facility] ezetimibe 1-0 Yes [id number] TAKE ONE [facility] 10 mg 3-04 (1) ity of tablet 00:00: TABLET(S) [place] 00 BY MOUTH Medical ONCE A Branch DAY. Fenofibric 2021-0 Yes [id number] 135mg Take 1 [facility] Acid 135 mg 3-04 capsule by it y of capsule 00:00: mouth [place] 00 daily. [facility] ezetimibe 1-0 Yes [id number] TAKE ONE [facility] 10 mg 3-04 (1) ity of tablet 00:00: TABLET(S) [place] 00 BY MOUTH Medical ONCE A Branch DAY. Fenofibric 2021-0 Yes [id number] 135mg Take 1 [facility] Acid 135 mg 3-04 capsule by it y of capsule 00:00: mouth [place] 00 daily. [facility] ezetimibe 2021-0 Yes [id number] TAKE ONE [facility] 10 mg 3-04 (1) ity of tablet 00:00: TABLET(S) [place] 00 BY MOUTH Medical ONCE A Branch DAY. Fenofibric 2021-0 Yes [id number] 135mg Take 1 [facility] Acid 135 mg 3-04 capsule by it y of capsule 00:00: mouth [place] 00 daily. Medical Branch ezetimibe 2021-0 Yes [id number] TAKE ONE [facility] 10 mg 3-04 (1) ity of tablet 00:00: TABLET(S) [place] 00 BY MOUTH Medical ONCE A Branch DAY. Fenofibric 2021-0 Yes [id number] 135mg Take 1 [facility] Acid 135 mg 3-04 capsule by it y of capsule 00:00: mouth [place] 00 daily. [facility] Branch ezetimibe 1-0 Yes [id number] TAKE ONE [facility] 10 mg 3-04 (1) ity of tablet 00:00: TABLET(S) [place] 00 BY [facility] ONCE A Branch DAY. Fenofibric 2021-0 Yes [id number] 135mg Take 1 [facility] Acid 135 mg 3-04 capsule by it y of capsule 00:00: mouth [place] 00 daily. [facility] Branch ezetimibe 2020-0 Yes [id number] TAKE ONE [facility] 10 mg 3-04 (1) ity of tablet 00:00: TABLET(S) [place] 00 BY [facility] ONCE A Branch DAY. Fenofibric 2021-0 Yes [id number] 135mg Take 1 [facility] Acid 135 mg 3-04 capsule by it y of capsule 00:00: mouth [place] 00 daily. Medical Branch ezetimibe 1-0 Yes [id number] TAKE ONE [facility] 10 mg 3-04 (1) ity of tablet 00:00: TABLET(S) [place] 00 BY MOUTH Medical ONCE A Branch DAY. Fenofibric 2021-0 Yes [id number] 135mg Take 1 [facility] Acid 135 mg 3-04 capsule by it y of capsule 00:00: mouth [place] 00 daily. [facility] Branch ezetimibe 1-0 Yes [id number] TAKE ONE [facility] 10 mg 3-04 (1) ity of tablet 00:00: TABLET(S) [place] 00 BY MOUTH Medical ONCE A Branch DAY. Fenofibric 2021-0 Yes [id number] 135mg Take 1 [facility] Acid 135 mg 3-04 capsule by it y of capsule 00:00: mouth [place] 00 daily. Medical Branch ezetimibe 1-0 Yes [id number] TAKE ONE [facility] 10 mg 3-04 (1) ity of tablet 00:00: TABLET(S) [place] 00 BY MOUTH Medical ONCE A Branch DAY. Fenofibric 2021-0 Yes [id number] 135mg Take 1 [facility] Acid 135 mg 3-04 capsule by it y of capsule 00:00: mouth [place] 00 daily. Medical Branch ezetimibe 1-0 Yes [id number] TAKE ONE [facility] 10 mg 3-04 (1) ity of tablet 00:00: TABLET(S) [place] 00 BY MOUTH Medical ONCE A Branch DAY. Fenofibric 2021-0 Yes [id number] 135mg Take 1 [facility] Acid 135 mg 3-04 capsule by it y of capsule 00:00: mouth [place] 00 daily. [facility] Branch ezetimibe 2020-0 Yes [id number] TAKE ONE [facility] 10 mg 3-04 (1) ity of tablet 00:00: TABLET(S) [place] 00 BY MOUTH Medical ONCE A Branch DAY. Fenofibric 2021-0 Yes [id number] 135mg Take 1 [facility] Acid 135 mg 3-04 capsule by it y of capsule 00:00: mouth [place] 00 daily. [facility] Branch ezetimibe 2020-0 Yes [id number] TAKE ONE [facility] 10 mg 3-04 (1) ity of tablet 00:00: TABLET(S) [place] 00 BY MOUTH Medical ONCE A Branch DAY. Fenofibric 1-0 Yes [id number] 135mg Take 1 [facility] Acid 135 mg 3-04 capsule by it y of capsule 00:00: mouth [place] 00 daily. Medical Branch ezetimibe 1-0 Yes [id number] TAKE ONE [facility] 10 mg 3-04 (1) ity of tablet 00:00: TABLET(S) [place] 00 BY MOUTH Medical ONCE A Branch DAY. Fenofibric 2021-0 Yes [id number] 135mg Take 1 [facility] Acid 135 mg 3-04 capsule by it y of capsule 00:00: mouth [place] 00 daily. [facility] Branch ezetimibe 1-0 Yes [id number] TAKE ONE [facility] 10 mg 3-04 (1) ity of tablet 00:00: TABLET(S) [place] 00 BY MOUTH Medical ONCE A Branch DAY. Fenofibric 2021-0 Yes [id number] 135mg Take 1 [facility] Acid 135 mg 3-04 capsule by it y of capsule 00:00: mouth [place] 00 daily. Medical Branch ezetimibe 2020-0 Yes [id number] TAKE ONE [facility] 10 mg 3-04 (1) ity of tablet 00:00: TABLET(S) [place] 00 BY MOUTH Medical ONCE A Branch DAY. Fenofibric 2020-0 Yes [id number] 135mg Take 1 [facility] Acid 135 mg 3-04 capsule by it y of capsule 00:00: mouth [place] 00 daily. Medical Branch ezetimibe 2020-0 Yes [id number] TAKE ONE [facility] 10 mg 3-04 (1) ity of tablet 00:00: TABLET(S) [place] 00 BY MOUTH Medical ONCE A Branch DAY. Fenofibric 2020-0 Yes [id number] 135mg Take 1 [facility] Acid 135 mg 3-04 capsule by it y of capsule 00:00: mouth [place] 00 daily. Medical Branch ezetimibe 2020-0 Yes [id number] TAKE ONE [facility] 10 mg 3-04 (1) ity of tablet 00:00: TABLET(S) 00 BY MOUTH Medical ONCE A Branch DAY. Fenofibric 2020-0 Yes [id number] 135mg Take 1 [facility] Acid 135 mg 3-04 capsule by it y of capsule 00:00: mouth 00 daily. Medical Branch ezetimibe 0 Yes [id number] TAKE ONE [facility] 10 mg 3-04 (1) ity of tablet 00:00: TABLET(S) [place] 00 BY MOUTH Medical ONCE A Branch DAY. magnesium 2019- Yes [id number] 1{tbl} Take 1 [facility] oxide 400 2-19 tablet by ity o f mg 00:00: mouth 2 [place] magnesium 00 (two) Medical Tab times Branch daily. magnesium 2019- Yes [id number] 1{tbl} Take 1 [facility] oxide 400 2-19 tablet by ity o f mg 00:00: mouth 2 [place] magnesium 00 (two) Medical Tab times Branch daily. magnesium 2019- Yes [id number] 1{tbl} Take 1 [facility] oxide 400 2-19 tablet by ity o f mg 00:00: mouth 2 [place] magnesium 00 (two) Medical Tab times Branch daily. magnesium 2019- Yes [id number] 1{tbl} Take 1 [facility] oxide 400 2-19 tablet by ity o f mg 00:00: mouth 2 [place] magnesium 00 (two) Medical Tab times Branch daily. magnesium 2018-04 Yes [id number] 1{tbl} Take 1 [facility] oxide 400 2-19 tablet by ity o f mg 00:00: mouth 2 [place] magnesium 00 (two) Medical Tab times Branch daily. magnesium 2018-04 Yes [id number] 1{tbl} Take 1 [facility] oxide 400 2-19 tablet by ity o f mg 00:00: mouth 2 [place] magnesium 00 (two) Medical Tab times Branch daily. magnesium 2018-04 Yes [id number] 1{tbl} Take 1 [facility] oxide 400 2-19 tablet by ity o f mg 00:00: mouth 2 [place] magnesium 00 (two) Medical Tab times Branch daily. magnesium 2018-04 Yes [id number] 1{tbl} Take 1 [facility] oxide 400 2-19 tablet by ity o f mg 00:00: mouth 2 [place] magnesium 00 (two) Medical Tab times Branch daily. magnesium 2018-04 Yes [id number] 1{tbl} Take 1 [facility] oxide 400 2-19 tablet by ity o f mg 00:00: mouth 2 [place] magnesium 00 (two) Medical Tab times Branch daily. magnesium 2018-04 Yes [id number] 1{tbl} Take 1 [facility] oxide 400 2-19 tablet by ity o f mg 00:00: mouth 2 [place] magnesium 00 (two) Medical Tab times Branch daily. magnesium 2018-04 Yes [id number] 1{tbl} Take 1 [facility] oxide 400 2-19 tablet by ity o f mg 00:00: mouth 2 [place] magnesium 00 (two) Medical Tab times Branch daily. magnesium 2018-04 Yes [id number] 1{tbl} Take 1 [facility] oxide 400 2-19 tablet by ity o f mg 00:00: mouth 2 [place] magnesium 00 (two) Medical Tab times Branch daily. magnesium 2018-04 Yes [id number] 1{tbl} Take 1 [facility] oxide 400 2-19 tablet by ity o f mg 00:00: mouth 2 [place] magnesium 00 (two) Medical Tab times Branch daily. magnesium 2018- Yes [id number] 1{tbl} Take 1 [facility] oxide 400 2-19 tablet by ity o f mg 00:00: mouth 2 [place] magnesium 00 (two) Medical Tab times Branch daily. magnesium 2018-04 Yes [id number] 1{tbl} Take 1 [facility] oxide 400 2-19 tablet by ity o f mg 00:00: mouth 2 [place] magnesium 00 (two) Medical Tab times Branch daily. magnesium 2018-04 Yes [id number] 1{tbl} Take 1 [facility] oxide 400 2-19 tablet by ity o f mg 00:00: mouth 2 [place] magnesium 00 (two) Medical Tab times Branch daily. magnesium 2018-04 Yes [id number] 1{tbl} Take 1 [facility] oxide 400 2-19 tablet by ity o f mg 00:00: mouth 2 [place] magnesium 00 (two) Medical Tab times Branch daily. magnesium 2018-04 Yes [id number] 1{tbl} Take 1 [facility] oxide 400 2-19 tablet by ity o f mg 00:00: mouth 2 [place] magnesium 00 (two) Medical Tab times Branch daily. magnesium 2018-04 Yes [id number] 1{tbl} Take 1 [facility] oxide 400 2-19 tablet by ity o f mg 00:00: mouth 2 [place] magnesium 00 (two) Medical Tab times Branch daily. magnesium 2018-04 Yes [id number] 1{tbl} Take 1 [facility] oxide 400 2-19 tablet by ity o f mg 00:00: mouth 2 [place] magnesium 00 (two) Medical Tab times Branch daily. magnesium 2018-04 Yes [id number] 1{tbl} Take 1 [facility] oxide 400 2-19 tablet by ity o f mg 00:00: mouth 2 [place] magnesium 00 (two) Medical Tab times Branch daily. magnesium 2018-04 Yes [id number] 1{tbl} Take 1 [facility] oxide 400 2-19 tablet by ity o f mg 00:00: mouth 2 [place] magnesium 00 (two) Medical Tab times Branch daily. magnesium 2018-04 Yes [id number] 1{tbl} Take 1 [facility] oxide 400 2-19 tablet by ity o f mg 00:00: mouth 2 [place] magnesium 00 (two) Medical Tab times Branch daily. magnesium 2018- Yes [id number] 1{tbl} Take 1 [facility] oxide 400 2-19 tablet by ity o f mg 00:00: mouth 2 [place] magnesium 00 (two) Medical Tab times Branch daily. vitamin 2017-04 Yes [id number] 500ug Take 1 Un radha B-12 1-16 tablet by ity of (VITAMIN 00:00: mouth [place] B-12) 500 00 daily. Medical mcg tablet Branch vitamin 2017- Yes [id number] 500ug Take 1 Un radha B-12 1-16 tablet by ity of (VITAMIN 00:00: mouth [place] B-12) 500 00 daily. Medical mcg tablet Branch vitamin 2017-04 Yes [id number] 500ug Take 1 Un radha B-12 1-16 tablet by ity of (VITAMIN 00:00: mouth [place] B-12) 500 00 daily. Medical mcg tablet Branch vitamin 2017-04 Yes [id number] 500ug Take 1 Un radha B-12 1-16 tablet by ity of (VITAMIN 00:00: mouth [place] B-12) 500 00 daily. Medical mcg tablet Branch vitamin 2017-04 Yes [id number] 500ug Take 1 Un radha B-12 1-16 tablet by ity of (VITAMIN 00:00: mouth [place] B-12) 500 00 daily. Medical mcg tablet Branch vitamin 2017-04 Yes [id number] 500ug Take 1 Un radha B-12 1-16 tablet by ity of (VITAMIN 00:00: mouth [place] B-12) 500 00 daily. Medical mcg tablet Branch vitamin 2017-04 Yes [id number] 500ug Take 1 Un radha B-12 1-16 tablet by ity of (VITAMIN 00:00: mouth [place] B-12) 500 00 daily. Medical mcg tablet Branch vitamin 2017-04 Yes [id number] 500ug Take 1 Un radha B-12 1-16 tablet by ity of (VITAMIN 00:00: mouth [place] B-12) 500 00 daily. Medical mcg tablet Branch vitamin 2017-04 Yes [id number] 500ug Take 1 Un radha B-12 1-16 tablet by ity of (VITAMIN 00:00: mouth [place] B-12) 500 00 daily. Medical mcg tablet Branch vitamin 2017-04 Yes [id number] 500ug Take 1 Un radha B-12 1-16 tablet by ity of (VITAMIN 00:00: mouth [place] B-12) 500 00 daily. Medical mcg tablet Branch vitamin 2017- Yes [id number] 500ug Take 1 Un radha B-12 1-16 tablet by ity of (VITAMIN 00:00: mouth [place] B-12) 500 00 daily. Medical mcg tablet Branch vitamin 2017- Yes [id number] 500ug Take 1 Un radha B-12 1-16 tablet by ity of (VITAMIN 00:00: mouth [place] B-12) 500 00 daily. Medical mcg tablet Branch vitamin 2017-04 Yes [id number] 500ug Take 1 Un radha B-12 1-16 tablet by ity of (VITAMIN 00:00: mouth [place] B-12) 500 00 daily. Medical mcg tablet Branch vitamin 2017-04 Yes [id number] 500ug Take 1 Un radha B-12 1-16 tablet by ity of (VITAMIN 00:00: mouth [place] B-12) 500 00 daily. Medical mcg tablet Branch vitamin 2017-04 Yes [id number] 500ug Take 1 Un radha B-12 1-16 tablet by ity of (VITAMIN 00:00: mouth [place] B-12) 500 00 daily. Medical mcg tablet Branch vitamin 2017-04 Yes [id number] 500ug Take 1 Un radha B-12 1-16 tablet by ity of (VITAMIN 00:00: mouth [place] B-12) 500 00 daily. Medical mcg tablet Branch vitamin 2017- Yes [id number] 500ug Take 1 Un radha B-12 1-16 tablet by ity of (VITAMIN 00:00: mouth [place] B-12) 500 00 daily. Medical mcg tablet Branch vitamin 2017-04 Yes [id number] 500ug Take 1 Un radha B-12 1-16 tablet by ity of (VITAMIN 00:00: mouth [place] B-12) 500 00 daily. Medical mcg tablet Branch vitamin 2017-04 Yes [id number] 500ug Take 1 Un radha B-12 1-16 tablet by ity of (VITAMIN 00:00: mouth [place] B-12) 500 00 daily. Medical mcg tablet Branch vitamin 2017- Yes [id number] 500ug Take 1 Un radha B-12 1-16 tablet by ity of (VITAMIN 00:00: mouth [place] B-12) 500 00 daily. Medical mcg tablet Branch vitamin 2017- Yes [id number] 500ug Take 1 Un radha B-12 1-16 tablet by ity of (VITAMIN 00:00: mouth [place] B-12) 500 00 daily. Medical mcg tablet Branch vitamin 2017- Yes [id number] 500ug Take 1 Un radha B-12 1-16 tablet by ity of (VITAMIN 00:00: mouth [place] B-12) 500 00 daily. Medical mcg tablet Branch vitamin 2017- Yes [id number] 500ug Take 1 Un radha B-12 1-16 tablet by ity of (VITAMIN 00:00: mouth [place] B-12) 500 00 daily. Medical mcg tablet Branch vitamin 2018-1 Yes [id number] 500ug Take 1 Un radha B-12 1-16 tablet by ity of (VITAMIN 00:00: mouth [place] B-12) 500 00 daily. Medical mcg tablet Branch Immunizations Ordered Filled Immunization Date Status Comments [facility] e Immunization Name Name DTAP 2019-10-22 Completed University of 00:00:00 [place] [facility] DTAP 2019-10-22 Completed University of 00:00:00 [place] [facility] DTAP 2019-10-22 Completed University of 00:00:00 [place] [facility] DTAP 2019-10-22 Completed University of 00:00:00 [place] [facility] DTAP 2019-10-22 Completed University of 00:00:00 [place] [facility] DTAP 2019-10-22 Completed University of 00:00:00 [place] [facility] DTAP 2019-10-22 Completed University of 00:00:00 [place] [facility] DTAP 2019-10-22 Completed University of 00:00:00 [place] [facility] DTAP 2019-10-22 Completed University of 00:00:00 [place] [facility] DTAP 2019-10-22 Completed University of 00:00:00 [place] [facility] DTAP 2019-10-22 Completed University of 00:00:00 [place] [facility] DTAP 2019-10-22 Completed University of 00:00:00 [place] [facility] DTAP 2019-10-22 Completed University of 00:00:00 [place] [facility] DTAP 2019-10-22 Completed University of 00:00:00 [place] [facility] DTAP 2019-10-22 Completed University of 00:00:00 [place] [facility] DTAP 2019-10-22 Completed University of 00:00:00 [place] [facility] DTAP 2019-10-22 Completed University of 00:00:00 [place] [facility] DTAP 2019-10-22 Completed University of 00:00:00 [place] [facility] DTAP 2019-10-22 Completed University of 00:00:00 [place] [facility] DTAP 2019-10-22 Completed University of 00:00:00 [place] [facility] DTAP 2019-10-22 Completed University of 00:00:00 [place] [facility] DTAP 2019-10-22 Completed University of 00:00:00 [place] [facility] DTAP 2019-10-22 Completed University of 00:00:00 [place] [facility] DTAP 2019-10-22 Completed University of 00:00:00 [facility] Twinrix (hep a/hep 2016-07-08 Completed Univer sity of b) 00:00:00 [facility] Twinrix (hep a/hep 2016-07-08 Completed Univer sity of b) 00:00:00 [facility] Twinrix (hep a/hep 2016-07-08 Completed Univer sity of b) 00:00:00 [facility] Twinrix (hep a/hep 2016-07-08 Completed Univer sity of b) 00:00:00 [facility] Twinrix (hep a/hep 2016-07-08 Completed Univer sity of b) 00:00:00 [place] [facility] Twinrix (hep a/hep 2016-07-08 Completed Univer sity of b) 00:00:00 [facility] Twinrix (hep a/hep 2016-07-08 Completed Univer sity of b) 00:00:00 [facility] Twinrix (hep a/hep 2016-07-08 Completed Univer sity of b) 00:00:00 [facility] Twinrix (hep a/hep 2016-07-08 Completed Univer sity of b) 00:00:00 [facility] Twinrix (hep a/hep 2016-07-08 Completed Univer sity of b) 00:00:00 [place] [facility] Twinrix (hep a/hep 2016-07-08 Completed Univer sity of b) 00:00:00 [facility] Twinrix (hep a/hep 2016-07-08 Completed Univer sity of b) 00:00:00 [place] [facility] Twinrix (hep a/hep 2016-07-08 Completed Univer sity of b) 00:00:00 [facility] Twinrix (hep a/hep 2016-07-08 Completed Univer sity of b) 00:00:00 [facility] Twinrix (hep a/hep 2016-07-08 Completed Univer sity of b) 00:00:00 [place] [facility] Twinrix (hep a/hep 2016-07-08 Completed Univer sity of b) 00:00:00 [place] [facility] Twinrix (hep a/hep 2016-07-08 Completed Univer sity of b) 00:00:00 [place] [facility] Twinrix (hep a/hep 2016-07-08 Completed Univer sity of b) 00:00:00 [place] [facility] Twinrix (hep a/hep 2016-07-08 Completed Univer sity of b) 00:00:00 [place] [facility] Twinrix (hep a/hep 2016-07-08 Completed Univer sity of b) 00:00:00 [place] [facility] Twinrix (hep a/hep 2016-07-08 Completed Univer sity of b) 00:00:00 [facility] Twinrix (hep a/hep 2016-07-08 Completed Univer sity of b) 00:00:00 [facility] Twinrix (hep a/hep 2016-07-08 Completed Univer sity of b) 00:00:00 [facility] Twinrix (hep a/hep 2016-07-08 Completed Univer sity of b) 00:00:00 [facility] Twinrix (hep a/hep 2016-01-29 Completed Univer sity of b) 00:00:00 [facility] Twinrix (hep a/hep 2016-01-29 Completed Univer sity of b) 00:00:00 [facility] Twinrix (hep a/hep 2016-01-29 Completed Univer sity of b) 00:00:00 [facility] Twinrix (hep a/hep 2016-01-29 Completed Univer sity of b) 00:00:00 [facility] Twinrix (hep a/hep 2016-01-29 Completed Univer sity of b) 00:00:00 [place] [facility] Twinrix (hep a/hep 2016-01-29 Completed Univer sity of b) 00:00:00 [place] [facility] Twinrix (hep a/hep 2016-01-29 Completed Univer sity of b) 00:00:00 [facility] Twinrix (hep a/hep 2016-01-29 Completed Univer sity of b) 00:00:00 [facility] Twinrix (hep a/hep 2016-01-29 Completed Univer sity of b) 00:00:00 [place] [facility] Twinrix (hep a/hep 2016-01-29 Completed Univer sity of b) 00:00:00 [facility] Twinrix (hep a/hep 2016-01-29 Completed Univer sity of b) 00:00:00 [facility] Twinrix (hep a/hep 2016-01-29 Completed Univer sity of b) 00:00:00 [facility] Twinrix (hep a/hep 2016-01-29 Completed Univer sity of b) 00:00:00 [facility] Twinrix (hep a/hep 2016-01-29 Completed Univer sity of b) 00:00:00 [facility] Twinrix (hep a/hep 2016-01-29 Completed Univer sity of b) 00:00:00 [facility] Twinrix (hep a/hep 2016-01-29 Completed Univer sity of b) 00:00:00 [facility] Twinrix (hep a/hep 2016-01-29 Completed Univer sity of b) 00:00:00 [facility] Twinrix (hep a/hep 2016-01-29 Completed Univer sity of b) 00:00:00 [facility] Twinrix (hep a/hep 2016-01-29 Completed Univer sity of b) 00:00:00 [facility] Twinrix (hep a/hep 2016-01-29 Completed Univer sity of b) 00:00:00 [facility] Twinrix (hep a/hep 2016-01-29 Completed Univer sity of b) 00:00:00 [facility] Twinrix (hep a/hep 2016-01-29 Completed Univer sity of b) 00:00:00 [facility] Twinrix (hep a/hep 2016-01-29 Completed Univer sity of b) 00:00:00 [facility] Twinrix (hep a/hep 2016-01-29 Completed Univer sity of b) 00:00:00 [facility] Twinrix (hep a/hep 2015-12-25 Completed Univer sity of b) 00:00:00 [facility] Influenza Virus 2015-12-25 Completed Universit y of Vaccine Quad IM 00:00:00 [facility] ical Multi-dose 6+ MO Branch Twinrix (hep a/hep 2015-12-25 Completed Univer sity of b) 00:00:00 [facility] Influenza Virus 2015-12-25 Completed Universit y of Vaccine Quad IM 00:00:00 [place] [facility] ical Multi-dose 6+ MO Branch Twinrix (hep a/hep 2015-12-25 Completed Univer sity of b) 00:00:00 [facility] Influenza Virus 2015-12-25 Completed Universit y of Vaccine Quad IM 00:00:00 [place] [facility] ical Multi-dose 6+ MO Branch Twinrix (hep a/hep 2015-12-25 Completed Univer sity of b) 00:00:00 [facility] Influenza Virus 2015-12-25 Completed Universit y of Vaccine Quad IM 00:00:00 [place] [facility] ical Multi-dose 6+ MO Branch Twinrix (hep a/hep 2015-12-25 Completed Univer sity of b) 00:00:00 [facility] Influenza Virus 2015-12-25 Completed Universit y of Vaccine Quad IM 00:00:00 [place] [facility] Multi-dose 6+ MO Branch Twinrix (hep a/hep 2015-12-25 Completed Univer sity of b) 00:00:00 [facility] Influenza Virus 2015-12-25 Completed Universit y of Vaccine Quad IM 00:00:00 [place] [facility] Multi-dose 6+ MO Branch Twinrix (hep a/hep 2015-12-25 Completed Univer sity of b) 00:00:00 [facility] Influenza Virus 2015-12-25 Completed Universit y of Vaccine Quad IM 00:00:00 [place] [facility] ical Multi-dose 6+ MO Branch Twinrix (hep a/hep 2015-12-25 Completed Univer sity of b) 00:00:00 [facility] Influenza Virus 2015-12-25 Completed Universit y of Vaccine Quad IM 00:00:00 [place] [facility] ical Multi-dose 6+ MO Branch Twinrix (hep a/hep 2015-12-25 Completed Univer sity of b) 00:00:00 [facility] Influenza Virus 2015-12-25 Completed Universit y of Vaccine Quad IM 00:00:00 [place] [facility] ical Multi-dose 6+ MO Branch Twinrix (hep a/hep 2015-12-25 Completed Univer sity of b) 00:00:00 [facility] Influenza Virus 2015-12-25 Completed Universit y of Vaccine Quad IM 00:00:00 [place] [facility] ical Multi-dose 6+ MO Branch Twinrix (hep a/hep 2015-12-25 Completed Univer sity of b) 00:00:00 [facility] Influenza Virus 2015-12-25 Completed Universit y of Vaccine Quad IM 00:00:00 [place] [facility] ical Multi-dose 6+ MO Branch Twinrix (hep a/hep 2015-12-25 Completed Univer sity of b) 00:00:00 [facility] Influenza Virus 2015-12-25 Completed Universit y of Vaccine Quad IM 00:00:00 [place] [facility] ical Multi-dose 6+ MO Branch Twinrix (hep a/hep 2015-12-25 Completed Univer sity of b) 00:00:00 [facility] Influenza Virus 2015-12-25 Completed Universit y of Vaccine Quad IM 00:00:00 [place] [facility] 6[facility] Twinrix (hep a/hep 2015-12-25 Completed Univer sity of b) 00:00:00 [facility] Influenza Virus 2015-12-25 Completed Universit y of Vaccine Quad IM 00:00:00 [place] [facility] Multi-dose 6+ MO Branch Twinrix (hep a/hep 2015-12-25 Completed Univer sity of b) 00:00:00 [facility] Influenza Virus 2015-12-25 Completed Universit y of Vaccine Quad IM 00:00:00 [place] [facility] Multi-dose 6+ [facility] Branch Twinrix (hep a/hep 2015-12-25 Completed Univer sity of b) 00:00:00 [facility] Influenza Virus 2015-12-25 Completed Universit y of Vaccine Quad IM 00:00:00 [place] [facility] Multi-dose [facility]+ [facility] Twinrix (hep a/hep 2015-12-25 Completed Univer sity of b) 00:00:00 [facility] Influenza Virus 2015-12-25 Completed Universit y of Vaccine Quad IM 00:00:00 [place] [facility] Multi-dose 6+ [facility] Twinrix (hep a/hep 2015-12-25 Completed Univer sity of b) 00:00:00 [facility] Influenza Virus 2015-12-25 Completed Universit y of Vaccine Quad IM 00:00:00 [place] [facility] Multi-dose 6+ [facility] Twinrix (hep a/hep 2015-12-25 Completed Univer sity of b) 00:00:00 [facility] Influenza Virus 2015-12-25 Completed Universit y of Vaccine Quad IM 00:00:00 [place] [facility] Multi-dose 6+ [facility] Branch Twinrix (hep a/hep 2015-12-25 Completed Univer sity of b) 00:00:00 [facility] Influenza Virus 2015-12-25 Completed Universit y of Vaccine Quad IM 00:00:00 [place] [facility] Multi-dose 6+ [facility] Branch Twinrix (hep a/hep 2015-12-25 Completed Univer sity of b) 00:00:00 [facility] Influenza Virus 2015-12-25 Completed Universit y of Vaccine Quad IM 00:00:00 [place] [facility] Multi-dose 6+ [facility] Branch Twinrix (hep a/hep 2015-12-25 Completed Univer sity of b) 00:00:00 [facility] Influenza Virus 2015-12-25 Completed Universit y of Vaccine Quad IM 00:00:00 [place] [facility] Multi-dose 6+ [facility] Branch Twinrix (hep a/hep 2015-12-25 Completed Univer sity of b) 00:00:00 [facility] Influenza Virus 2015-12-25 Completed Universit y of Vaccine Quad IM 00:00:00 [place] [facility] Multi-dose 6+ [facility] Branch Twinrix (hep a/hep 2015-12-25 Completed Univer sity of b) 00:00:00 [facility] Influenza Virus 2015-12-25 Completed Universit y of Vaccine Quad IM 00:00:00 [place] [facility] 6[facility] Vital Signs Vital Name Observation Time Observation Value Comments Source Systolic blood 2022-08-01 13:15:00 121 mm[Hg] Univer sity of pressure [facility] Diastolic blood 2022-08-01 13:15:00 84 mm[Hg] Unive rsity of pressure [facility] Heart rate 2022-08-01 13:15:00 79 /min [facility] Body height 2022-08-01 13:15:00 147.3 cm [facility] Body weight 2022-08-01 13:15:00 83.235 kg [facility] BMI 2022-08-01 13:15:00 38.35 kg/m2 [facility] [place] [facility] Oxygen saturation in 2022-08-01 13:15:00 98 /min University of Arterial blood by [place] [facility] P[facility] oxim[facility] Branch Systolic blood 2022-06-29 14:38:00 115 mm[Hg] Univer sity of pressure [facility] Diastolic blood 2022-06-29 14:38:00 74 mm[Hg] Unive rsity of pressure [facility] Heart rate 2022-06-29 14:38:00 69 /min [facility] Body height 2022-06-29 14:38:00 147.3 cm [facility] Body weight 2022-06-29 14:38:00 82.373 kg [facility] BMI 2022-06-29 14:38:00 37.95 kg/m2 [facility] [place] [facility] Oxygen saturation in 2022-06-29 14:38:00 99 /min University of Arterial blood by [facility] Pulse oximetry Branch Systolic blood 2022-05-09 15:09:00 123 mm[Hg] Univer sity of pressure [facility] Diastolic blood 2022-05-09 15:09:00 86 mm[Hg] Unive rsity of pressure [facility] Heart rate 2022-05-09 15:09:00 88 /min [facility] [place] [facility] Body temperature 2022-05-09 15:09:00 36.78 Mandi Univ ersity of [place] [facility] Body height 2022-05-09 15:09:00 147.3 cm [facility] [place] [facility] Body weight 2022-05-09 15:09:00 82.555 kg [facility] [place] [facility] BMI 2022-05-09 15:09:00 38.04 kg/m2 [facility] [place] [facility] Oxygen saturation in 2022-05-09 15:09:00 99 /min University of Arterial blood by [place] [facility] Pulse oximetry Branch Systolic blood 2022-02-07 13:30:00 123 mm[Hg] Univer sity of pressure [facility] Diastolic blood 2022-02-07 13:30:00 83 mm[Hg] Unive rsity of pressure [facility] Heart rate 2022-02-07 13:30:00 86 /min [facility] [place] [facility] Body temperature 2022-02-07 13:30:00 36.28 Mandi Univ ersity of [place] [facility] Body height 2022-02-07 13:30:00 147.3 cm [facility] [place] [facility] Body weight 2022-02-07 13:30:00 77.565 kg [facility] [place] [facility] BMI 2022-02-07 13:30:00 35.74 kg/m2 [facility] [place] [facility] Oxygen saturation in 2022-02-07 13:30:00 97 /min University of Arterial blood by [facility] Pulse oximetry Branch Systolic blood 2021-12-16 20:28:00 112 mm[Hg] Univer sity of pressure [place] [facility] [place] Diastolic blood 2021-12-16 20:28:00 81 mm[Hg] [facility] [place] [facility] [place] Heart rate 2021-12-16 20:28:00 90 /min [facility]i [facility] [place] [facility] Body height 2021-12-16 20:28:00 157.5 cm [facility] [place] [facility] Body weight 2021-12-16 20:28:00 78.019 kg [facility] [place] [facility] BMI 2021-12-16 20:28:00 31.46 kg/m2 [facility] [place] [facility] Oxygen saturation in 2021-12-16 20:28:00 96 /min University of Arterial blood by [facility] Pulse oximetry Branch Procedures Procedure Date / Time Performing Clinician Source Performed EXTERNAL PROVIDER RECORDS 2022-08-15 05:01:00 Doctor Crenshaw, [facility] ASSIGNMENT OF BENEFITS 2022-08-01 13:04:23 Doctor Flower, [facility] DISCLOSURE AND CONSENT, 2022-05-09 06:01:00 Doctor Flower, [facility] MEDICAL AND SURGICAL [facility] PROCEDURES INSURANCE CORRESPONDENCE 2022-04-26 06:01:00 Doctor Flower [facility] DISCLOSURE AND CONSENT, 2022-02-07 05:01:00 Doctor Flower, [facility] MEDICAL AND SURGICAL [facility] PROCEDURES INSURANCE CORRESPONDENCE 2022-01-28 05:01:00 Doctor Crenshaw [facility] Encounters Start End Encounter Admission Attending Care Care Encounter Source Date/Time Date/Time Type Type Clinicians Facility Department ID 2021-02-07 Outpatient R FARHANA JACOBSON [facility] GIE [id number] Univers 13:03:54 ity of [facility] 2022-08-29 2022-08-29 Refill Georgi [facility] 1.2.840.114 [id number] Univers 00:00:00 00:00:00 Jeffery HEALTH 350.1.13.10 it y of [place] 4.2.7.2.686 Seamus as PRASHANTH?BLEA [phone] [facility] [address] [place] MEDICAL OFFICE BUILDING 2022-08-15 2022-08-15 Orders Doctor JUAN 1.2.840.114 [id number] Univers 00:00:00 00:00:00 Only Unassigned, YO 350.1.13.10 ity of [facility] 4.2.7.2.686 Seamus as [phone] [address] 2022-08-01 2022-08-01 Office [facility] 1.2.840.114 [id number] Univers 09:00:00 09:00:00 Visit Chilvana HEALTH 350.1.13.10 i ty [place] [id number] [facility] [place] [address] [place] OFFICE BUILDING 2022-08-01 2022-08-01 Outpatient R CHUCK [facility] [id number] Univers 09:00:00 08:45:47 CHILVANA ity o f [facility] 2022-08-01 2022-08-01 Orders Doctor MARTINEZ 1.2.840.114 [id number] Univers 00:00:00 00:00:00 Only Unassigned, YO 350.1.13.10 ity of [facility] 4.2.7.2.686 [place] as [id number] [address] 2022-07-14 2022-07-14 Telephone Georgi [facility] 1.2.758.283 [id number] Univers 00:00:00 00:00:00 Jeffery HEALTH 350.1.13.10 it y of [place] 4.2.7.2.686 Seamus as PRASHANTH?BLEA [phone] Sd ivett MCCORMACK 044 [facility] OFFICE [facility] 2022-06-29 2022-06-29 Tunnel Elastic Operator Chainstitch Lab, Ang - Db [facility] 1.2.840.1 14 [id number] Univers 10:15:00 10:43:04 Visit Dav Butts [facility] 350.1.13.10 [facility] 4.2.7.2.686 Seamus as PRASHANTH?BLEA [id number] Sd ivett MCCORMACK 353 [facility] OFFICE [facility] 2022-06-29 2022-06-29 Outpatient R [facility] [id number] Univers 09:30:00 10:04:15 DAV ity of [facility] 2022-06-29 2022-06-29 Office Beckie [facility] 1.2.840.114 [id number] Univers 09:30:00 10:04:15 Visit [facility]ly [facility] 350.1.13.10 it y of [place] 4.2.7.2.686 Seamus as PRASHANTH?BLEA [id number] Sd fabien[address] OFFICE [facility] 2022-05-09 2022-05-09 Outpatient R CHUCK [facility] [id number] Univers 09:00:00 10:08:03 [facility] it[facility] o f [facility] 2022-05-09 2022-05-09 Office Chuck [facility] 1.2.840.114 [id number] Univers 09:00:00 10:08:03 Visit [facility] 350.1.13.10 i ty [place] [id number] [facility] [place] [address] [place] OFFICE BUILDING 2022-05-09 2022-05-09 Orders Doctor JUAN 1.2.840.114 [id number] Univers 00:00:00 00:00:00 Only Unassigned, YO 350.1.13.10 ity of [place] [facility] 4.2.7.2.686 Seamus as [id number] [address] 2022-04-26 2022-04-26 Orders Doctor JUAN 1.2.840.114 [id number] Univers 00:00:00 00:00:00 Only Unassigned, YO 350.1.13.10 ity of [facility] 4.2.7.2.686 Seamus as [phone] [address] 2022-04-12 2022-04-12 Refsteve TuckerSHIPROCK-[facility] 1.2.840.114 [id number] Univers 00:00:00 00:00:00 Wondiful A HEALTH 350.1.13.10 [facility] 4.2.7.2.686 [place] as PRASHANTH?BLEA [id number] [address] MEDICAL OFFICE BUILDING 2022-03-01 2022-03-01 Refsteve WaltonSHIPROCK[facility] 1.2.840.114 [id number] Univers 00:00:00 00:00:00 Cruz HEALTH 350.1.13.10 it y of [place] 4.2.7.2.686 Seamus as PRASHANTH?BLEA [id number] [address] OFFICE [facility] 2022-02-07 2022-02-07 Outpatient R CHUCK [facility] [id number] Univers 08:30:00 09:25:21 [facility] ity o f [facility] 2022-02-07 2022-02-07 Office Chuck [facility] 1.2.840.114 [id number] Univers 08:30:00 09:25:21 Visit [facility] 350.1.13.10 i ty [place] [id number] [address] OFFICE [facility] 2022-02-07 2022-02-07 Orders Doctor JUAN 1.2.840.114 [id number] Univers 00:00:00 00:00:00 Only Unassigned, YO 350.1.13.10 ity of [facility] 4.2.7.2.686 [place] as [id number] [address] 2022-01-28 2022-01-28 Orders Doctor JUAN 1.2.840.114 [id number] Univers 00:00:00 00:00:00 Only Unassigned, YO 350.1.13.10 ity of [facility] 4.2.7.2.686 Se[place] as [phone] [address] 2021-12-16 2021-12-16 [facility] [id number] Univers 15:30:00 16:06:13 DIANDRA astorga [facility] 2021-12-16 2021-12-16 Office SnehaSHIPROCK[facility] 1.2.840.114 [id number] Univers 15:30:00 16:06:13 Visit [facility] 350.1.13.10 i ty [facility] 4.2.7.2.686 Seamus as PRASHANTH?BLEA [id number] [facility] [address] [place] MEDICAL OFFICE [facility] 2021-12-16 2021-12-16 Outpatient [facility] [id number] Univers 15:30:00 16:06:13 DIANDRA [facility] 2021-12-13 2021-12-13 Outpatient Rolando [facility] [id number] Univers 13:00:00 13:20:04 ADE [facility] 2021-12-13 2021-12-13 Urgent Nico Martin [facility] 1.2.840. 114 [id number] Univers 13:00:00 13:20:04 Naya Romero AdePixlee 350.1.13.10 ity [facility] 4.2.7.2.686 Seamus as PRASHANTH?BLEA [id number] [facility] [address] [place] MEDICAL OFFICE [facility] 2021-12-13 2021-12-13 Outpatient Rolando [facility] [id number] Univers 13:00:00 13:20:04 ADE [facility] 2021-11-11 2021-11-11 Letter JUAN Fiore 1.2.840.114 [id number] Univers 00:00:00 00:00:00 (Out) Annabel RAM 350.1.13.10 it y of [facility] 4.2.7.2.686 Seamus as [phone] [facility] [address] [place] 2021-11-10 2021-11-10 Laboratory Only, Ang Db Test [facility] 1.2.8 40.114 [id number] Univers 12:00:00 12:15:00 Only Keira Posey HEALTH 350.1.13.10 ity of [place] 4.2.7.2.686 Seamus as PRASHANTH?BLEA [id number] Sd ivett JON [address] [place] MEDICAL OFFICE BUILDING 2021-11-10 2021-11-10 Outpatient R DEMARCO [facility] [id number] Univers 12:00:00 12:00:00 KEIRA ity of [facility] 2021-11-09 2021-11-09 Office DavidheraclioLuis crosshilary [facility] 1.2.840.11 [id number] Univers 08:30:00 09:10:30 Visit Chuck [facility] 350.1.13.10 ity of [place] 4.2.7.2.686 [place] [phone] [place] [address] Branch OFFICE BUILDING 2021-11-09 2021-11-09 Outpatient R CHUCK [facility] [id number] Univers 08:30:00 09:10:30 [facility] 2021-11-09 2021-11-09 Outpatient R CHUCK [facility] [id number] Univers 08:30:00 09:10:30 [facility] o [facility] 2021-11-09 2021-11-09 Outpatient R CHUCK, [facility] [id number] Univers 08:30:00 09:10:30 CHILVANA ity o [facility] 2021-11-09 2021-11-09 Outpatient R CHUCK, [facility] [id number] Univers 08:30:00 09:10:30 CHILVANA ity o [facility] 2021-11-09 2021-11-09 Outpatient R CHUCK, [facility] [id number] Univers 08:30:00 09:10:30 CHILVANA ity o [facility] 2021-11-09 2021-11-09 Outpatient R CHUCK, [facility] [id number] Univers 08:30:00 08:30:00 CHILVANA ity o [facility] 2021-11-09 2021-11-09 Orders Doctor MARTINEZ 1.2.840.114 [id number] Univers 00:00:00 00:00:00 Only Unassigned, YO 350.1.13.10 ity [facility] 4.2.7.2.686 Seamus as [phone] [address] 2021-11-05 2021-11-05 Patient Georgi [facility] 1.2.840.114 [id number] Univers 00:00:00 00:00:00 Secure Msg Jeffery HEALTH 350.1.13.10 ity of [place] 4.2.7.2.686 Seamus as PRASHANTH?BLEA [id number] [address] MEDICAL OFFICE [facility] 2021-11-05 2021-11-05 Patient Georgi [facility] 1.2.840.114 [id number] Univers 00:00:00 00:00:00 Secure Msg Jeffery HEALTH 350.1.13.10 ity of [place] 4.2.7.2.686 Seamus as PRASHANTH?BLEA [id number] [address] OFFICE [facility] 2021-10-26 2021-10-26 Tunnel Elastic Operator Chainstitch Lab, Ang - [facility] 1.2.840.1 14 [id number] Univers 10:30:00 10:45:00 Visit Jeffery Laureano HEALTH 350.1.13.10 ity of [place] 4.2.7.2.686 Seamus as PRASHANTH?BLEA [id number] [address] OFFICE [facility] 2021-10-26 2021-10-26 [facility] [id number] Univers 10:30:00 10:30:00 JEFFERY ity of [facility] 2021-10-26 2021-10-26 Office [facility] 1.2.840.114 [id number] Univers 09:30:00 10:24:39 Visit Jeffery HEALTH 350.1.13.10 it y of [place] 4.2.7.2.686 Seamus as PRASHANTH?BLEA [id number] [address] OFFICE [facility] 2021-10-26 2021-10-26 Outpatient R GEORGI [facility] [id number] Univers 09:30:00 10:24:39 JEFFERY ity of [facility] 2021-10-26 2021-10-26 Outpatient R GEORGI, [facility] [id number] Univers 09:30:00 10:24:39 JEFFERYSILAS astorga [facility] 2021-10-26 2021-10-26 Outpatient R GEORGI [facility] [id number] Univers 09:30:00 09:30:00 JEFFERYSILAS astorga [facility] 2021-10-25 2021-10-25 Abstract [facility] 1.2.840.114 [id number] Univers 00:00:00 00:00:00 Jeffery HEALTH 350.1.13.10 it y of [place] 4.2.7.2.686 Seamus as PRASHANTH?BLEA [phone] Sd ivett HERBERT[address] MEDICAL OFFICE BUILDING 2021-08-10 2021-08-10 Outpatient [facility] [id number] Univers 08:30:00 09:27:43 [facility] ity o f [facility] 2021-08-10 2021-08-10 Office WoodsSHIPROCK[facility] 1.2.840.114 [id number] Univers 08:30:00 09:27:43 Visit [facility] [employer] 350.1.13.10 i ty [place] [id number] [address] OFFICE BUILDING 2021-08-10 2021-08-10 [facility] [id number] Univers 08:30:00 09:27:43 [facility] ity o f [facility] 2021-08-10 2021-08-10 Telephone [facility]SH[facility]ROCK[facility] 1.2.381.333 [id number] Univers 00:00:00 00:00:00 [facility] [employer] 350.1.13.10 i ty of [place].2.[place] [id number] [address] OFFICE BUILDING 2021-08-06 2021-08-06 Orders Doctor MARTINEZ 1.2.840.114 [id number] Univers 00:00:00 00:00:00 Only Unassigned, YO 350.1.13.10 ity of [place] [facility] 4.2.7.2.686 Seamus as [phone] [address] 2021-07-27 2021-07-27 Tunnel Elastic Operator Chainstitch Lab, Ang - Db MIMB 1.2.840.1 14 [id number] Univers 11:00:00 11:25:10 Visit Jeffery Laureano HEALTH 350.1.13.10 ity of [place] 4.2.7.2.686 Seamus as PRASHANTH?BLEA [id number] [address] MEDICAL OFFICE [facility] 2021-07-27 2021-07-27 Tunnel Elastic Operator Chainstitch Lab, Ang - Db MIMB 1.2.840.1 14 [id number] [facility] 11:00:00 11:15:00 Visit Jeffery Laureano HEALTH 350.1.13.10 ity of [place] 4.2.7.2.686 Seamus as PRASHANTH?BLEA [id number] [address] OFFICE [facility] 2021-07-27 2021-07-27 Outpatient [facility] [id number] Univers 11:00:00 11:00:00 JEFFERY astorga [facility] 2021-07-27 2021-07-27 Office [facility] 1.2.840.114 [id number] Univers 10:30:00 10:47:01 Visit Jeffery HEALTH 350.1.13.10 it y of [place] 4.2.7.2.686 Esamus as PRASHANTH?BLEA [id number] [address] OFFICE [facility] 2021-07-27 2021-07-27 Outpatient R GEORGI [facility] [id number] Univers 10:30:00 10:47:01 JEFFERY iterwin [facility] 2021-07-27 2021-07-27 Outpatient R GEORGI [facility] [id number] Univers 10:30:00 10:47:01 JEFFERY ity [facility] 2021-07-27 2021-07-27 Office [facility] 1.2.840.114 [id number] Univers 10:30:00 10:47:01 Visit Jeffery HEALTH 350.1.13.10 it y of [place] 4.2.7.2.686 Seamus as PRASHANTH?BLEA [id number] [address] OFFICE [facility] 2021-07-09 2021-07-09 Outpatient R INDIRA FARHANA [facility] [id number] Univers 07:47:22 23:59:00 ity of [facility] 2021-07-09 2021-07-09 [facility] 1.2.840.114 [id number] Univers 07:47:22 23:59:00 Encounter Georges [facility] 350.1.13.10 ity of [place].2.7.2.[place] [id number] [place] [address] [place] ([facility]) 2021-07-07 2021-07-07 Outpatient R INDIRA [facility] [id number] Univers 08:05:45 23:59:00 ity of [facility] 2021-07-07 2021-07-07 [facility] 1.2.840.114 [id number] Univers 08:05:45 23:59:00 Encounter Georges DUNN 350.1.13.10 ity of [place] 4.2.7.2.[place] [id number] [place] [address] [place] 2021-07-07 2021-07-07 Ancillary Whit Dawson [facility] 1.2.8 40.114 [id number] Univers 09:30:00 10:15:00 Visit Michelle Milner 350.1.13.10 ity [facility] 4.2.7.2.686 [place] [facility] [id number] Sd diclorri NAL [address] BUILDING 2021-07-07 2021-07-07 [facility] [id number] Univers 09:30:00 09:30:00 MICHELLE ity of [facility] 2021-07-05 2021-07-05 Outpatient R CHUCK [facility] [id number] Univers 08:00:00 08:00:00 CHILVANA ity o f [facility] 2021-06-22 2021-06-22 Surgery Motility, [facility] 1.2.840.114 [id number] Univers 07:15:00 09:45:00 Endoscopy ICAL 350.1.13.10 ity of [place] 4.2.7.2.686 Seamus as BLDG [id number] [facility] [address] [place] 2021-06-22 2021-06-22 Outpatient R FARHANA JACOBSON [facility] GIE [id number] Univers 07:02:00 08:36:00 ity of [facility] 2021-06-22 2021-06-22 Hospital Farhana Jacobson [facility] 1.2.840.114 [id number] Univers 07:02:00 08:36:00 Encounter Georges QUILESNeris 350.1.13.10 ity of [place] 4.2.7.2.686 Seamus as BLDG [id number] [facility] [address] [place] 2021-06-22 2021-06-22 Orders Doctor JUAN 1.2.840.114 [id number] Univers 00:00:00 00:00:00 Only Unassigned, YO 350.1.13.10 ity of [facility] 4.2.7.2.686 Seamus as [phone] [facility] [address] [place] 2021-06-21 2021-06-21 Telephone Sam[facility]SHIPROCK[facility] 1.2.840.114 [id number] [facility] 00:00:00 00:00:00 Whit DUNN 350.1.13.10 [facility] [place] [id number] [place] dical NAL 145 [facility] 2021-06-21 2021-06-21 Telephone Samir [facility] 1.2.840.114 [id number] Univers 00:00:00 00:00:00 Whit DUNN 350.1.13.10 [facility] [place] [phone] [place] dical NAL 145 [facility] 2021-06-19 2021-06-19 Laboratory Only, Adc Test [facility] 1.2.840. 114 [id number] Univers 10:15:00 10:30:00 Only Sean Rodriguez 350.1.13.10 [facility] [place] CAMPUS [phone] [facility] [address] 2021-06-19 2021-06-19 Outpatient R SEAN RODRIGUEZ [facility] 1 [id number] Univers 10:15:00 10:15:00 SEAN RODRIGUEZ iterwin [facility] 2021-06-07 2021-06-07 Office [facility] 1.2.662.180 [id number] Univers 15:00:00 15:37:58 Visit [facility] SPECIALTY 350.1.13.10 ity of [facility] 4.2.7.2.[place] C[place] AT [phone] Sd ivett SCALES 072 [facility] 2021-06-07 2021-06-07 Outpatient R INDIRA [facility] [id number] Univers 15:00:00 15:37:58 ity [facility] 2021-06-07 2021-06-07 Outpatient R INDIRA [facility] [id number] Univers 15:00:00 15:00:00 ity [facility] 2021-06-07 2021-06-07 Orders Doctor JUAN 1.2.840.114 [id number] Univers 00:00:00 00:00:00 Only Unassigned, YO 350.1.13.10 ity of [place] [facility] 4.2.7.2.686 Seamus as [phone] [address] 2021-05-28 2021-05-28 Refill [facility] 1.2.840.114 [id number] Univers 00:00:00 00:00:00 [facility] 350.1.13.10 i ty of [place] 4.2.7.2.686 Seamus as PRASHANTH?BLEA [phone] S[place] ivett MCCORMACK [address] [place] [address] MEDICAL OFFICE [facility] 2021-05-03 2021-05-03 Urgent Nico Martin [facility] 1.2.840. 114 [id number] Univers 19:00:00 19:36:25 Care Ade Romero HEALTH 350.1.13.10 ity of [place] 4.2.7.2.686 Seamus as PRASHANTH?BLEA [phone] [address] MEDICAL OFFICE [facility] 2021-05-03 2021-05-03 Outpatient R CHUCK [facility] [id number] Univers 09:00:00 10:08:25 CHILVANA ity o f [facility] 2021-05-03 2021-05-03 Office Chuck [facility] 1.2.840.114 [id number] Univers 09:00:00 10:08:25 Visit [facility] HEALTH 350.1.13.10 i ty of [place] 4.2.7.2.686 [place] [phone] [place] [address] [place] OFFICE BUILDING 2021-05-03 2021-05-03 Outpatient R CHUCK [facility] [id number] Univers 09:00:00 10:08:25 CHILVANA ity o f [facility] 2021-05-03 2021-05-03 Outpatient R CHUCK [facility] [id number] Univers 09:00:00 09:00:00 CHILVANA ity o f [facility] 2021-05-03 2021-05-03 Case Caitlin [facility] 1.2.840.114 [id number] Univers 00:00:00 00:00:00 Management Wondiful A HEALTH 350.1.13.10 ity of [place] 4.2.7.2.686 Seamus as PRASHANTH?BLEA [phone] Sd ivett [facility] 044 [facility] OFFICE BUILDING 2021-05-03 2021-05-03 Orders Doctor JUAN 1.2.840.114 [id number] Univers 00:00:00 00:00:00 Only Unassigned, YO 350.1.13.10 ity of [place] [facility] 4.2.7.2.686 Seamus as [phone] [facility] [address] [place] 2021-04-28 2021-04-28 Tunnel Elastic Operator Chainstitch Lab, Ang - Db [facility] 1.2.840.1 14 [id number] Univers 08:45:00 09:00:00 Visit Kevin Tucker HEALTH 350.1.13.1 0 ity of [place] 4.2.7.2.686 Seamus as PRASHANTH?BLEA [phone] Sd ivett [facility] [address] [place] MEDICAL OFFICE BUILDING 2021-04-28 2021-04-28 Outpatient R CAITLIN [facility] [id number] Univers 08:45:00 08:45:00 WONDIFUL ity o f [facility] 2021-04-28 2021-04-28 Outpatient R CAITLIN [facility] [id number] Univers 08:15:00 08:38:16 WONDIFUL ity o f [facility] 2021-04-28 2021-04-28 Office LoveSH[facility]ROCK[facility] 1.2.840.114 [id number] Univers 08:15:00 08:38:16 Visit Wondiful A HEALTH 350.1.13.10 ity of [place] 4.2.7.2.686 Seamus as PRASHANTH?BLEA [phone] [facility] [address] [place] MEDICAL OFFICE [facility] 2021-03-30 2021-03-30 Urgent Keira Posey [facility] 1.2.840.114 [id number] Univers 16:20:00 16:40:00 Care Yimi, Charla HEALTH 350.1.13.10 [facility] 4.2.7.2.686 Seamus as PRASHANTH?BLEA [phone] [facility] [address] [place] MEDICAL OFFICE BUILDING 2021-03-30 2021-03-30 Outpatient R YIMI [facility] [id number] Univers 16:20:00 16:20:00 CHARLA ity of [facility] 2021-03-30 2021-03-30 Orders Doctor JUAN 1.2.840.114 [id number] Univers 00:00:00 00:00:00 Only Unassigned, YO 350.1.13.10 ity of [place] [facility] 4.2.7.2.686 Seamus as [phone] [address] 2021-03-16 2021-03-16 Refill C[facility]lin[facility]IPROCK[facility] 1.2.840.114 [id number] Univers 00:00:00 00:00:00 Wondiful A HEALTH 350.1.13.10 ity of [place] 4.2.7.2.686 Seamus as PRASHANTH?BLEA [phone] [address] MEDICAL OFFICE [facility] 2021-03-11 2021-03-11 Outpatient R SANDRA [facility] [id number] Univers 10:00:00 10:00:00 COY astorga [facility] 2021-03-11 2021-03-11 Outpatient R SANDRA [facility] [id number] Univers 10:00:00 10:00:00 COY astorga [facility] 2021-02-01 2021-02-01 Out[facility] [id number] Univers 15:23:14 23:59:00 WONDIFUL ity o f [facility] 2021-02-01 2021-02-01 Hospital [facility] 1.2.119.206 [id number] Univers 15:20:00 23:59:00 Encounter Wondiful A [place] 350.1.13.10 ity of [place] 4.2.7.2.686 [place] [phone] [facility] [address] [place] 2021-02-01 2021-02-01 Orders Doctor JUAN 1.2.840.114 [id number] Univers 00:00:00 00:00:00 Only Unassigned, YO 350.1.13.10 ity of [place] [facility] 4.2.7.2.686 Seamus as [phone] [facility] [address] [place] 2021-01-26 2021-01-26 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 1.2.840.1 14 [id number] Univers 11:19:51 11:34:51 Visit Kevin Tucker Health 350.1.13.1 0 ity of [place] 4.2.7.2.686 Seamus as Prashanth?Blea [phone] Sd ivett mccormack [address] [place] Medical Office Building 2021-01-26 2021-01-26 Office C[facility] 1.2.840.114 [id number] Univers 10:22:24 11:20:00 Visit Wondiful A Health 350.1.13.10 ity of [place] 4.2.7.2.686 Seamus as Prashanth?Blea [phone] Sd [facility] [address] [place] Medical Office Building 2021-01-26 2021-01-26 Outpatient R [facility] [id number] Univers 10:30:00 10:30:00 WONDIFUL ity o f [facility] 2021-01-14 2021-01-14 Refsteve Tucker, [facility] 1.2.840.114 [id number] Univers 00:00:00 00:00:00 Wondiful A Health 350.1.13.10 ity of [place] 4.2.7.2.686 Seamus as Professio [phone] Sd dical nal [address] Office Building One 2020-12-15 2020-12-15 Outpatient R CHUCK [facility] [id number] Univers 12:00:00 12:00:00 CHILVANA ity o f [facility] 2020-12-15 2020-12-15 Office Chuck, [facility] 1.2.840.114 [id number] Univers 09:46:22 10:16:22 Visit Twyla Health 350.1.13.10 i ty of [place].2.686 [place] [phone] [facility] [address] [place] Office Building 2020-12-15 2020-12-15 Orders Doctor JUAN 1.2.840.114 [id number] Univers 00:00:00 00:00:00 Only Unassigned, YO 350.1.13.10 ity of [place] [facility] 4.2.7.2.686 Seamus as [phone] [facility] [address] 2020-12-09 2020-12-09 Laboratory Only, Adc Test [facility] 1.2.840. 114 [id number] Univers 13:10:53 13:25:53 Only Gurmeet Gipson 350.1.13.10 ity of [place] 4.2.7.2.686 [facility] [phone] [facility] [address] [place] 2020-12-09 2020-12-09 Laboratory Only, Adc Test [facility] 1.2.840. 114 [id number] Univers 13:10:53 13:25:53 Only Gurmeet Gipson 350.1.13.10 ity of [place] 4.2.7.2.686 [place] [facility] [phone] [facility] [address] [place] 2020-12-09 2020-12-09 Outpatient R [facility] [id number] Univers 13:15:00 13:15:00 ity of [place] [facility] 2020-11-17 2020-11-17 [facility] 1.2.120.184 [id number] Univers 12:06:50 23:59:00 Encounter Nico Dunn 350.1.13.10 ity of [place] 4.2.7.2.686 [place] [phone] [facility] [address] [place] 2020-11-17 2020-11-[address] [facility] 1.2.840.114 [id number] Univers 10:54:16 12:11:57 Care Nico Health 350.1.13.10 i ty of [place] 4.2.7.2.686 Seamus as Professio [phone] [address] Office Building One 2020-11-17 2020-11-17 Outpatient R MORGAN [facility] [id number] Univers 11:40:00 11:40:00 NICO ity o f [facility] 2020-11-09 2020-11-09 Outpatient R FARHANA JACOBSON [facility] [id number] Univers 11:00:00 [facility]:00[facility] 2020-10-12 2020-10-12 Outpatient R SANDRA [facility] [id number] Univers 09:00:00 09:00:00 COY [facility] 2020-10-09 2020-10-09 Vivi TuckerSHIPROCK[facility] 1.2.840.114 [id number] Univers 00:00:00 00:00:00 Wondiful A Health 350.1.13.10 ity of [place] 4.2.7.2.686 Seamus as Professio [phone] Sd dic[address] Office Building One 2020-10-09 2020-10-09 Vivi TuckerSHIPROCK[facility] 1.2.840.114 [id number] 00:00:00 00:00:00 Wondiful A Health 350.1.13.10 [place] 4.2.7.2.686 Professio [phone] nal [facility] Office Building One 2020-09-11 2020-09-11 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 840.114 [id number] Univers 16:15:28 16:21:02 Visit Kevin Tucker Health 350.1.13.1 0 ity of [place] 4.2.7.2.686 Seamus as Professio [phone] [address] Office Building One 2020-09-11 2020-09-11 Office Caitlin [facility] 1.2.840.114 [id number] Univers 15:41:31 16:15:33 Visit Ashuful A Health 350.1.13.10 ity of [place] 4.2.7.2.686 Seamus as Professio [phone] [address] Office [facility] One 2020-09-11 2020-09-11 Office C[facility] 1.2.840.114 [id number] 15:41:31 16:15:33 Visit [facility] Diandra Health 350.1.13.10 [place] 4.2.7.2.686 Professio [phone] [place] [address] Office [facility] 2020-09-11 2020-09-11 Outpatient R CAITLIN [facility] [id number] Univers 11:00:00 11:00:00 WONDIFUL ity o f [facility] 2020-09-08 2020-09-08 Office ChuckSHIPROCK[facility] 1.2.840.114 [id number] Univers 11:17:33 12:30:39 Visit [facility] Health 350.1.13.10 i ty of [place] 4[place]2.7.2.686 [place] [phone] [facility] [address] [place] Office Building 2020-09-08 2020-09-08 Outpatient R WOODS [facility] [id number] Univers 12:00:00 12:00:00 CHILVANA ity o f [facility] 2020-09-08 2020-09-08 Orders Doctor JUAN 1.2.840.114 [id number] Univers 00:00:00 00:00:00 Only Unassigned, YO 350.1.13.10 ity of [place] [facility] 4.2.7.2.686 Seamus as [phone] [address] 2020-08-06 2020-08-06 Surgery Farhana Jacobson [facility] 1.2.166.935 [id number] Univers 12:15:00 13:30:00 [place] SPECIALTY 350.1.13.10 ity of CARE 4.2.7.2.686 [facility] AT [phone] Sd dical VICTORY [address] [facility] 2020-08-06 2020-08-06 Hospital Farhana Jacobson [facility] 1.2.840.114 [id number] Univers 09:24:00 11:44:00 [facility]counter [facility] 350.1.13.10 ity of [place] 4.2.7.2.686 [facility] [phone] [address] ([facility]) 2020-08-03 2020-08-03 Laboratory Only, Adc Test [facility] 1.2.840. 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 10 ity of [place] 4.2.7.2.686 [facility] Professio [phone] Sd dical nal 353 [facility] 2020-07-31 2020-07-31 Office Caitlin [facility] 1.2.840.114 [id number] Univers 15:34:49 16:45:39 Visit Kevin Jim Health 350.1.13.10 ity of [place] 4.2.7.2.686 Seamus as Professio [phone] Sd dical nal [address] [place] Office Building One 2020-07-31 2020-07-31 Outpatient R CAITLIN [facility] [id number] Univers 15:45:00 15:45:00 WONDIFUL ity o f [facility] 2020-07-31 2020-07-31 Orders Doctor JUAN 1.2.840.114 [id number] Univers 00:00:00 00:00:00 Only Unassigned, YO 350.1.13.10 ity of [place] [facility] 4.2.7.2.686 Seamus as [phone] [address] 2020-07-13 2020-07-13 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 Elastic Operator Chainstitch Vls-Lab [facility] 1.2.840.114 [id number] Univers 14:51:32 15:06:32 Visit Farhana Jacobson SPECIALTY 350.1.13.1 0 ity of C[place] 4.2.7.2.686 [place] CENTER AT [phone] Sd diclorri VICTORY 353 [facility] 2020-07-13 2020-07-13 Office Farhana Jacobson [facility] 1.2.623.992 [id number] Univers 13:55:04 14:51:40 [facility] 350.1.13.10 ity of [place] 4.2.7.2.686 [place] CENTER AT [phone] Sd dical VICTORY 072 [facility] 2020-07-13 2020-07-13 Outpatient FARHANA LUCIANO [facility] [id number] Univers 14:00:00 14:00:00 ity of [facility] 2020-07-13 2020-07-13 Telephone Caitlin [facility] 1.2.840.114 [id number] Univers 00:00:00 00:00:00 Wondiful A Health 350.1.13.10 ity of [place] 4.2.7.2.686 Seamus as Professio [phone] Sd dical nal [address] [place] Office Building One 2020-07-13 2020-07-13 Orders Doctor MARTINEZ 1.2.840.114 [id number] Univers 00:00:00 00:00:00 Only Unassigned, YO 350.1.13.10 ity of [place] [facility] 4.2.7.2.686 Seamus as [phone] [address] 2020-06-25 2020-06-25 Patient Marcus [facility] 1.2.840.114 [id number] Univers 00:00:00 00:00:00 Outreach Ashwin PRIMARY 350.1.13.10 i ty of [place] CARE 4.2.7.2.686 [place] [phone] [address] 2020-06-15 2020-06-15 [facility] [id number] Univers 08:00:00 08:00:00 CHILVANA ity o f [facility] 2020-06-11 2020-06-11 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 840.114 [id number] Univers 12:21:46 12:41:46 Visit Ashu Tuckerjey A Health 350.1.13.1 0 ity of [place] 4.2.7.2.686 Seamus as Professio [phone] [address] Office [facility] 2020-06-11 2020-06-11 Office [facility] 1.2.840.114 [id number] Univers 11:01:59 12:17:09 Visit Wondiful A Health 350.1.13.10 ity of [place] 4.2.7.2.686 Seamus as Professio [phone] [address] Office [facility] 2020-06-11 2020-06-11 Outpatient R CAITLIN [facility] [id number] Univers 11:00:00 11:00:00 WONDIFUL ity o f [facility] 2020-06-10 2020-06-10 Outpatient R CHUCK [facility] [id number] Univers 09:30:00 09:30:00 CHILVANA ity o f [facility] 2020-06-10 2020-06-10 Office ChuckSH[facility] 1.2.840.114 [id number] Univers 08:22:46 09:22:46 Visit Chilvana Health 350.1.13.10 i ty of [place]2.7.2.686 [place] [phone] [facility] [address] [place] Office Building 2020-06-10 2020-06-10 Orders Doctor JUAN 1.2.840.114 [id number] Univers 00:00:00 00:00:00 Only Unassigned, YO 350.1.13.10 ity of [place] [facility] 4.2.7.2.686 Seamus as [phone] [address] 2020-05-25 2020-05-25 Outpatient R [facility] [id number] Univers 08:15:00 08:15:00 WONDIFUL ity o f [facility] 2020-05-07 2020-05-07 Refsteve TuckerSHIPROCK[facility] 1.2.840.114 [id number] Univers 00:00:00 00:00:00 Wondiful A Health 350.1.13.10 ity of [place] 4.2.7.2.686 Seamus as Professio [phone] [address] Office Building One 2020-03-03 2020-03-03 Outpatient R CHUCK [facility] [id number] Univers 12:00:00 12:00:00 CHILVANA ity o f [facility] 2020-03-03 2020-03-03 Office Chuck [facility] 1.2.840.114 [id number] Univers 11:08:32 11:38:32 Visit [facility] Health 350.1.13.10 i ty of [place]2.[place].2.[place] [phone] [facility] [address] [place] Office Building 2020-02-07 2020-02-07 Vivi TuckerSHIPROCK[facility] 1.2.840.114 [id number] Univers 00:00:00 00:00:00 Wondiful A Health 350.1.13.10 ity of [place] 4.2.7.2.686 Seamus as Professio [phone] [address] Office Building One 2020-02-04 2020-02-04 Outpatient R [facility] [id number] Univers 19:40:00 19:40:00 ity of [facility] 2020-02-04 2020-02-04 Urgent Provider, Ang Urgent [facility] 1.2.840.114 [id number] Univers 16:37:19 16:57:19 Care Charla Geller Health 350.1.13.10 ity of [place] 4.2.7.2.686 Seamus as Professio [phone] [facility]d [facility] 044 [facility] One 2020-01-14 2020-01-14 [facility] 1.2.840.114 [id number] Univers 12:38:41 23:59:00 Encounter Angela Jim Minh 350.1.13.10 ity of [place] 4.2.7.2.686 [place] [phone] [facility] [address] [place] 2020-01-14 2020-01-14 [facility] [id number] Univers 00:00:00 00:00:00 ANGELA astorga [facility] 2020-01-03 2020-01-03 [facility] 1.2.840.114 [id number] Univers 00:00:00 00:00:00 Management Angela Dunn 350.1.13.10 ity of [place] 4.2.7.2.686 [place] Profess[place] [phone] [facility] 204 [facility] 2020-01-03 2020-01-[address] [place] 1.2.698.255 [id number] Univers 00:00:00 00:00:00 Angela Jim Minh 350.1.13.10 ity of [place] 4.2.7.2.686 [place] Professio [phone] Sd [facility] 204 [facility] 2020-01-02 2020-01-02 [facility] 1.2.840.114 [id number] Univers 13:40:00 23:59:00 Encounter Angela Jim [place] 350.1.13.10 ity of [place] 4.2.7.2.686 [place] [phone] [facility] [address] [place] 2020-01-02 2020-01-02 [facility] [id number] Univers 00:00:00 00:00:00 ANGELA astorga [facility] 2020-01-02 2020-01-02 Orders Doctor MARTINEZ 1.2.840.114 [id number] Univers 00:00:00 00:00:00 Only Unassigned, YO 350.1.13.10 ity of [place] [facility] 4.2.7.2.686 Seamus as [phone] [address] 2019-12-19 2019-12-19 Case KimberlySH[facility]ROCK[facility] 1.2.840.114 [id number] Univers 00:00:00 00:00:00 Management Angela Dunn 350.1.13.10 ity of [place] 4.2.7.2.686 [place] Professio [phone] [facility] 204 [facility] 2019-12-19 2019-12-19 Telephone [facility] 1.2.840.114 [id number] Univers 00:00:00 00:00:00 Susan S [place] 350.1.13.10 i ty of [place] 4.2.7.2.686 [place] Professio [phone] [facility] 377 [facility] 2019-12-02 2019-12-02 Outpatient R CHUCK [facility] [id number] Univers 11:00:00 11:00:00 TWYLA astorga o f [facility] 2019-11-05 2019-11-05 Telephone CaitlinSH[facility]ROCK[facility] 1.2.840.114 [id number] Univers 00:00:00 00:00:00 Wondiful A Health 350.1.13.10 ity of [place] 4.2.7.2.686 Seamus as Professio [phone] [facility] [address] [place] Office [facility] One 2019-10-02 2019-10-02 [facility] CaitlinSHIPROCK[facility] 1.2.840.114 [id number] Univers 00:00:00 00:00:00 Wondiful A Health 350.1.13.10 ity of [place] 4.2.7.2.686 Seamus as Professio [phone] [facility] [address] [place] Office [facility] 2019-10-01 2019-10-01 Outpatient R DAE [facility] [id number] Univers 09:30:00 09:30:00 RAMIRO iterwin [facility] 2019-09-30 2019-09-30 Refill C[facility]SH[facility] 1.2.840.114 [id number] Univers 00:00:00 00:00:00 Wondiful A Health 350.1.13.10 ity of [place] 4.2.7.2.686 Seamus as Professio [phone] Sd dical nal [address] [place] Office Building [facility] 2019-09-27 2019-09-27 Refsteve Caitlin [facility] 1.2.840.114 [id number] Univers 00:00:00 00:00:00 Wondiful A Health 350.1.13.10 ity of [place] 4.2.7.2.686 Seamus as Professio [phone] Sd dicnh nal [address] [place] Office Building [facility] 2019-09-03 2019-09-03 Outpatient R DAE [facility] [id number] Univers 08:00:00 08:00:00 RAMIRO ity of [facility] 2019-08-27 2019-08-27 Office Chuck [facility] 1.2.840.114 [id number] Univers 09:12:11 13:48:32 Visit [facility] Health 350.1.13.10 i ty of [place] 4.2.7.2.686 [place] [phone] [place] 694152 [place] Office Building 2019-08-27 2019-08-27 Outpatient R CHUCK [facility] [id number] Univers 09:30:00 09:30:00 CHILVANA ity o f [facility] 2019-08-26 2019-08-26 Office DaeHAWAIT [id number] Univers 13:49:00 15:31:00 Visit Ramiro Y 350.1.13.10 it y of [facility] 4.2.7.2.686 [place] as BANK [phone] [facility] BLDG. [address] 2019-08-26 2019-08-26 Outpatient R DAE [facility] [id number] Univers 14:15:00 14:15:00 RAMIRO ity of [facility] 2019-08-26 2019-08-26 Orders Doctor MARTINEZ [id number] [id number] Univers 00:00:00 00:00:00 Only Unassigned, YO 350.1.13.10 ity of [place] [facility] 4.2.7.2.686 [place] [phone] [facility] [address] 2019-08-22 2019-08-22 Telephone ESTEPHANIE Pearl 1.2.840.114 [id number] Univers 00:00:00 00:00:00 Ramiro Y 350.1.13.10 it y of [place] 4.2.7.2.686 [place] BANK [phone] [facility] BLDG. [address] 2019-08-22 2019-08-22 [facility]phone [facility] [id number] Univers 00:00:00 00:00:00 Chiformerly [facility] [employer] 350.1.13.10 i [place] [phone] [address] Office [facility] 2019-08-19 2019-08-19 [facility] [id number] Univers 11:00:00 11:00:00 CHILVANA ity o f [facility] 2019-08-19 2019-08-19 Telemedici [facility] 1..840.114 [id number] Univers 08:25:33 09:25:33 ne Visit [facility] [employer] 350.1.13.10 [place] [phone] [address] 2019-08-13 2019-08-13 Telephone [facility] 1.2.840.114 [id number] Univers 00:00:00 00:00:00 Wondiful A [place] 350.1.13.10 [place] [phone] Sd dical nal 044 [facility] 2019-08-08 2019-08-08 Outpatient R CAITLIN [facility] [id number] Univers 13:00:00 13:00:00 WONDIFUL ity o f [facility] 2019-08-08 2019-08-08 Telemedici [facility] 1.2.840.114 [id number] Univers 07:19:28 07:49:28 ne Visit Wondiful A [place] 350.1.13.10 [place] [phone] Sd dical nal 044 [facility] 2019-08-06 2019-08-06 Patient Raya Rodgers [facility] 1.2.840.114 [id number] Univers 00:00:00 00:00:00 Secure Msg A [place] 350.1.13.10 [place] [phone] Sd dical nal 044 [facility] 2019-07-30 2019-07-30 Office Dae [facility] 1.2.840.114 [id number] Univers 09:21:36 10:14:01 Visit Ramiro Y 350.1.13.10 it y of [place] 4.2.7.2.686 [place] as BANK [phone] [facility] [address] 2019-07-30 2019-07-30 Outpatient R DAE [facility] [id number] Univers 09:30:00 09:30:00 RAMIRO ity of [facility] 2019-07-30 2019-07-30 Refsteve [facility]SH[facility] 1.2.840.114 [id number] Univers 00:00:00 00:00:00 Wondiful A MULTISPEC 350.1.13.10 it[place] [phone] [address] DIABETES [facility] 2019-07-30 2019-07-30 Patient Chuck [facility] 1.2.840.114 [id number] Univers 00:00:00 00:00:00 Secure Msg [facility] 350.1.13.10 [place] [phone] [facility] [address] 2019-07-29 2019-07-29 Sue Tucker [facility] 1.2.840.114 [id number] Univers 00:00:00 00:00:00 Wondiful A MULTISPEC 350.1.13.10 it[place] of [place] [phone] [address] [facility] 2019-07-28 2019-07-28 Refsteve [facility] 1.2.840.114 [id number] Univers 00:00:00 00:00:00 Wondiful A Health 350.1.13.10 ity of [place] 4.2.7.2.686 [place] Professio [phone] Sd fabiennh nal [address] [place] [address] Office [facility] One 2019-07-28 2019-07-28 Telephone Chuck [facility] 1.2.305.540 [id number] Univers 00:00:00 00:00:00 Chilvana [facility] 350.1.13.10 i [place] [phone] [facility] [address] 2019-07-26 2019-07-26 Patient Caitlin, [facility] 1.2.840.114 [id number] Univers 00:00:00 00:00:00 Secure Msg Wondiful [place] 350.1.13.10 [place] [phone] Sd dicnh nal [address] [place] [address] 2019-07-26 2019-07-26 Patient Caitlin, [facility] 1.2.840.114 [id number] Univers 00:00:00 00:00:00 Secure Msg Wondiful A Health 350.1.13.10 ity of [place] 4.2.7.2.686 [place] Professio [phone] [facility] nal [address] [place] [address] Office [facility] One 2019-07-05 2019-07-05 Telephone Caitlin [facility] 1.2.840.114 [id number] Univers 00:00:00 00:00:00 Wondiful A Health 350.1.13.10 ity of [place] 4.2.7.2.686 [place] Professio [phone] Sd dical nal [address] [place] [address] Office [facility] 2019-07-04 2019-07-04 Telemedici [facility] 1.2.840.114 [id number] Univers 08:30:05 13:14:01 ne Visit Wondiful A Health 350.1.13.10 ity of [place] 4.2.7.2.686 [place] Professio [phone] Sd dicnh nal [address] [place] [address] Office [facility] 2019-07-04 2019-07-04 Tunnel Elastic Operator Chainstitch 2, Adc Lab [facility] 1.2.840.114 [id number] Univers 11:26:50 11:41:50 Visit Kevin Tucker [place] 350.1.13. 10 [place] [phone] Sd dical nal 353 [facility] 2019-07-04 2019-07-04 Outpatient R CAITLIN [facility] [id number] Univers 10:15:00 10:15:00 WONDIFUL ity o f [facility] 2019-07-04 2019-07-04 Orders Doctor JUAN 1.2.840.114 [id number] Univers 00:00:00 00:00:00 Only Unassigned, YO 350.1.13.10 ity of [place] [facility] 4.2.7.2.686 [place] as [phone] [address] 2019-06-04 2019-06-05 Office Chuck [facility] 1.2.840.114 [id number] Univers 10:31:31 09:23:42 Visit [facility] Health 350.1.13.10 i [place] [phone] [facility] [address] 2019-06-04 2019-06-04 Outpatient Rolando WOODS [facility] [id number] Univers 11:00:00 11:00:00 CHILVANA ity o f [facility] 2019-06-04 2019-06-04 Orders Doctor MARTINEZ 1.2.840.114 [id number] Univers 00:00:00 00:00:00 Only Unassigned, YO 350.1.13.10 ity of [place] [facility] 4.2.7.2.686 [place] as [phone] [address] 2019-06-03 2019-06-03 Office Caitlin [facility] 1.2.840.114 [id number] Univers 15:25:12 16:19:32 Visit Wondiful A Health 350.1.13.10 ity of [place] 4.2.7.2.686 [place] Professio [phone] Sd dical nal [address] One 2019-06-03 2019-06-03 Outpatient R CAITLIN, [facility] [id number] Univers 15:30:00 15:30:00 WONDIFUL ity o f [facility] 2019-05-31 2019-05-31 Urgent Aba Leslie [facility] 1.2.840.114 [id number] Univers 20:12:19 21:10:52 Care Unknown, Attending Health 350.1.13.10 ity of [place] [facility] 4.2.7.2.686 [place] [facility] [phone] Sd dical es 370 [facility] 2019-05-21 2019-05-21 Orders Doctor JUAN 1.2.840.114 [id number] Univers 00:00:00 00:00:00 Only Unassigned, YO 350.1.13.10 ity of [place] [facility] 4.2.7.2.686 [place] as [phone] [address] 2019-05-20 2019-05-20 Laboratory 1, [facility] Cardio Fac Room [facility] 1.2.840.114 [id number] Univers 08:06:04 09:06:04 Only Pc, Adc Echo Room 1 - [place] 350.1.1 3.10 ity of [place] 4.2.7.2.686 [place] Professio [phone] Sd dical nal 059 [facility] 2019-05-20 2019-05-20 Tunnel Elastic Operator Chainstitch , [facility] Vascular Room 1 - [facility] 1.2.840.114 [id number] Univers 08:05:52 09:05:52 Visit Dao Font[place] 350.1.13. 10 ity of [place] [phone] Sd dical nal 059 [facility] 2019-04-15 2019-05-19 Office [facility] 1.2.840.114 [id number] Univers 15:02:06 10:21:47 Visit Ann Dunn 350.1.13.10 ity of [place] [phone] Sd dical nal 059 [facility] 2019-05-19 2019-05-19 Patient [facility] 1.2.840.114 [id number] Univers 00:00:00 00:00:00 Secure Msg Ann [place] 350.1.13.10 [place] of [place] [phone] [facility] 059 [facility] 2019-05-09 2019-05-09 Office Shah[facility] 1.2.531.815 [id number] Univers 13:08:52 14:07:22 Visit Neema [place] 350.1.13.10 i ty [place] [phone] [facility] 377 [facility] 2019-04-30 2019-04-30 Telephone Jin[facility] 1.2.762.115 [id number] Univers 00:00:00 00:00:00 Ann K[place] 350.1.13.10 it[place] of [place] [phone] [facility] 059 [facility] 2019-04-24 2019-04-24 Telephone [facility] 1.2.840.114 [id number] Univers 00:00:00 00:00:00 Wondiful A Health 350.1.13.10 ity of [place] 4.2.7.2.686 [place] as Professio [phone] [facility] [address] Office [facility] 2019-04-15 2019-04-15 [facility] [id number] Univers 15:00:00 15:46:03 ANN [place] o f [facility] 2019-04-08 2019-04-08 Orders Doctor JUAN 1.2.840.114 [id number] Univers 00:00:00 00:00:00 Only Unassigned, YO 350.1.13.10 ity of [place] [facility] 4.2.7.2.686 [place] as [phone] [address] 2019-03-14 2019-03-14 Outpatient R CHUCK [facility] [id number] Univers 13:59:09 23:59:00 TWYLA [place] o f [facility] 2019-02-19 2019-02-19 Outpatient R CAITLIN [facility] [id number] Univers 08:30:00 08:44:17 WONDIFUL ity o f [facility] 2018-12-28 2018-12-28 Telephone Caitlin [facility] 1.2.840.114 [id number] Univers 00:00:00 00:00:00 Wondiful A Health 350.1.13.10 ity of [place] 4.2.7.2.686 [place] Professio [phone] [address] Office [facility] 2018-12-26 2018-12-26 Refill [facility] 1.2.840.114 [id number] Univers 00:00:00 00:00:00 Wondiful A Health 350.1.13.10 ity of [place] 4.2.7.2.686 [place] Professio [phone] [address] Office [facility] 2018-11-30 2018-12-10 Office [facility] 1.2.840.114 [id number] Univers 09:51:59 17:36:19 Visit Wondiful A Health 350.1.13.10 ity of [place] 4.2.7.2.686 [place] Professio [phone] [address] Office [facility] 2018-12-05 2018-12-05 Sue [facility] 1.2.840.114 [id number] Univers 00:00:00 00:00:00 Wondiful A Health 350.1.13.10 ity of [place] 4.2.7.2.686 [place] Professio [phone] [address] Office [facility] 2018-12-03 2018-12-03 Marenisco [facility] 1.2.840.114 [id number] Univers 00:00:00 00:00:00 Wondiful A Health 350.1.13.10 ity of [place] 4.2.7.2.686 [place] Professio [phone] [address] Building One 2018-11-29 2018-11-29 Marenisco LoveSH[facility] 1.2.840.114 [id number] Univers 00:00:00 00:00:00 Wondiful A [place] 350.1.13.10 [place] of [place] [phone] [address] 2018-11-26 2018-11-26 Office Chuck [facility] 1.2.840.114 [id number] Univers 13:06:40 19:45:44 Visit Chiformerly [facility] Health 350.1.13.10 i ty of [place] [phone] [address] Office [facility] 2018-11-26 2018-11-26 Refill [facility] 1.2.840.114 [id number] Univers 00:00:00 00:00:00 Wondiful A Health 350.1.13.10 ity of [place] 4.2.7.2.686 [place] Professio [phone] [address] One 2018-11-01 2018-11-01 Telephone JUAN Bennett 1.2.136.820 [id number] Univers 00:00:00 00:00:00 Elneza A YO 350.1.13.10 i ty of HOSPITAL 4.2.7.2.686 [place] as [phone] [address] 2018-10-30 2018-10-30 Office Caitlin [facility] 1.2.840.114 [id number] Univers 15:35:34 16:06:07 Visit Wondiful A Health 350.1.13.10 ity of [place] 4.2.7.2.686 [place] Professio [phone] [address] Office [facility] One Results This patient has no known results.
[2022-09-03] MEDS ORDERED: LORazepam 2 MG/ML VIAL ONE (16:59)
[2022-09-03] MEDS ORDERED: LEVALBUTEROL 1.25 MG/3 ML NEB ONE (17:00)
[2022-09-03 17:12] LABS: Absolute Lymphocytes (CBC) 4.2 K/uL (0.7-4.9); Hematocrit 42.3 % (36.0-45.0); Lymphocytes % 37.1 % (15.3-44.8); MCV 87.2 fL (80-100); MPV 8.4 fL (7.6-11.3); RBC Red Blood Cell Count 4.85 M/uL (3.86-4.86)
[2022-09-03 17:28] LABS: BUN Blood Urea Nitrogen 13 mg/dL (7-18); Bicarbonate 25 mEq/L (21-32); Glomerular Filtration Rate 89 ml/min (=/>90); Glucose Level 116 mg/dL (74-106); Potassium 3.5 mEq/L (3.5-5.1); Sodium Level 135 mEq/L (136-145)
[2022-09-03 17:30] LABS: Troponin High Sensitivity < 3.0 pg/mL (<58.9)
--- NOTE | 2022-09-03 19:47 | ER ---
Nurse's Notes [facility] Name: Hannah Oneill Age: 42 yrs Sex: Female : 1980 Arrival Date: 09/03/2022 Time: 16:09 Bed 14 Private MD: Diagnosis: Chest pain, unspecified Presentation: 09/03 16:10 Chief complaint: Patient states: Chest pain, onset 2 hours ago, stabbing in nature. Was nj1 doing laundry when it started. States she was feeling short of breath last night. "unable to yawn, hurts really bad when I take a deep breath". Coronavirus screen: Vaccine status: Patient reports being unvaccinated. Ebola Screen: Patient denies travel to an Ebola-affected area in the 21 days before illness onset. Initial Sepsis Screen: Does the patient meet any 2 criteria? HR > 90 bpm. No. Patient's initial sepsis screen is negative. Does the patient have a suspected source of infection? No. Patient's initial sepsis screen is negative. Risk Assessment: Do you want to hurt yourself or someone else? Patient reports no desire to harm self or others. Onset of symptoms was September 03, 2022 at 14:00. 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 - Irregular menses rv Historical: - Allergies: 16:21 cherries; nj1 16:21 Chives; il1 16:21 clams; [facility] 16:21 coconuts; [facility] 16:21 codeine sulfate; [facility] 16:21 Demerol; [facility] 16:21 Ibuprofen (Throat Swells); [facility] 16:21 Latex, Natural Rubber; [facility] 16:21 Morphine (Anaphylaxis); [facility] - PMHx: 16:21 Hill's Palsy; Hypothyroidism; Pseudo-seizures; Migraines; stroke; TIA; [facility] - PSHx: 16:21 Yang knee sx; hysterectomy; nj1 - Immunization history:: Client reports having NOT received the Covid vaccine. - Social history:: Smoking status: Patient reports the use of cigarette tobacco products, smokes one-half pack cigarettes per day. Screenin:05 [facility] ED Fall Risk Assessment (Adult) History of falling in the last 3 months, db including since admission No falls in past 3 months (0 pts) Confusion or Disorientation No (0 pts) Intoxicated or Sedated No (0 pts) Impaired Gait No (0 pts) Mobility Assist Device Used No (0 pt) Altered Elimination No (0 pt) Score/Fall Risk Level 0 - 2 = Low Risk Oriented to surroundings, Maintained a safe environment. Abuse screen: Denies threats or abuse. Denies injuries from another. Nutritional screening: No deficits noted. Tuberculosis screening: No symptoms or risk factors identified. Assessment: 16:55 Reassessment: Patient appears in no apparent distress at this time. Patient and/or db family updated on plan of care and expected duration. Pain level reassessed. Patient is alert, oriented x 3, equal unlabored respirations, skin warm/dry/pink. complains of chest pain with SOB. General: Appears in no apparent distress. comfortable, Behavior is calm, cooperative. Pain: Pain does not radiate. Pain began gradually. Cardiovascular: Reports chest pain, Capillary refill < 3 seconds. 17:05 Reassessment: radiology at patient bedside. db 18:00 Reassessment: Patient appears in no apparent distress at this time. Patient and/or db family updated on plan of care and expected duration. Pain level reassessed. Patient is alert, oriented x 3, equal unlabored respirations, skin warm/dry/pink. Vital Signs: 16:10 BP 118 / 78; Pulse 96; Resp 18; Temp 99.3; Pulse Ox 100% on R/A; Weight 78.02 kg; nj1 Height 4 ft. 10 in. ; Pain 7/10; 16:30 BP 115 / 76; Pulse 81; Resp 16; Pulse Ox 96% on R/A; db 17:48 BP 116 / 66; Pulse 79; Resp 16; Pulse Ox 99% on R/A; db 18:30 BP 105 / 36; Pulse 82; Resp 16; Pulse Ox 95% on R/A; db 19:35 BP 110 / 68; Pulse 81; Resp 18; Temp 98.1; Pulse Ox 99% on R/A; rv 16:10 Body Mass Index 35.95 (78.02 kg, 147.32 cm) [facility] 16:10 Pain Scale: Adult nj1 Brigitte Coma Score: 20:03 Eye Response: spontaneous(4). Motor Response: obeys commands(6). Verbal Response: rv oriented(5). Total: 15. ED Course: 16:10 Patient arrived in ED. am2 16:15 Oneal Romo PA is PHCP. [facility] 16:15 Chay Gallo MD is Attending Physician. m 16:21 Triage completed. nj1 16:22 Arm band placed on left wrist. nj1 16:27 Inserted saline lock: 20 gauge in left forearm, using aseptic technique. Blood nj1 collected. 16:39 Felicia Vela, RN is Primary Nurse. db 19:04 XRAY Chest (1 view) In Process Unspecified. EDMS 19:19 Patient has correct armband on for positive identification. Client placed on continuous db cardiac and pulse oximetry monitoring. NIBP monitoring applied. 19:46 Wayne Bro MD is Referral Physician. [facility] 20:04 No provider procedures requiring assistance completed. IV discontinued, intact, rv bleeding controlled, No redness/swelling at site. Pressure dressing applied. Patient maintains SpO2 saturation greater than 95% on room air. Administered Medications: 16:55 Drug: Ativan IVP 1 mg Route: IVP; Site: right antecubital; db 17:54 Follow up: Response: No adverse reaction db 16:55 Drug: Levalbuterol Inhalation 1.25 mg Route: Inhalation; db 17:54 Follow up: Response: No adverse reaction db Medication: 20:04 VIS not applicable for this client. rv Outcome: 19:46 Discharge ordered by . m 20:04 Discharged to home ambulatory, with family. rv 20:04 Condition: good 20:04 Discharge instructions given to patient, Instructed on discharge instructions, follow up and referral plans. medication usage, Demonstrated understanding of instructions, follow-up care, medications, Prescriptions given X 1. 20:04 Patient left the ED. rv Signatures: Dispatcher [employer] EDMS Oneal Romo PA PA jmm Moreno, Amanda am2 Eddy Chao RN RN rv Felicia Vela, KWESI OROSCO db Bibi Hyman RN RN nj1
--- NOTE | 2022-09-03 19:47 | EDPHYS ---
Physician Documentation [facility] Name: Hannah Oneill Age: 42 yrs Sex: Female : 1980 Arrival Date: 09/03/2022 Time: 16:09 Bed 14 Private MD: SCARLETT Physician Chay Gallo HPI: 09/03 16:26 This 42 yrs old Female presents to ER via Ambulatory with complaints of Chest [facility] Pain, Breathing Difficulty. 16:26 This is a 42-year-old female with history of hypothyroidism pseudoseizures migraines [facility] emerged department with complaints of substernal chest pain beginning approximately 2 hours prior to arrival. Patient states symptoms started while she was getting laundry. Patient also complains of shortness of breath. Denies fever. . 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 - Social history:: Smoking status: Patient reports the use of cigarette tobacco products, smokes one-half pack cigarettes per day. ROS: 16:26 Constitutional: Negative for fever, chills, and weight loss. jmm 16:26 Cardiovascular: Positive for chest pain. 16:26 Respiratory: Positive for cough. 16:26 All other systems are negative. Exam: 16:26 Constitutional: This is a well developed, well nourished patient who is awake, alert, jmm and in no acute distress. Head/Face: atraumatic. Eyes: EOMI, no conjunctival erythema appreciated ENT: Moist Mucus Membranes Neck: Trachea midline, Supple Chest/axilla: Normal chest wall appearance and motion. Cardiovascular: Regular rate and rhythm. No edema appreciated Respiratory: Normal respirations, no respiratory distress appreciated Abdomen/GI: Non distended Back: Normal ROM Skin: General appearance color normal MS/ Extremity: Moves all extremities, no obvious deformities appreciated, no edema noted to the lower extremities Neuro: Awake and alert Psych: Behavior is normal, Mood is normal, Patient is cooperative and pleasant Vital Signs: 16:10 BP 118 / 78; Pulse 96; Resp 18; Temp 99.3; Pulse Ox 100% on R/A; Weight 78.02 kg; nj1 Height 4 ft. 10 in. ; Pain 7/10; 16:30 BP 115 / 76; Pulse 81; Resp 16; Pulse Ox 96% on R/A; db 17:48 BP 116 / 66; Pulse 79; Resp 16; Pulse Ox 99% on R/A; db 18:30 BP 105 / 36; Pulse 82; Resp 16; Pulse Ox 95% on R/A; db 19:35 BP 110 / 68; Pulse 81; Resp 18; Temp 98.1; Pulse Ox 99% on R/A; rv 16:10 Body Mass Index 35.95 (78.02 kg, 147.32 cm) [facility] 16:10 Pain Scale: Adult nj1 [place] Coma Score: 20:03 Eye Response: spontaneous(4). Motor Response: obeys commands(6). Verbal Response: rv oriented(5). Total: 15. MDM: 16:26 Patient medically screened. jae 19:45 Differential diagnosis: ACS, pulmonary embolism, pneumonia, pneumothorax, anxiety jmm reaction. Data reviewed: vital signs, nurses notes. 19:45 Consideration of Admission/Observation Escalation of care including [facility] admission/observation considered. Counseling: I had a detailed discussion with the patient and/or guardian regarding: the historical points, exam findings, and any diagnostic results supporting the discharge/admit diagnosis, lab results, radiology results, the need for outpatient follow up, to return to the emergency department if symptoms worsen or persist or if there are any questions or concerns that arise at home. ED course: Patient states feeling much better. Patient advised follow-up PCP otherwise given strict return precautions. Patient understood agrees plan of care.. 09/03 16:38 Order name: Basic Metabolic Panel; Complete Time: 17:47 [facility] 09/03 16:38 Order name: CBC with Diff; Complete Time: 17:47 [facility] 09/03 16:38 Order name: D-Dimer; Complete Time: 17:47 [facility] 09/03 16:38 Order name: Troponin HS; Complete Time: 17:47 [facility] 09/03 18:14 Order name: Troponin High Sensitivity: repeat at 6 pm; Complete Time: 19:47 [facility] 09/03 16:38 Order name: XRAY Chest (1 view) [facility] 09/03 16:38 Order name: EKG; Complete Time: 16:39 [facility] 09/03 16:38 Order name: Cardiac monitoring; Complete Time: 16:49 [facility] 09/03 16:38 Order name: EKG - Nurse/Tech; Complete Time: 16:49 [facility] 09/03 16:38 Order name: IV Saline Lock; Complete Time: 16:49 [facility] 09/03 16:38 Order name: Labs collected and sent; Complete Time: 17:54 [facility] 09/03 16:38 Order name: O2 Per Protocol; Complete Time: 16:49 [facility] 09/03 16:38 Order name: O2 Sat Monitoring; Complete Time: 16:49 [facility] Administered Medications: 16:55 Drug: Ativan IVP 1 mg Route: IVP; Site: right antecubital; db 17:54 Follow up: Response: No adverse reaction db 16:55 Drug: Levalbuterol Inhalation 1.25 mg Route: Inhalation; db 17:54 Follow up: Response: No adverse reaction db Disposition Summary: 09/03/22 19:46 Discharge Ordered Location: Home [facility] Condition: Stable [facility] Diagnosis - Chest pain, unspecified [facility] Followup: [facility] - With: Wayne Bro MD - When: 2 - 3 days - Reason: Recheck today's complaints, Continuance of care, Re-evaluation by your physician Discharge Instructions: - Discharge Summary Sheet [facility] - Nonspecific Chest Pain, Adult [facility] Forms: - Medication Reconciliation Form [facility] - Thank You Letter [facility] - Antibiotic Education [facility] - Prescription Opioid Use [facility] Prescriptions: - Pepcid 20 mg Oral Tablet - take 1 tablet by ORAL route every 12 hours for 10 days; 20 tablet; Refills: 0, [facility] Product Selection Permitted Signatures: Dispatcher [employer] Chay Gregg MD MD cha Mickail, Joel, PA PA jmm Benton, Danielle RN RN db Bibi Hyman RN RN nj1
--- NOTE | 2022-09-03 20:11 | RAD REPORT ---
EXAM DESCRIPTION: MENDYChest Single View09/03/2022 7:03 pm CLINICAL HISTORY: CHEST PAIN COMPARISON: Chest Single View dated 10/31/2020; Chest Single View dated 07/06/2020; Chest Single View dated 12/18/2019; Chest Single View dated 02/04/2017 TECHNIQUE: Portable AP view of the chest. FINDINGS: The lungs are clear. Decreased inspiratory effort limits evaluation. No pneumothorax or ef fusion. The cardiomediastinal contours are unremarkable. IMPRESSION: No acute cardiopulmonary process.
[2022-09-03 20:44] VITALS: BP 110/68; TEMP 98.1; O2SAT 99
--- NOTE | 2022-09-04 07:27 | EKG ---
Test Date: 2022-09-03 Test Time: 16:16:43 Washer Hand: NEW MEASUREMENT RESULTS: Intervals: Rate: 89 DE: 118 QRSD: 82 QT: 364 QTc: 442 [place]: P: 73 DE: 118 QRS: 64 T: 51 INTERPRETIVE STATEMENTS: Normal sinus rhythm Low voltage QRS Borderline ECG Compared to ECG 10/31/2020 19:45:33 No significant changes Electronically Signed On 09-04-22 07:25:16 CDT by Chester Bonner
== END 2022-09-03 20:04 | disposition home or self-care (01) ==
LOC: ER 16:09
DX: R07.9 Chest pain, unspecified (principal); R06.02 Shortness of breath; F17.210 Nicotine dependence, cigarettes, uncomplicated; Z88.5 Allergy status to narcotic agent; Z88.6 Allergy status to analgesic agent; Z91.013 Allergy to seafood; Z91.018 Allergy to other foods; Z91.040 Latex allergy status
CPT/HCPCS: 93005; 85025; 80048; 36415; 85379; 84484 ×2; 71045; 96374; 99285; J7614